=== PATIENT | female | born 1945 | race Caucasian/White ===

== ENCOUNTER → 2016-06-14 | Outpatient (CLI) | payer OTHER ==
[~2016-06-14] MED LIST: ASCO500T3 PO; ASPEC81 PO; ATOR-24 PO; B-COTAB18 PO; CHOLCAP5 PO; LATA0.5S OPL; LISI-461 PO; LISI-789 PO; LISI10TA PO; MELA1TAB18 PO; PLV75 PO; TIMO0.2534 OP; TIMO0.5S2 OP; TPRSR/100 PO; WHEAOIL4 PO; [UNRECOGNIZED DRUG - CODE] PO
[2016-06-14 14:41] LABS: ALT/SGPT 41 U/L (12-78); AST/SGOT 38 U/L (15-37); BLOOD UREA NITROGEN 22 mg/dl (7-18); BUN/CREATININE RATIO 28.2 (10-20); CARBON DIOXIDE 27 mmol/L (21-32); CHLORIDE 108 mmol/L (98-107); CREATININE 0.79 mg/dl (0.60-1.20); GLUCOSE 89 mg/dl (70-99); POTASSIUM 4.1 mmol/L (3.5-5.1); SODIUM 143 mmol/L (136-145)
[2016-06-14 14:43] LABS: ALB/GLOB RATIO 0.9 (0.9-2); ALKALINE PHOSPHATASE 77 U/L (45-117)
== END | disposition home or self-care (01) ==
LOC: C.LABBC 11:56
PROVIDERS: ATTEND Internal Medicine
DX: I10 Essential (primary) hypertension (principal)

== ENCOUNTER → 2016-12-05 | Outpatient (CLI) | payer OTHER ==
[2016-12-05 12:29] LABS: BASO % 0.2 %; BASO ABS # 0.01 K/uL (0-0.2); COMPLETE YES; EOS % 7.4 %; HEMATOCRIT 38.1 % (37-47); LYMPH % 37.8 %; MEAN CELL VOLUME 95.3 fL (80-100); MEAN CORPUSCULAR HEMOGLOBIN 30.5 pg (25-34); MEAN PLATELET VOLUME 11.5 fL (7.4-10.4); MONO % 11.3 %; NEUT % 43.3 %; PLATELET COUNT 209 K/uL (130-400); WHITE BLOOD COUNT 4.76 K/uL (4.8-10.8)
[2016-12-05 12:46] LABS: ALT/SGPT 34 U/L (12-78); BLOOD UREA NITROGEN 30 mg/dl (7-18); BUN/CREATININE RATIO 32.6 (10-20); CALCIUM 9.2 mg/dl (8.5-10.1); CARBON DIOXIDE 28 mmol/L (21-32); CHLORIDE 108 mmol/L (98-107); CHOLESTEROL 209 mg/dl (0-200); CREATININE 0.93 mg/dl (0.60-1.20); GLUCOSE 86 mg/dl (70-99); POTASSIUM 4.2 mmol/L (3.5-5.1); SODIUM 141 mmol/L (136-145); TRIGLYCERIDES 60 mg/dl (0-150); VERY LOW DENSITY LIPOPROT CALC 12 mg/dl
[2016-12-05 12:56] LABS: ALB/GLOB RATIO 0.9 (0.9-2); ALKALINE PHOSPHATASE 63 U/L (45-117); AST/SGOT 32 U/L (15-37); CHOLESTEROL/HDL RATIO 2.1; HDL CHOLESTEROL 98 mg/dl; LDL CHOLESTEROL CALCULATED 99 mg/dl
--- NOTE | 2016-12-09 13:43 | CODING QUERY MEDICAL NECESSITY ---
SUPPORTING DIAGNOSIS NEEDED A supporting diagnosis is required for the test/procedure performed on this patient in order for us to be reimbursed by the patient's insurance. Please provide a supporting diagnosis for the following test/procedure listed below next to the test name along with your signature. *If there is no additional diagnosis for this patient that would support the following test/procedure please document that below next to the test/procedure. Test(s)/Procedure(s) that require a supporting diagnosis: * VITAMIN D, 25-HYDROXY DIAGNOSIS: Provider Signature: Date: Thank you Ijeoma Arita [employer] Information Management Once completed, please kindly fax back to [phone] For questions please call [phone]
== END | disposition home or self-care (01) ==
LOC: C.LABBFT 09:29
PROVIDERS: ATTEND Internal Medicine
DX: E73.9 Lactose intolerance, unspecified (principal); M19.90 Unspecified osteoarthritis, unspecified site; Z13.21 Encounter for screening for nutritional disorder

== ENCOUNTER → 2017-02-01 | Outpatient (CLI) | payer OTHER ==
[2017-02-01 18:22] LABS: ALT/SGPT 35 U/L (12-78); AST/SGOT 32 U/L (15-37); BLOOD UREA NITROGEN 26 mg/dl (7-18); BUN/CREATININE RATIO 34.6 (10-20); CALCIUM 9.1 mg/dl (8.5-10.1); CARBON DIOXIDE 28 mmol/L (21-32); CHLORIDE 107 mmol/L (98-107); CREATININE 0.74 mg/dl (0.60-1.20); GLUCOSE 89 mg/dl (70-99); POTASSIUM 3.7 mmol/L (3.5-5.1); SODIUM 142 mmol/L (136-145)
[2017-02-01 18:24] LABS: ALB/GLOB RATIO 0.9 (0.9-2); ALKALINE PHOSPHATASE 73 U/L (45-117)
[2017-02-01 18:28] LABS: URINE APPEARANCE CLEAR (CLEAR); URINE BILIRUBIN NEG (NEG); URINE COLOR YELLOW; URINE EPITHELIAL CELL AUTO 0-5 /lpf (0-5); URINE NITRITE NEG (NEG); URINE PH 6.5 (4.5-7.5); URINE SPECIFIC GRAVITY 1.019 (1.000-1.030); UROBILINOGEN NEG (NEG)
[2017-02-01 18:51] LABS: MANUAL MICROSCOPIC REQUIRED? NO; REVIEW REQ? NO
== END | disposition home or self-care (01) ==
LOC: C.LABBC 12:31
PROVIDERS: ATTEND Internal Medicine
DX: I10 Essential (primary) hypertension (principal)

== ENCOUNTER 2017-02-06 11:34 | Inpatient (IN) | payer OTHER ==
[~2017-02-06] VITALS: Ht 157.5 cm; Wt 56.2 kg
[~2017-02-06 11:34] MED LIST changes: -ASPEC81 PO; -ATOR-24 PO; -LISI-461 PO; -LISI10TA PO; -PLV75 PO; -TIMO0.5S2 OP; -WHEAOIL4 PO
[2017-02-06] MEDS ORDERED: SODIUM CHLORIDE 0.9% 1000ML 1,000 ML IV STA ×2 (12:18→14:46)
[2017-02-06] MEDS ORDERED: ONDANSETRON INJ 2 MG/ML 2 ML VIAL IV STA (12:18)
[2017-02-06 12:36] LABS: BASO % 0.2 %; BASO ABS # 0.01 K/uL (0-0.2); COMPLETE YES; EOS % 3.6 %; HEMATOCRIT 36.9 % (37-47); LYMPH % 35.4 %; LYMPH ABS # 1.57 K/uL (1.2-3.4); MEAN CELL VOLUME 92.7 fL (80-100); MEAN CORPUSCULAR HEMOGLOBIN 31.4 pg (25-34); MEAN CORPUSCULAR HGB CONC 33.9 g/dl (32-36); MEAN PLATELET VOLUME 10.7 fL (7.4-10.4); MONO % 8.6 %; NEUT % 52.2 %; PLATELET COUNT 192 K/uL (130-400); RED BLOOD COUNT 3.98 M/uL (4.2-5.4); WHITE BLOOD COUNT 4.44 K/uL (4.8-10.8)
[2017-02-06] MEDS ORDERED: WHEAOIL4 PO (12:41)
[2017-02-06] MEDS ORDERED: TIMO0.5S2 OP (12:41)
[2017-02-06] MEDS ORDERED: LISI10TA PO (12:41)
[2017-02-06] MEDS ORDERED: LISI-461 PO (12:41)
[2017-02-06] MEDS ORDERED: OPTIRAY 320 IV PRN (12:45)
--- NOTE | 2017-02-06 12:49 | DIAGNOSTIC IMAGING REPORT ---
CHEST ONE VIEW PORTABLE CLINICAL HISTORY: CHEST PAIN dyspnea COMPARISON STUDY: 04/29/2013 FINDINGS: The bones soft tissues and hemidiaphragms are normal. The cardiomediastinal silhouette is normal. The lungs are clear. The pulmonary vasculature is normal. IMPRESSION: Negative chest. The above report was generated using voice recognition software. It may contain grammatical, syntax or spelling errors. Electronically signed by: Abilio Valladares M.D. 02/06/2017 12:48 PM Dictated Date/Time: 02/06/2017 12:48 PM
[2017-02-06 12:56] LABS: ALT/SGPT 30 U/L (12-78); AST/SGOT 29 U/L (15-37); BLOOD UREA NITROGEN 17 mg/dl (7-18); BUN/CREATININE RATIO 24.8 (10-20); CALCIUM 9.1 mg/dl (8.5-10.1); CARBON DIOXIDE 27 mmol/L (21-32); CHLORIDE 108 mmol/L (98-107); CREATININE 0.67 mg/dl (0.60-1.20); GLUCOSE 91 mg/dl (70-99); POTASSIUM 3.7 mmol/L (3.5-5.1); SODIUM 141 mmol/L (136-145)
[2017-02-06 13:02] LABS: ALKALINE PHOSPHATASE 58 U/L (45-117)
[2017-02-06 13:21] LABS: URINE APPEARANCE CLEAR (CLEAR); URINE BILIRUBIN NEG (NEG); URINE COLOR YELLOW; URINE EPITHELIAL CELL AUTO 0-5 /lpf (0-5); URINE NITRITE NEG (NEG); URINE SPECIFIC GRAVITY 1.014 (1.000-1.030); UROBILINOGEN NEG (NEG)
[2017-02-06 13:22] LABS: MANUAL MICROSCOPIC REQUIRED? NO; REVIEW REQ? NO
[2017-02-06] MEDS ORDERED: METOCLOPRAMIDE HCL INJ 5 MG/ML 2 ML VIAL IV STA (13:33)
[2017-02-06] MEDS ORDERED: HydrALAZINE HCL 20 MG/ML VIAL IV. STA (13:33)
[2017-02-06] MEDS ORDERED: DiphenhydrAMINE HCL 50 MG/ML VIAL IV STA (13:33)
--- NOTE | 2017-02-06 14:35 | DIAGNOSTIC IMAGING REPORT ---
ANGIOGRAPHY HEAD COMBO CLINICAL HISTORY: 71 years-old Female presenting with nausea, headache, dizziness, blood pressure elevated per patient, instructed to come in to the ER, history of subarachnoid hemorrhage. TECHNIQUE: Multidetector CT angiography of the head was performed after the administration of intravenous contrast. 3-D volumetric and/or maximum intensity projection (MIP) images were subsequently reconstructed for review. IV contrast: 119 mL of Optiray 320. A dose lowering technique was used consistent with the principles of ALARA (as low as reasonably achievable). COMPARISON: Noncontrast CT head from 07/03/2013. CT DOSE (mGy.cm): The estimated cumulative dose is 1079.48 mGy.cm. FINDINGS: Chief Hospital Administrator topogram: An aneurysm clip is noted. Noncontrast CT head demonstrates right frontal anatomy with postsurgical changes of an aneurysm clip in the region of the left internal carotid artery terminus. This is unchanged from prior exam. Where before a large acute hematoma was evident in the left frontal region in 2013, cystic encephalomalacia and gliosis are evident in the left frontotemporal region. Resulting ex vacuo dilatation of the frontal horn of the left lateral ventricle. No hydrocephalus. Old lacunar infarcts also noted in the left basal ganglia. No major vascular territory infarct or hemorrhage. No extra-axial collection. Paranasal sinuses and mastoid air cells clear. Postcontrast angiographic images demonstrate aneurysm clip in the region of the left carotid terminus. Anterior circulation including the intracranial portions of the bilateral internal carotid arteries, middle and anterior cerebral arteries and anterior to indicating artery patent. Posterior circulation demonstrates codominant vertebral arteries. Basilar artery and bilateral superior cerebellar and posterior cerebral arteries patent. Right posterior communicating artery hypoplastic or aplastic. Left posterior communicating artery widely patent. No evidence of an aneurysm, focal vessel occlusion, or stenosis. Dural venous sinuses and cortical veins patent. IMPRESSION: 1. No acute intracranial pathology. No hemorrhage. 2. Expected interval evolution of left frontotemporal parenchymal hematoma with cystic encephalomalacia and gliosis now evident. 3. Lacunar infarcts in the left basal ganglia. 4. No evidence of an aneurysm, focal vessel occlusion, or stenosis in the intracranial vasculature. 5. Postsurgical changes of aneurysm clip in the region of the left internal carotid artery terminus. Electronically signed by: Karsten Tabor M.D. 02/06/2017 2:34 PM Dictated Date/Time: 02/06/2017 2:22 PM
--- NOTE | 2017-02-06 14:37 | DIAGNOSTIC IMAGING REPORT ---
CT NECK ANGIO WITH CONTRAST CLINICAL HISTORY: Nausea, headache, dizziness, hypertension. COMPARISON STUDY: No previous studies for comparison. TECHNIQUE: CT angiography was performed from the aortic arch to the skull base. MIP imaging was performed. The patient was scanned in a dynamic helical fashion during intravenous administration of 119 cc of Optiray 320. A dose lowering technique was utilized adhering to the principles of ALARA. CT DOSE: Technique: CT angiogram of the carotid and vertebral arteries was obtained using intravenous contrast and 3-D reconstruction. NASCET criteria was utilized. Findings: The right internal carotid revealed no evidence of aneurysm and no evidence of dissection. There is no evidence of hemodynamic significant stenosis. The left internal carotid revealed no evidence of hemodynamic significant stenosis. There is no evidence of aneurysm. There is no evidence of dissection. There is linear eccentric plaque within the anteromedial aspect of the left common carotid artery. No dissection flap is visualized. Given the linear configuration of plaque, one cannot with certainty exclude an old thrombosed segmental dissection. There is a moderate stenosis involving the left external carotid margin. There is significant stenosis involving the right vertebral artery, just distal to its origin. This estimated to measure approximately 80%. 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 This results in a 40% diameter narrowing. IMPRESSION: 1. No evidence of hemodynamically significant internal carotid artery stenosis 2. Somewhat unusual eccentric linear plaque within the left common carotid. An old thrombosed dissection cannot be excluded 3. Stenosis involving the right vertebral artery just distal to its margin. This is estimated to measure 80% 4. 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 This results in a 40% diameter narrowing. Electronically signed by: Justin Pastor M.D. 02/06/2017 2:36 PM Dictated Date/Time: 02/06/2017 2:21 PM
--- NOTE | 2017-02-06 15:52 | EMERGENCY ROOM VISIT NOTE ---
History Report prepared by Navya: Mary Carr Under the Supervision of: Dr. Roman Griffiths M.D. First contact with patient: 12:06 Chief Complaint: REFERRED BY DOCTOR Stated Complaint: HBP, DIZZINESS, NASUEA,HEADACHE History of Present Illness The patient is a 71 year old female who presents to the Emergency Room with complaints of persistent weakness starting 2 weeks ago. She called her doctor and was told to come to the ED. She has been feeling dizzy, weak, and nauseous for the past 2 weeks. Last week, she went to have foot surgery and found that her blood pressure was in the 220s. She followed up with her doctor and her blood pressure medications were increased, but she has not had any improvement. Last week, she had some left leg pain which kept her up at night. She was laying in bed yesterday and felt like she was falling. She has not experienced this dizziness before. She also had a headache yesterday which she usually does not get. She has had cough and congestion for the past 2 weeks also. She denies any leg swelling, abdominal pain, fever, chills, chest pain, SOB, or vomiting. She currently does not feel dizzy, but does feel weak and nauseous. She has been able to eat. She denies any recent falls. She denies any previous abdominal surgeries. 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 Source of History: patient Onset: 2 weeks ago Position: other (global) Quality: other (weakness) Timing: other (persistent) Associated Symptoms: + headache, + cough, + nausea, No fevers, No chills, No chest pain, No SOB, No vomiting, No abdominal pain Note: Pt reports dizziness, congestion, leg pain, high blood pressure. Pt denies leg swelling. Review of Systems See HPI for pertinent positives and negatives. A total of ten systems were reviewed and were otherwise negative. Past Medical & Surgical Medical Problems: (1) Aneurysm (2) Hypertension (3) Infected cat bite of forearm (4) Weakness Family History No pertinent family history stated. Social History Smoking Status: Never Smoker Alcohol Use: none Housing Status: lives with family Current/Historical Medications Scheduled Ascorbic Acid (Vitamin C), 1,000 MG PO DAILY B-Complex Vitamins (Vitamin B Complex), 1 TABLET PO DAILY Cholecalciferol (Vitamin D3), 5,000 INTER.UNIT PO DAILY Lisinopril (Lisinopril), 20 MG PO QAM Lisinopril (Prinivil), 10 MG PO QPM Metoprolol Succinate (Metoprolol Succinate ER), 50 MG PO BID Timolol Maleate (Ophth) (Timoptic-Xe 0.5% Oph), 1 DROPS OP QAM Wheat Germ Oil (Wheat Germ), 1 CAP PO DAILY Scheduled PRN Melatonin (Melatonin Cr), 10 MG PO HS PRN for Sleep Allergies Coded Allergies: Vancomycin (Verified Allergy, Mild, HIVES, 02/06/17) pruritis Physical Exam Vital Signs Date Time Temp Pulse Resp B/P (MAP) Pulse Ox O2 Delivery O2 Flow Rate FiO2 02/06/17 14:48 54 16 162/85 96 Room Air NIBP 02/06/17 14:06 59 16 222/149 96 Room Air 02/06/17 13:04 51 16 214/106 99 Room Air 02/06/17 12:34 98 Room Air 02/06/17 12:04 50 02/06/17 11:57 49 16 202/82 96 Room Air 02/06/17 11:44 36.6 57 18 180/99 96 Room Air Physical Exam GENERAL: Awake, alert, fatigued-appearing, in no distress HENT: Normocephalic, atraumatic. Oropharynx unremarkable. Dry mucous membranes. EYES: Normal conjunctiva. Sclera non-icteric. NECK: Supple. No nuchal rigidity. FROM. No JVD. RESPIRATORY: Clear to auscultation. CARDIAC: Regular rate, normal rhythm. Extremities warm and well perfused. Pulses equal. ABDOMEN: Soft, non-distended. No tenderness to palpation. No rebound or guarding. No masses. RECTAL: Deferred. MUSCULOSKELETAL: Chest examination reveals no tenderness. The back is symmetrical on inspection without obvious abnormality. There is no CVA tenderness to palpation. No joint edema. LOWER EXTREMITIES: Calves are equal size bilaterally and non-tender. No edema. No discoloration. NEURO: Normal sensorium. No sensory or motor deficits noted. SKIN: No rash or jaundice noted. Medical Decision & Procedures ER Provider Diagnostic Interpretation: Radiology results as stated below per my review and radiologist interpretation: CHEST ONE VIEW PORTABLE CLINICAL HISTORY: CHEST PAIN dyspnea COMPARISON STUDY: 04/29/2013 FINDINGS: The bones soft tissues and hemidiaphragms are normal. The cardiomediastinal silhouette is normal. The lungs are clear. The pulmonary vasculature is normal. IMPRESSION: Negative chest. The above report was generated using voice recognition software. It may contain grammatical, syntax or spelling errors. Electronically signed by: Abilio Valladares M.D. 02/06/2017 12:48 PM Dictated Date/Time: 02/06/2017 12:48 PM ANGIOGRAPHY HEAD COMBO CLINICAL HISTORY: 71 years-old Female presenting with nausea, headache, dizziness, blood pressure elevated per patient, instructed to come in to the ER, history of subarachnoid hemorrhage. TECHNIQUE: Multidetector CT angiography of the head was performed after the administration of intravenous contrast. 3-D volumetric and/or maximum intensity projection (MIP) images were subsequently reconstructed for review. IV contrast: 119 mL of Optiray 320. A dose lowering technique was used consistent with the principles of ALARA (as low as reasonably achievable). COMPARISON: Noncontrast CT head from 07/03/2013. CT DOSE (mGy.cm): The estimated cumulative dose is 1079.48 mGy.cm. 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 Noncontrast CT head demonstrates right frontal anatomy with postsurgical changes of an aneurysm clip in the region of the left internal carotid artery terminus. This is unchanged from prior exam. Where before a large acute hematoma was evident in the left frontal region in 2013, cystic encephalomalacia and gliosis are evident in the left frontotemporal region. Resulting ex vacuo dilatation of the frontal horn of the left lateral ventricle. No hydrocephalus. Old lacunar infarcts also noted in the left basal ganglia. No major vascular territory infarct or hemorrhage. No extra-axial collection. Paranasal sinuses and mastoid air cells clear. Postcontrast angiographic images demonstrate aneurysm clip in the region of the left carotid terminus. Anterior circulation including the intracranial portions of the bilateral internal carotid arteries, middle and anterior cerebral arteries and anterior to indicating artery patent. Posterior circulation demonstrates codominant vertebral arteries. Basilar artery and bilateral superior cerebellar and posterior cerebral arteries patent. Right posterior communicating artery hypoplastic or aplastic. Left posterior communicating artery widely patent. No evidence of an aneurysm, focal vessel occlusion, or stenosis. Dural venous sinuses and cortical veins patent. IMPRESSION: 1. No acute intracranial pathology. No hemorrhage. 2. Expected interval evolution of left frontotemporal parenchymal hematoma with cystic encephalomalacia and gliosis now evident. 3. Lacunar infarcts in the left basal ganglia. 4. No evidence of an aneurysm, focal vessel occlusion, or stenosis in the intracranial vasculature. 5. Postsurgical changes of aneurysm clip in the region of the left internal carotid artery terminus. Electronically signed by: Karsten Tabor M.D. 02/06/2017 2:34 PM Dictated Date/Time: 02/06/2017 2:[address] NECK ANGIO WITH CONTRAST CLINICAL HISTORY: Nausea, headache, dizziness, hypertension. COMPARISON STUDY: No previous studies for comparison. TECHNIQUE: CT angiography was performed from the aortic arch to the skull base. MIP imaging was performed. The patient was scanned in a dynamic helical fashion during intravenous administration of 119 cc of Optiray 320. A dose lowering technique was utilized adhering to the principles of ALARA. CT DOSE: Technique: CT angiogram of the carotid and vertebral arteries was obtained using intravenous contrast and 3-D reconstruction. NASCET criteria was utilized. Findings: The right internal carotid revealed no evidence of aneurysm and no evidence of dissection. There is no evidence of hemodynamic significant stenosis. The left internal carotid revealed no evidence of hemodynamic significant stenosis. There is no evidence of aneurysm. There is no evidence of dissection. There is linear eccentric plaque within the anteromedial aspect of the left common carotid artery. No dissection flap is visualized. Given the linear configuration of plaque, one cannot with certainty exclude an old thrombosed segmental dissection. There is a moderate stenosis involving the left external carotid margin. There is significant stenosis involving the right vertebral artery, just distal to its origin. This estimated to measure approximately 80%. 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 This results in a 40% diameter narrowing. IMPRESSION: 1. No evidence of hemodynamically significant internal carotid artery stenosis 2. Somewhat unusual eccentric linear plaque within the left common carotid. An old thrombosed dissection cannot be excluded 3. Stenosis involving the right vertebral artery just distal to its margin. This is estimated to measure 80% 4. 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 This results in a 40% diameter narrowing. Electronically signed by: Justin Pastor M.D. 02/06/2017 2:36 PM Dictated Date/Time: 02/06/2017 2:21 PM Laboratory Results 02/06/17 12:20 Red Blood Count 3.98, Mean Corpuscular Volume 92.7, Mean Corpuscular Hemoglobin 31.4, Mean Corpuscular Hemoglobin Concent 33.9, Mean Platelet Volume 10.7, Neutrophils (%) (Auto) 52.2, Lymphocytes (%) (Auto) 35.4, Monocytes (%) (Auto) 8.6, Eosinophils (%) (Auto) 3.6, Basophils (%) (Auto) 0.2, Neutrophils # (Auto) 2.32, Lymphocytes # (Auto) 1.57, Monocytes # (Auto) 0.38, Eosinophils # (Auto) 0.16, Basophils # (Auto) 0.01 02/06/17 12:20 Test 02/06/17 12:20 02/06/17 13:04 White Blood Count 4.44 K/uL (4.8-10.8) Red Blood Count 3.98 M/uL (4.2-5.4) Hemoglobin 12.5 g/dL (12.0-16.0) Hematocrit 36.9 % (37-47) Mean Corpuscular Volume 92.7 fL (80-100) Mean Corpuscular Hemoglobin 31.4 pg (25-34) Mean Corpuscular Hemoglobin Concent 33.9 g/dl (32-36) Platelet Count 192 K/uL (130-400) Mean Platelet Volume 10.7 fL (7.4-10.4) Neutrophils (%) (Auto) 52.2 % Lymphocytes (%) (Auto) 35.4 % Monocytes (%) (Auto) 8.6 % Eosinophils (%) (Auto) 3.6 % Basophils (%) (Auto) 0.2 % Neutrophils # (Auto) 2.32 K/uL (1.4-6.5) Lymphocytes # (Auto) 1.57 K/uL (1.2-3.4) Monocytes # (Auto) 0.38 K/uL (0.11-0.59) Eosinophils # (Auto) 0.16 K/uL (0-0.5) Basophils # (Auto) 0.01 K/uL (0-0.2) RDW Standard Deviation 46.0 fL (36.4-46.3) RDW Coefficient of Variation 13.4 % (11.5-14.5) Immature Granulocyte % (Auto) 0.0 % Immature Granulocyte # (Auto) 0.00 K/uL (0.00-0.02) Prothrombin Time 10.7 SECONDS (9.0-12.0) Prothromb Time International Ratio 1.0 (0.9-1.1) Anion Gap 6.0 mmol/L (3-11) Est Creatinine Clear Calc Drug Dose 59.2 ml/min Estimated GFR () 101.1 Estimated GFR (Non- 87.2 BUN/Creatinine Ratio 24.8 (10-20) Calcium Level 9.1 mg/dl (8.5-10.1) Total Bilirubin 0.5 mg/dl (0.2-1) Direct Bilirubin 0.2 mg/dl (0-0.2) Aspartate Amino Transf (AST/SGOT) 29 U/L (15-37) Alanine Aminotransferase (ALT/SGPT) 30 U/L (12-78) Alkaline Phosphatase 58 U/L (45-117) Troponin I < 0.015 ng/ml (0-0.045) Total Protein 7.1 gm/dl (6.4-8.2) Albumin 3.4 gm/dl (3.4-5.0) Lipase 144 U/L (73-393) Urine Color YELLOW Urine Appearance CLEAR (CLEAR) Urine pH 5.0 (4.5-7.5) Urine Specific [place] 1.014 (1.000-1.030) Urine Protein NEG (NEG) Urine Glucose (UA) NEG (NEG) Urine Ketones NEG (NEG) Urine Occult Blood NEG (NEG) Urine Nitrite NEG (NEG) Urine Bilirubin NEG (NEG) Urine Urobilinogen NEG (NEG) Urine Leukocyte Esterase NEG (NEG) Urine WBC (Auto) 0 /hpf (0-5) Urine RBC (Auto) 0-4 /hpf (0-4) Urine Hyaline Casts (Auto) 0 /lpf (0-5) Urine Epithelial Cells (Auto) 0-5 /lpf (0-5) Urine Bacteria (Auto) NEG (NEG) Laboratory results reviewed by me Medications Administered Medications (Trade) Dose Ordered Sig/Dilcia Route Start Time Stop Time Status Last Admin Dose Admin Sodium Chloride 1,000 ml @ 999 mls/hr Q1H1M STAT IV 02/06/17 12:18 02/06/17 13:18 DC 02/06/17 12:18 999 MLS/HR Ondansetron HCl (Zofran Inj) 4 mg NOW STAT IV 02/06/17 12:18 02/06/17 12:21 DC 02/06/17 12:18 4 MG Hydralazine HCl (HydrALAZINE INJ) 10 mg NOW STAT IV. 02/06/17 13:33 02/06/17 13:34 DC 02/06/17 14:11 10 MG Metoclopramide HCl (Reglan Inj) 10 mg NOW STAT IV 02/06/17 13:33 02/06/17 13:34 DC 02/06/17 14:11 10 MG Diphenhydramine HCl (Benadryl Inj) 25 mg NOW STAT IV 02/06/17 13:33 02/06/17 13:34 DC 02/06/17 14:12 25 MG Sodium Chloride 1,000 ml @ 999 mls/hr Q1H1M STAT IV 02/06/17 14:46 02/06/17 15:46 DC 02/06/17 14:46 999 MLS/HR ECG Indication: weakness Rate (beats per minute): 52 Rhythm: sinus bradycardia (with sinus arrhythmia) Findings: no acute ischemic change, left axis deviation ED Course 1215: The patient was evaluated in room B10. A complete history and physical exam was performed. 1218: Zofran Inj 4 mg IV, NSS 1000 ml @ 999 mls/hr IV. 1333: Benadryl Inj 25 mg IV, Reglan Inj 10 mg IV, Hydralazine HCl 10 mg IV. 1446: NSS 1000 ml @ 999 mls/hr IV. 1448: Upon reexamination, the patient was resting comfortably. I discussed the test results and treatment plan with her. The patient will be evaluated for further management. 1459: I discussed the patient's case with Dr. Starr, [facility] hospitalist. The patient will be evaluated for further treatment and disposition. 1608: I discussed the patient's case with Dr. Knowles, [facility] neurology. She is aware of the patient. She recommends waiting for the MRI. If there is a stroke, treat with heparin. If there is no stroke, treat with aspirin and Plavix. Medical Decision I reviewed the patient's past medical history, medications, and the nursing notes as described above. Differential diagnosis: pneumonia, bronchitis, UTI, dehydration, electrolyte abnormality, gastritis, ACS. Patient is 71-year-old woman with a past medical history of hypertension, cerebral aneurysm status post clipping presents to emergency department with malaise fatigue and intermittent vertigo over the past couple of days history of present illness. Arrival the patient appears fatigued but in no acute distress, afebrile with stable vital signs. No nystagmus or vertigo on exam on arrival. Neurologically intact. NIHSS 0. CTA was done and showed the following findings: "Somewhat unusual eccentric linear plaque within the left common carotid. An old thrombosed dissection cannot be excluded.Stenosis involving the right vertebral artery just distal to its margin. This is estimated to measure 80%. 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 This results in a 40% diameter narrowing." Findings could explain the patients symptoms of vertigo. Moreover, associated embolic stroke also possible. Manual BP found to be more accurate with SBP 160 after hydralazine. With CVA still in DDX will allow BP <160. MRI ordered and pending. Neurology paged to advise on further management of of antiplatelet versus anticoagulation therapy. Case discussed with medicine hospitalist who admitted the patient for further management. Case d/w Dr. Knowles, [facility] neurology. She is aware of the patient. She recommends waiting for the MRI. If there is a stroke, treat with heparin. If there is no stroke, treat with aspirin and Plavix. MRI pending. Medication Reconcilliation Current Medication List: was personally reviewed by me Blood Pressure Screening Patient's blood pressure: Elevated blood pressure Referred to hospitalist. Consults Time Called: 1456 Consulting Physician: Dr. Starr [facility] hospitalist Returned Call: [phone] Discussed the patient's case. The patient will be evaluated for further treatment and disposition. Additional Consults: Time Called: 1456 Consulted Physician: Dr. Knowles [facility] neurology Returned Call: [phone] Additional Comments: I discussed the patient's case with her. She is aware of the patient. She recommends waiting for the MRI. If there is a stroke, treat with heparin. If there is no stroke, treat with aspirin and Plavix. Impression Primary Impression: Vertigo Additional Impression: Vertebral artery dissection Scribe Attestation The scribe's documentation has been prepared under my direction and personally reviewed by me in its entirety. I confirm that the note above accurately reflects all work, treatment, procedures, and medical decision making performed by me. Departure Information Dispostion Being Evaluated By Hospitalist Referrals Karsten Fung M.D. (PCP) Patient Instructions [facility] Problem Qualifiers
[2017-02-06] MEDS ORDERED: ALUMINUM/MAGNESIUM/SIMETH (MAALOX MAX) 30 ML UDC PO PRN (16:00)
[2017-02-06] MEDS ORDERED: POLYETHYLENE (MIRALAX) 17 GM PACK PO PRN (16:00)
[2017-02-06] MEDS ORDERED: PHARMACIST DISCHARGE MED REC CONSULT PRN (16:00)
[2017-02-06] MEDS ORDERED: ACETAMINOPHEN 325 MG TAB PO PRN (16:00)
[2017-02-06] MEDS ORDERED: ONDANSETRON INJ 2 MG/ML 2 ML VIAL IV PRN (16:00)
[2017-02-06] MEDS ORDERED: MAGNESIUM HYDROXIDE SUSP 30 ML UDC PO PRN (16:00)
[2017-02-06 16:18] VITALS: BP 162/85; PULSE 54; TEMP 36.6; O2SAT 96; Ht 157.5 cm; Wt 56.2 kg
--- NOTE | 2017-02-06 16:47 | History and Physical ---
History & Physical Date & Time of Service: Feb 06, 2017 at 16:19 Chief Complaint: Hbp, Dizziness, Nasuea,Headache Primary Care Physician: Karsten Fung M.D. History of Present Illness Source: patient, spouse, clinic records, hospital records This is a 71 y/o female with a history of ruptured brain aneurysm x 2 (1974, 2012), HTN, glaucoma, depression and insomnia who presented to the ED on 02/06 with dizziness, weakness and nausea x 2 weeks. The patient was supposed to have foot surgery in [place] last week to correct her hammertoes, but the surgery was canceled due to her SBP being in the 220s. She followed up with her PCP who increased her lisinopril. The patient states that she has had intermittent dizziness for the last few weeks. This often occurs even when laying down and is not associated with head movement or standing up. She has been having intermittent palpitations. She has also been feeling generally weak all over. She complains of intermittent nausea that is not associated with her meals or the dizziness, but she denies vomiting. She denies any vertigo, changes in vision, neck pain, one sided weakness, slurred speech and facial droop. She does admit to times of dysphasia, with the most recent episode being within the last month. The patient does state that she briefly developed some tingling in her left hand while in the ED, but this quickly resolved. The patient complains of a 5/10 headache located at the top of her head, which she states is unusual. She had a more severe headache yesterday as well, which is the first headache she had since her last aneurysm in 2012. The patient denies fevers, chills, sweats, chest pain, claudication, cough, wheezing , shortness of breath, vomiting, abdominal pain, dysuria, hematuria, urinary retention, and paralysis. Past Medical/Surgical History Medical Problems: (1) Brain aneurysm rupture in 1974, surgically clipped at [facility] [place]. Ruptured again 2012, fixed at [facility] Status: Chronic (2) Hypertension Status: Chronic (3) Infected cat bite of forearm Status: Resolved Glaucoma Depression Insomnia Social History Smoking Status: Former Smoker (quit about 40 years ago) Smokeless Tobacco Use: No Alcohol Use: none Drug Use: none Marital Status: Housing status: lives with significant other Occupational Status: retired Immunizations History of Influenza Vaccine: No History of Tetanus Vaccine?: Yes Tetanus Immunization Date: Mar 28, 2013 History of Pneumococcal: No History of Hepatitis B Vaccine: No Allergies Coded Allergies: Vancomycin (Verified Allergy, Mild, HIVES, 02/06/17) pruritis Home Medications Scheduled Ascorbic Acid (Vitamin C), 1,000 MG PO DAILY B-Complex Vitamins (Vitamin B Complex), 1 TABLET PO DAILY Cholecalciferol (Vitamin D3), 5,000 INTER.UNIT PO DAILY Lisinopril (Lisinopril), 20 MG PO QAM Lisinopril (Prinivil), 10 MG PO QPM Metoprolol Succinate (Metoprolol Succinate ER), 50 MG PO BID Timolol Maleate (Ophth) (Timoptic-Xe 0.5% Oph), 1 DROPS OP QAM Wheat Germ Oil (Wheat Germ), 1 CAP PO DAILY Scheduled PRN Melatonin (Melatonin Cr), 10 MG PO HS PRN for Sleep Review of Systems Constitutional: + weakness, No fever, No chills, No sweats Eyes: No worsening of vision, No eye pain, No diplopia ENT: No hearing loss, No sore throat, No trouble swallowing Respiratory: No cough, No wheezing, No shortness of breath Cardiovascular: + palpitations (intermittent), No chest pain, No claudication Abdomen: + nausea (intermittent), No pain, No vomiting Musculoskeletal: + muscle pain (left lower leg lateral aspect), No joint pain, No swelling Genitourinary - Female: No dysuria, No urinary retention, No hematuria Neurologic: + numbness/tingling (tingling left hand, resolved), No paralysis, No weakness Integumentary: No rash, No itch, No color change Physical Exam Vital Signs Date Time Temp Pulse Resp B/P (MAP) Pulse Ox O2 Delivery O2 Flow Rate FiO2 02/06/17 14:48 54 16 162/85 96 Room Air NIBP 02/06/17 14:06 59 16 222/149 96 Room Air 02/06/17 13:04 51 16 214/106 99 Room Air 02/06/17 12:34 98 Room Air 02/06/17 12:04 50 02/06/17 11:57 49 16 202/82 96 Room Air 02/06/17 11:44 36.6 57 18 180/99 96 Room Air General appearance: Well-developed, well-nourished, no apparent distress Head: Normocephalic, atraumatic Eyes: Normal inspection, PERRL, EOMI ENT: Normal ENT inspection, hearing grossly normal, pharynx normal Neck: Supple, no JVD, trachea midline Respiratory/Chest: Lungs clear to auscultation, normal breath sounds, no respiratory distress Cardiovascular: +Systolic murmur. Regular rate & rhythm, no gallop Abdomen/GI: Normal bowel sounds, non-tender, soft Extremities/Musculoskeletal: Normal inspection, no calf tenderness, no pedal edema Neurological/Psych: +No motor/sensory deficits. No facial droop or slurred speech. No pronator drift. Extremity strength 5/5 upper and lower bilaterally. Alert, normal mood/affect, oriented x 3 Skin: Normal color, warm/dry, no rash Diagnostics Laboratory Results Results Past 24 Hours Test 02/06/17 12:20 02/06/17 13:04 02/06/17 16:00 Range/Units White Blood Count 4.44 4.8-10.8 K/uL Red Blood Count 3.98 4.2-5.4 M/uL Hemoglobin 12.5 12.0-16.0 g/dL Hematocrit 36.9 37-47 % Mean Corpuscular Volume 92.7 80-100 fL Mean Corpuscular Hemoglobin 31.4 25-34 pg Mean Corpuscular Hemoglobin Concent 33.9 32-36 g/dl Platelet Count 192 130-400 K/uL Mean Platelet Volume 10.7 7.4-10.4 fL Neutrophils (%) (Auto) 52.2 % Lymphocytes (%) (Auto) 35.4 % Monocytes (%) (Auto) 8.6 % Eosinophils (%) (Auto) 3.6 % Basophils (%) (Auto) 0.2 % Neutrophils # (Auto) 2.32 1.4-6.5 K/uL Lymphocytes # (Auto) 1.57 1.2-3.4 K/uL Monocytes # (Auto) 0.38 0.11-0.59 K/uL Eosinophils # (Auto) 0.16 0-0.5 K/uL Basophils # (Auto) 0.01 0-0.2 K/uL RDW Standard Deviation 46.0 36.4-46.3 fL RDW Coefficient of Variation 13.4 11.5-14.5 % Immature Granulocyte % (Auto) 0.0 % Immature Granulocyte # (Auto) 0.00 0.00-0.02 K/uL Sodium Level 141 136-145 mmol/L Potassium Level 3.7 3.5-5.1 mmol/L Chloride Level 108 98-107 mmol/L Carbon Dioxide Level 27 21-32 mmol/L Anion Gap 6.0 3-11 mmol/L Blood Urea Nitrogen 17 7-18 mg/dl Creatinine 0.67 0.60-1.20 mg/dl Est Creatinine Clear Calc Drug Dose 59.2 ml/min Estimated GFR () 101.1 Estimated GFR (Non- 87.2 BUN/Creatinine Ratio 24.8 10-20 Random Glucose 91 70-99 mg/dl Calcium Level 9.1 8.5-10.1 mg/dl Total Bilirubin 0.5 0.2-1 mg/dl Direct Bilirubin 0.2 0-0.2 mg/dl Aspartate Amino Transf (AST/SGOT) 29 15-37 U/L Alanine Aminotransferase (ALT/SGPT) 30 12-78 U/L Alkaline Phosphatase 58 45-117 U/L Troponin I < 0.015 0-0.045 ng/ml Total Protein 7.1 6.4-8.2 gm/dl Albumin 3.4 3.4-5.0 gm/dl Lipase 144 73-393 U/L Urine Color YELLOW Urine Appearance CLEAR CLEAR Urine pH 5.0 4.5-7.5 Urine Specific [place] 1.014 1.000-1.030 Urine Protein NEG NEG Urine Glucose (UA) NEG NEG Urine Ketones NEG NEG Urine Occult Blood NEG NEG Urine Nitrite NEG NEG Urine Bilirubin NEG NEG Urine Urobilinogen NEG NEG Urine Leukocyte Esterase NEG NEG Urine WBC (Auto) 0 0-5 /hpf Urine RBC (Auto) 0-4 0-4 /hpf Urine Hyaline Casts (Auto) 0 0-5 /lpf Urine Epithelial Cells (Auto) 0-5 0-5 /lpf Urine Bacteria (Auto) NEG NEG Diagnostic Radiology Reviewed the following studies and agree with interpretation as follows: Patient Name: NATHALIA PHILLIPS Unit Number: [id number] Dictated: 02/06/178 Transcribed: 02/06/17 124 MS Printed Date/Time: [~ rep prt dt]/[~ rep prt tm] [~ rep ct labl] - [~ rep ct ivnm] [facility] [place] [address] Dictated: 02/06/17 1248 Transcribed: 02/06/17 1248 MS Printed Date/Time: [~ rep prt dt]/[~ rep prt tm] [~ rep ct labl] - [~ rep ct ivnm] Patient: NATHALIA PHILLIPS Address1: [address] [facility] Rec: [id number] Address2: Acct ID: [id number] [facility] Zip: [place] [address] Date: 1945 Sex: F Room/Bed: Ref Phy: Karsten Fung M.D. SC: REBECCA Att Phy: Report #: [id number] [place] Phy: Karsten Fung M.D. Test: CXR1P Admit Phy: A&P Technician: OTONIEL Interpreting Phy: Abilio Valladares M.D. Diagnosis: HBP, DIZZINESS, NASUEA, HEADACHE Ordering Phy: Roman Griffiths M.D. Service Date: 02/06/17 Admit Date: 02/06/17 MNE: PWRSCRIBE CONF: DICTATED BY: Abilio Valladares M.D.]] CC: Roman Griffiths M.D. Guillard, Paul, M.D. Endcc: [~ rep ct add3]] CHEST ONE VIEW PORTABLE CLINICAL HISTORY: CHEST PAIN dyspnea COMPARISON STUDY: 04/29/2013 FINDINGS: The bones soft tissues and hemidiaphragms are normal. The cardiomediastinal silhouette is normal. The lungs are clear. The pulmonary vasculature is normal. IMPRESSION: Negative chest. The above report was generated using voice recognition software. It may contain grammatical, syntax or spelling errors. Electronically signed by: Abilio Valladares M.D. 02/06/2017 12:48 PM Dictated Date/Time: 02/06/2017 12:48 PM The status of this report is Signed. Draft = Not yet reviewed or approved by Radiologist. Signed = Reviewed and approved by Radiologist. <AttendingPhy></AttendingPhy> <FamilyPhy>Karsten Fung M.D.</FamilyPhy> < PrimaryPhy>Karsten Fung M.D.</PrimaryPhy> <UnitNumber>[id number]</UnitNumber> <VisitNumber>[id number]</VisitNumber> <PatientName>NATHALIA PHILLIPS</PatientName> < DateOfBirth>1945</DateOfBirth> <Location>C.EDB</Location> <ServiceDate></ServiceDate> <MNE>ESINDI</MNE> <OrderingPhy>Roman Griffiths M.D.</ OrderingPhy> <OrderingPhyMNE>f rep ord dr sal</OrderingPhyMNE> <DictatingPhyMNE> f rep dict dr sal</DictatingPhyMNE> <CCListMNE>f rep ct mne</CCListMNE> < AdmittingPhyMNE>f pt admit dr sal</AdmittingPhyMNE> <AttendingPhyMNE>f pt attend dr sal</AttendingPhyMNE> <ConsultingPhyMNE>f pt consult dr sal</ConsultingPhyMNE> <FamilyPhyMNE>f pt fam dr sal</FamilyPhyMNE> <OtherPhyMNE>f pt other dr sal</OtherPhyMNE> < PrimaryPhyMNE>f pt prim care dr sal</PrimaryPhyMNE> <ReferringPhyMNE>f pt referring dr sal</ReferringPhyMNE> Patient Name: NATHALIA PHILLIPS Unit Number: [id number] Dictated: 02/06/171421 Transcribed: 02/06/171421 PBS Printed Date/Time: [~ rep prt dt]/[~ rep prt tm] [~ rep ct labl] - [~ rep ct ivnm] [facility] [place] [address] Dictated: 02/06/171421 Transcribed: 02/06/171421 PBS Printed Date/Time: [~ rep prt dt]/[~ rep prt tm] [~ rep ct labl] - [~ rep ct ivnm] Patient: NATHALIA PHILLIPS Address1: [address] [place] [address] Med Rec: [id number] Address2: Acct ID: [id number] [facility] Zip: [place] [address] Date: 1945 Sex: F Room/Bed: Ref Phy: Karsten Fung M.D. SC: REBECCA Att Phy: Report #: [id number] [place] Phy: Karsten Fung M.D. Test: HCA Admit Phy: A&P Technician: JOSE Interpreting Phy: Karsten Tabor MD Diagnosis: HBP, DIZZINESS, NASUEA, HEADACHE Ordering Phy: Roman Griffiths M.D. Service Date: 02/06/17 Admit Date: 02/06/17 MNE: PWRSCRIBE CONF: DICTATED BY: Karsten Tabor MD]] CC: Roman Griffiths M.D. Guillard, Paul, M.D. Endcc: [~ rep ct add3]] ANGIOGRAPHY HEAD COMBO CLINICAL HISTORY: 71 years-old Female presenting with nausea, headache, dizziness, blood pressure elevated per patient, instructed to come in to the ER, history of subarachnoid hemorrhage. TECHNIQUE: Multidetector CT angiography of the head was performed after the administration of intravenous contrast. 3-D volumetric and/or maximum intensity projection (MIP) images were subsequently reconstructed for review. IV contrast: 119 mL of Optiray 320. A dose lowering technique was used consistent with the principles of ALARA (as low as reasonably achievable). COMPARISON: Noncontrast CT head from 07/03/2013. CT DOSE (mGy.cm): The estimated cumulative dose is 1079.48 mGy.cm. FINDINGS: Drosophere Operator topogram: An aneurysm clip is noted. Noncontrast CT head demonstrates right frontal anatomy with postsurgical changes of an aneurysm clip in the region of the left internal carotid artery terminus. This is unchanged from prior exam. Where before a large acute hematoma was evident in the left frontal region in 2013, cystic encephalomalacia and gliosis are evident in the left frontotemporal region. Resulting ex vacuo dilatation of the frontal horn of the left lateral ventricle. No hydrocephalus. Old lacunar infarcts also noted in the left basal ganglia. No major vascular territory infarct or hemorrhage. No extra-axial collection. Paranasal sinuses and mastoid air cells clear. Postcontrast angiographic images demonstrate aneurysm clip in the region of the left carotid terminus. Anterior circulation including the intracranial portions of the bilateral internal carotid arteries, middle and anterior cerebral arteries and anterior to indicating artery patent. Posterior circulation demonstrates codominant vertebral arteries. Basilar artery and bilateral superior cerebellar and posterior cerebral arteries patent. Right posterior communicating artery hypoplastic or aplastic. Left posterior communicating artery widely patent. No evidence of an aneurysm, focal vessel occlusion, or stenosis. Dural venous sinuses and cortical veins patent. IMPRESSION: 1. No acute intracranial pathology. No hemorrhage. 2. Expected interval evolution of left frontotemporal parenchymal hematoma with cystic encephalomalacia and gliosis now evident. 3. Lacunar infarcts in the left basal ganglia. 4. No evidence of an aneurysm, focal vessel occlusion, or stenosis in the intracranial vasculature. 5. Postsurgical changes of aneurysm clip in the region of the left internal carotid artery terminus. Electronically signed by: Karsten Tabor M.D. 02/06/2017 2:34 PM Dictated Date/Time: 02/06/2017 2:22 PM The status of this report is Signed. Draft = Not yet reviewed or approved by Radiologist. Signed = Reviewed and approved by Radiologist. <AttendingPhy></AttendingPhy> <FamilyPhy>Karsten Fung M.D.</FamilyPhy> < PrimaryPhy>Karsten Fung M.D.</PrimaryPhy> <UnitNumber>[id number]</UnitNumber> <VisitNumber>[id number]</VisitNumber> <PatientName>NATHALIA PHILLIPS</PatientName> < DateOfBirth>1945</DateOfBirth> <Location>C.EDB</Location> <ServiceDate></ServiceDate> <MNE>ESINDI</MNE> <OrderingPhy>Roman Griffiths M.D.</ OrderingPhy> <OrderingPhyMNE>f rep ord dr sal</OrderingPhyMNE> <DictatingPhyMNE> f rep dict dr sal</DictatingPhyMNE> <CCListMNE>f rep ct juanitae</CCListMNE> < AdmittingPhyMNE>f pt admit dr sal</AdmittingPhyMNE> <AttendingPhyMNE>f pt attend dr sal</AttendingPhyMNE> <ConsultingPhyMNE>f pt consult dr sal</ConsultingPhyMNE> <FamilyPhyMNE>f pt fam dr sal</FamilyPhyMNE> <OtherPhyMNE>f pt other dr sal</OtherPhyMNE> < PrimaryPhyMNE>f pt prim care dr sal</PrimaryPhyMNE> <ReferringPhyMNE>f pt referring dr sal</ReferringPhyMNE> Patient Name: NATHALIA PHILLIPS Unit Number: [id number] Dictated: 02/06/171420 Transcribed: 02/06/171420 ARG Printed Date/Time: [~ rep prt dt]/[~ rep prt tm] [~ rep ct labl] - [~ rep ct ivnm] [facility] [place] [address] Dictated: 02/06/171420 Transcribed: 02/06/171420 ARG Printed Date/Time: [~ rep prt dt]/[~ rep prt tm] [~ rep ct labl] - [~ rep ct ivnm] Patient: NATHALIA PHILLIPS Address1: [address] [place] [address] Rec: [id number] Address2: Acct ID: [id number] [facility] Zip: [place] [address] Date: 1945 Sex: F Room/Bed: Ref Phy: Karsten Fung M.D. SC: REBECCA Att Phy: Report #: [id number] [facility] Phy: Karsten Fung M.D. Test: NCKAW Admit Phy: A&P Technician: [facility] Interpreting Phy: Justin Pastor M.D. Diagnosis: HBP, DIZZINESS, NASUEA, HEADACHE Ordering Phy: Roman Griffiths M.D. Service Date: 02/06/17 Admit Date: 02/06/17 MNE: PWRSCRIBE CONF: DICTATED BY: Justin Pastor M.D.]] CC: Roman Griffiths M.D. Guillard, Paul, M.D. Endcc: [~ rep ct add3]] CT NECK ANGIO WITH CONTRAST CLINICAL HISTORY: Nausea, headache, dizziness, hypertension. COMPARISON STUDY: No previous studies for comparison. TECHNIQUE: CT angiography was performed from the aortic arch to the skull base. MIP imaging was performed. The patient was scanned in a dynamic helical fashion during intravenous administration of 119 cc of Optiray 320. A dose lowering technique was utilized adhering to the principles of ALARA. CT DOSE: Technique: CT angiogram of the carotid and vertebral arteries was obtained using intravenous contrast and 3-D reconstruction. NASCET criteria was utilized. Findings: The right internal carotid revealed no evidence of aneurysm and no evidence of dissection. There is no evidence of hemodynamic significant stenosis. The left internal carotid revealed no evidence of hemodynamic significant stenosis. There is no evidence of aneurysm. There is no evidence of dissection. There is linear eccentric plaque within the anteromedial aspect of the left common carotid artery. No dissection flap is visualized. Given the linear configuration of plaque, one cannot with certainty exclude an old thrombosed segmental dissection. There is a moderate stenosis involving the left external carotid margin. There is significant stenosis involving the right vertebral artery, just distal to its origin. This estimated to measure approximately 80%. 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 This results in a 40% diameter narrowing. IMPRESSION: 1. No evidence of hemodynamically significant internal carotid artery stenosis 2. Somewhat unusual eccentric linear plaque within the left common carotid. An old thrombosed dissection cannot be excluded 3. Stenosis involving the right vertebral artery just distal to its margin. This is estimated to measure 80% 4. 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 This results in a 40% diameter narrowing. Electronically signed by: Justin Pastor M.D. 02/06/2017 2:36 PM Dictated Date/Time: 02/06/2017 2:21 PM The status of this report is Signed. Draft = Not yet reviewed or approved by Radiologist. Signed = Reviewed and approved by Radiologist. <AttendingPhy></AttendingPhy> <FamilyPhy>Karsten Fung M.D.</FamilyPhy> < PrimaryPhy>Karsten Fung M.D.</PrimaryPhy> <UnitNumber>[id number]</UnitNumber> <VisitNumber>[id number]</VisitNumber> <PatientName>ALAN,NATHALIA</PatientName> < DateOfBirth>1945</DateOfBirth> <Location>C.EDB</Location> <ServiceDate></ServiceDate> <MNE>ESINDI</MNE> <OrderingPhy>Roman Griffiths M.D.</ OrderingPhy> <OrderingPhyMNE>f rep ord dr sal</OrderingPhyMNE> <DictatingPhyMNE> f rep dict dr sal</DictatingPhyMNE> <CCListMNE>f rep ct mne</CCListMNE> < AdmittingPhyMNE>f pt admit dr sal</AdmittingPhyMNE> <AttendingPhyMNE>f pt attend dr sal</AttendingPhyMNE> <ConsultingPhyMNE>f pt consult dr sal</ConsultingPhyMNE> <FamilyPhyMNE>f pt fam dr sal</FamilyPhyMNE> <OtherPhyMNE>f pt other dr sal</OtherPhyMNE> < PrimaryPhyMNE>f pt prim care dr sal</PrimaryPhyMNE> <ReferringPhyMNE>f pt referring dr sal</ReferringPhyMNE> EKG Reviewed EKG and agree with interpretation as follows: 52 bpm, sinus bradycardia with sinus arrhythmia Impression Assessment and Plan 71 y/o female with a history of ruptured brain aneurysm x 2 (1974, 2012), HTN, glaucoma, depression and insomnia who presented to the ED on 02/06 with dizziness , weakness and nausea x 2 weeks. BP elevated in ED up to 222/149. Pt received hydralazine 10 mg IV x 1 and repeat BP improved to 162/85. CXR no acute disease. Head CTA no acute disease. Neck CTA shows 80% stenosis of right vertebral artery and focal dissection of left vertebral artery with 40% narrowing. Labs grossly unremarkable. Pt given 2L NSS boluses in ED in addition to the hydralazine and antiemetics. Vertebral artery stenosis and dissection -Admit to telemetry -Stroke protocol. Pt w/possible TIAs secondary to dissection and stenosis -Consult neurology, appreciate recs -Hold off on brain MRI for now. Pt had ruptured brain aneurysm in 1974 which was clipped. Unclear if clip is MRI compatible. Called MRI, and they are not certain unless specific documentation is provided -Start ASA 81 mg PO qd -Start atorvastatin 40 mg PO qd -Fasting lipid panel in am -HgbA1c -PT/OT evaluate and treat HTN emergency--BP improving with hydralazine -Cover with hydralazine 10 mg IV q6h prn SBP >180 -Continue lisinopril 20 mg PO qam and 10 mg PO qpm, metoprolol succinate 50 mg PO BID Left leg pain -Venous doppler LLE to r/o DVT Glaucoma -Continue timolol drops DVT prophylaxis -Enoxaparin 40 mg SC q24h -YANNI smith and JO ANNs Code Status -Level I, FULL RESUSCITATION STATUS I agree with PA assessment and plan and have seen and examined pt myself Resting comfortably in bed Noted accelerated HTN CTA - vertebral artery dissection Start on ASA at this time in addition to statin No neuro deficits on exam Consult neurology VTE Prophylaxis VTE Risk Assessment Done? Y/N: Yes Risk Level: Moderate
[2017-02-06 16:58] LABS: PROTHROMBIN TIME (PATIENT) 10.7 SECONDS (9.0-12.0)
[2017-02-06] MEDS ORDERED: HydrALAZINE HCL 20 MG/ML VIAL IV. PRN (17:00)
--- NOTE | 2017-02-06 17:12 | DIAGNOSTIC IMAGING REPORT ---
LEFT VENOUS DOPP LOWER EXT UNILAT CLINICAL HISTORY: 71 years-old Female presenting with leg pain, r/o DVT. TECHNIQUE: Real-time grayscale and color and spectral Doppler ultrasound imaging of the veins of the left lower extremity was performed. Compression and augmentation were also utilized. COMPARISON: None. FINDINGS: Left: Common femoral vein: Patent. Femoral vein: Patent. Greater saphenous vein: Patent. Popliteal vein: Patent. Calf veins: Patent. Other: None. IMPRESSION: No evidence of deep venous thrombosis. Electronically signed by: Karsten Tabor M.D. 02/06/2017 5:11 PM Dictated Date/Time: 02/06/2017 5:11 PM
[2017-02-06 18:50] VITALS: BP 190/104; PULSE 51; TEMP 36.6; O2SAT 96
[2017-02-06 19:45] VITALS: BP 202/82; PULSE 62; TEMP 36.8; O2SAT 97
[2017-02-06] MEDS: METOPROLOL SUCC 50MG EXT REL TAB PO SCH (19:59)
[2017-02-06 20:00] VITALS: PULSE 52
[2017-02-06 20:10] VITALS: O2SAT 96
[2017-02-06] MEDS: ENOXAPARIN 40 MG/0.4 ML SYR SC SCH (20:18)
[2017-02-06] MEDS ORDERED: LISINOPRIL 10 MG TAB PO SCH (21:00)
[2017-02-06 22:10] VITALS: BP 180/72; PULSE 60
[2017-02-07] VITALS (12 sets, daily range): BP systolic 136–184; BP diastolic 55–94; PULSE 51–57; TEMP 36.3–36.9; O2SAT 92–97
[2017-02-07 05:53] LABS: ESTIMATED AVERAGE GLUCOSE 103 mg/dl; HA1C FLAG Normal (Normal)
[2017-02-07 07:02] LABS: HEMATOCRIT 37.3 % (37-47); MEAN CELL VOLUME 93.7 fL (80-100); MEAN CORPUSCULAR HEMOGLOBIN 31.2 pg (25-34); MEAN CORPUSCULAR HGB CONC 33.2 g/dl (32-36); MEAN PLATELET VOLUME 10.9 fL (7.4-10.4); PLATELET COUNT 197 K/uL (130-400); RED BLOOD COUNT 3.98 M/uL (4.2-5.4); WHITE BLOOD COUNT 4.56 K/uL (4.8-10.8)
[2017-02-07 07:36] LABS: BUN/CREATININE RATIO 19.6 (10-20); CALCIUM 9.3 mg/dl (8.5-10.1); CREATININE 0.68 mg/dl (0.60-1.20); POTASSIUM 3.6 mmol/L (3.5-5.1)
[2017-02-07 07:39] LABS: CHOLESTEROL/HDL RATIO 2.7
[2017-02-07] MEDS: LISINOPRIL 20 MG TAB PO SCH (08:11)
[2017-02-07] MEDS: METOPROLOL SUCC 50MG EXT REL TAB PO SCH ×2 (08:12→20:29)
[2017-02-07] MEDS: ASCORBIC ACID 500 MG TAB PO SCH (08:12)
[2017-02-07] MEDS: TIMOLOL GFS 0.5% OPH SOLN 74 DROPS/5 ML BTL OP SCH (08:13)
[2017-02-07] MEDS: ASPIRIN 81 MG ECTAB PO SCH (08:15)
[2017-02-07] MEDS ORDERED: ATORVASTATIN 40 MG TAB PO SCH (09:00)
--- NOTE | 2017-02-07 09:15 | Neurology Consultation ---
Neurology Consultation Date of Consultation: Feb 07, 2017. Attending Physician: Heriberto Lay D.O. Primary Care Physician: Karsten Fung M.D. Reason for Consultation: Vertebral dissection and concern for possible TIA History of Present Illness Source: patient, clinic records, hospital records This is a 71-year-old female who presents with accelerated hypertension. Patient reports that earlier in the month she was supposed to get surgery for her hammer toes but was noted to have systolic blood pressure in the 200s. She followed up with her primary care and continue to have systolic blood pressure in 200s. Due to ongoing uncontrolled hypertension she was recommended to go to the emergency room. Patient does note for the Past couple weeks feeling generally weak, dizzy, nauseous. She denies any focal weakness. Denies any changes with her vision. Denies any trouble with her speech or swallowing. Denies any gait dysfunction. She had a brief episode of numbness distal to the elbow on the left for a few seconds when she was in the emergency room but otherwise no focal numbness or tingling. Patient does have a little bit of an eyelid droop on the left but she reports that this is old and has been there for years. She denies any neck pain. She does report occasional heart palpitations when she is lying down. She has had a headache for the last few days which is unusual. No chest pain or shortness of breath. No other new neurological symptoms. No history of strokes or TIA Patient does have some history for brain aneurysm clipping in 1974 and re- clipping in 2012. As such not able to get an MRI of the brain secondary to not knowing material can go through MRI CTA of the head and neck was reviewed. CT of the head was unremarkable. 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 No tobacco. No alcohol. No illegal drug use. (Of note her , Blaine, is also a patient of mine) Smoking Status: Former smoker Smokeless Tobacco Use: No Alcohol Use: none Drug Use: none Marital Status: Housing Status: lives with family Occupation Status: retired Allergies Coded Allergies: Vancomycin (Verified Allergy, Mild, HIVES, 02/06/17) pruritis Current Inpatient Medications Current Inpatient Medications Medications (Trade) Dose Ordered Sig/Dilcia Route Start Time Stop Time Status Last Admin Dose Admin Ioversol (Optiray 320) 125 ml UD PRN IV 02/06/17 12:45 02/10/17 12:44 Enoxaparin Sodium (Lovenox Inj) 40 mg HS SC 02/06/17 21:00 03/08/17 20:59 02/06/17 20:18 40 MG Acetaminophen (Tylenol Tab) 650 mg Q4H PRN PO 02/06/17 16:00 03/08/17 15:59 Al Hydrox/Mg Hydrox/Simethicone (Maalox Max Susp) 15 ml Q4H PRN PO 02/06/17 16:00 03/08/17 15:59 Magnesium Hydroxide (Milk Of Magnesia Susp) 30 ml Q12H PRN PO 02/06/17 16:00 03/08/17 15:59 Ondansetron HCl (Zofran Inj) 4 mg Q6H PRN IV 02/06/17 16:00 03/08/17 15:59 Polyethylene (Miralax Powder Packet) 17 gm DAILY PRN PO 02/06/17 16:00 03/08/17 15:59 Aspirin (Ecotrin Tab) 81 mg QAM PO 02/07/17 09:00 03/09/17 08:59 02/07/17 08:15 81 MG Miscellaneous Information (Pharmacist Discharge Med Rec Consult) 1 ea UD PRN N/A 02/06/17 16:00 03/08/17 15:59 Ascorbic Acid (Vitamin C Tab) 1,000 mg DAILY PO 02/07/17 09:00 03/09/17 08:59 02/07/17 08:12 1,000 MG Lisinopril (Zestril Tab) 20 mg QAM PO 02/07/17 09:00 03/09/17 08:59 02/07/17 08:11 20 MG Lisinopril (Zestril Tab) 10 mg QPM PO 02/06/17 21:00 03/08/17 20:59 02/06/17 19:45 10 MG Timolol Maleate (Timoptic-Xe 0.5% Oph Soln) 1 drops QAM OP 02/07/17 09:00 03/09/17 08:59 02/07/17 08:13 1 DROPS Metoprolol Succinate (Toprol Xl Tab) 50 mg BID PO 02/06/17 21:00 03/08/17 20:59 02/07/17 08:12 50 MG Hydralazine HCl (HydrALAZINE INJ) 10 mg Q6H PRN IV. 02/06/17 17:00 03/08/17 16:59 Atorvastatin Calcium (Lipitor Tab) 80 mg QAM PO 02/08/17 09:00 03/10/17 08:59 Review of Systems Complete review of systems otherwise negative except for the above noted in history of present illness Physical Exam Vital Signs (Past 24 Hrs): Date Time Temp Pulse Resp B/P (MAP) Pulse Ox O2 Delivery O2 Flow Rate FiO2 02/07/17 07:50 36.6 57 16 184/91 (122) 94 Room Air 168/84 (112) 02/07/17 04:00 36.7 54 16 164/68 (100) 95 Room Air 02/07/17 04:00 Room Air 02/07/17 00:00 Room Air 02/07/17 00:00 36.3 51 16 177/94 (121) 96 Room Air 02/06/17 22:10 60 18 180/72 (108) 02/06/17 20:10 96 Room Air 02/06/17 20:00 52 02/06/17 19:45 36.8 62 20 202/82 (122) 97 Room Air 02/06/17 18:50 36.6 51 20 190/104 (132) 96 Room Air 02/06/17 16:56 88 16 180/72 98 Room Air 02/06/17 16:22 51 02/06/17 16:18 36.6 54 16 162/85 96 Room Air 02/06/17 14:48 54 16 162/85 96 Room Air NIBP 02/06/17 14:06 59 16 222/149 96 Room Air 02/06/17 13:04 51 16 214/106 99 Room Air 02/06/17 12:34 98 Room Air 02/06/17 12:04 50 02/06/17 11:57 49 16 202/82 96 Room Air 02/06/17 11:44 36.6 57 18 180/99 96 Room Air Gen.: Patient is alert and sitting in bed, in no acute distress. HEENT: Normocephalic /atraumatic, no scleral icterus Heart: Regular rate and rhythm Extremities: No gross deformities or rashes noted Neurological examination: Mental status: Patient is alert and oriented x3. Attention and concentration normal for the situation. Good fund of knowledge. Able to give her own history. Speech is fluent without any dysarthria or aphasia noted Cranial nerve: Funduscopic examination was not well visualized. No papilledema. Pupils equally round and reactive to light. Extraocular muscles intact without nystagmus. No facial asymmetry noted with the exception of a mild left eyelid droop which the patient reports is old. Facial sensation intact. Tongue is midline. Good palatal elevation. Good shoulder shrug bilaterally. Hearing grossly intact to voice. Strength: 5/5 both proximal and distally in all extremities. There is no arm drift. Tone is normal. Sensation: Grossly intact to light touch in all extremities. Deep tendon reflexes: +1 in bilateral biceps, brachioradialis and patellar. Toes were downgoing to plantar stimulation Coordination: Patient had good finger to nose without dysmetria Station within the bed was normal Laboratory Results Past 24 Hours: 02/07/17 06:43 02/07/17 06:43 Test 02/06/17 12:20 02/06/17 13:04 02/07/17 06:43 Immature Granulocyte % (Auto) 0.0 % White Blood Count 4.44 K/uL (4.8-10.8) Red Blood Count 3.98 M/uL (4.2-5.4) 3.98 M/uL (4.2-5.4) Hemoglobin 12.5 g/dL (12.0-16.0) Hematocrit 36.9 % (37-47) Mean Corpuscular Volume 92.7 fL (80-100) 93.7 fL (80-100) Mean Corpuscular Hemoglobin 31.4 pg (25-34) 31.2 pg (25-34) Mean Corpuscular Hemoglobin Concent 33.9 g/dl (32-36) 33.2 g/dl (32-36) Platelet Count 192 K/uL (130-400) Mean Platelet Volume 10.7 fL (7.4-10.4) 10.9 fL (7.4-10.4) Neutrophils (%) (Auto) 52.2 % Lymphocytes (%) (Auto) 35.4 % Monocytes (%) (Auto) 8.6 % Eosinophils (%) (Auto) 3.6 % Basophils (%) (Auto) 0.2 % Neutrophils # (Auto) 2.32 K/uL (1.4-6.5) Lymphocytes # (Auto) 1.57 K/uL (1.2-3.4) Monocytes # (Auto) 0.38 K/uL (0.11-0.59) Eosinophils # (Auto) 0.16 K/uL (0-0.5) Basophils # (Auto) 0.01 K/uL (0-0.2) Immature Granulocyte # (Auto) 0.00 K/uL (0.00-0.02) Prothrombin Time 10.7 SECONDS (9.0-12.0) Prothromb Time International Ratio 1.0 (0.9-1.1) Estimated Average Glucose 103 mg/dl Hemoglobin A1c 5.2 % (4.5-5.6) Total Bilirubin 0.5 mg/dl (0.2-1) Direct Bilirubin 0.2 mg/dl (0-0.2) Aspartate Amino Transf (AST/SGOT) 29 U/L (15-37) Alanine Aminotransferase (ALT/SGPT) 30 U/L (12-78) Alkaline Phosphatase 58 U/L (45-117) Troponin I < 0.015 ng/ml (0-0.045) Total Protein 7.1 gm/dl (6.4-8.2) Albumin 3.4 gm/dl (3.4-5.0) Lipase 144 U/L (73-393) Urine Color YELLOW Urine Appearance CLEAR (CLEAR) Urine pH 5.0 (4.5-7.5) Urine Specific [place] 1.014 (1.000-1.030) Urine Protein NEG (NEG) Urine Glucose (UA) NEG (NEG) Urine Ketones NEG (NEG) Urine Occult Blood NEG (NEG) Urine Nitrite NEG (NEG) Urine Bilirubin NEG (NEG) Urine Urobilinogen NEG (NEG) Urine Leukocyte Esterase NEG (NEG) Urine WBC (Auto) 0 /hpf (0-5) Urine RBC (Auto) 0-4 /hpf (0-4) Urine Hyaline Casts (Auto) 0 /lpf (0-5) Urine Epithelial Cells (Auto) 0-5 /lpf (0-5) Urine Bacteria (Auto) NEG (NEG) RDW Standard Deviation 45.7 fL (36.4-46.3) RDW Coefficient of Variation 13.3 % (11.5-14.5) Anion Gap 5.0 mmol/L (3-11) Est Creatinine Clear Calc Drug Dose 58.3 ml/min Estimated GFR () 100.6 Estimated GFR (Non- 86.8 BUN/Creatinine Ratio 19.6 (10-20) Calcium Level 9.3 mg/dl (8.5-10.1) Triglycerides Level 107 mg/dl (0-150) Cholesterol Level 221 mg/dl (0-200) HDL Cholesterol 82 mg/dl LDL Cholesterol, Calculated 118 mg/dl VLDL Cholesterol, Calculated 21 mg/dl Cholesterol/HDL Ratio 2.7 Imaging CTA of the head and neck report and images were reviewed by myself as noted above in history of present illness Impression This is a 71-year-old female who presented with nonspecific symptoms of generalized weakness, dizziness, nausea for the last several weeks likely secondary to accelerated hypertension. Uncertain of significant of a few seconds of left arm numbness reported in the ER. Otherwise no focal findings highly concerning for stroke or TIA at this time. Patient does have acute focal dissection of the left vertebral at C4/C5 with associated 40% stenosis which does put her at high risk for large vessel embolic stroke. In addition also has 80% stenosis of the right vertebral. Considering that her dizziness seemed to get worse when she was laying down, I think this is more associated with accelerated hypertension rather than vascular causes, as one would expect if dizziness was secondary to vertebral insufficiency, dizziness would be worse when standing. Plan Agree with initiation of aspirin 81 mg daily. Recommend Plavix 75 mg daily with aspirin for treatment of vertebral dissection of the left vertebral and critical stenosis of the right vertebral. Discussed with the patient that I would recommend dual antiplatelet treatment for the next 6 months or until the vertebral artery dissection has healed. At that time we could consider discontinuation of aspirin and continue Plavix ( since patient still has evidence of atherosclerotic vertebral stenosis). I agree with initiation of statin medication based off of cholesterol numbers and signs of atherosclerotic disease on CTA. Treatment of accelerated hypertension per hospitalist team. Maintaining a normotensive blood pressure will be important for allowing her arterial dissection to heal. As an outpatient, vascular risk factor modification recommendations: Blood pressure recommendations 130/80-110/70 Total cholesterol goal 100- 200 and LDL goal less than 100 Hemoglobin A1c goal less than 7 Encourage cardiovascular exercise at least 3 times a week for 30 minutes. Follow-up in neurology clinic in 1-2 month for hospital follow-up. If the patient continues to experience heart palpitations, would consider Holter monitor as an outpatient for further evaluation to rule out arrhythmias. If dissection does not heal in 6 months, may need a vascular surgery evaluation. Could consider vascular surgery evaluation for critical stenosis of 80% of the right vertebral, but at this time I do not think that they would perform any procedure, so would only recommend a vascular surgery evaluation if she seems to be symptomatic due to vertebral stenosis. Thank you for allowing me to participate in this patient's care. If there is any questions or concerns, feel free to call/page me.
--- NOTE | 2017-02-07 11:54 | Surgery Consultation ---
Consultation Date of Service Feb 07, 2017. (Zenaida Suero, ALONZO) Chief Complaint vertebral art dissection (Zenaida Suero PA-C) History of Present Illness The patient is a 71 year old female with hx of poorly controlled HTN, brain aneurysms x2 s/p clipping, admitted with accelerated HTN and dizziness, seen in consultation today for vertebral art dissection noted on CTA. Pt notes that for past few weeks she has been feeling generally tired and slightly weaker than usual. Also having mild dizziness and BOND. Was concerned d/t previous hx of brain aneurysms. States feeling much improved today. Denies BOND, fever, chills, recent illness, abd pain, N/V, chest pain, SOB, palpitations, claudication, rest pain, other complaints. CTA demonstrates small focal dissection of vertebral art and 80% stenosis of other vertebral. (Zenaida Suero, ALONZO) Vitals Vital Signs Past 12 Hours Date Time Temp Pulse Resp B/P (MAP) Pulse Ox O2 Delivery O2 Flow Rate FiO2 02/07/17 11:28 36.7 53 18 182/72 (108) 92 Room Air 02/07/17 08:00 94 Room Air 02/07/17 07:50 36.6 57 16 184/91 (122) 94 Room Air 168/84 (112) 02/07/17 04:00 36.7 54 16 164/68 (100) 95 Room Air 02/07/17 04:00 Room Air 02/07/17 00:00 Room Air 02/07/17 00:00 36.3 51 16 177/94 (121) 96 Room Air (Zenaida Suero, ALONZO) Allergies Coded Allergies: Vancomycin (Verified Allergy, Mild, HIVES, 02/06/17) pruritis Home Medications Scheduled Ascorbic Acid (Vitamin C), 1,000 MG PO DAILY Aspirin (Aspirin EC Low Dose), 81 MG PO QAM B-Complex Vitamins (Vitamin B Complex), 1 TABLET PO DAILY Cholecalciferol (Vitamin D3), 5,000 INTER.UNIT PO DAILY Clopidogrel Bisulfate (Clopidogrel), 75 MG PO QAM Lisinopril (Prinivil), 10 MG PO QPM Lisinopril (Lisinopril), 20 MG PO BID Metoprolol Succinate (Metoprolol Succinate ER), 50 MG PO BID Timolol Maleate (Ophth) (Timoptic-Xe 0.5% Oph), 1 DROPS OP QAM Wheat Germ Oil (Wheat Germ), 1 CAP PO DAILY Scheduled PRN Melatonin (Melatonin Cr), 10 MG PO HS PRN for Sleep Problem List Medical Problems: (1) Aneurysm (2) Hypertension (3) Infected cat bite of forearm (4) Weakness (Zenaida Suero, DARCIEC) Surgical / Medical History Hx Cardiac Surgery: No Hx Abdominal Surgery: Yes (1984 abdominal tumor, 1972-tumor rt breast) Hx Cancer Surgery: No Hx Thoracic Surgery: No Hx Orthopedic: Yes (2010 left 2nd toe removal) Hx Urinary Tract Surgery: No HX Other Surgery: Yes (carpel tunnel, aneurysm repair with clips) Past Medical/Surgical History: Hypertension (Zenaida Suero, DARCIEC) Family History + HTN, CAD (Zenaida Suero, DARCIEC) Social History Smoking Status: Former Smoker (quit about 40 years ago) Hx Tobacco Use In Past Year?: No Hx Alcohol Use - Type & Amnt: No Hx Substance Use -Type & Amnt: No (Zenaida Suero, DARCIEC) Review of Systems Constitutional: No chills, No fever, No malaise Skin: No change in color Eyes: No visual changes ENMT: No sore throat Respiratory: No cough, No PEREIRA, No orthopnea, No short of breath Cardiovascular: No chest pain, No palpitations, No edema, No intermittent claudication Gastrointestinal: No abdominal pain, No nausea, No vomiting Genitourinary - Female: No dysuria, No hematuria Neurologic: + dizziness (resolved), + weakness (resolved), + headache (resolved ), No numbness, No tingling (Zenaida Suero, PA-C) Physical Exam Constitutional: General Apperance: heathly-appearing, well-nourished, well-developed Level of Distress: NAD Ambulation: ambulating normally Psychiatric: Mental Status: active & alert, normal mood, normal affect Orientation: oriented except where noted, to time, to place, to person Memory: recent memory normal, remote memory normal Head: normocephalic, atraumatic Eyes: EOM: EOMI ENMT: normal ENT inspection, hearing grossly normal Neck: supple, trachea midline Lungs: Respiratory effort: no dyspnea Auscultation: no rales/crackles, no rhonchi Cardiovascular: Apical Impulse: not displaced Heart Auscultation: RRR, no rubs, no gallops Peripheral Pulses: Pulses: full and equal, in all extremities except if noted Bruits: none appreciated Carotid Pulse: normal on the left, normal on the right Brachial Pulses: normal on the left, normal on the right Radial Pulse: normal on the left, normal on the right Femoral Pulse: normal on the left, normal on the right Posterior Tibialis Pulse: decreased on the left, decreased on the right Dorsalis Pedis Pulse: decreased on the left, decreased on the right Abdomen: Bowel Sounds: normal Inspection & Palpation: soft, non-distended, no tenderness, guarding & rebound Musculoskeletal: normal strength (5/5 throughout), normal tone Extremities: Upper Right: no cyanosis, no edema, no varicosities Upper Left: no cyanosis, no edema, no varicosities Lower Right: no cyanosis, no edema, no varicosities Lower Left: no cyanosis, no edema, no varicosities Neurologic: Cranial Nerves: grossly intact Sensation: grossly intact Additional Comments: no focal deficits (Zenaida Suero, KIM-C) Assessment and Plan ASSESSMENT and PLAN: vertebral art dissection/stenosis Accelerated HTN CTA reviewed by Dr Thomas. Pt sx appear improved with better HTN control. No indications for vascular surgical intervention at this time. Agree with neurology recommendations. Please call if needed. Pt and aware. (Zenaida Suero, PA-C) Patient was seen, examined, and chart reviewed. Agree with exam and treatment plan of the Vascular PA. (Didier Thomas M.D.)
[2017-02-07] MEDS ORDERED: CLOPIDOGREL BISULFATE 75 MG TAB PO ONE (15:00)
--- NOTE | 2017-02-07 15:09 | Progress Note ---
Subjective Date of Service: Feb 07, 2017. Problem List Medical Problems: (1) Vertebral artery dissection Status: Acute (2) Vertigo Status: Acute Objective Vital Signs Date Time Temp Pulse Resp B/P (MAP) Pulse Ox O2 Delivery O2 Flow Rate FiO2 02/07/17 12:00 92 Room Air 02/07/17 11:28 36.7 53 18 182/72 (108) 92 Room Air 02/07/17 08:00 94 Room Air 02/07/17 07:50 36.6 57 16 184/91 (122) 94 Room Air 168/84 (112) 02/07/17 04:00 36.7 54 16 164/68 (100) 95 Room Air 02/07/17 04:00 Room Air 02/07/17 00:00 Room Air 02/07/17 00:00 36.3 51 16 177/94 (121) 96 Room Air 02/06/17 22:10 60 18 180/72 (108) 02/06/17 20:10 96 Room Air 02/06/17 20:00 52 02/06/17 19:45 36.8 62 20 202/82 (122) 97 Room Air 02/06/17 18:50 36.6 51 20 190/104 (132) 96 Room Air 02/06/17 16:56 88 16 180/72 98 Room Air 02/06/17 16:22 51 02/06/17 16:18 36.6 54 16 162/85 96 Room Air Laboratory Results Last 24 Hours Test 02/07/17 06:43 White Blood Count 4.56 K/uL Red Blood Count 3.98 M/uL Hemoglobin 12.4 g/dL Hematocrit 37.3 % Mean Corpuscular Volume 93.7 fL Mean Corpuscular Hemoglobin 31.2 pg Mean Corpuscular Hemoglobin Concent 33.2 g/dl RDW Standard Deviation 45.7 fL RDW Coefficient of Variation 13.3 % Platelet Count 197 K/uL Mean Platelet Volume 10.9 fL Sodium Level 141 mmol/L Potassium Level 3.6 mmol/L Chloride Level 107 mmol/L Carbon Dioxide Level 29 mmol/L Anion Gap 5.0 mmol/L Blood Urea Nitrogen 13 mg/dl Creatinine 0.68 mg/dl Est Creatinine Clear Calc Drug Dose 58.3 ml/min Estimated GFR () 100.6 Estimated GFR (Non- 86.8 BUN/Creatinine Ratio 19.6 Random Glucose 86 mg/dl Calcium Level 9.3 mg/dl Triglycerides Level 107 mg/dl Cholesterol Level 221 mg/dl HDL Cholesterol 82 mg/dl LDL Cholesterol, Calculated 118 mg/dl VLDL Cholesterol, Calculated 21 mg/dl Cholesterol/HDL Ratio 2.7 Assessment and Plan 71 y/o female with a history of ruptured brain aneurysm x 2 (1974, 2012), presents with hypertensive emergency and on CTA found to have left vertebral dissection, BP elevated in ED up to 222/149. Vertebral artery stenosis and dissection, pt seen by both neurology and vascular surgery, no intervention planned dual antiplatelet therapy will be for 6 months and if dissection not healed will re refer to vascular surgery -Start ASA 81 mg PO qd in addition to plavix -Start atorvastatin 40 mg PO qd HTN emergency--BP improving with hydralazine -Cover with hydralazine 10 mg IV q6h prn SBP >180 increase lisinopril 20 mg bid, continue metoprolol succinate 50 mg PO BID consider adding HCTZ Left leg pain -Venous doppler LLE negative for DVT Glaucoma timolol drops DVT prophylaxis-Enoxaparin 40 mg SC q24h -Level I, FULL RESUSCITATION STATUS
[2017-02-07] MEDS: ENOXAPARIN 40 MG/0.4 ML SYR SC SCH (20:30)
[2017-02-07] MEDS ORDERED: LISINOPRIL 20 MG TAB PO SCH (21:00)
[2017-02-08] VITALS (7 sets, daily range): BP systolic 114–149; BP diastolic 64–79; PULSE 52–57; TEMP 36.5–36.7; O2SAT 92–97
[2017-02-08 05:47] LABS: HEMATOCRIT 37.2 % (37-47); MEAN CELL VOLUME 92.1 fL (80-100); MEAN CORPUSCULAR HEMOGLOBIN 31.2 pg (25-34); MEAN CORPUSCULAR HGB CONC 33.9 g/dl (32-36); MEAN PLATELET VOLUME 11.2 fL (7.4-10.4); PLATELET COUNT 185 K/uL (130-400); RED BLOOD COUNT 4.04 M/uL (4.2-5.4)
[2017-02-08 06:18] LABS: BUN/CREATININE RATIO 31.2 (10-20); CREATININE 0.78 mg/dl (0.60-1.20)
[2017-02-08 06:19] LABS: CALCIUM 9.2 mg/dl (8.5-10.1); POTASSIUM 3.8 mmol/L (3.5-5.1)
[2017-02-08] MEDS ORDERED: PLV75 PO (08:05)
[2017-02-08] MEDS ORDERED: ASPEC81 PO (08:05)
[2017-02-08] MEDS ORDERED: LISI-461 PO (08:05)
--- NOTE | 2017-02-08 08:06 | Discharge Instructions ---
Discharge Instructions Date of Service Feb 08, 2017. Admission Reason for Admission: Weakness Discharge Discharge Diagnosis / Problem: vertebral artery dissection Discharge Goals Goal(s): Diagnostic testing, Therapeutic intervention Activity Recommendations Activity Limitations: resume your previous activity . Instructions / Follow-Up Instructions / Follow-Up Risk Factors for Stroke: You can reduce your chances of stroke by working with your medical provider to adopt a healthy lifestyle. Some specific ways to lower your chance of stroke are: * If you are a smoker, now is the time to stop smoking cigarettes * If you are diabetic, improve the control of your blood sugars * Avoid excessive amounts of alcohol * Control high blood pressure * Lose weight if you are overweight * Be sure to lead an active lifestyle * Eat a healthy diet low in salt, cholesterol and fat You should know about other risk factors for stroke that you are unable to control. These include: * Age 55 years or older * Male gender * Certain racial groups: , or / * Family History of Stroke, Mini stroke or Heart Attack * Sickle Cell Disease Follow Up: It is important for you to keep your follow up appointments with your medical provider. Current Hospital Diet Patient's current hospital diet: AHA Diet (Heart Healthy) Discharge Diet Recommended Diet: Regular Diet Pending Studies Studies pending at discharge: no Laboratory Results Hemoglobin A1c Test 02/06/17 12:20 Range/Units Estimated Average Glucose 103 mg/dl Hemoglobin A1c 5.2 4.5-5.6 % Lipid Panel Test 02/07/17 06:43 Range/Units Triglycerides Level 107 0-150 mg/dl Cholesterol Level 221 H 0-200 mg/dl HDL Cholesterol 82 mg/dl Cholesterol/HDL Ratio 2.7 LDL Cholesterol, Calculated 118 mg/dl Medical Emergencies . Who to Call and When: Medical Emergencies: Call 911 immediately if you experience any of the following warning signs and symptoms of Stroke: * Sudden numbness or weakness of the face, arm or leg, especially on one side of the body * Sudden confusion, trouble speaking or understanding * Sudden trouble seeing in one or both eyes * Sudden trouble walking, dizziness, loss of balance or coordination * Sudden severe headache with no cause Do not delay calling 911 if you experience any warning signs or symptoms of a stroke. Delay in seeking medical attention may affect what treatments can be given to you. . Non-Emergent Contact Non-Emergency issues call your: Primary Care Provider Call Non-Emergent contact if: temperature is above 101, your pain is unusual for you . . "Provider Documentation" section prepared by Desean Souza. . Stroke Core Measures Reason no t-PA for Stroke: Treatment not indicated Reason no antithrom by day 2: Treatment provided - N/A Reason no antithrom at D/C: Treatment provided - N/A Reason no statin at D/C: Treatment provided - N/A Reason no anticoag w/a fib: Treatment not indicated VTE Core Measure Inpt VTE Proph given/why not?: Enoxaparin (Lovenox)SQ
[2017-02-08] MEDS: METOPROLOL SUCC 50MG EXT REL TAB PO SCH ×2 (08:29→08:41)
[2017-02-08] MEDS: TIMOLOL GFS 0.5% OPH SOLN 74 DROPS/5 ML BTL OP SCH (08:30)
[2017-02-08] MEDS: ASPIRIN 81 MG ECTAB PO SCH (08:34)
[2017-02-08] MEDS: ASCORBIC ACID 500 MG TAB PO SCH (08:36)
[2017-02-08] MEDS: LISINOPRIL 20 MG TAB PO SCH (08:41)
[2017-02-08] MEDS ORDERED: CLOPIDOGREL BISULFATE 75 MG TAB PO SCH (09:00)
[2017-02-08] MEDS ORDERED: ATORVASTATIN 40 MG TAB PO SCH (09:00)
[2017-02-08] MEDS ORDERED: ATOR-24 PO (14:31)
--- NOTE | 2017-02-08 15:35 | Pharmacy Progress Note ---
Pharmacist Stroke Counseling Date of Service Feb 08, 2017. Scope Pharmacy has been consulted to provide medication discharge counseling for this patient admitted with ischemic stroke/hemorrhagic stroke/ transient ischemic attack as per the Pharmacist Discharge Counseling for Stroke Patients Protocol. Medications on Discharge New Medications: Atorvastatin (Lipitor) 40 Mg Tab 40 MG PO DAILY, #30 TAB Aspirin (Aspirin EC Low Dose) 81 Mg Ectab 81 MG PO QAM, #120 DOSE Clopidogrel Bisulfate (Clopidogrel) 75 Mg Tab 75 MG PO QAM, #30 TAB 6 Refills Changed Medications: Lisinopril (Lisinopril) 10 Mg Tab 20 MG PO BID, #60 DOSE (Changed from: QAM) Continued Medications: Ascorbic Acid (Vitamin C) 500 Mg Tab 1000 MG PO DAILY B-Complex Vitamins (Vitamin B Complex) 1 Tab Tab 1 TABLET PO DAILY Cholecalciferol (Vitamin D3) 5,000 Unit Cap 5000 INTER.UNIT PO DAILY Melatonin (Melatonin Cr) 10 Mg Tab 10 MG PO HS PRN for Sleep Metoprolol Succinate (Metoprolol Succinate ER) 100 Mg Tabcr 50 MG PO BID Timolol Maleate (Ophth) (Timoptic-Xe 0.5% Oph) 0.5 % Maegan 1 DROPS OP QAM Wheat Germ Oil (Wheat Germ) 1 Oil Oil 1 CAP PO DAILY Discontinued Medications: Lisinopril (Prinivil) 10 Mg Tab 10 MG PO QPM, TAB Action The above medications, specifically ones for stroke treatment/prophylaxis, have been reviewed in detail with the patient and/or patient hr representative(s) prior to discharge. This includes indication, common adverse reactions, drug interactions, and medication administration. Medication counseling has been employed using the teach-back method to ensure understanding. Outcome The patient and spouse have demonstrated understanding of the medications. Please note, they are aware that the pharmacist will call them within 72 hours post-discharge to confirm that the appropriate medications are being taken and answer any further medication related questions the patient might have at that time. Contact information Individual to be contacted: Ashely (patient), NOTE: her has some dementia Phone number: [phone] Best time to call: late morning/afternoon. OK to leave a message with a call back number. Additional comments: n/a Thank you for allowing pharmacy to be involved in the care of this patient. Please call [phone] or [phone] with any additional questions
--- NOTE | 2017-02-08 16:58 | Discharge Summary ---
Discharge Summary Date of Service Feb 08, 2017. Discharge Summary Admission Date: Feb 06, 2017 at 16:16 Discharge Date: Feb 08, 2017 Discharge Disposition: Home Principal Diagnosis: hypertensive emergency, vertebral artery dissection Immunizations: Have You Had Influenza Vaccine: No History of Tetanus Vaccine?: Yes Tetanus Immunization Date: Mar 28, 2013 History of Pneumococcal: No History of Hepatitis B Vaccine: No Consultations: Dr Gordillo, Dr Thomas Medication Reconciliation New Medications: Atorvastatin (Lipitor) 40 Mg Tab 40 MG PO DAILY, #30 TAB Aspirin (Aspirin EC Low Dose) 81 Mg Ectab 81 MG PO QAM, #120 DOSE Clopidogrel Bisulfate (Clopidogrel) 75 Mg Tab 75 MG PO QAM, #30 TAB 6 Refills Changed Medications: Lisinopril (Lisinopril) 10 Mg Tab 20 MG PO BID, #60 DOSE (Changed from: QAM) Continued Medications: Ascorbic Acid (Vitamin C) 500 Mg Tab 1000 MG PO DAILY B-Complex Vitamins (Vitamin B Complex) 1 Tab Tab 1 TABLET PO DAILY Cholecalciferol (Vitamin D3) 5,000 Unit Cap 5000 INTER.UNIT PO DAILY Melatonin (Melatonin Cr) 10 Mg Tab 10 MG PO HS PRN for Sleep Metoprolol Succinate (Metoprolol Succinate ER) 100 Mg Tabcr 50 MG PO BID Timolol Maleate (Ophth) (Timoptic-Xe 0.5% Oph) 0.5 % Maegan 1 DROPS OP QAM Wheat Germ Oil (Wheat Germ) 1 Oil Oil 1 CAP PO DAILY Discontinued Medications: Lisinopril (Prinivil) 10 Mg Tab 10 MG PO QPM, TAB Discharge Exam Review of Systems: Constitutional: No fever, No chills Respiratory: No cough, No sputum, No shortness of breath, No dyspnea on exertion Cardiovascular: No chest pain, No orthopnea Abdomen: No pain, No nausea Musculoskeletal: No joint pain, No muscle pain Physical Exam: General Appearance: WD/WN, no apparent distress Neck: supple, no JVD Respiratory/Chest: chest non-tender, lungs clear, normal breath sounds Cardiovascular: regular rate, rhythm, no murmur Neurologic/Psychiatric: alert, oriented x 3 Hospital Course 71 y/o female with a history of ruptured brain aneurysm x 2 (1974, 2012), presents with hypertensive emergency and on CTA found to have left vertebral dissection, BP elevated in ED up to 222/149. Vertebral artery stenosis and dissection, pt seen by both neurology and vascular surgery, no intervention planned dual antiplatelet therapy will be for 6 months and if dissection not healed will re refer to vascular surgery -Start ASA 81 mg PO qd in addition to plavix atorvastatin 40 mg PO qd HTN emergency--BP improving with hydralazine increase lisinopril 20 mg bid, continue metoprolol succinate 50 mg PO BID if further control is needed consider adding HCTZ Left leg pain -Venous doppler LLE negative for DVT Glaucoma timolol drops -Level I, FULL RESUSCITATION STATUS Total Time Spent: Greater than 30 minutes This includes examination of the patient, discharge planning, medication reconciliation, and communication with other providers. Discharge Instructions Please refer to the electronic Patient Visit Report (Discharge Instructions) for additional information.
--- NOTE | 2017-02-10 13:19 | Pharmacy Progress Note ---
Pharmacist Post D/C Phone Note Date of phone call: Feb 10, 2017. Individual with whom pharmacist spoke to: Patient The following questions were reviewed during the phone call with responses listed below each: Can you tell me the medications that you are currently taking as well as when and how you take each medication? Medications Dose Route/Sig Max Daily Dose Days Date Category Lipitor (Atorvastatin Calcium) 40 Mg Tab 40 Mg PO DAILY 02/08/17 Rx Aspirin EC Low Dose (Aspirin) 81 Mg Ectab 81 Mg PO QAM 02/08/17 Rx Clopidogrel (Clopidogrel Bisulfate) 75 Mg Tab 75 Mg PO QAM 02/08/17 Rx Lisinopril 10 Mg Tab 20 Mg PO BID 02/08/17 Rx Timoptic-Xe 0.5% Oph (Timolol Maleate (Ophth)) 0.5 % Maegan 1 Drops OP QAM 02/06/17 Reported Wheat Germ (Wheat Germ Oil) 1 Oil 1 Cap PO DAILY 02/06/17 Reported Vitamin D3 (Cholecalciferol) 5,000 Unit Cap 5,000 Inter.unit PO DAILY 08/01/15 Reported Vitamin C (Ascorbic Acid) 500 Mg Tab 1,000 Mg PO DAILY 08/01/15 Reported Metoprolol Succinate ER (Metoprolol Succinate) 100 Mg Tabcr 50 Mg PO BID 08/01/15 Reported Vitamin B Complex (B-Complex Vitamins) 1 Tab 1 Tablet PO DAILY 03/28/13 Reported Melatonin Cr (Melatonin) 10 Mg Tab 10 Mg PO HS PRN 03/28/13 Reported When have you missed any doses of your medications? - None What side effects are you having from your medications? - Slight leg pain ---> possibly from statin? Will monitor and ask Dr about it at follow up appt What questions do you have about your medications? - None What problems are you having obtaining your medications? - None When is your next appointment with your primary care doctor? - 02/14/17 @ 4pm with Dr Hernan Tyson F/U with Neuro on 02/22/17 Additional comments: - Pt had some questions regarding a low cholesterol diet. Reviewed healthy eating and avoiding high saturated fat, processed foods. As per the Pharmacist Discharge Counseling for Stroke Patients Protocol, this phone call has been completed within 72 hours of discharge. Thank you for allowing us to be involved in the care of this patient.
== END 2017-02-08 15:20 | disposition home or self-care (01) | DRG 300 ==
LOC: C.EDB 11:35 → C.MED 16:16 → ENRESERV 17:30
PROVIDERS: ADMIT Hospitalist; ATTEND Internal Medicine
DX: I77.74 Dissection of vertebral artery (principal); I16.1 Hypertensive emergency; H40.9 Unspecified glaucoma; F32.9 Major depressive disorder, single episode, unspecified; G47.00 Insomnia, unspecified; Z79.899 Other long term (current) drug therapy

== ENCOUNTER → 2017-02-21 | Outpatient (CLI) | payer OTHER ==
[~2017-02-21] MED LIST changes: +ASPEC81 PO; +ATOR-24 PO; -LATA0.5S OPL; +LISI-461 PO; -LISI-789 PO; +PLV75 PO; -TIMO0.2534 OP; +TIMO0.5S2 OP; +WHEAOIL4 PO; -[UNRECOGNIZED DRUG - CODE] PO
--- NOTE | 2017-02-21 09:23 | DIAGNOSTIC IMAGING REPORT ---
DUPLEX RENAL ARTERY CLINICAL HISTORY: 71 years-old Female presenting with HYPERTENSION. TECHNIQUE: Real-time grayscale and color and spectral Doppler ultrasound imaging of the kidneys was performed. COMPARISON: None. FINDINGS: Right kidney: Intrarenal resistive indices range from 0.66 to 0.70. Suggestion of tardus et parvus intrarenal arterial waveforms. Renal artery patent with peak systolic velocity 122-244 cm/s. Renal vein patent. Normal echogenicity. Right kidney measures 9.2 cm. No hydronephrosis. No convincing evidence of calculus or mass. Left kidney: Intrarenal resistive indices range from 0.6 to 0.66. Similar tardus et parvus intrarenal arterial waveforms. Renal artery patent with peak systolic velocity 122-171 cm/s. Renal vein patent. Normal echogenicity. Left kidney measures 9.6 cm. No hydronephrosis. No convincing evidence of calculus or mass. Abdominal aorta: Patent. Peak systolic velocity 59 cm/s. Other: None. Reference ranges: Main renal artery peak systolic velocity less than 180 cm/s and ratio of renal artery PSV to aortic PSV less than 2.5 equates to less than 60% stenosis. IMPRESSION: Concern for bilateral renal artery stenosis, worse on the right. Electronically signed by: Karsten Tabor M.D. 02/21/2017 9:21 AM Dictated Date/Time: 02/21/2017 9:12 AM
== END | disposition home or self-care (01) ==
LOC: C.ULTR 08:14
PROVIDERS: ATTEND Internal Medicine
DX: I10 Essential (primary) hypertension (principal)

== ENCOUNTER → 2017-02-27 | Outpatient (CLI) | payer OTHER ==
[2017-02-27 17:59] LABS: BLOOD UREA NITROGEN 22 mg/dl (7-18); CALCIUM 9.3 mg/dl (8.5-10.1); CARBON DIOXIDE 22 mmol/L (21-32); CHLORIDE 110 mmol/L (98-107); GLUCOSE 90 mg/dl (70-99); POTASSIUM 4.1 mmol/L (3.5-5.1); SODIUM 141 mmol/L (136-145)
== END | disposition home or self-care (01) ==
LOC: C.LABBFT 12:02
PROVIDERS: ATTEND Internal Medicine
DX: I10 Essential (primary) hypertension (principal)

== ENCOUNTER → 2017-03-09 | Outpatient (CLI) | payer OTHER ==
--- NOTE | 2017-03-10 13:43 | MAMMOGRAPHY REPORT ---
BILATERAL DIGITAL SCREENING MAMMOGRAM WITH CAD: 03/09/2017 CLINICAL HISTORY: Routine screening. Patient has no complaints. TECHNIQUE: Current study was also evaluated with a Computer Aided Detection (CAD) system. Bilateral CC and MLO views were obtained. COMPARISON: Comparison is made to exams dated: 12/01/2014 mammogram, 11/29/2013 mammogram, and 08/01/19 13 mammogram - [facility]. BREAST COMPOSITION: There are scattered areas of fibroglandular density in both breasts. FINDINGS: No suspicious masses, calcifications, or areas of architectural distortion are noted in ei ther breast. There has been no significant interval change compared to prior exams. There is a subtl e ill-defined asymmetry in the left far superior breast at approximately 1:00; this correlates with a n area of visible bruising on the skin and is therefore benign and felt to be posttraumatic (the song ent reported a fall yesterday). IMPRESSION: ACR BI-RADS CATEGORY 2: BENIGN There is no mammographic evidence of malignancy. A 1 year screening mammogram is recommended. The pa tient will receive written notification of the results. Approximately 10% of breast cancers are not detected with mammography. A negative mammographic report should not delay biopsy if a clinically suggestive mass is present. Deirdre Lozoya M.D. ah/:03/09/2017 15:06:08 Belling Machine Operator: Lindsay LAINEZ(Luh)(M), [facility] letter sent: Normal 1/2 BI-RADS Code: ACR BI-RADS Category 2: Benign
== END | disposition home or self-care (01) ==
LOC: C.MAMM 13:50
PROVIDERS: ATTEND Internal Medicine
DX: Z12.31 Encounter for screening mammogram for malignant neoplasm of breast (principal)

== ENCOUNTER → 2017-06-13 | Outpatient (CLI) | payer OTHER ==
[2017-06-13 18:33] LABS: ALBUMIN 3.6 gm/dl (3.4-5.0); BLOOD UREA NITROGEN 26 mg/dl (7-18); CALCIUM 9.1 mg/dl (8.5-10.1); CARBON DIOXIDE 26 mmol/L (21-32); CREATININE 0.81 mg/dl (0.60-1.20); GLUCOSE 83 mg/dl (70-99); PHOSPHORUS 2.7 mg/dl (2.5-4.9); SODIUM 140 mmol/L (136-145)
== END | disposition home or self-care (01) ==
LOC: C.LABBFT 13:44
PROVIDERS: ATTEND Internal Medicine Nephrology
DX: I70.1 Atherosclerosis of renal artery (principal); I10 Essential (primary) hypertension

== ENCOUNTER → 2017-07-19 | Outpatient (CLI) | payer OTHER ==
[~2017-07-19] MED LIST changes: +OPTIRAY 320 IV PRN
--- NOTE | 2017-07-19 10:22 | DIAGNOSTIC IMAGING REPORT ---
NECK ANGIO WITH CONTRAST CLINICAL HISTORY: 72 years-old Female with WITH ONLY PER [facility](KF) WITH NO HISTORY OF REPAIR. History of vertebral artery dissection. Follow-up exam. COMPARISON STUDY: CTA of the neck 02/06/2017 TECHNIQUE: Following the IV administration of 93 mL of Optiray 320, CT angiogram of the neck was performed from the aortic arch to the skull base. Images are reviewed in the axial, sagittal, and coronal planes. 3-D MIPS images are created and assessed. IV contrast was administered without complication. Additional 3-D rendering images were generated from a separate workstation. All measurements were calculated based on NASCET criteria. A dose lowering technique was utilized adhering to the principles of ALARA. CT DOSE: 420.68 mGy.cm FINDINGS: Three-vessel aortic arch is noted. Mild to moderate mixed plaquing of the aortic arch is noted. Image subclavian arteries appear patent bilaterally. Elongated linear atheromatous plaquing of the anteromedial lumen of the left common carotid artery redemonstrated which appears unchanged without high-grade narrowing. The bilateral carotid bulbs, common and internal carotid arteries are widely patent. Interlobular clipping is noted near the left carotid terminus. Imaged bilateral middle and anterior cerebral arteries appear to be widely patent. origin of the left posterior cerebral artery. Bilateral posterior cerebral arteries appear patent. Focal dissection of the V2 segment left vertebral artery is again seen at the level of C3-C4 which results in 60% luminal narrowing at the level of C4, nicely seen on image 268 series 3. No significant change from comparison. The remainder of the left vertebral artery is widely patent and within normal limits. Luminal narrowing at the origin of the right vertebral artery is again seen causing approximately 80 % luminal narrowing nicely seen on image 151 series 3. The remainder of the right vertebral artery is patent. The basilar artery is patent. Lung apices are generally clear. Soft tissues are unremarkable. Image intracranial structures demonstrate no acute abnormality. Encephalomalacia of the left cerebral hemisphere suggests remote insult. Prior left calvarial craniotomy. Calcification of the left thyroid lobe. Mastoid air cells and paranasal sinuses are clear. Multilevel degenerative changes of the lower brule spine. IMPRESSION: 1. Focal dissection of the V2 segment left vertebral artery at the level of C3-C4 is again seen resulting in 60% luminal narrowing. No significant change from comparison study. 2. Luminal narrowing at the origin of the right vertebral artery is unchanged resulting in 80% stenosis. 3. The bilateral common and internal carotid arteries are patent without high-grade stenosis. 4. Aneurysm clips are noted within the region of the left carotid terminus. Encephalomalacia of the left cerebral hemisphere suggests remote insult. The above report was generated using voice recognition software. It may contain grammatical, syntax or spelling errors. Electronically signed by: Azam Zimmerman M.D. 07/19/2017 10:20 AM Dictated Date/Time: 07/19/2017 10:02 AM
== END | disposition home or self-care (01) ==
LOC: C.CTS 09:17
PROVIDERS: ATTEND Psychiatry & Neurology Neurology
DX: I77.74 Dissection of vertebral artery (principal); G93.89 Other specified disorders of brain

== ENCOUNTER → 2017-12-20 | Outpatient (CLI) | payer OTHER ==
[~2017-12-20] MED LIST changes: -ASPEC81 PO; +ASPI-320 PO; -ATOR-24 PO; -OPTIRAY 320 IV PRN
[2017-12-20 12:34] LABS: BASO % 0.2 %; BASO ABS # 0.01 K/uL (0-0.2); EOS % 2.6 %; EOS ABS # 0.12 K/uL (0-0.5); HEMATOCRIT 31.7 % (37-47); HEMOGLOBIN 10.4 g/dL (12.0-16.0); LYMPH % 34.6 %; LYMPH ABS # 1.61 K/uL (1.2-3.4); MEAN CELL VOLUME 96.6 fL (80-100); MEAN CORPUSCULAR HEMOGLOBIN 31.7 pg (25-34); MEAN CORPUSCULAR HGB CONC 32.8 g/dl (32-36); MEAN PLATELET VOLUME 11.1 fL (7.4-10.4); MONO % 11.2 %; MONO ABS # 0.52 K/uL (0.11-0.59); NEUT % 51.4 %; NEUT ABS # 2.39 K/uL (1.4-6.5); PLATELET COUNT 187 K/uL (130-400); RED CELL DISTRIBUTION WIDTH CV 14.3 % (11.5-14.5); RED CELL DISTRIBUTION WIDTH SD 50.8 fL (36.4-46.3); WHITE BLOOD COUNT 4.65 K/uL (4.8-10.8)
[2017-12-20 13:01] LABS: ALBUMIN 3.3 gm/dl (3.4-5.0); ALKALINE PHOSPHATASE 62 U/L (45-117); ALT/SGPT 33 U/L (12-78); AST/SGOT 34 U/L (15-37); BLOOD UREA NITROGEN 33 mg/dl (7-18); CALCIUM 8.4 mg/dl (8.5-10.1); CARBON DIOXIDE 25 mmol/L (21-32); CHOLESTEROL 127 mg/dl (0-200); CREATININE 0.87 mg/dl (0.60-1.20); GLUCOSE 92 mg/dl (70-99); LDL CHOLESTEROL CALCULATED 40 mg/dl; PHOSPHORUS 3.2 mg/dl (2.5-4.9); POTASSIUM 3.6 mmol/L (3.5-5.1); SODIUM 141 mmol/L (136-145)
== END | disposition home or self-care (01) ==
LOC: C.LABBFT 07:47
PROVIDERS: ATTEND Internal Medicine Nephrology
DX: G81.00 Flaccid hemiplegia affecting unspecified side (principal); H91.90 Unspecified hearing loss, unspecified ear; M79.671 Pain in right foot; M79.672 Pain in left foot; I69.90 Unspecified sequelae of unspecified cerebrovascular disease; I77.74 Dissection of vertebral artery; I70.1 Atherosclerosis of renal artery; I10 Essential (primary) hypertension

== ENCOUNTER → 2017-12-22 | Outpatient (CLI) | payer OTHER | END | disposition home or self-care (01) | LOC: C.LABBC 10:16 | PROVIDERS: ATTEND Internal Medicine | DX: D64.9 Anemia, unspecified (principal) ==

== ENCOUNTER → 2018-01-15 | Outpatient (CLI) | payer OTHER ==
[2018-01-16 13:28] LABS: FECAL OCCULT BLOOD #1 NEGATIVE (NEGATIVE); FECAL OCCULT BLOOD #2 NEGATIVE (NEGATIVE); FECAL OCCULT BLOOD #3 NEGATIVE (NEGATIVE)
== END | disposition home or self-care (01) ==
LOC: C.LABSPEC 11:18
PROVIDERS: ATTEND Internal Medicine
DX: D64.9 Anemia, unspecified (principal)

== ENCOUNTER 2019-03-03 01:43 | Inpatient (IN) ==
[2019-03-03] MEDS ORDERED: ONDANSETRON INJ 2 MG/ML 2 ML VIAL IV STA (02:03)
[2019-03-03] MEDS ORDERED: SODIUM CHLORIDE 0.9% 1000ML 500 ML IV ONE ×2 (02:03→03:37)
[2019-03-03] MEDS ORDERED: fentaNYL citrate 100 MCG/2 ML VIAL IV STA ×2 (02:03→03:37)
[2019-03-03 02:24] LABS: Basophils # (auto) 0.02 K/uL (0-0.2); Basophils % (auto) 0.2 %; Eosinophils # (auto) 0.11 K/uL (0-0.5); Eosinophils % (auto) 1.3 %; Hematocrit (blood only) 28.8 % (37-47); Hemoglobin 9.7 g/dL (12.0-16.0); Immature Granulocytes # (auto) 0.02 K/uL (0.00-0.02); Immature Granulocytes % (auto) 0.2 %; Lymphocytes # (auto) 1.31 K/uL (1.2-3.4); Lymphocytes % (auto) 15.2 %; Mean Corpuscular Hgb Conc 33.7 g/dL (32-36); Mean Platelet Volume 9.7 fL (7.4-10.4); Monocytes # (auto) 0.87 K/uL (0.11-0.59); Monocytes % (auto) 10.1 %; Platelet Count 320 K/uL (130-400); RDW Coefficient of Variation 13.5 % (11.5-14.5); RDW Standard Deviation 45.5 fL (36.4-46.3); Red Blood Count 3.13 M/uL (4.2-5.4); White Blood Count 8.63 K/uL (4.8-10.8)
[2019-03-03 02:42] LABS: Alanine Aminotransferase 39 U/L (12-78); Albumin Level 2.9 gm/dl (3.4-5.0); Aspartate Aminotransferase 33 U/L (15-37); BUN Creatinine Ratio 20.6 (10-20); Bilirubin Direct 0.2 mg/dl (0-0.2); Blood Urea Nitrogen 21 mg/dl (7-18); Calcium 8.5 mg/dl (8.5-10.1); Carbon Dioxide 26 mmol/L (21-32); Chloride 105 mmol/L (98-107); Creatinine Clr Calc Pharmacy 40.6 ml/min; Est GFR (African American) 61.6; Est GFR (Non-African American) 53.1; Glucose 97 mg/dl (70-99); Lipase 148 U/L (73-393); Potassium 3.9 mmol/L (3.5-5.1); Sodium 139 mmol/L (136-145)
[2019-03-03 02:47] LABS: Alkaline Phosphatase 133 U/L (45-117); Bilirubin,Total 0.3 mg/dl (0.2-1); Total Protein 7.5 gm/dl (6.4-8.2); Troponin I < 0.015 ng/ml (0-0.045)
[2019-03-03] MEDS ORDERED: cefOXitin 2,000 MG/60 ML BAG IV STA (04:43)
--- NOTE | 2019-03-03 04:55 | Emergency Department Note ---
Entered by Luis Rodney acting as a scribe for Denny Riddle MD ED Provider Note Name: Ashely Antony Age: 73 Arrives Via: Private Vehicle Informant: Patient CC: Right upper quadrant pain HPI: A female arrives for evaluation of constant and severe right upper quadrant pain starting 2 nights ago. The patient states she had pain under her right ear 2 nights ago but states she does not have that pain tonight. She states she had a fever last night. She states her rib pain has kept her from sleeping. She notes she took Tylenol and states it did not help. She states the pain is worse with movement. She notes the pain is better if she is laying down. The patient denies nausea, rashes, back pain, falls, injuries, and weakness. She states she had an earache last week. ROS: See above HPI for pertinent positives & negatives. A total of 10 systems reviewed and were otherwise negative. Past Medical History: Artery dissection, intracranial aneurysm, renal artery stenosis, hemiplegia affecting dominant side, insomnia, HTN. Past Surgical History: Hysterectomy Family History: Non-Contributory family history Social History: Speaks Sammarinese Home Medications: Amlodipine, ascorbate calcium-bioflavonoid, ascorbic acid, atorvastatin, cholecalciferol, clopidogrel, cod liver oil capsule, coenzyme Q10, Lactobacillus, Latanoprost, Lisinopril, metoprolol succinate, nortriptyline, pantoprazole, vitamin E succinate Allergies Methocarbamol and vancomycin Physical: Vitals: BP 123/80, P 77, R 20, O2 97%, Temp 98.1 Exam: GENERAL: Patient is uncomfortable appearing and in moderate distress. EYES: No scleral icterus, unremarkable pupils. ENT: Mucous membranes moist, no nasal congestion. Bilateral TMs unremarkable. NECK: No masses appreciated, no meningismus, trachea is midline. RESPIRATORY: No dyspnea. Clear to auscultation and equal bilaterally. No wheeze, no rhonchi. CARDIOVASCULAR: Regular rate and rhythm. No murmurs, rubs, gallops appreciated. GASTROINTESTINAL: Abdomen soft, no peritonitis. Bowel sounds positive. No masses appreciated. Tender to palpation over right upper quadrant. BACK: No midline tenderness, no CVA tenderness EXTREMITIES: Normal motion all extremities, no cyanosis, no edema. NEUROLOGIC: Alert and oriented, no acute motor or sensory deficits, no focal weakness, cranial nerves grossly intact. SKIN: No rash, no jaundice, no diaphoresis. ED Course: Prior Medical Record, Triage/Nursing Notes, Medications, Allergies reviewed by Me Vital Signs: reviewed and remarkable for mild hypotension Labs: Reviewed and remarkable for mild alk phos elevation Interventions: saline lock, fentanyl 50mcg IV x 2, nSS bolus, zofran 4mg IV Imaging: [facility] Radiologist interpretation reviewed by me: US RUQ: "US ABDOMEN LIMITED: Contracted gallbladder, limiting evaluation. Pt reports being NPO x 5 hours. No evidence of gallstones. Evaluation of sonographic Lee's sign is limited by pain medication. Common bile duct is dilated up to 1.1 cm and there is echogenic material in the distal common bile duct which may represent sludge or small stones. Consider correlation with MRCP. Multiple liver cysts. The largest measures 2.3 x 2.0 x 1.7 cm and is mildly complex. Right kidney is unremarkable. Radiologist: Denny Perdomo MD" EKG: Per My Interpretation: Indication Pre Op:Sinus 65 bpm with 1st av block no ectopy no ischemia. QTC 426. No Stemi noted. Blood pressure: Normal. No Referral necessary Course: 0157: The patient was evaluated in room A10, and a complete history and physical examination were performed. 0339: I reevaluated the patient. Her pain is starting to return after the US. I ordered pain medication and fluids. 0401: I discussed the patient's case with Dr. Cruz Harris General Surgery. He agrees with medicine evaluation and likely MRCP later today. 0440: I discussed the patient's case with Dr. Ekaterina Harris Hospitalist. He will evaluate the patient for further management Disposition: Hospitalization Differentials: Appendicitis, Diverticulitis, PUD/Gastritis, Biliary Pathology, UTI, Pyelonephritis, Renal Colic, Bowel Obstruction, Aortic Pathology, Acute Coronary Syndrome, amongst other pathologies entertained. Medical Decision Making: Pleasant 73 yr old female with RUQ abdominal pain without radiation. Quite uncomfortable on arrival with RUQ TTP. Rest of abdomen soft, non-tender and no radiation of pain. No chest pain nor sob nor syncope. She has history of dissection vertebral as well as SAH and HTN. Without further findings on exam I do not feel this represents abdominal aortic dissection nor rupture. She has been having fevers, has US suggestive of GB disease, as well as mild alk phos elevation I think most likely this is acute cholecystitis. Reviewed with gen surg who agree with plan to bring in to get MRCP and I discussed with hospitalists who will evaluate her further. EKG OK and trop negative thus with 2 days of pain suspect this is not ACS. Impression: Abdominal Pain Acute Right Upper Quadrant Thickening of wall of gallbladder The scribe's documentation has been prepared under my direction and personally reviewed by me in its entirety. I confirm that the note above accurately reflects all work, treatment, procedures, and medical decision making performed by me. Denny Riddle MD Impression & Plan Abdominal pain, acute, right upper quadrant, Thickening of wall of gallbladder Past Med/Surg History Medical History Artery dissection (Resolved) Intracranial aneurysm (Chronic) Renal artery stenosis (Chronic) Hemiplegia affecting dominant side (Chronic) Insomnia (Chronic) Aneurysm (Chronic) Hypertension (Chronic) Bronchitis (Resolved) Hypertension (Chronic) Subarachnoid hemorrhage (Resolved) Surgical History H/O vaginal hysterectomy (Chronic) Family History Mother Breast cancer Diabetes Father Myocardial infarction Other Cerebral aneurysm Social History Preferred Language: Sammarinese Communication Ability: Effective Visual Impairment: Limited Hearing Ability: Normal Intervention Teacher Required: No Beliefs That Will Affect Care: None marital status: Current Living Situation: Spouse current occupational status: retired Feels Safe at Home: Yes Smoking Status: Never smoker Hx Alcohol Use: No Hx Substance Use: No Dental Care, Regularly: Yes Seatbelt Use: always Sunscreen Use: Yes Results & Data Vital Signs Vital Signs - 24 hr 03/03/19 01:48 03/03/19 02:20 03/03/19 02:52 Temperature 36.7 C Temperature Source Oral Sepsis Recent Fever Within 48 Hours No Sepsis Action Taken by Nursing No Action Required Pulse Rate 77 Pulse Rate [Finger] 65 60 Pulse Rhythm Regular Pulse Rhythm [Finger] Pulse Strength Normal Pulse Strength [Finger] Respiratory Rate 20 18 18 Respiratory Effort / Characteristics Non-Labored Spontaneous Respiratory Depth Normal Normal Respiratory Pattern Regular Blood Pressure 123/80 Blood Pressure [Left Arm] 115/72 99/57 L Blood Pressure Mean 94 Blood Pressure Mean [Left Arm] 86 71 Blood Pressure Position Sitting Blood Pressure Position [Left Arm] Pulse Oximetry 97 95 93 Oxygen Delivery Method Room Air Room Air Room Air 03/03/19 03:36 Temperature Temperature Source Sepsis Recent Fever Within 48 Hours Sepsis Action Taken by Nursing Pulse Rate Pulse Rate [Finger] 63 Pulse Rhythm Pulse Rhythm [Finger] Regular Pulse Strength Pulse Strength [Finger] Normal Respiratory Rate 20 Respiratory Effort / Characteristics Non-Labored Spontaneous Respiratory Depth Normal Respiratory Pattern Regular Blood Pressure Blood Pressure [Left Arm] 97/52 L Blood Pressure Mean Blood Pressure Mean [Left Arm] 67 Blood Pressure Position Blood Pressure Position [Left Arm] Lying Pulse Oximetry 95 Oxygen Delivery Method Room Air Laboratory Data Result diagrams: 03/03/19 02:13 03/03/19 02:13 Lab Results 03/03/19 03/03/19 Range/Units 02:13 02:13 WBC 8.63 (4.8-10.8) K/uL RBC 3.13 L (4.2-5.4) M/uL Hgb 9.7 L (12.0-16.0) g/dL Hct 28.8 L (37-47) % MCV 92.0 (80-100) fL MCH 31.0 (25-34) pg MCHC 33.7 (32-36) g/dL RDW Std Deviation 45.5 (36.4-46.3) fL RDW Coeff of Hannah 13.5 (11.5-14.5) % Plt Count 320 (130-400) K/uL MPV 9.7 (7.4-10.4) fL Immature Gran % (Auto) 0.2 % Neut % (Auto) 73.0 % Lymph % (Auto) 15.2 % [place] % (Auto) 10.1 % Eos % (Auto) 1.3 % Baso % (Auto) 0.2 % Immature Gran # (Auto) 0.02 (0.00-0.02) K/uL Neut # (Auto) 6.30 (1.4-6.5) K/uL Lymph # (Auto) 1.31 (1.2-3.4) K/uL [place] # (Auto) 0.87 H (0.11-0.59) K/uL Eos # (Auto) 0.11 (0-0.5) K/uL Baso # (Auto) 0.02 (0-0.2) K/uL Sodium 139 (136-145) mmol/L Potassium 3.9 (3.5-5.1) mmol/L Chloride 105 (98-107) mmol/L Carbon Dioxide 26 (21-32) mmol/L Anion Gap 8.0 (3-11) BUN 21 H (7-18) mg/dl Creatinine 1.03 (0.6-1.2) mg/dl Est Cr Clr Drug Dosing 40.6 ml/min Est GFR ( Amer) 61.6 Est GFR (Non-Af Amer) 53.1 BUN/Creatinine Ratio 20.6 H (10-20) Glucose 97 (70-99) mg/dl Calcium 8.5 (8.5-10.1) mg/dl Total Bilirubin 0.3 (0.2-1) mg/dl Direct Bilirubin 0.2 (0-0.2) mg/dl AST 33 (15-37) U/L ALT 39 (12-78) U/L Alkaline Phosphatase 133 H (45-117) U/L Troponin I < 0.015 (0-0.045) ng/ml Total Protein 7.5 (6.4-8.2) gm/dl Albumin 2.9 L (3.4-5.0) gm/dl Lipase 148 (73-393) U/L Administered Medications Lactated Ringer's (Lr) 1,000 mls @ 150 mls/hr IV .Q6H40M [facility] Stop: 04/02/19 05:31 Last Admin: 03/03/19 05:57 Dose: 150 mls/hr Documented by: [id number] Discontinued Medications Fentanyl Citrate (Fentanyl Citrate) 50 mcg IV NOW STA Stop: 03/03/19 02:04 Last Admin: 03/03/19 02:20 Dose: 50 mcg Documented by: [id number] Fentanyl Citrate (Fentanyl Citrate) 50 mcg IV NOW STA Stop: 03/03/19 03:38 Last Admin: 03/03/19 03:43 Dose: 50 mcg Documented by: [id number] Sodium Chloride (Nss 1000ml) 500 mls @ 999 mls/hr IV .Q31M ONE Stop: 03/03/19 02:33 Last Infusion: 03/03/19 02:52 Dose: 0 mls/hr Documented by: [id number] Admin: 03/03/19 02:20 Dose: 999 mls/hr Documented by: [id number] Sodium Chloride (Nss 1000ml) 500 mls @ 999 mls/hr IV .Q31M ONE Stop: 03/03/19 04:07 Last Infusion: 03/03/19 04:49 Dose: 0 mls/hr Documented by: [id number] Admin: 03/03/19 03:44 Dose: 999 mls/hr Documented by: [id number] Cefoxitin Sodium (Mefoxin) 2,000 mg in 60 mls @ 100 mls/hr IV NOW STA Stop: 03/03/19 05:18 Last Infusion: 03/03/19 05:43 Dose: 0 mls/hr Documented by: [id number] Admin: 03/03/19 04:59 Dose: 100 mls/hr Documented by: [id number] Ondansetron HCl (Zofran) 4 mg IV NOW STA Stop: 03/03/19 02:04 Last Admin: 03/03/19 02:20 Dose: 4 mg Documented by: [id number] Discharge Plan Visit Data *Final* Discharge Date/Time: 03/03/19 05:12 Chief Complaint: Rib Injury/Pain Stated Complaint: RT UPPER CHEST PAIN, BP FLUX - HAD TICK BITE ED Provider: Denny Riddle Discharge Problem: Abdominal pain, acute, right upper quadrant, Thickening of wall of gallbladder Patient Disposition: Admitted As Inpatient Discharge Instructions Interventions: ED Discharge Assessment Last Done: 03/03/19 05:12 The scribe's documentation has been prepared under my direction and personally reviewed by me in its entirety. I confirm that the note above accurately reflects all work, treatment, procedures, and medical decision making performed by me.
--- NOTE | 2019-03-03 05:17 | History & Physical Report ---
Date of Service March 03, 2019 Assessment & Plan (1) Cholecystitis, acute: Admit GMF IV Mefoxin LR @ 150ml/hr MRCP in am Surgery consulted. DVT prophylaxis = SCDs, holding pharmacologic due to possible surgery. (2) Abdominal pain, acute, right upper quadrant: Pain and nausea control (3) Hypertension: Continue appropriate home medications. History of Present Illness 73 y/o female presents to the ED with a 48hr history of severe right upper quadrant pain. She developed a fever then overnight. She states that the pain under her right rib cage is intense that she can not sleep. Pain was not changed by Tylenol dose. She feels a bit better with laying down. She reports No N/V/D, back pain, chest pain, SOB, cough, dysuria or rash. No trauma. Primary Care Provider: Meño Flores MD Allergies Allergy/AdvReac Type Severity Reaction Status Date / Time methocarbamol Allergy Severe felt like Verified 02/28/19 13:06 her throat was closing vancomycin Allergy Mild HIVES Verified 02/28/19 13:06 wheat AdvReac Unknown Uncoded 02/28/19 13:06 Home Medications Home Medications Medication Instructions Recorded Confirmed Type amlodipine 5 mg PO DAILY 05/25/18 03/03/19 History atorvastatin 40 mg PO QPM 05/25/18 03/03/19 History cholecalciferol (vitamin D3) 5,000 unit PO DAILY 05/25/18 03/03/19 History [Vitamin D3] clopidogrel 75 mg PO QPM 05/25/18 03/03/19 History lisinopril 20 mg PO BID 05/25/18 03/03/19 History metoprolol succinate 50 mg PO BID 05/25/18 03/03/19 History cod liver oil capsule 1 cap PO DAILY 06/22/18 03/03/19 History coenzyme Q10 100 mg capsule 100 mg PO DAILY 06/22/18 03/03/19 History ascorbic acid (vitamin C) [Vitamin 500 mg PO DAILY 12/09/18 03/03/19 History C] latanoprost 1 drp OPL PM 12/09/18 03/03/19 History vpsywaeq-kah-QK-lycopen-lutein 1 tab PO DAILY 12/09/18 03/03/19 History [Centrum Silver] vitamin E succinate 400 unit tablet 400 units PO DAILY tab 12/11/18 03/03/19 History Lactobacillus rhamnosus GG 10 1 cap PO DAILY cap 12/17/18 03/03/19 History billion cell-inulin 200 mg capsule nortriptyline 25 mg capsule 25 mg PO HS #30 cap 12/17/18 03/03/19 Rx acetaminophen 300 mg-codeine 30 mg 1 - 2 tab PO Q4H PRN tab 12/24/18 03/03/19 History tablet pantoprazole 40 mg tablet,delayed 40 mg PO DAILY #30 tab 02/18/19 03/03/19 Rx release ascorbate calcium-bioflavonoid See Rx Instructions PO DAILY 02/27/19 03/03/19 History multivitamin with minerals tablet See Rx Instructions PO TID 02/27/19 03/03/19 History wheat germ oil See Rx Instructions PO BID 02/27/19 03/03/19 History Past Med/Surg History Medical History Artery dissection (Resolved) Intracranial aneurysm (Chronic) Renal artery stenosis (Chronic) Hemiplegia affecting dominant side (Chronic) Insomnia (Chronic) Aneurysm (Chronic) Hypertension (Chronic) Bronchitis (Resolved) Hypertension (Chronic) Subarachnoid hemorrhage (Resolved) Surgical History H/O vaginal hysterectomy (Chronic) Family History Mother Breast cancer Diabetes Father Myocardial infarction Other Cerebral aneurysm Social History Preferred Language: Occitan Communication Ability: Effective Visual Impairment: Limited Hearing Ability: Normal Beliefs That Will Affect Care: None marital status: Current Living Situation: Spouse current occupational status: retired Feels Safe at Home: Yes Smoking Status: Never smoker Hx Alcohol Use: No Hx Substance Use: No Dental Care, Regularly: Yes Seatbelt Use: always Sunscreen Use: Yes Review of Systems Review of Systems: All systems reviewed & are unremarkable except as noted in HPI & below Physical Exam Physical Exam: NEEDS EDITING General- adult female, mild distress from pain. Head- atraumatic Eyes- PERRL, EOMI, anicteric ENT- oropharynx clear Neck- supple, no JVD, no adenopathy, no thyromegaly. Lungs- clear to auscultation b/l no R/R/W. Heart- regular rhythm; no murmur, no gallop, no rub appreciated Abdomen- normal bowel sounds, soft, + tenderness over RUQ Extremities- no pretibial edema, no calf tenderness; peripheral pulses intact Neuro- alert, oriented x 3; PERRL, EOMI; plexiglas former II-XII grossly intact, Non-focal. Skin- warm & dry Results & Data Vital Signs (Past 12 Hours) Vital Signs Temp Pulse Pulse Resp BP BP Pulse Ox 03/03/19 05:06 65 20 104/61 96 03/03/19 03:36 63 20 97/52 L 95 03/03/19 02:52 60 18 99/57 L 93 03/03/19 02:20 65 18 115/72 95 03/03/19 01:48 36.7 C 77 20 123/80 97 Laboratory Results Laboratory Results WBC 8.63 K/uL (4.8-10.8) 03/03/19 02:13 RBC 3.13 M/uL (4.2-5.4) L 03/03/19 02:13 Hgb 9.7 g/dL (12.0-16.0) L 03/03/19 02:13 Hct 28.8 % (37-47) L 03/03/19 02:13 MCV 92.0 fL (80-100) 03/03/19 02:13 MCH 31.0 pg (25-34) 03/03/19 02:13 MCHC 33.7 g/dL (32-36) 03/03/19 02:13 RDW Std Deviation 45.5 fL (36.4-46.3) 03/03/19 02:13 RDW Coeff of Hannah 13.5 % (11.5-14.5) 03/03/19 02:13 Plt Count 320 K/uL (130-400) 03/03/19 02:13 MPV 9.7 fL (7.4-10.4) 03/03/19 02:13 Immature Gran % (Auto) 0.2 % 03/03/19 02:13 Neut % (Auto) 73.0 % 03/03/19 02:13 Lymph % (Auto) 15.2 % 03/03/19 02:13 [place] % (Auto) 10.1 % 03/03/19 02:13 Eos % (Auto) 1.3 % 03/03/19 02:13 Baso % (Auto) 0.2 % 03/03/19 02:13 Immature Gran # (Auto) 0.02 K/uL (0.00-0.02) 03/03/19 02:13 Neut # (Auto) 6.30 K/uL (1.4-6.5) 03/03/19 02:13 Lymph # (Auto) 1.31 K/uL (1.2-3.4) 03/03/19 02:13 [place] # (Auto) 0.87 K/uL (0.11-0.59) H 03/03/19 02:13 Eos # (Auto) 0.11 K/uL (0-0.5) 03/03/19 02:13 Baso # (Auto) 0.02 K/uL (0-0.2) 03/03/19 02:13 Sodium 139 mmol/L (136-145) 03/03/19 02:13 Potassium 3.9 mmol/L (3.5-5.1) 03/03/19 02:13 Chloride 105 mmol/L (98-107) 03/03/19 02:13 Carbon Dioxide 26 mmol/L (21-32) 03/03/19 02:13 Anion Gap 8.0 (3-11) 03/03/19 02:13 BUN 21 mg/dl (7-18) H 03/03/19 02:13 Creatinine 1.03 mg/dl (0.6-1.2) 03/03/19 02:13 Est Cr Clr Drug Dosing 40.6 ml/min 03/03/19 02:13 Est GFR ( Amer) 61.6 03/03/19 02:13 Est GFR (Non-Af Amer) 53.1 03/03/19 02:13 BUN/Creatinine Ratio 20.6 (10-20) H 03/03/19 02:13 Glucose 97 mg/dl (70-99) 03/03/19 02:13 Calcium 8.5 mg/dl (8.5-10.1) 03/03/19 02:13 Total Bilirubin 0.3 mg/dl (0.2-1) 03/03/19 02:13 Direct Bilirubin 0.2 mg/dl (0-0.2) 03/03/19 02:13 AST 33 U/L (15-37) 03/03/19 02:13 ALT 39 U/L (12-78) 03/03/19 02:13 Alkaline Phosphatase 133 U/L (45-117) H 03/03/19 02:13 Troponin I < 0.015 ng/ml (0-0.045) 03/03/19 02:13 Total Protein 7.5 gm/dl (6.4-8.2) 03/03/19 02:13 Albumin 2.9 gm/dl (3.4-5.0) L 03/03/19 02:13 Lipase 148 U/L (73-393) 03/03/19 02:13 Code Status & VTE Plan VTE Prophylaxis Plan VTE Prophylaxis will be ordered: Yes PG Care Time/CCT Total # of Minutes Spent Total Time Spent: 55 Total Time Spent with Patient: Total time spent is greater than 50% in coordination of care (as documented) at patient's floor/unit and/or counseling patient: (1) Hypertension Hypertension type: unspecified Qualified Code(s): I10 - Essential (primary) hypertension
[2019-03-03] MEDS ORDERED: MoRPHine SULFATE 4 MG/ML 1 ML CARP\\VIAL IV PRN (05:32)
[2019-03-03] MEDS ORDERED: ONDANSETRON INJ 2 MG/ML 2 ML VIAL IV PRN (05:32)
[2019-03-03] MEDS ORDERED: MoRPHine SULFATE 2 MG/ML CARP IV PRN (05:32)
[2019-03-03] MEDS: LACTATED RINGER'S 1,000 ML IV SCH ×3 (05:57→22:21)
[2019-03-03] MEDS ORDERED: INFLUENZA ADMINISTRATION CHARGE ONE (06:00)
[2019-03-03] MEDS ORDERED: INFLUENZA VACCINE HIGH DOSE 65+ 0.5 ML SYR IM ONE (06:00)
[2019-03-03 06:23] LABS: Appearance Urine Clear (Clear); Bilirubin Urine Negative (Negative); Blood Urine Negative (Negative); Color Urine Yellow; Glucose Urine UA Negative (Negative); Ketones Urine Negative (Negative); Leukocyte Esterase Urine Negative (Negative); Nitrite Urine Negative (Negative); Protein Urine Negative (Negative); Specific Gravity Urine 1.021 (1.000-1.030); Urobilinogen Urine Negative (Negative)
--- NOTE | 2019-03-03 06:34 | Ultrasound Report ---
Biliary ultrasound CLINICAL HISTORY: RUQ pain fevers COMPARISON STUDY: 12/18/2018 FINDINGS: The pancreas appears sonographically normal. Multiple hepatic cysts are visualized includin g a complex 23 mm cyst within the right lobe. The gallbladder is contracted which may explain the carroll arent wall thickening. The common bile duct is dilated measuring up to 11 mm. There is echogenic mate rial within the common bile duct which could represent sludge or nonshadowing calculi. There is no ri ght-sided hydronephrosis. IMPRESSION: 1. Contracted gallbladder 2. Dilated common bile duct measuring 11 mm. There is echogenic material within distal common bile du ct consistent with sludge or nonshadowing calculi 3. Hepatic cysts Electronically signed by: Justin Pastor M.D. 03/03/2019 6:33 AM
--- NOTE | 2019-03-03 06:35 | XRay Report ---
XR chest 1V portable CLINICAL HISTORY: pre-op COMPARISON STUDY: 12/09/2018 FINDINGS: The cardiac and mediastinal contours are normal. There is no evidence of focal pulmonary co nsolidation. There is no evidence of failure. No pleural effusions are visualized.[Arthritic changes are present within the left shoulder. IMPRESSION: No active disease in the chest. Electronically signed by: Justin Pastor M.D. 03/03/2019 6:33 AM
[2019-03-03] MEDS: KETOROLAC TROMETHAMINE 15 MG/ML VIAL IV PRN ×2 (08:04→19:33)
--- NOTE | 2019-03-03 08:18 | Surgery Consultation ---
Date of Consultation March 03, 2019 Assessment & Plan (1) Abdominal pain, acute, right upper quadrant: Likely chronic cholecystitis, debris in CBD by U/S. Will hold Plavix, trend LFT's. Discuss with GI for possible ERCP and lap mariana vs cholangiogram in a few days. as above. debris in CBD on US coupled with pain/elevated alk phos...? ERCP. cannot have MRCP b/c of aneurysm clips stop plavix plan lap mariana +/- ERCP/cholangiogram in a couple days. likely mon or . History of Present Illness Attending Physician: Iva Bautista MD History of Present Illness 73 y/o female with RUQ abdominal pain begab Monday after eating hamburger and tater tots. No N,V, no history of RUQ pain or food intolerance. Pain continued on Monday, admitted overnight by hospitalist. No previous abdominal surgery. Remote history of brain aneursym clipping and also on Plavix. Allergies Allergy/AdvReac Type Severity Reaction Status Date / Time methocarbamol Allergy Severe felt like Verified 02/28/19 13:06 her throat was closing vancomycin Allergy Mild HIVES Verified 02/28/19 13:06 wheat AdvReac Unknown Uncoded 02/28/19 13:06 Home Medications Home Medications Medication Instructions Recorded Confirmed Type amlodipine 5 mg PO DAILY 05/25/18 03/03/19 History atorvastatin 40 mg PO QPM 05/25/18 03/03/19 History cholecalciferol (vitamin D3) 5,000 unit PO DAILY 05/25/18 03/03/19 History [Vitamin D3] clopidogrel 75 mg PO QPM 05/25/18 03/03/19 History lisinopril 20 mg PO BID 05/25/18 03/03/19 History metoprolol succinate 50 mg PO BID 05/25/18 03/03/19 History cod liver oil capsule 1 cap PO DAILY 06/22/18 03/03/19 History coenzyme Q10 100 mg capsule 100 mg PO DAILY 06/22/18 03/03/19 History ascorbic acid (vitamin C) [Vitamin 500 mg PO DAILY 12/09/18 03/03/19 History C] latanoprost 1 drp OPL PM 12/09/18 03/03/19 History dtfhtwlm-xcw-DS-lycopen-lutein 1 tab PO DAILY 12/09/18 03/03/19 History [Centrum Silver] vitamin E succinate 400 unit tablet 400 units PO DAILY tab 12/11/18 03/03/19 History Lactobacillus rhamnosus GG 10 1 cap PO DAILY cap 12/17/18 03/03/19 History billion cell-inulin 200 mg capsule nortriptyline 25 mg capsule 25 mg PO HS #30 cap 12/17/18 03/03/19 Rx acetaminophen 300 mg-codeine 30 mg 1 - 2 tab PO Q4H PRN tab 12/24/18 03/03/19 History tablet pantoprazole 40 mg tablet,delayed 40 mg PO DAILY #30 tab 02/18/19 03/03/19 Rx release ascorbate calcium-bioflavonoid See Rx Instructions PO DAILY 02/27/19 03/03/19 History multivitamin with minerals tablet See Rx Instructions PO TID 02/27/19 03/03/19 History wheat germ oil See Rx Instructions PO BID 02/27/19 03/03/19 History Patient History Medical History Artery dissection (Resolved) Intracranial aneurysm (Chronic) Renal artery stenosis (Chronic) Hemiplegia affecting dominant side (Chronic) Insomnia (Chronic) Aneurysm (Chronic) Hypertension (Chronic) Bronchitis (Resolved) Hypertension (Chronic) Subarachnoid hemorrhage (Resolved) Surgical History H/O vaginal hysterectomy (Chronic) Family History Mother Breast cancer Diabetes Father Myocardial infarction Other Cerebral aneurysm Social History Preferred Language: Bolivian Communication Ability: Effective Visual Impairment: Limited Hearing Ability: Normal Support Associate Required: No Beliefs That Will Affect Care: None marital status: Current Living Situation: Spouse current occupational status: retired Feels Safe at Home: Yes Smoking Status: Never smoker Hx Alcohol Use: No Hx Substance Use: No Dental Care, Regularly: Yes Seatbelt Use: always Sunscreen Use: Yes Review of Systems Constitutional: no fever and no chills Respiratory: no cough and no dyspnea Cardiovascular: no chest pain and no chest pain with activity Gastrointestinal: + abdominal pain; no bloating, no nausea and no vomiting Physical Exam Constitutional: WD/WN, vitals as above Respiratory: normal respiratory effort, lungs clear to auscultation Cardiovascular: RRR, no murmur, no edema Gastrointestinal (Abdomen): Percussion/Palpation: + abdomen tender (mild RUQ more to midline than the side) and abdomen soft Skin: no rashes, warm and dry Results & Data Vital Signs (Past 12 Hours) Vital Signs Temp Pulse Pulse Resp BP BP Pulse Ox 03/03/19 05:30 36.6 C 71 16 130/78 95 03/03/19 05:06 65 20 104/61 96 03/03/19 03:36 63 20 97/52 L 95 03/03/19 02:52 60 18 99/57 L 93 03/03/19 02:20 65 18 115/72 95 03/03/19 01:48 36.7 C 77 20 123/80 97 PG Care Time/CCT Total # of Minutes Spent Total Time Spent with Patient: Total time spent is greater than 50% in coordination of care (as documented) at patient's floor/unit and/or counseling patient:
[2019-03-03] MEDS: PANTOprazole 40 MG TAB PO SCH (09:40)
[2019-03-03] MEDS: LISINOPRIL 20 MG TAB PO SCH ×2 (09:40→21:10)
[2019-03-03] MEDS: METOPROLOL SUCC 50MG EXT REL TAB PO SCH ×2 (09:40→21:13)
[2019-03-03] MEDS: AMLODIPINE BESYLATE 5 MG TAB PO SCH (09:40)
--- NOTE | 2019-03-03 11:04 | Gastrointestinal Consultation ---
Date of Consultation March 03, 2019 Assessment & Plan (1) Cholecystitis, acute: (2) Abdominal pain, acute, right upper quadrant: (3) Thickening of wall of gallbladder: (4) Common bile duct dilation: No Liver panel elevations at present Will discuss with [facility] team in the AM, as they perform EUS/ERCP Most likely patient will be able to undergo Lap Christine with IOC and EUS can be deferred, but will need in the future secondary to peripancreatic JOSSELYN/Biliary ductal dilation Recommend Liver panel in the AM Cannot have MRCP Further recommendations to follow. History of Present Illness Reason for Consultation: Common Bile Duct dilation Attending Physician: Iva Bautista MD History of Present Illness 73 yo CF who presented to the ER on 03/01 with complaints of RUQ abdominal pain following a meal. She had normal liver panel in the ER, and underwent a RUQ US, which showed a contracted GB and biliary ductal dilation. Of note, she did have a prior abdominal US in November secondary to epigastric pain, and was noted to have a peripancreatic lymph node that was enlarged, as well as intra and extrahepatic ductal dilation and did have slightly elevated transaminases at that time, though she did not have any followup. She was seen by surgery this AM, and will likely need a cholecystectomy as per their evaluation. At the time I saw the patient this AM, she did have some RUQ tenderness, rated 5/10 in intensity, non- radiating without alleviating or exacerbating factors. She denies any nausea, vomiting, jaundice, acholic stools, hematemesis, melena or hematochezia. She has no further complaints. 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 Allergies Allergy/AdvReac Type Severity Reaction Status Date / Time methocarbamol Allergy Severe felt like Verified 02/28/19 13:06 her throat was closing vancomycin Allergy Mild HIVES Verified 02/28/19 13:06 wheat AdvReac Unknown Uncoded 02/28/19 13:06 Home Medications Home Medications Medication Instructions Recorded Confirmed Type amlodipine 5 mg PO DAILY 05/25/18 03/03/19 History atorvastatin 40 mg PO QPM 05/25/18 03/03/19 History cholecalciferol (vitamin D3) 5,000 unit PO DAILY 05/25/18 03/03/19 History [Vitamin D3] clopidogrel 75 mg PO QPM 05/25/18 03/03/19 History lisinopril 20 mg PO BID 05/25/18 03/03/19 History metoprolol succinate 50 mg PO BID 05/25/18 03/03/19 History cod liver oil capsule 1 cap PO DAILY 06/22/18 03/03/19 History coenzyme Q10 100 mg capsule 100 mg PO DAILY 06/22/18 03/03/19 History ascorbic acid (vitamin C) [Vitamin 500 mg PO DAILY 12/09/18 03/03/19 History C] latanoprost 1 drp OPL PM 12/09/18 03/03/19 History jxtvzmch-uud-US-lycopen-lutein 1 tab PO DAILY 12/09/18 03/03/19 History [Centrum Silver] vitamin E succinate 400 unit tablet 400 units PO DAILY tab 12/11/18 03/03/19 History Lactobacillus rhamnosus GG 10 1 cap PO DAILY cap 12/17/18 03/03/19 History billion cell-inulin 200 mg capsule nortriptyline 25 mg capsule 25 mg PO HS #30 cap 12/17/18 03/03/19 Rx acetaminophen 300 mg-codeine 30 mg 1 - 2 tab PO Q4H PRN tab 12/24/18 03/03/19 History tablet pantoprazole 40 mg tablet,delayed 40 mg PO DAILY #30 tab 02/18/19 03/03/19 Rx release ascorbate calcium-bioflavonoid See Rx Instructions PO DAILY 02/27/19 03/03/19 History multivitamin with minerals tablet See Rx Instructions PO TID 02/27/19 03/03/19 History wheat germ oil See Rx Instructions PO BID 02/27/19 03/03/19 History Patient History Medical History Artery dissection (Resolved) Intracranial aneurysm (Chronic) Renal artery stenosis (Chronic) Hemiplegia affecting dominant side (Chronic) Insomnia (Chronic) Aneurysm (Chronic) Hypertension (Chronic) Bronchitis (Resolved) Hypertension (Chronic) Subarachnoid hemorrhage (Resolved) Surgical History H/O vaginal hysterectomy (Chronic) Family History Mother Breast cancer Diabetes Father Myocardial infarction Other Cerebral aneurysm Social History Preferred Language: Croatian Communication Ability: Effective Visual Impairment: Limited Hearing Ability: Normal Certified Hyperbaric Technologist Required: No Beliefs That Will Affect Care: None marital status: Current Living Situation: Spouse current occupational status: retired Feels Safe at Home: Yes Smoking Status: Never smoker Hx Alcohol Use: No Hx Substance Use: No Dental Care, Regularly: Yes Seatbelt Use: always Sunscreen Use: Yes Review of Systems Review of Systems: All systems reviewed & are unremarkable except as noted in HPI & below Physical Exam Constitutional: WD/WN, vitals as above Respiratory: normal respiratory effort, lungs clear to auscultation Cardiovascular: RRR, no murmur, no edema Gastrointestinal (Abdomen): Inspection/Auscultation: abdomen normal to inspection; abdomen not distended Percussion/Palpation: + abdomen tender (RU Q) and abdomen soft; no guarding, abdomen not rigid and no hepatosplenomegaly Skin: no rashes, warm and dry Psychiatric: A+Ox3, euthymic affect Results & Data Vital Signs (Past 12 Hours) Vital Signs Temp Pulse Pulse Resp BP BP Pulse Ox 03/03/19 09:39 64 150/82 H 03/03/19 05:30 36.6 C 71 16 130/78 95 03/03/19 05:06 65 20 104/61 96 03/03/19 03:36 63 20 97/52 L 95 03/03/19 02:52 60 18 99/57 L 93 03/03/19 02:20 65 18 115/72 95 03/03/19 01:48 36.7 C 77 20 123/80 97 PG Care Time/CCT Total # of Minutes Spent Total Time Spent with Patient: Total time spent is greater than 50% in coordination of care (as documented) at patient's floor/unit and/or counseling patient:
[2019-03-03] MEDS: cefOXitin 2,000 MG in DEXTROSE 5% 50 ML IV SCH ×2 (13:55→21:17)
--- NOTE | 2019-03-03 17:01 | Hospitalist Progress Note ---
Date of Service March 03, 2019 Assessment & Plan (1) Cholecystitis, acute: Possibly acute on chronic cholecystitis RUQ pain intermittently for several months, only minimally elevated Alk phos on labs US with possible sludge in CBD and chronically dilated CBD 11mm -continue IV Mefoxin -continue IVFs -cannot have MRCP due to aneurysm clips in brain Surgery consulted-planning for lap mariana Mon or after Plavix washes out GI to possibly perform ERCP and EUS but awaiting for Dr. Medina to discuss with [facility] -keep NPO after midnight in case of ERCP/EUS on Monday -otherwise can have clears diet -follow LFTs (2) Abdominal pain, acute, right upper quadrant: as above (3) Common bile duct dilation: as above (4) Hypertension: Continue home meds (5) Murmur, cardiac: ordered ECHO for preop purposes (6) Pancreatic mass: 2.4 cm, peripancreatic possibly -needs EUS either here or as outpt (7) Intracranial aneurysm: history of such with clips placed, had SAH many years ago with resultant right hemiplegia (8) Artery dissection: has a recent history of vertebral artery dissection which is now resolved -is on Plavix and controlling BP but holding Plavix for Surgery upcoming -continue statin (9) DVT prophylaxis: SCDs Dispo-remain in hospital Subjective Currently has no abd pain, is feeling well. Denies nausea or vomiting. No chest pain now or with any exertion, no SOB. She has a heart murmur but cannot recall having an ECHO, no h/o heart issues otherwise Discussed her case with GI and Surgery Review of Systems Review of Systems: All systems reviewed & are unremarkable except as noted in HPI & below Physical Exam Constitutional: WD/WN, vitals as above Eyes: PERRL, conjunctivae normal, anicteric sclerae ENMT: external ear and nose normal, oropharynx normal Neck: trachea midline, no thyromegaly Respiratory: normal respiratory effort, lungs clear to auscultation Cardiovascular: Rate/Rhythm: regular rate and regular rhythm Heart Sounds: + murmur (2/6 systolic murmur at LLSB) Extremities: no edema Gastrointestinal (Abdomen): normal bowel sounds, soft, nontender, no hepatosplenomegaly Musculoskeletal: Extremities: extremities normal to inspection; no cyanosis and no clubbing Skin: no rashes, warm and dry Neurologic: moves all extremities and awake; no focal motor deficits Psychiatric: A+Ox3, euthymic affect Results & Data Vital Signs (Past 12 Hours) Vital Signs Temp Pulse Resp BP Pulse Ox 03/03/19 14:54 36.6 C 66 16 155/85 H 97 03/03/19 09:39 64 150/82 H 03/03/19 05:30 36.6 C 71 16 130/78 95 03/03/19 05:06 65 20 104/61 96 Laboratory Results labs reviewed PG Care Time/CCT Total # of Minutes Spent Total Time Spent with Patient: Total time spent is greater than 50% in coordination of care (as documented) at patient's floor/unit and/or counseling patient: (1) Hypertension Hypertension type: unspecified Qualified Code(s): I10 - Essential (primary) hypertension
[2019-03-03] MEDS ORDERED: CLOPIDOGREL BISULFATE 75 MG TAB PO SCH (21:00)
[2019-03-03] MEDS ORDERED: LATANOPROST 0.005% OP SOLN 2.5 ML BTL OPL SCH (21:00)
[2019-03-03] MEDS: NORTRIPTYLINE HCL 25 MG CAP PO SCH (21:09)
[2019-03-03] MEDS: ATORVASTATIN 40 MG TAB PO SCH (21:14)
[2019-03-03] MEDS ORDERED: Nursing to Pharmacy Communication ONE (22:22)
[2019-03-04 05:29] LABS: Hematocrit (blood only) 26.6 % (37-47); Mean Corpuscular Hemoglobin 31.1 pg (25-34); Mean Corpuscular Hgb Conc 33.8 g/dL (32-36); Mean Platelet Volume 8.8 fL (7.4-10.4); Platelet Count 311 K/uL (130-400); RDW Coefficient of Variation 13.4 % (11.5-14.5); RDW Standard Deviation 45.1 fL (36.4-46.3); Red Blood Count 2.89 M/uL (4.2-5.4); White Blood Count 5.78 K/uL (4.8-10.8)
[2019-03-04] MEDS: cefOXitin 2,000 MG in DEXTROSE 5% 50 ML IV SCH ×3 (05:33→20:58)
[2019-03-04 06:20] LABS: Albumin Globulin Ratio 0.7 (0.9-2); Albumin Level 2.5 gm/dl (3.4-5.0); BUN Creatinine Ratio 14.2 (10-20); Bilirubin Direct 0.2 mg/dl (0-0.2); Bilirubin,Total 0.4 mg/dl (0.2-1); Calcium 8.7 mg/dl (8.5-10.1); Creatinine Clr Calc Pharmacy 53.7 ml/min; Est GFR (African American) 86.2; Est GFR (Non-African American) 74.4; Globulin 3.7 gm/dl (2.5-4.0); Total Protein 6.2 gm/dl (6.4-8.2)
--- NOTE | 2019-03-04 08:21 | Surgery Progress Note ---
Date of Service March 04, 2019 Assessment & Plan (1) Common bile duct dilation: await GI input re: EUS/ERCP eventual lap mariana Subjective pain 9/10 last night, no nausea Physical Exam Gastrointestinal (Abdomen): Percussion/Palpation: + abdomen tender (minimal) and abdomen soft Results & Data Vital Signs (Past 12 Hours) Vital Signs Temp Pulse Resp BP Pulse Ox 03/04/19 07:05 36.7 C 64 18 139/75 93 03/03/19 22:57 36.7 C 61 16 137/69 95 PG Care Time/CCT Total # of Minutes Spent Total Time Spent with Patient: Total time spent is greater than 50% in coordination of care (as documented) at patient's floor/unit and/or counseling patient:
[2019-03-04] MEDS: LACTATED RINGER'S 1,000 ML IV SCH ×2 (09:09→20:57)
[2019-03-04] MEDS: AMLODIPINE BESYLATE 5 MG TAB PO SCH (09:14)
[2019-03-04] MEDS: PANTOprazole 40 MG TAB PO SCH (09:14)
[2019-03-04] MEDS: LATANOPROST 0.005% OP SOLN 2.5 ML BTL OPL SCH (09:14)
[2019-03-04] MEDS: METOPROLOL SUCC 50MG EXT REL TAB PO SCH ×2 (09:14→20:48)
[2019-03-04] MEDS: LISINOPRIL 20 MG TAB PO SCH ×2 (09:15→20:48)
--- NOTE | 2019-03-04 12:29 | Gastroenterology Progress Note ---
Date of Service March 04, 2019 Assessment & Plan (1) Common bile duct dilation: 73 year old female admitted w/ upper abdominal pain, ABD US w/ Contracted gallbladder, Dilated common bile duct measuring 11 mm w/sludge/stone in distal CBD. Her lipase/lfts are non-elevated and she is clinically feeling well. She did have an ABD US from summer for similar symptoms w/ 2.4 cm hypoechoic nodule either within or adjacent to the pancreas. Not MR candidate w/ aneurysm clip CT panc ordered Can keep NPO Will discuss w/ attending EUS/ERCP Hold plavix Will coordinate with general surgery Thank you for allowing us to participate in the care of this patient. Please call with any acute changes, questions or concerns. Please see addendum below with additional recommendation from my supervising physician. (2) Cholecystitis, acute: Supervising Physician Co-Signing Physician Notes I have performed a history and physical examination of this patient and reviewed the electronic medical record. Specifically, on physical examination there is no RUQ tenderness. I have discussed the case with JAMAR Anthony. The above note reflects my findings, conclusions, and recommendations. We will check CT in view of prior US abnormalities in the pancreas. ERCP deferred in view of recent Plavix use. Yoel Swartz MD Subjective Pt was seen and evaluated Chart reviewed No acute events noted NPO Plavix on hold, last dose 03/03/ Notes intermittent abd pain x 1 month This acutely worsened about 72 hours ago after dinner RUQ w/ radiation up her sternum No nausea, vomiting No dark urine, acholic stools, jaundice No change in appetite No weight loss ABD US: Contracted gallbladderDilated common bile duct measuring 11 mm. There is echogenic material within distal common bile duct consistent with sludge or nonshadowing calculiHepatic cysts ABD US: Mild intra and extra hepatic bile duct dilatation. The common bile duct measures 1.1 cm diameter. A 2.4 cm hypoechoic nodule either within or adjacent to the pancreas. This may represent a peripancreatic lymph node. However, dedicated pancreatic CT Contracted gallbladder. No gallstones. Review of Systems Constitutional: no fever and no chills Respiratory: no cough Cardiovascular: no chest pain and no dyspnea on exertion Gastrointestinal: + abdominal pain; no heartburn, no nausea, no vomiting, no coffee ground emesis, no change in stools, no diarrhea/loose stools, no blood in stools and no melena Physical Exam Constitutional: well developed and well nourished; no acute distress and not ill appearing Respiratory: + abnormal respiratory effort Cardiovascular: Rate/Rhythm: regular rate Gastrointestinal (Abdomen): Inspection/Auscultation: normal bowel sounds Percussion/Palpation: abdomen soft; abdomen nontender, no guarding, abdomen not rigid and no abdominal mass Skin: no rashes, warm and dry Results & Data Vital Signs (Past 12 Hours) Vital Signs Temp Pulse Pulse Resp BP Pulse Ox 03/04/19 09:12 63 140/66 03/04/19 07:05 36.7 C 64 18 139/75 93
[2019-03-04] MEDS ORDERED: IOVERSOL 100ml IV PRN (14:57)
--- NOTE | 2019-03-04 15:25 | CT Scan Report ---
CT pancreas 3-phase wo/w con CT DOSE: 623.52 mGycm CLINICAL HISTORY: Upper abdominal pain. Common bile duct stone. Peripancreatic lymph node. TECHNIQUE: The patient was scanned following administration of oral contrast. Unenhanced images were obtained through the upper abdomen. The patient was imaged in a dynamic helical fashion during intrav enous administration of 92 cc of Optiray 320. 32nd and a second images were acquired. A dose lowerin g technique was utilized adhering to the principles of ALARA. COMPARISON STUDY: CT angiogram dated 03/24/2017, gallbladder ultrasound dated 03/03/2019 FINDINGS: The lung bases are unremarkable in appearance. Several hepatic cysts are visualized, the largest of which measures 25 mm. The hepatic and portal vei ns appear patent. There is intrahepatic biliary ductal dilatation. The common bile duct measures 1 cm . No gallbladder lesions are visualized. No splenic lesions are visualized. No pancreatic lesions are visualized. There is no evidence of pancreatic ductal dilatation. No adrenal masses are visualized. There is a 15 mm left renal cyst. There is no pathologic upper abdominal lymphadenopathy IMPRESSION: 1. Intra and extrahepatic biliary ductal dilatation. A dilated common bile duct is visualized down to the level of the ampulla. No focal masses visualized on CT scanning. There is no pancreatic ductal d ilatation. No pancreatic masses are visualized. 2. Hepatic cysts 3. Left renal cyst Electronically signed by: Justin Pastor M.D. 03/04/2019 3:24 PM
[2019-03-04] MEDS: ATORVASTATIN 40 MG TAB PO SCH (20:48)
[2019-03-04] MEDS: NORTRIPTYLINE HCL 25 MG CAP PO SCH (20:49)
--- NOTE | 2019-03-04 21:33 | Hospitalist Progress Note ---
Date of Service March 04, 2019 Assessment & Plan (1) Cholecystitis, acute: Possibly acute on chronic cholecystitis. RUQ pain intermittently for several months, only minimally elevated Alk phos on labs. US with possible sludge in CBD and chronically dilated CBD 11mm. - Cannot have MRCP due to aneurysm clips in brain - Surgery consulted - planning for lap mariana Mon or after Plavix washes out - GI consulted for possible ERCP and EUS, but want to also wait until Plavix is at least 5-7 days off. (2) Hypertension: BP 130/80. At target. - Continue home meds (3) Murmur, cardiac: [place] by the prior provider. Only mild tricuspid regurg noted on echo. - No needs (4) Pancreatic mass: A 2.4 cm nodule which was possibly peripancreatic was seen on ultrasound. No seen on CT pancreas on 03/04. MRI not possible due to brain aneurysm clips. - Defer to GI, but appears to need no further follow up. 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 - No inpatient needs (6) Artery dissection: Has a recent history of vertebral artery dissection which is now resolved. - Is on Plavix and controlling BP but holding Plavix for surgery. - Continue statin - Restart Plavix as soon as able (7) DVT prophylaxis: SCDs Subjective No pain since yesterday evening. No nausea or vomiting. Review of Systems Review of Systems: All systems reviewed & are unremarkable except as noted in HPI & below Physical Exam Constitutional: WD/WN, vitals as above Eyes: EOM intact bilaterally; no conjunctival abnormality ENMT: external ear and nose normal, oropharynx normal Neck: trachea midline, no thyromegaly normal visual inspection Respiratory: normal respiratory effort, lungs clear to auscultation no respiratory distress Cardiovascular: RRR, no murmur, no edema Gastrointestinal (Abdomen): Inspection/Auscultation: abdomen normal to inspection; abdomen not distended Musculoskeletal: no cyanosis or clubbing, extremities motor strength 5/5 Skin: no rashes, warm and dry Neurologic: moves all extremities and awake Psychiatric: Orientation: alert, oriented to person and cooperative Results & Data Vital Signs (Past 12 Hours) Vital Signs Temp Pulse Resp BP Pulse Ox 03/04/19 16:18 132/84 03/04/19 15:38 36.6 C 62 17 161/82 H 96 PG Care Time/CCT Total # of Minutes Spent Total Time Spent with Patient: Total time spent is greater than 50% in coordination of care (as documented) at patient's floor/unit and/or counseling patient: (1) Hypertension Hypertension type: unspecified Qualified Code(s): I10 - Essential (primary) hypertension
[2019-03-05] MEDS: cefOXitin 2,000 MG in DEXTROSE 5% 50 ML IV SCH ×2 (05:10→13:31)
[2019-03-05 05:45] LABS: Hemoglobin 9.4 g/dL (12.0-16.0); Mean Corpuscular Hemoglobin 30.7 pg (25-34); Mean Corpuscular Hgb Conc 33.6 g/dL (32-36); Mean Corpuscular Volume 91.5 fL (80-100); Mean Platelet Volume 8.9 fL (7.4-10.4); Platelet Count 344 K/uL (130-400); RDW Coefficient of Variation 13.4 % (11.5-14.5); RDW Standard Deviation 45.1 fL (36.4-46.3); Red Blood Count 3.06 M/uL (4.2-5.4); White Blood Count 5.79 K/uL (4.8-10.8)
[2019-03-05 06:25] LABS: Albumin Globulin Ratio 0.7 (0.9-2); Albumin Level 2.7 gm/dl (3.4-5.0); BUN Creatinine Ratio 11.8 (10-20); Bilirubin Direct 0.2 mg/dl (0-0.2); Bilirubin,Total 0.4 mg/dl (0.2-1); Calcium 8.8 mg/dl (8.5-10.1); Creatinine Clr Calc Pharmacy 52.4 ml/min; Est GFR (African American) 83.6; Est GFR (Non-African American) 72.1; Potassium 3.4 mmol/L (3.5-5.1); Total Protein 6.7 gm/dl (6.4-8.2)
--- NOTE | 2019-03-05 07:55 | Surgery Progress Note ---
Date of Service March 05, 2019 Assessment & Plan (1) Common bile duct dilation: CT scan results yesterday as below Currently tolerating clear liquids without issue Will await GI input for possible ERCP prior to performing lap mariana. Right now we tentatively booked patient for lap mariana on 03/07 which would be 5 days off plavix Can consider melatonin or other sleep aid to help at bedtime as above. feeling better appreciate GI input. no plans at this time for ERCP plan lap mariana thurs. will perform IOC discussed options/risks with pt/family at bedside today. discussed bleeding/infection/dvt/pe/mi/cva/bile leaks or injury etc... questions answered. agreeable with plan. Subjective Patient tolerated clears yesterday without n/v. Denies any abdominal pain. Passing flatus but no BM since admission. Her only complaint is that she did not sleep at all last night, but says this is common for her. Physical Exam Physical Exam: awake/alert Constitutional: well developed and well nourished; no acute distress Respiratory: normal respiratory effort Gastrointestinal (Abdomen): Percussion/Palpation: abdomen soft; abdomen nontender Results & Data Vital Signs (Past 12 Hours) Vital Signs Temp Pulse Resp BP BP Pulse Ox 03/05/19 07:16 36.6 C 64 18 151/86 H 97 03/05/19 06:48 37.4 C 91 H 18 138/82 92 03/04/19 22:59 36.9 C 63 16 149/[address] pancreas 3-phase wo/w con CT DOSE: 623.52 mGycm CLINICAL HISTORY: Upper abdominal pain. Common bile duct stone. Peripancreatic lymph node. TECHNIQUE: The patient was scanned following administration of oral contrast. Unenhanced images were obtained through the upper abdomen. The patient was imaged in a dynamic helical fashion during intravenous administration of 92 cc of Optiray 320. 32nd and a second images were acquired. A dose lowering technique was utilized adhering to the principles of ALARA. COMPARISON STUDY: CT angiogram dated 03/24/2017, gallbladder ultrasound dated 03/03/2019 FINDINGS: The lung bases are unremarkable in appearance. Several hepatic cysts are visualized, the largest of which measures 25 mm. The hepatic and portal veins appear patent. There is intrahepatic biliary ductal dilatation. The common bile duct measures 1 cm. No gallbladder lesions are visualized. No splenic lesions are visualized. No pancreatic lesions are visualized. There is no evidence of pancreatic ductal dilatation. No adrenal masses are visualized. There is a 15 mm left renal cyst. There is no pathologic upper abdominal lymphadenopathy IMPRESSION: 1. Intra and extrahepatic biliary ductal dilatation. A dilated common bile duct is visualized down to the level of the ampulla. No focal masses visualized on CT scanning. There is no pancreatic ductal dilatation. No pancreatic masses are visualized. 2. Hepatic cysts 3. Left renal cyst Electronically signed by: Justin Pastor M.D. 03/04/2019 3:24 PM PG Care Time/CCT Total # of Minutes Spent Total Time Spent with Patient: Total time spent is greater than 50% in coordination of care (as documented) at patient's floor/unit and/or counseling patient:
[2019-03-05] MEDS: AMLODIPINE BESYLATE 5 MG TAB PO SCH (09:03)
[2019-03-05] MEDS: PANTOprazole 40 MG TAB PO SCH (09:03)
[2019-03-05] MEDS: LATANOPROST 0.005% OP SOLN 2.5 ML BTL OPL SCH (09:04)
[2019-03-05] MEDS: LISINOPRIL 20 MG TAB PO SCH ×2 (09:04→20:40)
--- NOTE | 2019-03-05 09:21 | Gastroenterology Progress Note ---
Date of Service March 05, 2019 Assessment & Plan (1) Common bile duct dilation: 73 year old female admitted w/ upper abdominal pain, ABD US w/ Contracted gallbladder, Dilated common bile duct measuring 11 mm w/sludge/stone in distal CBD. Her lipase/lfts are non-elevated and she is clinically feeling well. She did have an ABD US from summer for similar symptoms w/ 2.4 cm hypoechoic nodule either within or adjacent to the pancreas. CT without any evidence of choledocholithiasis, pancreatic mass and lymph node enlargement. Her symptoms have resolved, her LFTs and lipase have remained normal and she has been afebrile Not MR candidate w/ aneurysm clip No clear indication for ERCP given CT findings but will discuss w/ attending, surgical team. ?IO Would continue to hold plavix given tentative surgical plan Thank you for allowing us to participate in the care of this patient. Please call with any acute changes, questions or concerns. Please see addendum below with additional recommendation from my supervising physician. (2) Cholecystitis, acute: Supervising Physician Co-Signing Physician Notes I have performed a history and physical examination of this patient and reviewed the electronic medical record. Specifically, on physical examination there is no abdominal tenderness. I have discussed the case with JAMAR Anthony. The above note reflects my findings, conclusions, and recommendations. Yoel Swartz MD Subjective Pt was seen and evaluated, chart reviewed No acute events noted overnight CT negative No abd pain No nausea, vomiting Did trial diet last evening, tolerated Passing gas but no BM Not sleeping well - uses melatonin at home but unsure if this works No fever, chills, CP, SOB since admission CT: hepatic cysts are visualized, the largest of which measures 25 mm. The hepatic and portal veins appear patent. There is intrahepatic biliary ductal dilatation. The common bile duct measures 1 cm.No gallbladder lesions are visualized. no splenic lesions are visualized. No pancreatic lesions are visualized. There is no evidence of pancreatic ductal dilatation. No adrenal masses are visualized. There is a 15 mm left renal cyst. There is no pathologic upper abdominal lymphadenopathy Review of Systems Constitutional: no fever, no chills and no fatigue Respiratory: no cough and no dyspnea Cardiovascular: no chest pain and no radiating jaw, neck or arm pain Gastrointestinal: no abdominal pain, no nausea and no vomiting Physical Exam Constitutional: WD/WN, vitals as above Respiratory: normal respiratory effort Cardiovascular: Rate/Rhythm: regular rate Gastrointestinal (Abdomen): normal bowel sounds, soft, nontender, no hepatosplenomegaly Results & Data Vital Signs (Past 12 Hours) Vital Signs Temp Pulse Pulse Resp BP BP Pulse Ox 03/05/19 09:01 71 177/98 H 03/05/19 07:16 36.6 C 64 18 151/86 H 97 03/05/19 06:48 37.4 C 91 H 18 138/82 92 03/04/19 22:59 36.9 C 63 16 149/83 H 99
[2019-03-05] MEDS: METOPROLOL SUCC 50MG EXT REL TAB PO SCH ×2 (09:35→20:41)
[2019-03-05] MEDS: TIMOLOL MALEATE 0.5% OP SOLN 5 ML BTL OP SCH (11:04)
--- NOTE | 2019-03-05 14:36 | Hospitalist Progress Note ---
Date of Service March 05, 2019 Assessment & Plan (1) Cholecystitis, acute: Possibly acute on chronic cholecystitis. RUQ pain intermittently for several months, only minimally elevated Alk phos on labs. US with possible sludge in CBD and chronically dilated CBD 11mm. - Cannot have MRCP due to aneurysm clips in brain - Surgery consulted - planning for lap mariana on after Plavix washes out - GI consulted for possible ERCP and EUS, but want to also wait until Plavix is at least 5-[address] off[address] Given normal CT pancreas, likely no need for ERCP; will do intra-operative cholangiogram. (2) Hypertension: BP 1550/80. At target. - Continue home meds (3) Murmur, cardiac: [place] by the prior provider. Only mild tricuspid regurg noted on echo. - No needs (4) Pancreatic mass: A 2.4 cm nodule which was possibly peripancreatic was seen on ultrasound. No seen on CT pancreas on 03/04. MRI not possible due to brain aneurysm clips. - Appears to need no further follow up. 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 - No inpatient needs (6) Artery dissection: Has a recent history of vertebral artery dissection which is now resolved. - Is on Plavix and controlling BP but holding Plavix for surgery. - Continue statin - Restart Plavix as soon as able (7) DVT prophylaxis: SCDs Subjective Feels well today. No recurrence of pain. Physical Exam Constitutional: WD/WN, vitals as above Eyes: EOM intact bilaterally; no conjunctival abnormality ENMT: external ear and nose normal, oropharynx normal Neck: trachea midline, no thyromegaly normal visual inspection Respiratory: normal respiratory effort, lungs clear to auscultation no respiratory distress Cardiovascular: RRR, no murmur, no edema Gastrointestinal (Abdomen): Inspection/Auscultation: abdomen normal to inspection; abdomen not distended Musculoskeletal: no cyanosis or clubbing, extremities motor strength 5/5 Skin: no rashes, warm and dry Neurologic: moves all extremities and awake Psychiatric: Orientation: alert, oriented to person and cooperative Results & Data Vital Signs (Past 12 Hours) Vital Signs Temp Pulse Pulse Resp BP BP Pulse Ox 03/05/19 11:05 154/83 H 03/05/19 10:34 176/92 H 03/05/19 09:01 71 177/98 H 03/05/19 07:16 36.6 C 64 18 151/86 H 97 03/05/19 06:48 37.4 C 91 H 18 138/82 92 PG Care Time/CCT Total # of Minutes Spent Total Time Spent with Patient: Total time spent is greater than 50% in coordination of care (as documented) at patient's floor/unit and/or counseling patient: (1) Hypertension Hypertension type: unspecified Qualified Code(s): I10 - Essential (primary) hypertension
[2019-03-05] MEDS: ATORVASTATIN 40 MG TAB PO SCH (20:40)
[2019-03-05] MEDS: NORTRIPTYLINE HCL 25 MG CAP PO SCH (20:41)
--- NOTE | 2019-03-06 07:54 | Surgery Progress Note ---
Date of Service March 06, 2019 Assessment & Plan (1) Thickening of wall of gallbladder: plan for ERCP & lap mariana tomorrow Subjective tolerating diet Physical Exam Gastrointestinal (Abdomen): Percussion/Palpation: abdomen soft Results & Data Vital Signs (Past 12 Hours) Vital Signs Temp Pulse Pulse Resp BP BP Pulse Ox 03/06/19 07:16 36.8 C 60 18 109/68 97 03/05/19 23:45 36.7 C 56 L 16 122/78 96 03/05/19 20:36 71 149/86 H PG Care Time/CCT Total # of Minutes Spent Total Time Spent with Patient: Total time spent is greater than 50% in coordination of care (as documented) at patient's floor/unit and/or counseling patient:
--- NOTE | 2019-03-06 08:11 | Gastroenterology Progress Note ---
Date of Service March 06, 2019 Assessment & Plan (1) Common bile duct dilation: 73 year old female admitted w/ upper abdominal pain, ABD US w/ Contracted gallbladder, Dilated common bile duct measuring 11 mm w/sludge/stone in distal CBD. Her lipase/lfts are non-elevated and she is clinically feeling well. She did have an ABD US from summer for similar symptoms w/ 2.4 cm hypoechoic nodule either within or adjacent to the pancreas. CT without any evidence of choledocholithiasis, pancreatic mass and lymph node enlargement. Her symptoms have resolved, her LFTs and lipase have remained normal and she has been afebrile. Plan for ERCP pre-operative for evaluation of biliary dilation 03/07/19 - Hold plavix - NPO after midnight - ERCP 03/07/19 Thank you for allowing us to participate in the care of this patient. Please call with any acute changes, questions or concerns. Please see addendum below with additional recommendation from my supervising physician. (2) Cholecystitis, acute: Supervising Physician Co-Signing Physician Notes I have performed a history and physical examination of this patient and reviewed the electronic medical record. Specifically, on history there is no pain and on physical examination there is no abdominal tenderness. I have discussed the case with JAMAR Anthony. The above note reflects my findings, conclusions, and recommendations. oYel Swartz MD Subjective Pt was seen and evaluated, chart reviewed No acute events noted overnight Clinically feeling well No abd pain No nausea, vomiting Plan for ERCP tomorrow before cholecystectomy for eval of biliary dilation Review of Systems Constitutional: no fever, no chills and no fatigue Respiratory: no cough and no dyspnea Cardiovascular: no chest pain, no radiating jaw, neck or arm pain and no dyspnea on exertion Gastrointestinal: no abdominal pain, no early satiety, no heartburn, no coffee ground emesis, no hematemesis, no blood in stools and no melena Physical Exam Constitutional: well developed and well nourished Respiratory: normal respiratory effort, lungs clear to auscultation Cardiovascular: Rate/Rhythm: regular rate and regular rhythm Gastrointestinal (Abdomen): normal bowel sounds, soft, nontender, no hepatosplenomegaly Results & Data Vital Signs (Past 12 Hours) Vital Signs Temp Pulse Pulse Resp BP BP Pulse Ox 03/06/19 07:16 36.8 C 60 18 109/68 97 03/05/19 23:45 36.7 C 56 L 16 122/78 96 03/05/19 20:36 71 149/86 H
[2019-03-06] MEDS: AMLODIPINE BESYLATE 5 MG TAB PO SCH (08:42)
[2019-03-06] MEDS: METOPROLOL SUCC 50MG EXT REL TAB PO SCH ×2 (08:42→20:19)
[2019-03-06] MEDS: LISINOPRIL 20 MG TAB PO SCH ×2 (08:42→20:20)
[2019-03-06] MEDS: PANTOprazole 40 MG TAB PO SCH (08:42)
[2019-03-06] MEDS: TIMOLOL MALEATE 0.5% OP SOLN 5 ML BTL OP SCH (08:43)
--- NOTE | 2019-03-06 16:12 | Hospitalist Progress Note ---
Date of Service March 06, 2019 Assessment & Plan (1) Cholecystitis, acute: Possibly acute on chronic cholecystitis. RUQ pain intermittently for several months, only minimally elevated Alk phos on labs. US with possible sludge in CBD and chronically dilated CBD 11mm. - Cannot have MRCP due to aneurysm clips in brain - Surgery consulted - planning for lap mariana on after Plavix washes out - GI consulted for possible ERCP and EUS, but want to also wait until Plavix is at least 5-7 days off. - Plan for ERCP then lap mariana tomorrow. (2) Hypertension: BP was 135/80. At target today. - Continue home meds (3) Murmur, cardiac: [place] by the prior provider. Only mild tricuspid regurg noted on echo. - No needs (4) Pancreatic mass: A 2.4 cm nodule which was possibly peripancreatic was seen on ultrasound. No seen on CT pancreas on 03/04. MRI not possible due to brain aneurysm clips. - Appears to need no further follow up. 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 - No inpatient needs (6) Artery dissection: Has a recent history of vertebral artery dissection which is now resolved. - Is on Plavix and controlling BP but holding Plavix for surgery. - Continue statin - Restart Plavix as soon as able - Will discuss with surgery re: restarting it. (7) DVT prophylaxis: SCDs Subjective Feels well today. No major concerns. No return of pain. Reports no fevers/chills, chest pain, shortness of breath, abdominal pain, nausea, or vomiting. Physical Exam Constitutional: WD/WN, vitals as above Eyes: EOM intact bilaterally; no conjunctival abnormality ENMT: external ear and nose normal, oropharynx normal Neck: trachea midline, no thyromegaly normal visual inspection Respiratory: normal respiratory effort, lungs clear to auscultation no respiratory distress Cardiovascular: RRR, no murmur, no edema Gastrointestinal (Abdomen): Inspection/Auscultation: abdomen normal to inspection; abdomen not distended Musculoskeletal: no cyanosis or clubbing, extremities motor strength 5/5 Skin: no rashes, warm and dry Neurologic: moves all extremities and awake Psychiatric: Orientation: alert, oriented to person and cooperative Results & Data Vital Signs (Past 12 Hours) Vital Signs Temp Pulse Pulse Pulse Resp BP BP 03/06/19 14:57 36.5 C 63 16 135/82 03/06/19 08:41 69 137/85 03/06/19 07:16 36.8 C 60 18 109/68 Pulse Ox 03/06/19 14:57 96 03/06/19 08:41 03/06/19 07:16 97 PG Care Time/CCT Total # of Minutes Spent Total Time Spent with Patient: Total time spent is greater than 50% in coordination of care (as documented) at patient's floor/unit and/or counseling patient: (1) Hypertension Hypertension type: unspecified Qualified Code(s): I10 - Essential (primary) hypertension
[2019-03-06] MEDS: ATORVASTATIN 40 MG TAB PO SCH (20:19)
[2019-03-06] MEDS: NORTRIPTYLINE HCL 25 MG CAP PO SCH (20:19)
[2019-03-07 06:02] LABS: Hematocrit (blood only) 30.2 % (37-47); Hemoglobin 10.1 g/dL (12.0-16.0); Mean Corpuscular Hemoglobin 30.7 pg (25-34); Mean Corpuscular Hgb Conc 33.4 g/dL (32-36); Mean Corpuscular Volume 91.8 fL (80-100); Platelet Count 375 K/uL (130-400); RDW Coefficient of Variation 13.4 % (11.5-14.5); RDW Standard Deviation 44.8 fL (36.4-46.3); Red Blood Count 3.29 M/uL (4.2-5.4); White Blood Count 7.05 K/uL (4.8-10.8)
[2019-03-07 06:46] LABS: BUN Creatinine Ratio 30.6 (10-20); Calcium 8.9 mg/dl (8.5-10.1); Creatinine Clr Calc Pharmacy 47.1 ml/min; Est GFR (African American) 73.5; Est GFR (Non-African American) 63.4; Potassium 3.7 mmol/L (3.5-5.1)
[2019-03-07] MEDS: LISINOPRIL 20 MG TAB PO SCH ×2 (07:46→20:01)
[2019-03-07] MEDS: METOPROLOL SUCC 50MG EXT REL TAB PO SCH ×2 (07:46→20:01)
[2019-03-07] MEDS: PANTOprazole 40 MG TAB PO SCH (07:47)
[2019-03-07] MEDS: AMLODIPINE BESYLATE 5 MG TAB PO SCH (07:47)
[2019-03-07] MEDS: TIMOLOL MALEATE 0.5% OP SOLN 5 ML BTL OP SCH (07:48)
--- NOTE | 2019-03-07 08:15 | Gastroenterology Progress Note ---
Date of Service March 07, 2019 Assessment & Plan (1) Common bile duct dilation: 73 year old female admitted w/ upper abdominal pain, ABD US w/ Contracted gallbladder, Dilated common bile duct measuring 11 mm w/sludge/stone in distal CBD. Her lipase/lfts are non-elevated and she is clinically feeling well. She did have an ABD US from summer for similar symptoms w/ 2.4 cm hypoechoic nodule either within or adjacent to the pancreas. CT without any evidence of choledocholithiasis, pancreatic mass and lymph node enlargement. Her symptoms have resolved, her LFTs and lipase have remained normal and she has been afebrile. Plan for ERCP pre-operative for evaluation of biliary dilation 03/07/19 - Hold plavix - NPO for ERCP and lap cholecystectomy - Please see prior notes for additional recommendations Thank you for allowing us to participate in the care of this patient. Please call with any acute changes, questions or concerns. Please see addendum below with additional recommendation from my supervising physician. (2) Cholecystitis, acute: Supervising Physician Co-Signing Physician Notes I have performed a history and physical examination of this patient and reviewed the electronic medical record. Specifically, on physical examination there is no abdominal tenderness. I have discussed the case with JAMAR Anthony. The above note reflects my findings, conclusions, and recommendations. Yoel Swartz MD Subjective Pt was seen and evaluated, chart reviewed No acute events overnight No abd pain No nausea, vomiting No fever, chills, CP, SOB NPO for ERCP, lap cholecystectomy Blood thinner has been held Review of Systems Constitutional: no fever and no chills Respiratory: no cough and no dyspnea Cardiovascular: no chest pain and no radiating jaw, neck or arm pain Gastrointestinal: no abdominal pain, no coffee ground emesis, no hematemesis, no blood in stools and no melena Physical Exam Constitutional: WD/WN, vitals as above well developed Neck: trachea midline Respiratory: normal respiratory effort Cardiovascular: Rate/Rhythm: regular rate and regular rhythm Gastrointestinal (Abdomen): normal bowel sounds, soft, nontender, no hepatosplenomegaly Results & Data Vital Signs (Past 12 Hours) Vital Signs Temp Pulse Pulse Resp BP Pulse Ox 03/07/19 07:24 36.5 C 56 L 16 113/76 96 03/06/19 23:11 36.6 C 59 L 16 114/70 97 03/06/19 20:17 61 149/82 H
[2019-03-07] MEDS ORDERED: BUPIVACAINE/EPINEPHRINE 0.5% MPF 1:200,000 30 ML VIAL ONE (11:27)
[2019-03-07] MEDS ORDERED: CONRAY 60% 50 ML VIAL ONE (11:27)
--- NOTE | 2019-03-07 11:48 | History & Physical Bridge Note ---
Date of Service March 07, 2019 History & Physical Bridge Note I have examined the patient, reviewed the History & Physical and in the interval since the performance of the History & Physical I have noted the following changes of clinical significance: no changes noted re-discussed risks/options. questions answered. will proceed with lap mariana after ERCP.
[2019-03-07] MEDS ORDERED: INDOMETHACIN 50 MG SUPP PR ONE (12:00)
[2019-03-07] MEDS ORDERED: fentaNYL citrate 100 MCG/2 ML VIAL ONE (12:08)
[2019-03-07] MEDS ORDERED: GLYCOPYRROLATE 0.2 MG/ML VIAL ONE (12:38)
[2019-03-07] MEDS ORDERED: PROPOFOL IV EMULSION 10 MG/ML 20 ML VIAL IV ONE (12:38)
[2019-03-07] MEDS ORDERED: DEXAMETHASONE SOD INJ 4 MG/ML VIAL ONE (12:38)
[2019-03-07] MEDS ORDERED: NEOSTIGMINE METHYLSULFATE 5 MG/5 ML SYR ONE (12:38)
[2019-03-07] MEDS ORDERED: ROCURONIUM BROMIDE 10 MG/ML 5 ML VIAL ONE (12:38)
[2019-03-07] MEDS ORDERED: ePHEDrine sulfate 50 MG/ML SYR ONE (12:38)
[2019-03-07] MEDS ORDERED: LARYING-O-JET KIT (LTA) ONE (12:38)
[2019-03-07] MEDS ORDERED: ONDANSETRON INJ 2 MG/ML 2 ML VIAL ONE (12:38)
[2019-03-07] MEDS ORDERED: LIDOCAINE HCL 2% 2 ML VIAL/AMP(20MG/ML) INFIL ONE (12:38)
[2019-03-07] MEDS ORDERED: ONDANSETRON INJ 2 MG/ML 2 ML VIAL IV PRN (12:39)
[2019-03-07] MEDS ORDERED: HYDROmorphone INJ 1 MG/ML SYRINGE IV PRN (12:39)
[2019-03-07] MEDS ORDERED: ePHEDrine sulfate 50 MG/ML AMP IV PRN (12:39)
[2019-03-07] MEDS ORDERED: ATROPINE SULFATE 0.1 MG/ML 10ML SYR IV PRN (12:39)
--- NOTE | 2019-03-07 12:39 | Anesthesiology Consultation ---
Date of Service March 07, 2019 Assessment & Plan ASA ASA3 Proposed Anesthesia Anesthesia Type: General Risk / Benefits Reviewed With: PT / POA / Parent / Guardian, Accepts Plan and Informed Consent Obtained Additional Comments: reviwed echo History Surgery Operation Date: 03/07/19 12:30 Proposed Procedures p Laparoscopic Cholecystectomy; - Flavio Arroyo DO s Endoscopic Retrograde Cholangiopancreatogram - Yoel Swartz MD Height/Weight Height: 5 ft 2 in Weight: 61.3 kg Allergies Allergy/AdvReac Type Severity Reaction Status Date / Time methocarbamol Allergy Severe felt like Verified 02/28/19 13:06 her throat was closing vancomycin Allergy Mild HIVES Verified 02/28/19 13:06 wheat AdvReac Unknown Uncoded 02/28/19 13:06 Medications Home Medications Medication Instructions Recorded Confirmed Last Taken amlodipine 5 mg PO DAILY 05/25/18 03/03/19 12/09/18 08:00 atorvastatin 40 mg PO QPM 05/25/18 03/03/19 Unknown cholecalciferol (vitamin D3) 5,000 unit PO DAILY 05/25/18 03/03/19 Unknown [Vitamin D3] clopidogrel 75 mg PO QPM 05/25/18 03/03/19 Unknown lisinopril 20 mg PO BID 05/25/18 03/03/19 12/09/18 08:00 metoprolol succinate 50 mg PO BID 05/25/18 03/03/19 12/09/18 08:00 cod liver oil capsule 1 cap PO DAILY 06/22/18 03/03/19 Unknown coenzyme Q10 100 mg capsule 100 mg PO DAILY 06/22/18 03/03/19 Unknown ascorbic acid (vitamin C) [Vitamin 500 mg PO DAILY 12/09/18 03/03/19 Unknown C] latanoprost 1 drp OPL PM 12/09/18 03/03/19 Unknown fnoiumbf-ntj-DC-lycopen-lutein 1 tab PO DAILY 12/09/18 03/03/19 Unknown [Centrum Silver] vitamin E succinate 400 unit tablet 400 units PO DAILY tab 12/11/18 03/03/19 Unknown Lactobacillus rhamnosus GG 10 1 cap PO DAILY cap 12/17/18 03/03/19 Unknown billion cell-inulin 200 mg capsule nortriptyline 25 mg capsule 25 mg PO HS #30 cap 12/17/18 03/03/19 Unknown acetaminophen 300 mg-codeine 30 mg 1 - 2 tab PO Q4H PRN tab 12/24/18 03/03/19 Unknown tablet pantoprazole 40 mg tablet,delayed 40 mg PO DAILY #30 tab 02/18/19 03/03/19 Unknown release ascorbate calcium-bioflavonoid See Rx Instructions PO DAILY 02/27/19 03/03/19 Unknown multivitamin with minerals tablet See Rx Instructions PO TID 02/27/19 03/03/19 Unknown wheat germ oil See Rx Instructions PO BID 02/27/19 03/03/19 Unknown Active Medications Generic Name Dose Route Start Last Admin Trade Name Freq PRN Reason Stop Dose Admin Amlodipine Besylate 5 mg 03/03/19 09:00 03/07/19 07:47 Norvasc PO 04/02/19 08:59 5 mg DAILY DAVID Administration Atorvastatin Calcium 40 mg 03/03/19 21:00 03/06/19 20:19 Lipitor PO 04/02/19 20:59 40 mg QPM DAVID Administration Ketorolac Tromethamine 15 mg 03/03/19 05:32 03/03/19 19:33 Toradol IV 03/08/19 05:31 15 mg Q6H PRN Administration Mild pain/fever Lisinopril 20 mg 03/03/19 09:00 03/07/19 07:46 Zestril PO 04/02/19 08:59 20 mg BID DAVID Administration Metoprolol Succinate 50 mg 03/03/19 09:00 03/07/19 07:46 Toprol Xl PO 04/02/19 08:59 Not Given BID DAVID Nortriptyline HCl 25 mg 03/03/19 21:00 03/06/19 20:19 Pamelor PO 04/02/19 20:59 25 mg HS DAVID Administration Pantoprazole Sodium 40 mg 03/03/19 09:00 03/07/19 07:47 Protonix PO 04/02/19 08:59 40 mg DAILY DAVID Administration Timolol Maleate 1 drops 03/05/19 10:15 03/07/19 07:48 Timoptic 0.5% Oph OP 04/04/19 10:14 1 drops QAM DAVID Administration NPO Date Last Intake of Fluids: 03/06/19 Time Last Intake of Fluids: 18:30 Date Last Intake of Solids: 03/06/19 Time Last Intake of Solids: 18:00 Last Intake of Solids Comment: prior to shift. Past Medical History Medical History Artery dissection (Resolved) Intracranial aneurysm (Chronic) Renal artery stenosis (Chronic) Hemiplegia affecting dominant side (Chronic) Insomnia (Chronic) Aneurysm (Chronic) Hypertension (Chronic) Bronchitis (Resolved) Hypertension (Chronic) Subarachnoid hemorrhage (Resolved) Exercise / Class Metabolic Activity III < 4 Walking/Shop/Light housework Past Family History Family History Mother Breast cancer Diabetes Father Myocardial infarction Other Cerebral aneurysm Past Surgical History Surgical History H/O vaginal hysterectomy (Chronic) Past Anesthesia History No Hx of Anesthesia Complications and No Family Hx of Anesthesia Complications History of PONV No Hx of PONV and No Hx of Motion Sickness Social History Smoking Status: Never smoker Hx Alcohol Use: No Hx Substance Use: No Review of Systems denies fever, ,cough, colds, cp, sob Physical Exam Vital Signs Last Vital Signs Temp 36.6 C 03/07/19 12:12 Pulse 58 L 03/07/19 12:12 Resp 20 03/07/19 12:12 BP 150/84 H 03/07/19 12:12 Pulse Ox 96 03/07/19 12:12 Respiratory normal respiratory effort Auscultation: lungs clear to auscultation bilaterally Cardiovascular Rate/Rhythm: regular rate and regular rhythm Testing Laboratory Results 03/07/19 05:26 03/07/19 05:26 Urine Color Yellow 03/03/19 Unknown Urine Appearance Clear (Clear) 03/03/19 Unknown Urine pH 6.0 (4.5-7.5) 03/03/19 Unknown Ur Specific [place] 1.021 (1.000-1.030) 03/03/19 Unknown Urine Protein Negative (Negative) 03/03/19 Unknown Urine Glucose (UA) Negative (Negative) 03/03/19 Unknown Urine Ketones Negative (Negative) 03/03/19 Unknown Urine Nitrite Negative (Negative) 03/03/19 Unknown Ur Leukocyte Esterase Negative (Negative) 03/03/19 Unknown
[2019-03-07] MEDS: CIPROFLOXACIN 400 MG/200 ML BAG IV SCH ×2 (13:08→17:33)
[2019-03-07] MEDS ORDERED: ePHEDrine sulfate 50 MG/ML AMP ONE (13:18)
--- NOTE | 2019-03-07 13:45 | Fluoroscopy Report ---
[place] ERCP biliary ductal CLINICAL HISTORY: ERCP COMPARISON STUDY: CT of the abdomen and pelvis March 04, 2019. FLUOROSCOPY TIME: 111 seconds. FLUOROSCOPIC IMAGES: 3. FINDINGS: These images demonstrate cannulation of the common bile duct. Apparent filling defect on th e initial image may reflect a common bile duct calculus, A balloon sweep through the common bile duct is noted. IMPRESSION: Fluoroscopy provided for ERCP. Electronically signed by: Mohan Calvo M.D. 03/07/2019 1:44 PM
--- NOTE | 2019-03-07 13:45 | GI REPORT ---
Patient Name: Ashely Antony Procedure Date: 03/07/2019 12:31 PM Date of : 1945 Admit Type: Inpatient Age: 73 Gender: Female Attending MD: Yoel Swartz MD Procedure: ERCP Providers: Yoel Swartz MD Referring MD: Adrian Salmon Md Indications: Biliary dilation on Ultrasound, Bile duct stone on Ultrasound, Evaluation and possible treatment of bile duct stone(s) Medicines: General Anesthesia, Indomethacin 100 mg [place] Complications: No immediate complications. Estimated blood loss: None Estimated Blood Loss: Estimated blood loss: none. Procedure: Pre-Anesthesia Assessment: - Prior to the procedure, a History and Physical was performed, and patient medications, allergies and sensitivities were reviewed. The patient's tolerance of previous anesthesia was reviewed. - ASA Grade Assessment: III - A patient with severe systemic disease. After obtaining informed consent, the scope was passed under direct vision. Throughout the procedure, the patient's blood pressure, pulse, and oxygen saturations were monitored continuously. The SCOPE was introduced through the mouth, and advanced to the duodenum and used to inject contrast into the bile duct. The ERCP was accomplished with ease. The patient tolerated the procedure well. Findings: The ice guard skating rink film was normal. The esophagus was successfully intubated under direct vision without detailed examination of the pharynx, larynx, and associated structures, and upper GI tract. The upper GI tract was grossly normal. The major papilla was on the rim of a diverticulum. A Lua Acrobat 0.035 inch guidewire was passed into the biliary tree through a Lua Omni FS 35 sphincterotome. The sphincterotome was passed over the guidewire and the bile duct was then deeply cannulated. Contrast was injected. A filling defect was noted in the common bile duct. The entire opacified area was diffusely dilated. The largest diameter was 10 mm. A 6 mm biliary sphincterotomy was made with a monofilament traction (standard) sphincterotome using ERBE electrocautery. There was no post-sphincterotomy bleeding. Dilation of the papillotomy and the distal common bile duct with a 6 mm balloon dilator was performed. To discover objects, the biliary tree was swept with a 12 mm balloon starting at the bifurcation. Sludge was swept from the duct. A few small stones were removed. No stones remained. The total fluoroscopy exposure time was 1 minute and 51 seconds. Impression: - The major papilla was on the rim of a diverticulum. - The biliary system was dilated. - Choledocholithiasis was found. - Complete removal was accomplished by biliary sphincterotomy followed by balloon dilitation and balloon extraction. - The cystic duct did not fill. Recommendation: - Laparoscopic cholecystectomy to immediately follow this procedure. Yoel Swartz M.D. Yoel Swartz MD 03/07/2019 1:45:04 PM This report has been signed electronically. Note Initiated On: 03/07/2019 12:31 PM Number of Addenda: 0 I attest to the content of the Intraoperative Record and orders documented therein, exceptions below {[id number]}
--- NOTE | 2019-03-07 13:47 | Post Operative Brief Note ---
Immediate Post Op Note v1 Date of Surgery March 07, 2019 Pre & Post Diagnosis Operation Date: 03/07/19 12:30 Pre-Op Diagnosis: Cholecystitis, choledocholithiasis Post-Op Diagnosis: Choledocholithiasis I identified the patient and participated in the time-out.: Yes Procedure Operation Date: 03/07/19 12:30 Actual Procedures Endoscopic Retrograde Cholangiopancreatogram with sphincterotomy and stone extraction - Yoel Swartz MD Surgeon Yoel Swartz MD Order Processing Clerk none Estimated Blood Loss 0 Findings Consistent with Post-Op Diagnosis
[2019-03-07] MEDS ORDERED: PHENYLEPHRINE HCL 10 MG/ML VIAL ONE (14:14)
--- NOTE | 2019-03-07 14:34 | Operative Report ---
PG Post Operative Report Pre & Post Diagnosis Operation Date: 03/07/19 12:30 Pre-Op Diagnosis: CHOLECYSTITIS;gallstones Post-Op Diagnosis: CHOLECYSTITIS;gallstones I identified the patient and participated in the time-out.: Yes Procedure Operation Date: 03/07/19 12:30 Actual Procedures p Laparoscopic Cholecystectomy;(Not Applicable) - Flavio Arroyo DO s Endoscopic Retrograde Cholangiopancreatogram(Not Applicable) - Yoel Swartz MD Surgeon Flavio Arroyo, Social Services Designee none Estimated Blood Loss 5 Findings Consistent with Post-Op Diagnosis Specimens gallbladder Description of Procedure Prior to my portion of the procedure the patient had been in the operating room undergoing an ERCP by Dr. Swartz. Please see his report. The patient was then placed into a supine position. She was already intubated. The abdomen was sterilely prepped and draped in usual fashion. A periumbilical incision was made with an 11 blade scalpel and carried down through the soft tissue using electrocautery. The anterior rectus fascia was opened using electrocautery and 2 #0 Vicryl stay sutures were placed. The peritoneum was elevated with hemostats and incised under direct vision using Metzenbaum scissors. A finger sweep was performed and a 12 mm Stuart trocar was placed. The abdomen was insufflated to 18 mmHg. The laparoscope was inserted and the abdomen was examined in 360. No gross abnormalities were identified. A subxiphoid 5 mm port and 2 right upper quadrant 5 mm ports were placed under direct vision. The patient was placed in a reverse Trendelenburg position and slightly airplaned to the left. The gallbladder was grasped and elevated superiorly and laterally. A [place] dissector was used to take down adhesions around the neck of the gallbladder. The cystic duct was identified and skeletonized. It was clipped twice proximally and once distally and transected using a laparoscopic scissor. In similar fashion the cystic artery was identified and skeletonized clipped and divided. The gallbladder was removed from the gallbladder fossa with electrocautery. A very small hole was made in the gallbladder releasing a small amount of bile in the right upper quadrant. This was immediately suctioned out and the area irrigated until all the irrigant was clear. It was placed into an Endo Catch bag. Additional thorough irrigation was performed. At the end of the procedure there was adequate hemostasis and no evidence of any bile leaks. A final look around the abdomen showed no other abnormalities. The gallbladder and trochars were all removed and the abdomen was desufflated. The fascia of the camera port was closed using 0 Vicryl in a [id number] fashion. All the wounds were irrigated and closed using 4-0 Monocryl. Marcaine was injected around them for postoperative analgesia and skin glue used as a dressing. The patient was awaken extubated and transferred to recovery in stable condition. My physician's assistant basketball coach was present throughout the entire case... helped with prepping the patient. With exposure for trocar placement, as well as retracted the gallbladder throughout the case and also assisted with wound closure and dressing placement. I attest to the content of the Intraoperative Record and any orders documented t herein. Any exceptions are noted below.
[2019-03-07] MEDS: fentaNYL citrate 100 MCG/2 ML VIAL IV PRN ×2 (15:07→15:14)
--- NOTE | 2019-03-07 15:33 | Hospitalist Progress Note ---
Date of Service March 07, 2019 Assessment & Plan (1) Cholecystitis, acute: Possibly acute on chronic cholecystitis. RUQ pain intermittently for several months, only minimally elevated Alk phos on labs. US with possible sludge in CBD and chronically dilated CBD 11mm. - Cannot have MRCP due to aneurysm clips in brain - Had to wait 5 days until Plavix had washed out of system. - ERCP then lap mariana sequentially done on 03/07; only mild complication was that the gallbladder had mild leak prior to removal. However, no blood loss or notable complications. (2) Hypertension: BP was 155/80. Mildly high, but in the operative setting. - Continue home meds (3) Murmur, cardiac: [place] by the prior provider. Only mild tricuspid regurg noted on echo. - No needs (4) Pancreatic mass: A 2.4 cm nodule which was possibly peripancreatic was seen on ultrasound. No seen on CT pancreas on 03/04. MRI not possible due to brain aneurysm clips. - Appears to need no further follow up. 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 - No inpatient needs (6) Artery dissection: Has a recent history of vertebral artery dissection which is now resolved. - Is on Plavix and controlling BP but holding Plavix for surgery. - Continue statin - Restart Plavix as soon as able - Will discuss with surgery re: restarting it. (7) DVT prophylaxis: SCDs Subjective Doing well this morning. Some restless sleep from nerves, but otherwise fine. Reports no fevers/chills, chest pain, shortness of breath, abdominal pain, nausea, or vomiting. Physical Exam Constitutional: WD/WN, vitals as above Eyes: EOM intact bilaterally; no conjunctival abnormality ENMT: external ear and nose normal, oropharynx normal Neck: trachea midline, no thyromegaly normal visual inspection Respiratory: normal respiratory effort, lungs clear to auscultation no respiratory distress Cardiovascular: RRR, no murmur, no edema Gastrointestinal (Abdomen): Inspection/Auscultation: abdomen normal to inspection; abdomen not distended Musculoskeletal: no cyanosis or clubbing, extremities motor strength 5/5 Skin: no rashes, warm and dry Neurologic: moves all extremities and awake Psychiatric: Orientation: alert, oriented to person and cooperative Results & Data Vital Signs (Past 12 Hours) Vital Signs Temp Pulse Pulse Resp BP BP Pulse Ox 03/07/19 15:20 48 L 12 154/74 H 94 03/07/19 15:10 48 L 13 169/79 H 99 03/07/19 15:00 48 L 12 159/74 H 100 03/07/19 14:50 48 L 13 172/81 H 100 03/07/19 14:40 36.2 C L 52 L 23 159/86 H 100 03/07/19 12:12 36.6 C 58 L 20 150/84 H 96 03/07/19 07:24 36.5 C 56 L 16 113/76 96 PG Care Time/CCT Total # of Minutes Spent Total Time Spent with Patient: Total time spent is greater than 50% in coordination of care (as documented) at patient's floor/unit and/or counseling patient: (1) Hypertension Hypertension type: unspecified Qualified Code(s): I10 - Essential (primary) hypertension
--- NOTE | 2019-03-07 15:37 | Anesthesiology Progress Note ---
Date of Service March 07, 2019 Anesthesia Post Procedure Vital Signs Vital Signs: Temp Pulse Pulse Pulse Resp BP BP 03/07/19 15:30 36.2 C L 49 L 19 153/73 H 03/07/19 15:20 48 L 12 154/74 H 03/07/19 15:10 48 L 13 169/79 H 03/07/19 15:00 48 L 12 159/74 H 03/07/19 14:50 48 L 13 172/81 H 03/07/19 14:40 36.2 C L 52 L 23 159/86 H 03/07/19 12:12 36.6 C 58 L 20 150/84 H 03/07/19 07:24 36.5 C 56 L 16 113/76 03/06/19 23:11 36.6 C 59 L 16 114/70 03/06/19 20:17 61 149/82 H Pulse Ox 03/07/19 15:30 100 03/07/19 15:20 94 03/07/19 15:10 99 03/07/19 15:00 100 03/07/19 14:50 100 03/07/19 14:40 100 03/07/19 12:12 96 03/07/19 07:24 96 03/06/19 23:11 97 03/06/19 20:17 Pain Intensity Abdomen: Pain Intensity: 8 Right Abdomen: Pain Intensity: 8 Transfer of Care Handoff Completed per policy Notes Mental Status: alert / awake / arousable Patient Amnestic to Procedure: Yes Nausea / Vomiting: adequately controlled Pain: adequately controlled Airway Patency, RR, SpO2: stable & adequate BP & HR: stable & adequate Hydration State: stable & adequate Anesthetic Complications: no major complications apparent Notes: at baseline neuro status in pacu
[2019-03-07] MEDS ORDERED: HYDROCODONE/ACETAMOPHEN 5/325MG TAB PO PRN (16:12)
[2019-03-07] MEDS: HYDROmorphone INJ 0.5 MG/0.5 ML SYR IV PRN (19:44)
[2019-03-07] MEDS: NORTRIPTYLINE HCL 25 MG CAP PO SCH (20:01)
[2019-03-07] MEDS: ATORVASTATIN 40 MG TAB PO SCH (20:01)
[2019-03-07] MEDS ORDERED: COUGH DROP (SUGAR FREE) LOZ 24 LOZ/1 BOX BUCCAL ONE (21:02)
[2019-03-07] MEDS: LACTATED RINGER'S 1,000 ML IV SCH (21:56)
[2019-03-07] MEDS: KETOROLAC TROMETHAMINE 15 MG/ML VIAL IV PRN (21:56)
[2019-03-08] MEDS: HYDROmorphone INJ 0.5 MG/0.5 ML SYR IV PRN ×2 (02:42→18:53)
[2019-03-08 06:33] LABS: Hematocrit (blood only) 32.3 % (37-47); Hemoglobin 10.8 g/dL (12.0-16.0); Mean Corpuscular Hemoglobin 30.8 pg (25-34); Mean Corpuscular Hgb Conc 33.4 g/dL (32-36); Mean Platelet Volume 9.4 fL (7.4-10.4); Platelet Count 427 K/uL (130-400); RDW Coefficient of Variation 13.4 % (11.5-14.5); RDW Standard Deviation 44.6 fL (36.4-46.3); Red Blood Count 3.51 M/uL (4.2-5.4); White Blood Count 16.37 K/uL (4.8-10.8)
[2019-03-08 07:06] LABS: BUN Creatinine Ratio 25.2 (10-20); Calcium 9.1 mg/dl (8.5-10.1); Creatinine Clr Calc Pharmacy 33.8 ml/min; Est GFR (African American) 49.2; Est GFR (Non-African American) 42.5; Phosphorus 4.4 mg/dl (2.5-4.9); Potassium 4.1 mmol/L (3.5-5.1)
--- NOTE | 2019-03-08 07:54 | Anesthesiology Progress Note ---
Date of Service March 08, 2019 Anesthesia Post Procedure Vital Signs Vital Signs: Temp Pulse Pulse Pulse Resp BP BP 03/08/19 07:34 36.4 C L 68 18 118/59 L 03/08/19 03:24 36.6 C 76 16 105/68 03/07/19 22:49 36.5 C 80 16 135/67 03/07/19 19:59 72 119/67 03/07/19 19:21 36.4 C L 62 16 135/82 03/07/19 18:00 36.2 C L 53 L 16 131/81 03/07/19 17:32 36.2 C L 03/07/19 16:42 34.4 C L 52 L 137/84 03/07/19 16:30 51 L 16 149/68 H 03/07/19 16:00 36.2 C L 49 L 16 150/83 H 03/07/19 15:30 36.2 C L 49 L 19 153/73 H 03/07/19 15:20 48 L 12 154/74 H 03/07/19 15:10 48 L 13 169/79 H 03/07/19 15:00 48 L 12 159/74 H 03/07/19 14:50 48 L 13 172/81 H 03/07/19 14:40 36.2 C L 52 L 23 159/86 H 03/07/19 12:12 36.6 C 58 L 20 150/84 H Pulse Ox 03/08/19 07:34 91 03/08/19 03:24 91 03/07/19 22:49 95 03/07/19 19:59 03/07/19 19:21 94 03/07/19 18:00 99 03/07/19 17:32 03/07/19 16:42 98 03/07/19 16:30 97 03/07/19 16:00 97 03/07/19 15:30 100 03/07/19 15:20 94 03/07/19 15:10 99 03/07/19 15:00 100 03/07/19 14:50 100 03/07/19 14:40 100 03/07/19 12:12 96 Pain Intensity Abdomen: Pain Intensity: 0 Right Abdomen: Pain Intensity: 8 Notes Mental Status: alert / awake / arousable and participated in evaluation Nausea / Vomiting: adequately controlled Pain: adequately controlled Airway Patency, RR, SpO2: stable & adequate BP & HR: stable & adequate Hydration State: stable & adequate
--- NOTE | 2019-03-08 08:45 | Surgery Progress Note ---
Date of Service March 08, 2019 Assessment & Plan (1) S/P laparoscopic cholecystectomy: POD#1 ERCP with GI and Laparoscopic cholecystectomy WBC 16.3. Patient has been afebrile, likely related to post operative status Plan to advance diet as tolerates today to regular Encouraged patient try PO pain once she eats regular food Will discuss when safe to resume plavix and discharge plans with Dr. Arroyo as above. doing well from my standpoint ok for d/c. instructions given. f/u in 1-2 weeks. Subjective Patient states she had some abdominal pain overnight that kept her up. She received a dose of Dilaudid which helped her both with the pain and sleep. She still has some expected abdominal soreness this AM. She has been tolerating a clear liquid diet so far without nausea/vomiting. She has been up ambulating without issues. Physical Exam Physical Exam: awake/alert, up ambulating in her room making the bed Respiratory: normal respiratory effort Gastrointestinal (Abdomen): Inspection/Auscultation: + abdomen distended (minimally) and + abdominal surgical incision (c/d/i with dermabond overtop, some froylan-incisional ecchymosis) Percussion/Palpation: + abdomen tender (some tenderness froylan-incisionally) and abdomen soft Results & Data Vital Signs (Past 12 Hours) Vital Signs Temp Pulse Resp BP BP Pulse Ox 03/08/19 07:34 36.4 C L 68 18 118/59 L 91 03/08/19 03:24 36.6 C 76 16 105/68 91 03/07/19 22:49 36.5 C 80 16 135/67 95 PG Care Time/CCT Total # of Minutes Spent Total Time Spent with Patient: Total time spent is greater than 50% in coordination of care (as documented) at patient's floor/unit and/or counseling patient:
[2019-03-08] MEDS: HYDROCODONE/ACETAMOPHEN 5/325MG TAB PO PRN ×2 (08:53→17:47)
--- NOTE | 2019-03-08 09:19 | Gastroenterology Progress Note ---
Date of Service March 08, 2019 Assessment & Plan (1) Common bile duct dilation: 73 year old female admitted w/ upper abdominal pain, ABD US w/ Contracted gallbladder, Dilated common bile duct measuring 11 mm w/sludge/stone in distal CBD. Her lipase/lfts are non-elevated and she is clinically feeling well. She did have an ABD US from summer for similar symptoms w/ 2.4 cm hypoechoic nodule either within or adjacent to the pancreas. CT without any evidence of choledocholithiasis, pancreatic mass and lymph node enlargement. Her symptoms have resolved, her LFTs and lipase have remained normal and she has been afebrile. Plan for ERCP pre-operative for evaluation of biliary dilation 03/07/19 S/P ERCP for retained biliary stones and lap cholecystectomy POD1 w/ mild right sided positional pain, decreased appetite. - Will add lipase, LFTs - Antiemetics PRN - Analgesia PRN - LR maintenance fluid Thank you for allowing us to participate in the care of this patient. Please call with any acute changes, questions or concerns. Please see addendum below with additional recommendation from my supervising physician. (2) Cholecystitis, acute: Supervising Physician Co-Signing Physician Notes I have seen and examined the patient with JAMAR Anthony. s/p mariana and ercp. Mild abdominal pain. Took miralax, ate lunch. Agree with further plan of care as per above. GI will sign off. Subjective PT was seen and evaluated, chart reviewed S/P ERCP and mariana Does have some right sided abd pain this AM Worse with deep breathing, movements No appetite No nausea, vomiting No fever but elevated WBC Review of Systems Constitutional: no fever, no chills and no fatigue Respiratory: no cough and no dyspnea Cardiovascular: no chest pain and no radiating jaw, neck or arm pain Gastrointestinal: + abdominal pain; no heartburn, no nausea, no vomiting, no blood in stools and no melena Physical Exam Constitutional: well developed and well nourished; no acute distress Respiratory: normal respiratory effort, lungs clear to auscultation Cardiovascular: Rate/Rhythm: regular rate and regular rhythm Gastrointestinal (Abdomen): normal bowel sounds, soft, nontender, no hepatosplenomegaly Results & Data Vital Signs (Past 12 Hours) Vital Signs Temp Pulse Resp BP BP Pulse Ox 03/08/19 07:34 36.4 C L 68 18 118/59 L 91 03/08/19 03:24 36.6 C 76 16 105/68 91 03/07/19 22:49 36.5 C 80 16 135/67 95
[2019-03-08 09:26] LABS: Albumin Level 3.2 gm/dl (3.4-5.0); Bilirubin Direct 0.2 mg/dl (0-0.2); Bilirubin,Total 0.4 mg/dl (0.2-1); Total Protein 7.8 gm/dl (6.4-8.2)
[2019-03-08] MEDS: TIMOLOL MALEATE 0.5% OP SOLN 5 ML BTL OP SCH (09:29)
[2019-03-08] MEDS: PANTOprazole 40 MG TAB PO SCH (09:29)
[2019-03-08] MEDS: METOPROLOL SUCC 50MG EXT REL TAB PO SCH ×2 (09:29→22:11)
[2019-03-08] MEDS: LISINOPRIL 20 MG TAB PO SCH ×2 (09:29→22:11)
[2019-03-08] MEDS: AMLODIPINE BESYLATE 5 MG TAB PO SCH (09:29)
[2019-03-08] MEDS: LACTATED RINGER'S 1,000 ML IV SCH (09:37)
[2019-03-08] MEDS: POLYETHYLENE (MIRALAX) 17 GM PACK PO SCH (11:04)
--- NOTE | 2019-03-08 12:30 | Hospitalist Progress Note ---
Date of Service March 08, 2019 Assessment & Plan (1) Cholecystitis, acute: Possibly acute on chronic cholecystitis. RUQ pain intermittently for several months, only minimally elevated Alk phos on labs. US with possible sludge in CBD and chronically dilated CBD 11mm. - Cannot have MRCP due to aneurysm clips in brain - Had to wait 5 days until Plavix had washed out of system. - ERCP then lap mariana sequentially done on 03/07; only mild complication was that the gallbladder had mild leak prior to removal. However, no blood loss or notable complications. - On 03/08, having some abdominal pain. Will add pain pain meds and Miralax. (2) WILIAN (acute kidney injury): Mild WILIAN after surgery with Cr from 0.9 to 1.2. Likely mild fluid shifts during surgery. - Monitor (3) Hypertension: BP was 135/80. Better a day out from surgery. - Continue home meds (4) Murmur, cardiac: [place] by the prior provider. Only mild tricuspid regurg noted on echo. - No needs (5) Pancreatic mass: A 2.4 cm nodule which was possibly peripancreatic was seen on ultrasound. No seen on CT pancreas on 03/04. MRI not possible due to brain aneurysm clips. - Appears to need no further follow up. (6) Intracranial aneurysm: History of such with clips placed, had SAH many years ago with resultant right hemiplegia. - No inpatient needs (7) Artery dissection: Has a recent history of vertebral artery dissection which is now resolved. - Is on Plavix and controlling BP but holding Plavix for surgery. - Continue statin - Restart Plavix tomorrow. (8) DVT prophylaxis: SCDs Subjective Some abdominal pain today along the upper area. She reports some constipation and bloating as well. Reports no fevers/chills, chest pain, shortness of breath, nausea, or vomiting. Physical Exam Constitutional: WD/WN, vitals as above Eyes: EOM intact bilaterally; no conjunctival abnormality ENMT: external ear and nose normal, oropharynx normal Neck: trachea midline, no thyromegaly normal visual inspection Respiratory: normal respiratory effort, lungs clear to auscultation no respiratory distress Cardiovascular: RRR, no murmur, no edema Gastrointestinal (Abdomen): Inspection/Auscultation: abdomen normal to inspection, normal bowel sounds and + abdominal surgical incision (Clean, intact); abdomen not distended and no abdominal edema Musculoskeletal: no cyanosis or clubbing, extremities motor strength 5/5 Skin: no rashes, warm and dry Neurologic: moves all extremities and awake Psychiatric: Orientation: alert, oriented to person and cooperative Results & Data Vital Signs (Past 12 Hours) Vital Signs Temp Pulse Resp BP BP Pulse Ox 03/08/19 10:50 36.4 C L 64 18 134/76 95 03/08/19 07:34 36.4 C L 68 18 118/59 L 91 03/08/19 03:24 36.6 C 76 16 105/68 91 PG Care Time/CCT Total # of Minutes Spent Total Time Spent with Patient: Total time spent is greater than 50% in coordination of care (as documented) at patient's floor/unit and/or counseling patient: (1) Hypertension Hypertension type: unspecified Qualified Code(s): I10 - Essential (primary) hypertension
[2019-03-08] MEDS ORDERED: SENNA 8.6 MG TAB PO STA (17:19)
--- NOTE | 2019-03-08 21:56 | XRay Report ---
KUB CLINICAL HISTORY: Generalized abdominal pain. FINDINGS: 2 AP, portable, supine abdominal radiographs are correlated with abdominal CT dated 019. There is a nonobstructed abdominal bowel gas pattern. Residual enteric contrast is noted in the colon. There is moderate constipation. No evidence of intra-axial free air is seen on these supine im ages. Cholecystectomy clips are noted in the right upper quadrant. Phleboliths are seen in the pelvis . The skeletal structures are osteopenic. Mild lumbosacral spondylosis is observed. IMPRESSION: Nonobstructed abdominal bowel gas pattern noting moderate constipation. Electronically signed by: Norm Tse M.D. 03/08/2019 9:55 PM
[2019-03-08] MEDS: NORTRIPTYLINE HCL 25 MG CAP PO SCH (22:11)
[2019-03-08] MEDS: ATORVASTATIN 40 MG TAB PO SCH (22:11)
--- NOTE | 2019-03-08 22:50 | Progress Note ---
Date of Service March 08, 2019 Received a phone call from the duty radiologist that her CT scan of her abdomen from 4 days ago was over read as a possible hepatic abscess. Please see the addendum on that scan report. Spoke with patient's nurse. Patient is not presently complaining of any abdominal pain per their account. After brief chart review, patient underwent ERCP and lap mariana yesterday. Vital suppressants are unremarkable. She is not on any antibiotics. Plan: - As a precaution, will re-CT scan her abdomen this evening. - Depending on results, may start antibiotics. - Discussed plan with Dr. Mancilla in real time. Daisha Alex, PGY3 Overnight call Results & Data Vital Signs (Past 12 Hours) Vital Signs Temp Pulse Resp BP BP Pulse Ox 03/08/19 22:10 64 150/75 H 03/08/19 15:51 36.6 C 64 16 149/85 H 95 03/08/19 10:50 36.4 C L 64 18 134/76 95
[2019-03-09] MEDS ORDERED: IOVERSOL 100ml IV PRN (00:01)
[2019-03-09] MEDS: HYDROmorphone INJ 0.5 MG/0.5 ML SYR IV PRN ×2 (00:33→10:01)
--- NOTE | 2019-03-09 01:48 | CT Scan Report ---
CT SCAN OF THE ABDOMEN WITH IV CONTRAST CLINICAL HISTORY: Abnormal CT scan. Question hepatic abscess. COMPARISON STUDY: Abdominal CT scans dated 03/04/2019 and 03/24/2017. Abdominal ultrasound dated 02/19. TECHNIQUE: Following the IV administration of 94 cc of Optiray 320, CT scan of the abdomen is perfor med from the lung bases to the pelvic inlet. Images are reviewed in the axial, sagittal, and coronal planes. IV contrast was administered without complication. A dose lowering technique was utilized adh ering to the principles of ALARA. CT DOSE: 188.29 mGy.cm FINDINGS: Lung bases: The heart is enlarged and without pericardial effusion. The lung bases are clear noting s ignificant dependent atelectasis. There is a tiny hiatal hernia. Liver: The contrast-enhanced liver is normal in size, contour, and attenuation. There is mild intrahe patic biliary ductal dilatation, unchanged to slightly improved from previous. Pneumobilia is new fro m previous end suggests sphincterotomy. The hepatic veins and portal veins are patent. There is a 2.6 cm complex lesion in hepatic segment Mary seen on image #67. This demonstrates peripheral enhancement , and is similar in appearance to the 03/04/2019 examination. This has increased in size from 03/24/20 17. Additional hepatic cysts measure up to 1.1 cm. Gallbladder: Surgically absent noting clips in the gallbladder fossa. There is trace stranding and fl uid in the gallbladder fossa. No organized fluid collection is seen. Spleen: Normal in size and attenuation. A subcentimeter splenic hypodensity seen on image #98 is of d oubtful significance. Pancreas: Unremarkable. Adrenal glands: Unremarkable. Kidneys: The contrast enhanced kidneys demonstrate mild cortical atrophy and are without hydronephros is. The kidneys enhance symmetrically. A 1.5 cm cyst is noted in the left kidney. Abdominal vasculature: The abdominal aorta is normal in course and caliber noting moderate to advance d atherosclerotic calcification. Bowel: Visualized loops of small bowel and colon are normal in caliber, with no evidence of obstructi on. There is residual enteric contrast in the colon. A large duodenal diverticulum is noted. Peritoneum: There is no intraperitoneal free air or abdominal ascites. Lymphadenopathy: None. Skeletal structures: The skeletal structures are osteopenic. Mild lumbosacral spondylosis is observed . No lytic or blastic lesions are seen. IMPRESSION: 1. There is unchanged appearance of a 2.6 cm complex low-attenuation lesion in the left lobe of the l iver as compared to 03/04/2019. This demonstrates mild wall thickening and enhancement, and this lesi on has increased in both size and complexity from the 03/24/2017 examination. The appearance remains c oncerning for superinfection/abscess. Clinical correlation will be essential. 2. There are postoperative changes from interval cholecystectomy. Stranding and trace fluid in the ga llbladder fossa likely represents expected postoperative change. No organized fluid collection is see n. 3. Pneumobilia is noted and is likely related to sphincterotomy. 4. Mild intrahepatic biliary ductal dilatation is unchanged to slightly improved from the 03/04/2019. 5. Cardiomegaly. 6. Additional findings as above. Electronically signed by: Norm Tse M.D. 03/09/2019 1:46 AM
[2019-03-09] MEDS ORDERED: PIPERACILL/TAZOBAC CONSULT ACTIVE PRN (02:26)
[2019-03-09] MEDS ORDERED: PIPERACILLIN/TAZOBACTAM 3.375 GM in DEXTROSE 5% 100 ML IV ONE (03:30)
[2019-03-09] MEDS: HYDROCODONE/ACETAMOPHEN 5/325MG TAB PO PRN ×2 (04:03→23:41)
[2019-03-09 06:35] LABS: Hematocrit (blood only) 26.5 % (37-47); Hemoglobin 8.8 g/dL (12.0-16.0); Mean Corpuscular Hemoglobin 31.1 pg (25-34); Mean Corpuscular Hgb Conc 33.2 g/dL (32-36); Mean Corpuscular Volume 93.6 fL (80-100); Mean Platelet Volume 9.3 fL (7.4-10.4); Platelet Count 338 K/uL (130-400); RDW Standard Deviation 47.3 fL (36.4-46.3); Red Blood Count 2.83 M/uL (4.2-5.4); White Blood Count 9.47 K/uL (4.8-10.8)
[2019-03-09 07:24] LABS: Albumin Level 2.7 gm/dl (3.4-5.0); BUN Creatinine Ratio 24.6 (10-20); Calcium 8.4 mg/dl (8.5-10.1); Creatinine Clr Calc Pharmacy 31.3 ml/min; Est GFR (African American) 44.8; Est GFR (Non-African American) 38.7; Potassium 3.9 mmol/L (3.5-5.1)
[2019-03-09 07:40] LABS: Albumin Globulin Ratio 0.8 (0.9-2); Bilirubin,Total 0.3 mg/dl (0.2-1); Globulin 3.5 gm/dl (2.5-4.0); Total Protein 6.2 gm/dl (6.4-8.2)
[2019-03-09] MEDS ORDERED: PIPERACILLIN/TAZOBACTAM 3.375 GM in DEXTROSE 5% 100 ML IV SCH ×2 (08:30→10:00)
[2019-03-09] MEDS: AMLODIPINE BESYLATE 5 MG TAB PO SCH (09:43)
[2019-03-09] MEDS: METOPROLOL SUCC 50MG EXT REL TAB PO SCH (09:43)
[2019-03-09] MEDS: LISINOPRIL 20 MG TAB PO SCH (09:44)
[2019-03-09] MEDS: TIMOLOL MALEATE 0.5% OP SOLN 5 ML BTL OP SCH (09:44)
[2019-03-09] MEDS: POLYETHYLENE (MIRALAX) 17 GM PACK PO SCH (09:45)
[2019-03-09] MEDS ORDERED: MAGNESIUM CITRATE 296 ML/BTL PO STA (11:42)
[2019-03-09] MEDS ORDERED: BISACODYL 10 MG SUPP PR STA ×2 (11:42→14:02)
--- NOTE | 2019-03-09 11:43 | Surgery Progress Note ---
Date of Service I got a call for liver lesion, pt is S/P ERCP + lap mariana, POD2, pt is doing fine, no significant abdominal pain, no nausea, no vomiting, no fever, normal WBC, pt had CT scan on 03/08/2019, -CT SCAN OF THE ABDOMEN WITH IV CONTRAST CLINICAL HISTORY: Abnormal CT scan. Question hepatic abscess. COMPARISON STUDY: Abdominal CT scans dated 03/04/2019 and 03/24/2017. Abdominal ultrasound dated 03/03/2019. TECHNIQUE: Following the IV administration of 94 cc of Optiray 320, CT scan of the abdomen is performed from the lung bases to the pelvic inlet. Images are reviewed in the axial, sagittal, and coronal planes. IV contrast was administered without complication. A dose lowering technique was utilized adhering to the principles of ALARA. CT DOSE: 188.29 mGy.cm FINDINGS: Lung bases: The heart is enlarged and without pericardial effusion. The lung bases are clear noting significant dependent atelectasis. There is a tiny hiatal hernia. Liver: The contrast-enhanced liver is normal in size, contour, and attenuation. There is mild intrahepatic biliary ductal dilatation, unchanged to slightly improved from previous. Pneumobilia is new from previous end suggests sphincterotomy. The hepatic veins and portal veins are patent. There is a 2.6 cm complex lesion in hepatic segment Mary seen on image #67. This demonstrates peripheral enhancement, and is similar in appearance to the 03/04/2019 examination. This has increased in size from 03/24/2017. Additional hepatic cysts measure up to 1.1 cm. Gallbladder: Surgically absent noting clips in the gallbladder fossa. There is trace stranding and fluid in the gallbladder fossa. No organized fluid collection is seen. Spleen: Normal in size and attenuation. A subcentimeter splenic hypodensity seen on image #98 is of doubtful significance. Pancreas: Unremarkable. Adrenal glands: Unremarkable. Kidneys: The contrast enhanced kidneys demonstrate mild cortical atrophy and are without hydronephrosis. The kidneys enhance symmetrically. A 1.5 cm cyst is noted in the left kidney. Abdominal vasculature: The abdominal aorta is normal in course and caliber noting moderate to advanced atherosclerotic calcification. Bowel: Visualized loops of small bowel and colon are normal in caliber, with no evidence of obstruction. There is residual enteric contrast in the colon. A large duodenal diverticulum is noted. Peritoneum: There is no intraperitoneal free air or abdominal ascites. Lymphadenopathy: None. Skeletal structures: The skeletal structures are osteopenic. Mild lumbosacral spondylosis is observed. No lytic or blastic lesions are seen. IMPRESSION: 1. There is unchanged appearance of a 2.6 cm complex low-attenuation lesion in the left lobe of the liver as compared to 03/04/2019. This demonstrates mild wall thickening and enhancement, and this lesion has increased in both size and complexity from the 03/24/2017 examination. The appearance remains concerning for superinfection/abscess. Clinical correlation will be essential. 2. There are postoperative changes from interval cholecystectomy. Stranding and trace fluid in the gallbladder fossa likely represents expected postoperative change. No organized fluid collection is seen. 3. Pneumobilia is noted and is likely related to sphincterotomy. 4. Mild intrahepatic biliary ductal dilatation is unchanged to slightly improved from the 03/04/2019. 5. Cardiomegaly. 6. Additional findings as above. March 09, 2019 Assessment & Plan (1) Liver lesion, left lobe: pt is 73 year-old female who is S/P ERCP + lap mariana, POD 2, doing fine, CT scan finding liver lesion, size 2.6cm, IMP: liver lesion, Plan, pt can be discharged home , follow up Dr. Arroyo next week, to D/W her liver lesion, Supervising Physician Co-Signing Physician Notes I have seen and examined the patient with JAMAR Anthony. s/p mariana and ercp. Mild abdominal pain. Took miralax, ate lunch. Agree with further plan of care as per above. GI will sign off. Subjective PT was seen and evaluated, chart reviewed S/P ERCP and mariana Does have some right sided abd pain this AM Worse with deep breathing, movements No appetite No nausea, vomiting No fever but elevated WBC Physical Exam Constitutional: WD/WN, vitals as above well developed and well nourished Neck: trachea midline, no thyromegaly Respiratory: normal respiratory effort, lungs clear to auscultation normal respiratory effort Cardiovascular: RRR, no murmur, no edema Gastrointestinal (Abdomen): normal bowel sounds, soft, nontender, no hepatosplenomegaly all incisions intact, no redness, Neurologic: awake Psychiatric: Orientation: alert and oriented x 3 Results & Data Vital Signs (Past 12 Hours) Vital Signs Temp Pulse Resp BP Pulse Ox 03/09/19 07:52 36.5 C 58 L 16 101/67 91 03/08/19 23:45 36.6 C 57 L 16 121/72 93 Laboratory Results Abnormal lab results 03/09/19 03/09/19 Range/Units 05:59 05:59 RBC 2.83 L (4.2-5.4) M/uL Hgb 8.8 L (12.0-16.0) g/dL Hct 26.5 L (37-47) % RDW Std Deviation 47.3 H (36.4-46.3) fL BUN 33 H (7-18) mg/dl Creatinine 1.34 H (0.6-1.2) mg/dl BUN/Creatinine Ratio 24.6 H (10-20) Glucose 104 H (70-99) mg/dl Calcium 8.4 L (8.5-10.1) mg/dl AST 59 H (15-37) U/L Total Protein 6.2 L D (6.4-8.2) gm/dl Albumin 2.7 L (3.4-5.0) gm/dl Albumin/Globulin Ratio 0.8 L (0.9-2) Diagnostic Findings CT SCAN OF THE ABDOMEN WITH IV CONTRAST CLINICAL HISTORY: Abnormal CT scan. Question hepatic abscess. COMPARISON STUDY: Abdominal CT scans dated 03/04/2019 and 03/24/2017. Abdominal ultrasound dated 03/03/2019. TECHNIQUE: Following the IV administration of 94 cc of Optiray 320, CT scan of the abdomen is performed from the lung bases to the pelvic inlet. Images are reviewed in the axial, sagittal, and coronal planes. IV contrast was administered without complication. A dose lowering technique was utilized adhering to the principles of ALARA. CT DOSE: 188.29 mGy.cm FINDINGS: Lung bases: The heart is enlarged and without pericardial effusion. The lung bases are clear noting significant dependent atelectasis. There is a tiny hiatal hernia. Liver: The contrast-enhanced liver is normal in size, contour, and attenuation. There is mild intrahepatic biliary ductal dilatation, unchanged to slightly improved from previous. Pneumobilia is new from previous end suggests sphincterotomy. The hepatic veins and portal veins are patent. There is a 2.6 cm complex lesion in hepatic segment Mary seen on image #67. This demonstrates peripheral enhancement, and is similar in appearance to the 03/04/2019 examination. This has increased in size from 03/24/2017. Additional hepatic cysts measure up to 1.1 cm. Gallbladder: Surgically absent noting clips in the gallbladder fossa. There is trace stranding and fluid in the gallbladder fossa. No organized fluid collection is seen. Spleen: Normal in size and attenuation. A subcentimeter splenic hypodensity seen on image #98 is of doubtful significance. Pancreas: Unremarkable. Adrenal glands: Unremarkable. Kidneys: The contrast enhanced kidneys demonstrate mild cortical atrophy and are without hydronephrosis. The kidneys enhance symmetrically. A 1.5 cm cyst is noted in the left kidney. Abdominal vasculature: The abdominal aorta is normal in course and caliber noting moderate to advanced atherosclerotic calcification. Bowel: Visualized loops of small bowel and colon are normal in caliber, with no evidence of obstruction. There is residual enteric contrast in the colon. A large duodenal diverticulum is noted. Peritoneum: There is no intraperitoneal free air or abdominal ascites. Lymphadenopathy: None. Skeletal structures: The skeletal structures are osteopenic. Mild lumbosacral spondylosis is observed. No lytic or blastic lesions are seen.
[2019-03-09] MEDS: PANTOprazole 40 MG TAB PO SCH (11:54)
[2019-03-09] MEDS ORDERED: NORMOSOL-R 500 ML IV ONE (12:25)
--- NOTE | 2019-03-09 12:36 | Hospitalist Progress Note ---
Date of Service March 09, 2019 Assessment & Plan (1) Liver lesion, left lobe: The evening of 03/08, radiology re-read her pancreatic CT from 03/04 (not sure why) and felt that a superimposed infection or liver abscess might be possible. A repeat abdomen CT on 03/08 showed that this area was steady from the prior CT. The cyst had been present since at least 03/2017, but it was slightly bigger and more complex. I reached out to general surgery who saw her and felt that this was a liver lesion, but not an abscess. Reviewing UpToDate, a liver abscess has a fever 90% of the time and elevated alk phos ~70% of the time. Given she has neither of these, it is only a 3% chance of being a liver abscess. I attempted to reach out to [employer]; however, I could not reach the physician via everyArt or the provided phone number (leads to an office VM box). - Gen surg recommended follow up with Dr. Arroyo in 1-2 weeks and no abx. (2) Cholecystitis, acute: Possibly acute on chronic cholecystitis. RUQ pain intermittently for several months, only minimally elevated Alk phos on labs. US with possible sludge in CBD and chronically dilated CBD 11mm. - Cannot have MRCP due to aneurysm clips in brain - Had to wait 5 days until Plavix had washed out of system. - ERCP then lap mariana sequentially done on 03/07; only mild complication was that the gallbladder had mild leak prior to removal. However, no blood loss or notable complications. - On 03/09, she is doing better. Still no BM. Added Mg citrate. (3) WILIAN (acute kidney injury): Mild WILIAN after surgery with Cr from 0.9 to 1.2. Likely mild fluid shifts during surgery. - Held Lasix and metoprolol on 03/09. 500cc bolus. - Monitor (4) Hypertension: BP was 100/70. - Holding home meds for WILIAN (5) Murmur, cardiac: [place] by the prior provider. Only mild tricuspid regurg noted on echo. - No needs (6) Pancreatic mass: A 2.4 cm nodule which was possibly peripancreatic was seen on ultrasound. No seen on CT pancreas on 03/04. MRI not possible due to brain aneurysm clips. - Appears to need no further follow up. 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 - No inpatient needs (8) Artery dissection: Has a recent history of vertebral artery dissection which is now resolved. - Is on Plavix and controlling BP but held Plavix for surgery. - Continued statin - Restarted Plavix on 03/09. (9) DVT prophylaxis: SCDs Subjective Feeling better today. Less abdominal pain. No nausea or vomiting. Still not passing BMs or flatus yet. Reports no fevers/chills, chest pain, shortness of breath. Physical Exam Constitutional: WD/WN, vitals as above Eyes: EOM intact bilaterally; no conjunctival abnormality ENMT: external ear and nose normal, oropharynx normal Neck: trachea midline, no thyromegaly normal visual inspection Respiratory: normal respiratory effort, lungs clear to auscultation no respiratory distress Cardiovascular: RRR, no murmur, no edema Gastrointestinal (Abdomen): Inspection/Auscultation: + abdomen distended, normal bowel sounds and + abdominal surgical incision (Clean, intact); + abdomen abnormal to inspection and no abdominal edema Musculoskeletal: no cyanosis or clubbing, extremities motor strength 5/5 Skin: no rashes, warm and dry Neurologic: moves all extremities and awake Psychiatric: Orientation: alert, oriented to person and cooperative Results & Data Vital Signs (Past 12 Hours) Vital Signs Temp Pulse Resp BP Pulse Ox 03/09/19 07:52 36.5 C 58 L 16 101/67 91 PG Care Time/CCT Total # of Minutes Spent Total Time Spent with Patient: Total time spent is greater than 50% in coordination of care (as documented) at patient's floor/unit and/or counseling patient: (1) Hypertension Hypertension type: unspecified Qualified Code(s): I10 - Essential (primary) hypertension
[2019-03-09] MEDS: CLOPIDOGREL BISULFATE 75 MG TAB PO SCH (13:37)
[2019-03-09] MEDS: ATORVASTATIN 40 MG TAB PO SCH (20:34)
[2019-03-09] MEDS: NORTRIPTYLINE HCL 25 MG CAP PO SCH (20:34)
[2019-03-10 05:57] LABS: Hematocrit (blood only) 25.5 % (37-47); Hemoglobin 8.7 g/dL (12.0-16.0); Mean Corpuscular Hemoglobin 32.1 pg (25-34); Mean Corpuscular Hgb Conc 34.1 g/dL (32-36); Mean Corpuscular Volume 94.1 fL (80-100); Mean Platelet Volume 9.3 fL (7.4-10.4); Platelet Count 330 K/uL (130-400); RDW Coefficient of Variation 14.2 % (11.5-14.5); Red Blood Count 2.71 M/uL (4.2-5.4); White Blood Count 8.04 K/uL (4.8-10.8)
[2019-03-10 06:45] LABS: Albumin Level 2.4 gm/dl (3.4-5.0); BUN Creatinine Ratio 28.2 (10-20); Calcium 8.1 mg/dl (8.5-10.1); Creatinine Clr Calc Pharmacy 39.9 ml/min; Est GFR (African American) 60.2; Est GFR (Non-African American) 51.9
[2019-03-10 06:47] LABS: Albumin Globulin Ratio 0.7 (0.9-2); Bilirubin,Total 0.2 mg/dl (0.2-1); Globulin 3.5 gm/dl (2.5-4.0); Total Protein 5.9 gm/dl (6.4-8.2)
[2019-03-10] MEDS: HYDROCODONE/ACETAMOPHEN 5/325MG TAB PO PRN (09:37)
[2019-03-10] MEDS: CLOPIDOGREL BISULFATE 75 MG TAB PO SCH (09:38)
[2019-03-10] MEDS: AMLODIPINE BESYLATE 5 MG TAB PO SCH (09:38)
[2019-03-10] MEDS: TIMOLOL MALEATE 0.5% OP SOLN 5 ML BTL OP SCH (09:39)
[2019-03-10] MEDS: POLYETHYLENE (MIRALAX) 17 GM PACK PO SCH (09:40)
[2019-03-10] MEDS ORDERED: NORCO 5/325MG HOMEPACK PO ONE (12:20)
--- NOTE | 2019-03-10 17:41 | Discharge Summary ---
Date of Service March 10, 2019 Principal Diagnosis Cholecystitis Discharge Exam Constitutional WD/WN, vitals as above Eyes EOM intact bilaterally; no conjunctival abnormality ENMT external ear and nose normal, oropharynx normal Neck trachea midline, no thyromegaly normal visual inspection Respiratory normal respiratory effort, lungs clear to auscultation no respiratory distress Cardiovascular RRR, no murmur, no edema Gastrointestinal (Abdomen) Inspection/Auscultation: + abdomen distended, normal bowel sounds and + abdominal surgical incision (Clean, intact); + abdomen abnormal to inspection and no abdominal edema Musculoskeletal no cyanosis or clubbing, extremities motor strength 5/5 Skin no rashes, warm and dry Neurologic moves all extremities and awake Psychiatric Orientation: alert, oriented to person and cooperative Discharge Data Allergies Allergy/AdvReac Type Severity Reaction Status Date / Time methocarbamol Allergy Severe felt like Verified 02/28/19 13:06 her throat was closing vancomycin Allergy Mild HIVES Verified 02/28/19 13:06 wheat AdvReac Unknown Uncoded 02/28/19 13:06 Consultations 03/03/19 04:25 Consult General Surgery Routine 03/03/19 04:43 ED Decision to Admit Stat 03/03/19 08:39 Consult Gastroenterology Routine Procedures Performed Operation Date: 03/07/19 12:30 Actual Procedures p Laparoscopic Cholecystectomy;(Not Applicable) - Flavio Arroyo DO s Endoscopic Retrograde Cholangiopancreatogram(Not Applicable) - Yoel Swartz MD Ordered Studies 03/03/19 02:03 US gallbladder Stat 03/04/19 12:27 CT pancreas 3-phase wo/w con Urgent 03/07/19 11:55 FL ERCP biliary ductal Routine 03/08/19 22:44 CT abdomen w IV con Urgent Hospital Course (1) Liver lesion, left lobe: The evening of 03/08, radiology re-read her pancreatic CT from 03/04 (not sure why) and felt that a superimposed infection or liver abscess might be possible. A repeat abdomen CT on 03/08 showed that this area was steady from the prior CT. The cyst had been present since at least 03/2017, but it was slightly bigger and more complex. I reached out to general surgery who saw her and felt that this was a liver lesion, but not an abscess. Reviewing UpToDate, a liver abscess has a fever 90% of the time and elevated alk phos ~70% of the time. Given she has neither of these, it is only a 3% chance of being a liver abscess. - Gen surg recommended follow up with Dr. Arroyo in 1 week and no abx. - No fever, normal liver enyzmes, normal WBC - Unlikely to be infected. Can follow up outpatient, though I did mention warning signs that she should return to the hospital for such as fever, worsening abdominal pain. (2) Cholecystitis, acute: RUQ pain intermittently for several months, only minimally elevated Alk phos on labs. US with possible sludge in CBD and chronically dilated CBD 11mm. - ERCP then lap mariana sequentially done on 03/07; only mild complication was that the gallbladder had mild leak prior to removal. However, no blood loss or notable complications. - On 03/10, doing well. Having BMs. Discussed MiraLax. Follow up outpatient. (3) WILIAN (acute kidney injury): Mild WILIAN after surgery with Cr from 0.9 to 1.2. Likely mild fluid shifts during surgery. - Held Lasix and metoprolol on 03/09. 500cc bolus. - Normal on 03/10. Follow up with PCP. (4) Hypertension: BP was 100/70. - Continue home meds. (5) Murmur, cardiac: [place]t by the prior provider. Only mild tricuspid regurg noted on echo. - No needs (6) Pancreatic mass: A 2.4 cm nodule which was possibly peripancreatic was seen on ultrasound. No seen on CT pancreas on 03/04. MRI not possible due to brain aneurysm clips. - Appears to need no further follow up. 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 - No inpatient needs (8) Artery dissection: Has a recent history of vertebral artery dissection which is now resolved. - Is on Plavix and controlling BP but held Plavix for surgery. - Continued statin - Restarted Plavix on 03/09. (9) DVT prophylaxis: SCDs Total Time Total Time Spent Total Time Spent (In Minutes): 35 Discharge Plan Discharge Items Patient Disposition: Home - Home Health Services Reason For Visit: CHOLECYSTITIS Discharge Diagnosis: Gallstones with gallbladder removal Activity: As commented below Lifting: No more than 10 pounds Bathing: No limitations Bathing Comment: No soaking incisions Driving/Machine Use: 1 week Non-emergency contact: Surgeon Call non-emergency contact if: you have any medication questions, you have a fever, your temperature is above 101.5 and your wound has increased redness Follow-up/Referrals: Meño Flores III, MD [Primary Care Provider] - 03/15/19 11:00 am (Please, follow up at Dr. Flores's office with his associate, Christi Weir, on MondayMarch 15 at 11:00 am. *If you need to change / cancel this appointment, call their office at [phone].) lFavio Arroyo, DO [Surgeon] - 03/18/19 10:40 am (Please, follow up at [facility] General Surgery Office with Dr. Arroyo on MondayMarch 18 at 10:40 am. *The office is located at [address] [facility] in [place]. *If you need to change this appointment, call the office at [phone].) Diet: Regular Addtl Attending Provider Instructions: You were admitted to the hospital for gallstones and ended up needing your gallbladder removed. You had some constipation, and we gave you MiraLax and magnesium citrate to help you go. This helped you move your bowels, and you were feeling better by the time you discharged. Please follow up with Dr. Arroyo and your PCP. There was some concern about a liver abscess; however, you did not have any fever, chills, had a normal WBC count, and normal liver enzymes. You can discuss this with Dr. Arroyo and your PCP if they have any concern or want you to follow up. Pending Studies at Discharge: No Stand-Alone Forms: My [facility] [employer], Opioid Pain Management Medications and DC Order Prescriptions: New hydrocodone-acetaminophen [Wyatt] 5-325 mg tablet 1 - 2 tab PO Q4H PRN (Reason: pain, initial therapy, max 8 tabs daily) Qty: 15 RF: 0 Continued coenzyme Q10 [Co Q-10] 100 mg capsule 100 mg PO DAILY RF: 0 cod liver oil capsule 1 cap PO DAILY RF: 0 [employer] 10 billion cell -200 mg capsule 1 cap PO DAILY RF: 0 nortriptyline 25 mg capsule 25 mg PO HS Qty: 30 RF: 2 pantoprazole 40 mg tablet,delayed release (DR/EC) 40 mg PO DAILY Qty: 30 RF: 1 wheat germ oil See Patient Comments PO BID RF: 0 ascorbate calcium-bioflavonoid See Patient Comments PO DAILY RF: 0 multivitamin with minerals [Hair,Skin and Nails] tablet See Patient Comments PO TID RF: 0 vitamin E succinate 400 unit tablet 400 units PO DAILY RF: 0 atorvastatin 40 mg tablet 40 mg PO QPM RF: 0 metoprolol succinate 50 mg tablet extended release 24 hr 50 mg PO BID RF: 0 lisinopril 20 mg tablet 20 mg PO BID RF: 0 clopidogrel 75 mg tablet 75 mg PO QPM RF: 0 amlodipine 5 mg tablet 5 mg PO DAILY RF: 0 cholecalciferol (vitamin D3) [Vitamin D3] 5,000 unit Tablet 5,000 unit PO DAILY RF: 0 ascorbic acid (vitamin C) [Vitamin C] 500 mg Tablet 500 mg PO DAILY RF: 0 Centrum Silver 0.4-300-250 mg-mcg-mcg Tablet 1 tab PO DAILY RF: 0 latanoprost 0.005 % Drops 1 drp OPL PM RF: 0 Discontinued acetaminophen-codeine 300-30 mg tablet 1 - 2 tab PO Q4H PRN (Reason: Pain) RF: 0 Discharge Orders: Discharge Order (Routine); Ordered 03/10/19 Ordered By: Adrian Chaney/Other Patient Handouts: Cholecystectomy Laparoscopic, ERCP Admission Data Admit Date/Time: 03/03/19 04:58 Attending Provider: Adrian Salmon Admit Provider: Dhruv Tobar Primary Care Provider: Meño Flores III Other Providers: Flavio Arroyo ; Dhruv Tobar ; Drake Medina Other Interventions: Discharge Summary Assessment (RN) Last Done: 03/10/19 12:35 DC Date/Time DO NOT enter until pt leaves facility: 03/10/19 13:18
== END 2019-03-10 13:18 | disposition home health service (06) | DRG 418 ==
LOC: ED 01:43 → SUATTDRO 04:58 → 3N 04:58

== ENCOUNTER 2022-07-10 17:51 | Inpatient (IN) ==
[2022-07-10] MEDS ORDERED: fentaNYL citrate 100 MCG/2 ML VIAL IV STA (18:09)
--- NOTE | 2022-07-10 18:27 | Emergency Department Note ---
Impression & Plan Fall, Right fibular fracture, Hypertensive urgency ED Provider Note Provider: Zoltan Allen MD DATE OF SERVICE: 07/10/2022 CHIEF COMPLAINT: Fall HISTORY OF PRESENT ILLNESS: Patient is a 77-year-old female history of subarachnoid hemorrhage, intracranial aneurysm, arthritis, hypertension pre senting here today via ambulance after the fall. States that the cord on the floor and she tripped and fell onto her right side. Denies striking her head. Denies head or neck or back pain. Complaining of some pain in the right lateral hip to the thigh region as well as significant pain of the right ankle. Was not able to get up and called a friend and was unable to put any weight or bear in t he right leg and ambulance was called. Brought here for further evaluation. States she is Plavix. Denies acute vision change or chest pain or shortness of breath. Denies abdominal pain or nausea or vomiting. PAST MEDICAL HISTORY: As noted above MEDICATIONS: Reviewed home medication list SOCIAL HISTORY: , lives at home PHYSICAL EXAM: GENERAL: alert and oriented in no acute distress on stretcher Head: normocephalic and atraumatic EYES: No injection, discharge or icterus. PERRL, EOMI. NECK: Trachea midline. Supple without significant midline cervical tenderness ENT: Mucous membranes pink and moist. LUNGS: Airway patent. No retractions. Breath sounds clear with good air entry bilaterally. HEART: Regular rate and rhythm. No chest wall tenderness ABDOMEN: Soft and non-tender, without guarding or rebound. No significant flank tenderness. Stable pelvis. SKIN: Acyanotic, warm, dry, without rashes EXTREMITIES: Without swelling, tenderness or deformity except: There is swelling and bilateral malleoli or tenderness of the right ankle. 1+ DP pulse of the right foot with out significant arch tenderness and intact sensation of the right foot. Patient without significant tenderness of the right fibular head or knee joint lines. Patient with some pain with ROM of the right lateral hip. NEUROLOGICAL: No focal deficits. No aphasia. No facial droop or slurred speech. Normal strength and tone in the extremities. Sensation to gross touch normal. EK bpm normal sinus rhythm. No PVC or PAC. No acute ST segment elevation or depression with a QTc of 413. GCS 15. PROCEDURE: splint placement Indications for procedure: Distal right fibular fracture closed Description of the procedure: Posterior and stirrup short fiberglass splint was placed on the patient's right lower leg. Neurovascular status was intact after placement of the splint. PATIENT CONDITION AFTER PROCEDURE: good Patient's laboratory studies and imaging reviewed. Differential includes Fracture, dislocation, contusion, intra-abdominal, pneumothorax, intrathoracic, intracranial, neurologic, compartment syndrome, rhabdomyolysis, as well as other pathologies. IMPRESSION/MEDICAL DECISION MAKING: Patient suffered what sounds are mechanical fall with evidence of swelling and significant tenderness of the right ankle as well as some degree to the right hip. X-rays obtained of these areas. Question possible hip versus ankle fracture. No significant tenderness of the right knee appreciated. Denies striking her head but is on Plavix and with her history of intracranial bleed a CT of the head will be completed. Nexus negative and doubt acute cervical spine injury. Basic labs obtained as well as EKG although it sounds mostly like a mechanical type fall. Blood pressure significantly upon arrival but initially believe this is related to pain and given some fentanyl. X-rays per my review and radiology report show evidence of a distal fibular fracture. No evidence of acute hip or foot fracture although chronic Lisfranc fractures appreciated on foot films by radiology. Basic blood work here without leukocytosis and minimal anemia. No severe electrolyte abnormalities with some mild hyperkalemia. Stable renal function. No evidence of rhabdomyolysis based on labs. Discussed with hospitalist as well as orthopedic team. Splint to the right lower leg applied. CT scan per orthopedics was ordered for possible surgical planning. Blood pressure significantly elevated and given some IV hydralazine here for better control in addition to morphine for pain. DIAGNOSIS: Right distal fibular fracture, fall, hypertensive urgency DISPOSITION: Hospitalist will evaluate Patient was agreeable with this plan. Past Med/Surg History Medical History Arthritis Cazares's cyst of knee Cholecystitis, acute Glaucoma Hemiplegia affecting dominant side High cholesterol History of blood clots Hypertension Insomnia Intracranial aneurysm Liver lesion, left lobe Lower urinary tract symptoms Osteoarthritis of knees, bilateral Renal artery stenosis Subarachnoid hemorrhage Trochanteric bursitis Ulcer Vitamin B 12 deficiency Surgical History H/O vaginal hysterectomy (01/24/12) History of colonoscopy Hx laparoscopic cholecystectomy (03/07/19) S/P brain surgery (~2012) S/P ERCP S/P foot surgery (~2017) S/P laparoscopic cholecystectomy Family History Mother Breast cancer Diabetes Aneurysm Father Myocardial infarction Hypertension Heart disease Brother Diabetes Aneurysm Sister Hypertension Aneurysm Other Cerebral aneurysm Denies family history of Colon cancer Ovarian cancer Prostate cancer Social History Smoking Status: Never smoker Tobacco Type: Cigarettes Second Hand Exposure: No; Hx Alcohol Use: No Hx Substance Use: No Preferred Language: Vietnamese Communication Ability: Effective Visual Impairment: Limited Hearing Ability: Normal Plastic Cutter Required: No Beliefs That Will Affect Care: None marital status: Current Living Situation: Spouse current occupational status: retired Feels Safe at Home: Yes caffeine: Yes (Tea) during the past year weight has: remained stable Dental Care, Regularly: Yes Physical Activity Frequency: Does not Exercise Seatbelt Use: always Sunscreen Use: Yes Assistive Devices: None, Cane, Denture - Upper, Glasses and Hearing Aid - Bilateral Allergies Allergies Allergy/AdvReac Type Severity Reaction Status Date / Time methocarbamol Allergy Severe felt like Verified 06/07/22 13:32 her throat was closing vancomycin Allergy Mild HIVES Verified 06/07/22 13:32 wheat AdvReac Gastrointestinal Verified 06/07/22 13:32 Upset Home Meds Home Medications Medication Instructions Recorded Confirmed cholecalciferol (vitamin D3) 125 125 mcg PO HS 03/10/21 07/10/22 mcg (5,000 unit) capsule timolol maleate 0.5 % eye drops 1 drp ophthalmic (eye) QAM 09/16/21 07/10/22 ascorbate calcium (vitamin C) 500 500 mg PO QPM 07/10/22 07/10/22 mg tablet [id number] D3-phosphorus 2 tbsp PO QAM 07/10/22 07/10/22 clopidogrel 75 mg tablet 75 mg PO QPM 07/10/22 07/10/22 cod liver oil 10 ml PO QAM 07/10/22 07/10/22 coenzyme Q10 400 mg capsule 400 mg PO QAM 07/10/22 07/10/22 glucosamine-chondroitin 250 mg-200 21 tab PO QAM 07/10/22 07/10/22 mg tablet (Osteo Bi-Flex) lisinopril 40 mg tablet 40 mg PO QPM 07/10/22 07/10/22 metoprolol succinate 50 mg 50 mg PO BID 07/10/22 07/10/22 tablet,extended release 24 hr mirabegron 50 mg tablet,extended 50 mg PO QAM 07/10/22 07/10/22 release 24 hr pantoprazole 40 mg tablet,delayed 40 mg PO QAM 07/10/22 07/10/22 release potassium chloride 8 mEq 8 meq PO QPM 07/10/22 07/10/22 capsule,extended release vitamin C 50 mg-biotin 1,250 mcg 2 tab PO QAM 07/10/22 07/10/22 chewable tablet (Htsf-Rmwn-Ummjg (vit C-biotin)) vitamin E 268 mg (400 unit) capsule 268 mg PO QAM 07/10/22 07/10/22 Previous Rx's Medication Instructions Recorded syringe with needle 3 mL 23 x 1" #4 ea 11/29/21 (BD Eclipse Luer-Guerita) cyanocobalamin (vitamin B-12) 1,000 mcg IM Q7D 4 weeks #4 ea 12/10/21 1,000 mcg/mL injection kit atorvastatin 40 mg tablet 40 mg PO QPM #90 tabs 02/22/22 amlodipine 5 mg tablet 5 mg PO DAILY #30 tabs 07/06/22 Results & Data (ED) Vital Signs Vital Signs - 24 hr 07/10/22 18:17 07/10/22 17:52 07/10/22 18:15 Temperature 36.7 C Temperature Source Oral Pulse Rate 64 71 72 Pulse Rate from SpO2 Sensor 74 Pulse Rhythm Regular Pulse Strength Normal Respiratory Rate 20 14 Respiratory Effort / Characteristics Non-Labored Spontaneous Respiratory Depth Normal Respiratory Pattern Regular Blood Pressure 218/161 H Blood Pressure Mean 180 Blood Pressure Position Lying Pulse Oximetry 98 100 Oxygen Delivery Method Room Air Room Air Sepsis Recent Fever Within 48 Hours No Sepsis New/Unexplained Change in Mental Status N/A Sepsis Action Taken by Nursing No Action Required 07/10/22 18:16 07/10/22 18:16 07/10/22 18:20 Temperature Temperature Source Pulse Rate 67 70 Pulse Rate from SpO2 Sensor 67 70 Pulse Rhythm Pulse Strength Respiratory Rate 20 17 Respiratory Effort / Characteristics Respiratory Depth Respiratory Pattern Blood Pressure 212/101 H Blood Pressure Mean 138 Blood Pressure Position Pulse Oximetry 100 96 Oxygen Delivery Method Room Air Room Air Sepsis Recent Fever Within 48 Hours Sepsis New/Unexplained Change in Mental Status Sepsis Action Taken by Nursing 07/10/22 18:30 07/10/22 18:31 07/10/22 18:31 Temperature Temperature Source Pulse Rate 78 82 Pulse Rate from SpO2 Sensor 77 81 Pulse Rhythm Pulse Strength Respiratory Rate 19 21 Respiratory Effort / Characteristics Respiratory Depth Respiratory Pattern Blood Pressure 247/189 H Blood Pressure Mean 208 Blood Pressure Position Pulse Oximetry 100 98 Oxygen Delivery Method Room Air Room Air Sepsis Recent Fever Within 48 Hours Sepsis New/Unexplained Change in Mental Status Sepsis Action Taken by Nursing 07/10/22 18:40 07/10/22 18:50 07/10/22 18:50 Temperature Temperature Source Pulse Rate 73 70 Pulse Rate from SpO2 Sensor 70 105 H Pulse Rhythm Pulse Strength Respiratory Rate 17 19 Respiratory Effort / Characteristics Respiratory Depth Respiratory Pattern Blood Pressure 212/106 H Blood Pressure Mean 141 Blood Pressure Position Pulse Oximetry 96 98 Oxygen Delivery Method Room Air Room Air Sepsis Recent Fever Within 48 Hours Sepsis New/Unexplained Change in Mental Status Sepsis Action Taken by Nursing 07/10/22 19:23 07/10/22 19:23 07/10/22 19:30 Temperature Temperature Source Pulse Rate 63 Pulse Rate from SpO2 Sensor Pulse Rhythm Pulse Strength Respiratory Rate 17 Respiratory Effort / Characteristics Respiratory Depth Respiratory Pattern Blood Pressure 226/109 H 213/100 H Blood Pressure Mean 148 137 Blood Pressure Position Pulse Oximetry Oxygen Delivery Method Sepsis Recent Fever Within 48 Hours Sepsis New/Unexplained Change in Mental Status Sepsis Action Taken by Nursing 07/10/22 19:30 07/10/22 19:40 07/10/22 19:50 Temperature Temperature Source Pulse Rate 59 L 70 68 Pulse Rate from SpO2 Sensor 68 67 Pulse Rhythm Pulse Strength Respiratory Rate 19 21 14 Respiratory Effort / Characteristics Respiratory Depth Respiratory Pattern Blood Pressure Blood Pressure Mean Blood Pressure Position Pulse Oximetry 97 96 Oxygen Delivery Method Sepsis Recent Fever Within 48 Hours Sepsis New/Unexplained Change in Mental Status Sepsis Action Taken by Nursing 07/10/22 19:51 07/10/22 19:51 07/10/22 19:56 Temperature Temperature Source Pulse Rate 71 Pulse Rate from SpO2 Sensor 70 Pulse Rhythm Pulse Strength Respiratory Rate 19 Respiratory Effort / Characteristics Respiratory Depth Respiratory Pattern Blood Pressure 206/126 H 245/105 H Blood Pressure Mean 152 151 Blood Pressure Position Pulse Oximetry 99 Oxygen Delivery Method Sepsis Recent Fever Within 48 Hours Sepsis New/Unexplained Change in Mental Status Sepsis Action Taken by Nursing 07/10/22 19:56 07/10/22 19:56 07/10/22 20:00 Temperature Temperature Source Pulse Rate 75 Pulse Rate from SpO2 Sensor 73 Pulse Rhythm Pulse Strength Respiratory Rate 21 Respiratory Effort / Characteristics Respiratory Depth Respiratory Pattern Blood Pressure 245/105 H 208/136 H Blood Pressure Mean 151 160 Blood Pressure Position Pulse Oximetry 100 Oxygen Delivery Method Sepsis Recent Fever Within 48 Hours Sepsis New/Unexplained Change in Mental Status Sepsis Action Taken by Nursing 07/10/22 20:00 07/10/22 20:10 07/10/22 20:20 Temperature Temperature Source Pulse Rate 63 68 70 Pulse Rate from SpO2 Sensor Pulse Rhythm Pulse Strength Respiratory Rate 19 18 14 Respiratory Effort / Characteristics Respiratory Depth Respiratory Pattern Blood Pressure Blood Pressure Mean Blood Pressure Position Pulse Oximetry Oxygen Delivery Method Sepsis Recent Fever Within 48 Hours Sepsis New/Unexplained Change in Mental Status Sepsis Action Taken by Nursing 07/10/22 20:30 07/10/22 20:30 07/10/22 20:40 Temperature Temperature Source Pulse Rate 80 72 Pulse Rate from SpO2 Sensor Pulse Rhythm Pulse Strength Respiratory Rate 15 17 Respiratory Effort / Characteristics Respiratory Depth Respiratory Pattern Blood Pressure 189/95 H Blood Pressure Mean 126 Blood Pressure Position Pulse Oximetry Oxygen Delivery Method Sepsis Recent Fever Within 48 Hours Sepsis New/Unexplained Change in Mental Status Sepsis Action Taken by Nursing 07/10/22 20:50 Temperature Temperature Source Pulse Rate 66 Pulse Rate from SpO2 Sensor Pulse Rhythm Pulse Strength Respiratory Rate 16 Respiratory Effort / Characteristics Respiratory Depth Respiratory Pattern Blood Pressure Blood Pressure Mean Blood Pressure Position Pulse Oximetry Oxygen Delivery Method Sepsis Recent Fever Within 48 Hours Sepsis New/Unexplained Change in Mental Status Sepsis Action Taken by Nursing Laboratory Data 07/10/22 18:20 07/10/22 18:20 Lab Results 07/10/22 07/10/22 07/10/22 Range/Units 18:20 18:20 18:20 WBC 5.82 (4.8-10.8) K/ul RBC 3.74 L (4.20-5.40) M/uL Hgb 11.7 L (12.0-16.0) g/dl Hct 35.3 L (37.0-47.0) % MCV 94.4 (80.0-100.0) fL MCH 31.3 (25.0-34.0) pg MCHC 33.1 (32.0-36.0) g/dL RDW Std Deviation 48.3 H (36.4-46.3) fL RDW Coeff of Hannah 13.9 (11.5-14.5) % Plt Count 250 (130-400) K/uL MPV 10.0 (9.4-12.4) fL Immature Gran % (Auto) 0.2 % Neut % (Auto) 61.9 % Lymph % (Auto) 25.9 % [place] % (Auto) 9.3 % Eos % (Auto) 2.4 % Baso % (Auto) 0.3 % Neut # (Auto) 3.60 (1.40-6.50) K/uL Lymph # (Auto) 1.51 (1.2-3.4) K/uL [place] # (Auto) 0.54 (0.11-0.59) K/uL Eos # (Auto) 0.14 (0-0.50) K/uL Baso # (Auto) 0.02 (0-0.2) K/uL Immature Gran # (Auto) 0.01 (0.01-0.20) K/uL PT 10.3 (9.0-12.0) Seconds INR 1.0 (0.9-1.1) Sodium 139 (136-145) mmol/L Potassium 3.3 L (3.5-5.1) mmol/L Chloride 106 (98-107) mmol/L Carbon Dioxide 28 (21-32) mmol/L Anion Gap 5 (3-11) BUN 22 (6-23) mg/dl Creatinine 0.73 (0.6-1.2) mg/dl Est Cr Clr Drug Dosing 49.4 ml/min Est GFR ( Amer) 90.8 ml/min Est GFR (Non-Af Amer) 78.3 ml/min BUN/Creatinine Ratio 30.1 H (10-20) Glucose 98 (70-99(Fasting)) mg/dl Calcium 9.8 (8.5-10.1) mg/dl Total Bilirubin 0.6 (0.2-1.0) mg/dl AST 33 (13-39) U/L ALT 24 (7-52) U/L Alkaline Phosphatase 86 (34-104) U/L Total Creatine Kinase 91 (26-192) U/L Total Protein 7.6 (6.0-8.3) gm/dl Albumin 4.4 (3.4-5.0) gm/dl Globulin 3.2 (2.5-4.0) gm/dl Albumin/Globulin Ratio 1.4 (0.9-2) SARS-CoV-2, RNA, NAAT (NEGATIVE) 07/10/22 Range/Units 19:47 WBC (4.8-10.8) K/ul RBC (4.20-5.40) M/uL Hgb (12.0-16.0) g/dl Hct (37.0-47.0) % MCV (80.0-100.0) fL MCH (25.0-34.0) pg MCHC (32.0-36.0) g/dL RDW Std Deviation (36.4-46.3) fL RDW Coeff of Hannah (11.5-14.5) % Plt Count (130-400) K/uL MPV (9.4-12.4) fL Immature Gran % (Auto) % Neut % (Auto) % Lymph % (Auto) % [place] % (Auto) % Eos % (Auto) % Baso % (Auto) % Neut # (Auto) (1.40-6.50) K/uL Lymph # (Auto) (1.2-3.4) K/uL [place] # (Auto) (0.11-0.59) K/uL Eos # (Auto) (0-0.50) K/uL Baso # (Auto) (0-0.2) K/uL Immature Gran # (Auto) (0.01-0.20) K/uL PT (9.0-12.0) Seconds INR (0.9-1.1) Sodium (136-145) mmol/L Potassium (3.5-5.1) mmol/L Chloride (98-107) mmol/L Carbon Dioxide (21-32) mmol/L Anion Gap (3-11) BUN (6-23) mg/dl Creatinine (0.6-1.2) mg/dl Est Cr Clr Drug Dosing ml/min Est GFR ( Amer) ml/min Est GFR (Non-Af Amer) ml/min BUN/Creatinine Ratio (10-20) Glucose (70-99(Fasting)) mg/dl Calcium (8.5-10.1) mg/dl Total Bilirubin (0.2-1.0) mg/dl AST (13-39) U/L ALT (7-52) U/L Alkaline Phosphatase (34-104) U/L Total Creatine Kinase (26-192) U/L Total Protein (6.0-8.3) gm/dl Albumin (3.4-5.0) gm/dl Globulin (2.5-4.0) gm/dl Albumin/Globulin Ratio (0.9-2) SARS-CoV-2, RNA, NAAT NEGATIVE (NEGATIVE) Administered Medications Discontinued Medications Fentanyl Citrate (Fentanyl Citrate 100 Mcg/2 Ml Vial) 50 mcg IV NOW STA Stop: 07/10/22 18:10 Last Admin: 07/10/22 18:38 Dose: 50 mcg Documented By: [id number] Hydralazine HCl (Hydralazine Hcl 20 Mg/Ml Vial) 5 mg IV NOW ONE Stop: 07/10/22 19:59 Last Admin: 07/10/22 20:10 Dose: 5 mg Documented By: [id number] Hydralazine HCl (Hydralazine Hcl 20 Mg/Ml Vial) 10 mg IV NOW STA Stop: 07/10/22 21:53 Last Admin: 07/10/22 21:59 Dose: 10 mg Documented By: [id number] Morphine Sulfate (Morphine Sulfate 4 Mg/Ml 1 Ml Carp\\Vial) 4 mg IV NOW STA Stop: 07/10/22 19:59 Last Admin: 07/10/22 20:09 Dose: 4 mg Documented By: [id number] Imaging Data Radiologist's Impression: Ankle X-Ray 07/10/22 18:09 RIGHT ANKLE 3 VIEWS CLINICAL HISTORY: Fall. Right ankle injury. FINDINGS: 3 views of the right ankle are obtained. No prior studies are available for comparison at the time of dictation. The skeletal structures are osteopenic. There is a minimally displaced fracture of the distal fibula with overlying soft tissue edema. The tibia appears intact. The ankle mortise is main tained. There is a joint effusion. A plantar heel spur is noted. IMPRESSION: Distal fibular fracture with associated soft tissue swelling and joint effusion. Electronically signed by: Norm Tse M.D. 07/10/2022 6:48 PM Foot X-Ray 07/10/22 18:09 RIGHT FOOT 3 VIEWS CLINICAL HISTORY: Fall with right foot pain. FINDINGS: 3 views of the right foot are compared to study dated 02/16/2022. The skeletal structures are osteopenic. No acute fracture is seen in the foot. There is moderate osteoarthritic change at the first metatarsophalangeal joint and at the tarsometatarsal articulations. There is mild widening between the base of the first and second metatarsal, as well as mild offset at the second tar sometatarsal articulation. This is similar to previous and suggests a chronic Lisfranc type injury. Cystic change is seen in the base of the first metatarsal. An os navicularis is incidentally noted. There is a large plantar calcaneal enthesophyte. Degenerative spurring is seen along the dorsal aspect of the tarsal bones. A distal fibular fracture is partially imaged with overlying soft tissue edema. IMPRESSION: 1. No acute fracture is identified in the right foot. 2. 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 3. A distal fibular fracture is partially imaged with overlying soft tissue edema. Electronically signed by: Norm Tse M.D. 07/10/2022 7:06 PM Hip/Pelvis X-Ray 07/10/22 18:09 SINGLE VIEW PELVIS; 2 VIEWS RIGHT HIP CLINICAL HISTORY: Fall with right hip injury. FINDINGS: An AP view of the pelvis with AP and frog leg views of the right hip are compared to study dated 05/31/2022. The skeletal structures are osteopenic. There is no radiographic evidence of acute fracture involving the hips or bony pelvis. Mild degenerative change is seen in the hips. There is mild degenerative sclerosis of the sacroiliac joints. Lumbosacral spondylosis is partially visualized. The overlying soft tissues are within normal limits. No bowel obstruction is seen. IMPRESSION: No acute bony abnormality is identified. Electronically signed by: Norm Tse M.D. 07/10/2022 7:[address] 07/10/22 18:22 CT SCAN OF THE BRAIN WITHOUT IV CONTRAST CLINICAL HISTORY: Fall. COMPARISON STUDY: CT of the brain dated 12/11/2020 TECHNIQUE: Unenhanced axial CT scan of the brain is performed from the vertex to the skull base. A dose lowering technique was utilized adhering to the principles of ALARA. CT DOSE: 461.41 mGycm FINDINGS: Brain parenchyma: Left frontotemporal encephalomalacia is consistent with a remote insult. There is associated ex vacuo dilatation of the anterior horn of the left lateral ventricle. There is age-related involutional change noting mild subcortical and periventricular microangiopathic disease. There is no hemorrhage, mass effect, or evidence of acute territorial ischemia by CT criteria. Landry-white matter differentiation is preserved. No extra-axial fluid collection is seen. Ventricles, sulci, cisterns: Prominent secondary to involutional change. Intracranial vasculature: There is atherosclerotic calcification of the cavernous carotid and vertebral artery. Surgical clips are seen in the left sup rasellar region. Calvarium: The skeletal structures are osteopenic. There is postsurgical change from left frontal craniotomy. No depressed calvarial fracture is seen. Sinuses and mastoids: The visualized paranasal sinuses are clear. The mastoid ai r cells are well pneumatized. Orbits: The bony orbits are grossly intact. There are bilateral ocular lens implants. IMPRESSION: Chronic and postoperative changes as above with no hemorrhage, mass effect, or evidence of acute territorial ischemia by CT criteria. ACT 112: Negative or not required by law. Electronically signed by: Norm Tse M.D. 07/10/2022 7:28 PM Chest X-Ray 07/10/22 18:26 SINGLE VIEW CHEST CLINICAL HISTORY: Fall FINDINGS: An AP, portable, semierect chest radiograph is compared to study dated 02/06/2022. The heart is mildly enlarged noting atherosclerotic calcification of the thoracic aorta. The pulmonary vasculature is noncongested. Chronic interstitial thickening is similar to previous. The lungs and pleural spaces are clear noting bibasilar scarring/atelectasis. No pneumothorax is seen. The skeletal structures are osteopenic. The bony thorax is grossly intact. Moderate to advanced arthritic change is noted in the left shoulder. IMPRESSION: Cardiomegaly with no acute cardiopulmonary abnormality identified. ACT 112: Negative or not required by law. Electronically signed by: Norm Tse M.D. 07/10/2022 7:08 PM Discharge Plan Visit Data Chief Complaint: Fall Stated Complaint: FALL, R ANKLE & HIP PAIN ED Provider: Zoltan Allen Discharge Problem: Fall, Right fibular fracture, Hypertensive urgency Patient Disposition: Admitted As Inpatient Discharge Instructions Interventions: ED Discharge Assessment Last Done: 07/10/22 22:52
--- NOTE | 2022-07-10 18:49 | XRay Report ---
RIGHT ANKLE 3 VIEWS CLINICAL HISTORY: Fall. Right ankle injury. FINDINGS: 3 views of the right ankle are obtained. No prior studies are available for comparison at t he time of dictation. The skeletal structures are osteopenic. There is a minimally displaced fracture of the distal fibula with overlying soft tissue edema. The tibia appears intact. The ankle mortise i s maintained. There is a joint effusion. A plantar heel spur is noted. IMPRESSION: Distal fibular fracture with associated soft tissue swelling and joint effusion. Electronically signed by: Norm Tse M.D. 07/10/2022 6:48 PM
--- NOTE | 2022-07-10 19:05 | XRay Report ---
SINGLE VIEW PELVIS; 2 VIEWS RIGHT HIP CLINICAL HISTORY: Fall with right hip injury. FINDINGS: An AP view of the pelvis with AP and frog leg views of the right hip are compared to study dated 05/31/2022. The skeletal structures are osteopenic. There is no radiographic evidence of acute f racture involving the hips or bony pelvis. Mild degenerative change is seen in the hips. There is mil d degenerative sclerosis of the sacroiliac joints. Lumbosacral spondylosis is partially visualized. T he overlying soft tissues are within normal limits. No bowel obstruction is seen. IMPRESSION: No acute bony abnormality is identified. Electronically signed by: Norm Tse M.D. 07/10/2022 7:03 PM
--- NOTE | 2022-07-10 19:08 | XRay Report ---
RIGHT FOOT 3 VIEWS CLINICAL HISTORY: Fall with right foot pain. FINDINGS: 3 views of the right foot are compared to study dated 02/16/2022. The skeletal structures ar e osteopenic. No acute fracture is seen in the foot. There is moderate osteoarthritic change at the f irst metatarsophalangeal joint and at the tarsometatarsal articulations. There is mild widening betwe en the base of the first and second metatarsal, as well as mild offset at the second tarsometatarsal articulation. This is similar to previous and suggests a chronic Lisfranc type injury. Cystic change is seen in the base of the first metatarsal. An os navicularis is incidentally noted. There is a larg e plantar calcaneal enthesophyte. Degenerative spurring is seen along the dorsal aspect of the tarsal bones. A distal fibular fracture is partially imaged with overlying soft tissue edema. IMPRESSION: 1. No acute fracture is identified in the right foot. 2. 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 3. A distal fibular fracture is partially imaged with overlying soft tissue edema. Electronically signed by: Norm Tse M.D. 07/10/2022 7:06 PM
--- NOTE | 2022-07-10 19:10 | XRay Report ---
SINGLE VIEW CHEST CLINICAL HISTORY: Fall FINDINGS: An AP, portable, semierect chest radiograph is compared to study dated 02/06/2022. The heart is mildly enlarged noting atherosclerotic calcification of the thoracic aorta. The pulmonary vascula ture is noncongested. Chronic interstitial thickening is similar to previous. The lungs and pleural s paces are clear noting bibasilar scarring/atelectasis. No pneumothorax is seen. The skeletal structur es are osteopenic. The bony thorax is grossly intact. Moderate to advanced arthritic change is noted in the left shoulder. IMPRESSION: Cardiomegaly with no acute cardiopulmonary abnormality identified. ACT 112: Negative or not required by law. Electronically signed by: Norm Tse M.D. 07/10/2022 7:08 PM
[2022-07-10 19:12] LABS: Basophils # (auto) 0.02 K/uL (0-0.2); Basophils % (auto) 0.3 %; Eosinophils # (auto) 0.14 K/uL (0-0.50); Eosinophils % (auto) 2.4 %; Hematocrit (blood only) 35.3 % (37.0-47.0); Hemoglobin 11.7 g/dl (12.0-16.0); Immature Granulocytes # (auto) 0.01 K/uL (0.01-0.20); Immature Granulocytes % (auto) 0.2 %; Lymphocytes # (auto) 1.51 K/uL (1.2-3.4); Lymphocytes % (auto) 25.9 %; Mean Corpuscular Hemoglobin 31.3 pg (25.0-34.0); Mean Corpuscular Hgb Conc 33.1 g/dL (32.0-36.0); Mean Corpuscular Volume 94.4 fL (80.0-100.0); Monocytes # (auto) 0.54 K/uL (0.11-0.59); Monocytes % (auto) 9.3 %; Neutrophils % (auto) 61.9 %; Platelet Count 250 K/uL (130-400); RDW Coefficient of Variation 13.9 % (11.5-14.5); RDW Standard Deviation 48.3 fL (36.4-46.3); Red Blood Count 3.74 M/uL (4.20-5.40); White Blood Count 5.82 K/ul (4.8-10.8)
--- NOTE | 2022-07-10 19:30 | CT Scan Report ---
CT SCAN OF THE BRAIN WITHOUT IV CONTRAST CLINICAL HISTORY: Fall. COMPARISON STUDY: CT of the brain dated 12/11/2020 TECHNIQUE: Unenhanced axial CT scan of the brain is performed from the vertex to the skull base. A do se lowering technique was utilized adhering to the principles of ALARA. CT DOSE: 461.41 mGycm FINDINGS: Brain parenchyma: Left frontotemporal encephalomalacia is consistent with a remote insult. There is a ssociated ex vacuo dilatation of the anterior horn of the left lateral ventricle. There is age-relate d involutional change noting mild subcortical and periventricular microangiopathic disease. There is no hemorrhage, mass effect, or evidence of acute territorial ischemia by CT criteria. Landry-white iveth er differentiation is preserved. No extra-axial fluid collection is seen. Ventricles, sulci, cisterns: Prominent secondary to involutional change. Intracranial vasculature: There is atherosclerotic calcification of the cavernous carotid and vertebr al artery. Surgical clips are seen in the left suprasellar region. Calvarium: The skeletal structures are osteopenic. There is postsurgical change from left frontal scrap breaker niotomy. No depressed calvarial fracture is seen. Sinuses and mastoids: The visualized paranasal sinuses are clear. The mastoid air cells are well pneu matized. Orbits: The bony orbits are grossly intact. There are bilateral ocular lens implants. IMPRESSION: Chronic and postoperative changes as above with no hemorrhage, mass effect, or evidence o f acute territorial ischemia by CT criteria. ACT 112: Negative or not required by law. Electronically signed by: Norm Tse M.D. 07/10/2022 7:28 PM
[2022-07-10 19:34] LABS: Albumin Globulin Ratio 1.4 (0.9-2); Albumin Level 4.4 gm/dl (3.4-5.0); BUN Creatinine Ratio 30.1 (10-20); Bilirubin,Total 0.6 mg/dl (0.2-1.0); Calcium 9.8 mg/dl (8.5-10.1); Creatinine Clr Calc Pharmacy 49.4 ml/min; Est GFR (African American) 90.8 ml/min; Est GFR (Non-African American) 78.3 ml/min; Globulin 3.2 gm/dl (2.5-4.0); Potassium 3.3 mmol/L (3.5-5.1); Total Protein 7.6 gm/dl (6.0-8.3)
[2022-07-10 19:37] LABS: Prothrombin Time 10.3 Seconds (9.0-12.0)
[2022-07-10] MEDS ORDERED: hydrALAZINE HCL 20 MG/ML VIAL IV ONE (19:58)
[2022-07-10] MEDS ORDERED: MoRPHine SULFATE 4 MG/ML 1 ML CARP\\VIAL IV STA (19:58)
[2022-07-10] MEDS ORDERED: NON-FORMULARY MEDICATION (Cyanocobalamin (Vitamin B-12) 1,000 mcg/mL kit) IM SCH (21:00)
--- NOTE | 2022-07-10 21:00 | History & Physical Report ---
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 Right Fibular fracture -received morphine, fentanyl in ED for pain control, leg in immobilizer -found on ankle XR -CXR, hip XR neg -CT right leg pending -ortho consulted -NPO midnight for surgery -will hold plavix -trend CBC -PT/OT ordered Fall -mechanical, likely some contribution from residual right sided weakness from prior subarachnoid hemorrhage, walks with walker at baseline -CT head neg -fall precautions ordered HTN -chronically elevated -received hydralazine 5mg in ED -continue home metoprolol, amlodipine, lisinopril HLD -continue atorvastatin Urinary Incontinence -continue mirabegron FENa: NPO midnight Code Status: Full, has a living will DVT PPX: SCDs Dispo: med/Soumay Gaffney D.O. 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 Patient states she was in her bedroom walking when her foot got caught on a cord, she tripped. Patient denies hitting her head, LOC, dizziness lightheadedness, states she fell on her right side. Patient felt warm at first, now cold in ED. She denies any nausea vomiting SOB chest pain abd pain, has baseline weakness on right upper and lower extremities and ambulates with a walker. Patient lives at home with her , whom she is primary paying teller of for dementia. She has a paying teller come in to assist, son lives close by and visits daily. Patient has someone to assist organizing her medications. She lives in [facility]. She denies smoking, alcohol. Only blood thinner is her plavix. Allergies Allergy/AdvReac Type Severity Reaction Status Date / Time methocarbamol Allergy Severe felt like Verified 06/07/22 13:32 her throat was closing vancomycin Allergy Mild HIVES Verified 06/07/22 13:32 Home Medications Medication Instructions Recorded Confirmed Type cholecalciferol (vitamin D3) 125 125 mcg PO HS 03/10/21 07/10/22 History mcg (5,000 unit) capsule timolol maleate 0.5 % eye drops 1 drp ophthalmic (eye) QA 09/16/21 07/10/22 History syringe with needle 3 mL 23 x 1" #4 ea 11/29/21 07/10/22 Rx (BD Eclipse Luer-Guerita) cyanocobalamin (vitamin B-12) 1,000 mcg IM Q7D 4 weeks #4 ea 12/10/21 07/10/22 Rx 1,000 mcg/mL injection kit atorvastatin 40 mg tablet 40 mg PO QPM #90 tabs 02/22/22 07/10/22 Rx amlodipine 5 mg tablet 5 mg PO DAILY #30 tabs 07/06/22 07/10/22 Rx ascorbate calcium (vitamin C) 500 500 mg PO QPM 07/10/22 07/10/22 History mg tablet okpnvvh-zvs-nyc D3-phosphorus 2 tbsp PO QA 07/10/22 07/10/22 History clopidogrel 75 mg tablet 75 mg PO QPM 07/10/22 07/10/22 History cod liver oil 10 ml PO QAM 07/10/22 07/10/22 History coenzyme Q10 400 mg capsule 400 mg PO QAM 07/10/22 07/10/22 History glucosamine-chondroitin 250 mg-200 21 tab PO QAM 07/10/22 07/10/22 History mg tablet (Osteo Bi-Flex) lisinopril 40 mg tablet 40 mg PO QPM 07/10/22 07/10/22 History metoprolol succinate 50 mg 50 mg PO BID 07/10/22 07/10/22 History tablet,extended release 24 hr mirabegron 50 mg tablet,extended 50 mg PO QAM 07/10/22 07/10/22 History release 24 hr pantoprazole 40 mg tablet,delayed 40 mg PO QAM 07/10/22 07/10/22 History release potassium chloride 8 mEq 8 meq PO QPM 07/10/22 07/10/22 History capsule,extended release vitamin C 50 mg-biotin 1,250 mcg 2 tab PO QAM 07/10/22 07/10/22 History chewable tablet (Tktd-Lrnm-Bbsla (vit C-biotin)) vitamin E 268 mg (400 unit) capsule 268 mg PO QAM 07/10/22 07/10/22 History acetaminophen 325 mg tablet 650 mg PO Q4H PRN #0 tabs 07/13/22 Rx polyethylene glycol 3350 17 gram 17 g PO DAILY PRN #0 ea 07/13/22 Rx oral powder packet (Miralax) Past Med/Surg History Medical History Arthritis Cazares's cyst of knee Cholecystitis, acute Glaucoma Hemiplegia affecting dominant side High cholesterol History of blood clots Hypertension Insomnia Intracranial aneurysm Liver lesion, left lobe Lower urinary tract symptoms Osteoarthritis of knees, bilateral Renal artery stenosis Subarachnoid hemorrhage Trochanteric bursitis Ulcer Vitamin B 12 deficiency Surgical History H/O vaginal hysterectomy (01/24/12) History of colonoscopy Dr. Abilio Prasad, normal, recheck 10 years Hx laparoscopic cholecystectomy (03/07/19) Laparoscopic Cholecystectomy - Flavio Arroyo, DO Endoscopic Retrograde Cholangiopancreatogram - Yoel Swartz MD S/P brain surgery (~2012) S/P ERCP S/P foot surgery (~2017) S/P laparoscopic cholecystectomy Family History Mother Breast cancer Diabetes Aneurysm Father Myocardial infarction Hypertension Heart disease Brother Diabetes Aneurysm Sister Hypertension Aneurysm Other Cerebral aneurysm Denies family history of Colon cancer Ovarian cancer Prostate cancer Social History Smoking Status: Never smoker Tobacco Type: Cigarettes Second Hand Exposure: No; Hx Alcohol Use: No Hx Substance Use: No Preferred Language: Nepali Communication Ability: Effective Visual Impairment: Limited Hearing Ability: Normal Inspector Penetrant Required: No Beliefs That Will Affect Care: None marital status: Current Living Situation: Spouse current occupational status: retired Feels Safe at Home: Yes caffeine: Yes (Tea) during the past year weight has: remained stable Dental Care, Regularly: Yes Physical Activity Frequency: Does not Exercise Seatbelt Use: always Sunscreen Use: Yes Assistive Devices: Cane and Walker Review of Systems Review of Systems: see hpi Physical Exam Constitutional: WD/WN, vitals as above cooperative and comfortable Eyes: PERRL, conjunctivae normal, anicteric sclerae ENMT: external ear and nose normal, oropharynx normal Neck: trachea midline, no thyromegaly Respiratory: normal respiratory effort, lungs clear to auscultation Cardiovascular: Rate/Rhythm: regular rate and regular rhythm Extremities: no edema Gastrointestinal (Abdomen): Inspection/Auscultation: abdomen normal to inspection; abdomen not distended Percussion/Palpation: abdomen soft; abdomen nontender Musculoskeletal: right leg in bandages Skin: no rashes, warm and dry Neurologic: normal touch/pain/proprioception, CN's II-XI intact bilaterally and moves all extremities Results & Data Results & Data ([facility]) Vital Signs (Past 12 Hours) Vital Signs Temp Pulse Resp BP Pulse Ox O2 Del Method 07/10/22 20:30 80 15 07/10/22 20:30 189/95 H 07/10/22 20:20 70 14 07/10/22 20:10 68 18 07/10/22 20:00 63 19 07/10/22 20:00 208/136 H 07/10/22 19:56 75 21 100 07/10/22 19:56 245/105 H 07/10/22 19:56 245/105 H 07/10/22 19:51 71 19 99 07/10/22 19:51 206/126 H 07/10/22 19:50 68 14 96 07/10/22 19:40 70 21 97 07/10/22 19:30 59 L 19 07/10/22 19:30 213/100 H 07/10/22 19:23 63 17 07/10/22 19:23 226/109 H 07/10/22 18:50 70 19 98 Room Air 07/10/22 18:50 212/106 H 07/10/22 18:40 73 17 96 Room Air 07/10/22 18:31 82 21 98 Room Air 07/10/22 18:31 247/189 H 07/10/22 18:30 78 19 100 Room Air 07/10/22 18:20 70 17 96 Room Air 07/10/22 18:16 212/101 H 07/10/22 18:16 67 20 100 Room Air 07/10/22 18:15 72 14 100 Room Air 07/10/22 17:52 36.7 C 71 20 218/161 H 98 Room Air 07/10/22 18:17 64 Supervising Physician Co-Signing Physician Notes Attending addendum: I have physically seen this patient, have supervised the medical residents act ivities, and agree with the H&P unless as otherwise noted. Assessment and Plan: Right fibula fracture- Status post mechanical fall Continue leg immobilizer placed in the ED Acetaminophen 650 mg p.o. as needed for mild pain or fever [place] 5/325, 1 every 6 hours as needed for moderate pain Morphine sulfate, 2 mg IV every 4 hours as needed for severe pain Hold Plavix Consult orthopedic surgery Hypertension- Continue metoprolol succinate, amlodipine and lisinopril Control pain GERD- Continue pantoprazole Bladder spasm- Continue mirabegron Hyperlipidemia- Continue atorvastatin Cerebrovascular disease/hemiplegia- Will need PT/OT B12 deficiency- Receives IM B12 in the outpatient setting Glaucoma- Continue timolol maleate Remaining orders and notations as noted Resident Activity Tracking Resident Involvement: Resident Care Provided Care Provided: Adult Hospital Medicine (2) Hypertension Hypertension type: unspecified Qualified Code(s): I10 - Essential (primary) hypertension
[2022-07-10] MEDS ORDERED: hydrALAZINE HCL 20 MG/ML VIAL IV STA (21:52)
[2022-07-10] MEDS ORDERED: POLYETHYLENE (MIRALAX) 17 GM PACK PO PRN (23:31)
[2022-07-10] MEDS ORDERED: ONDANSETRON INJ 2 MG/ML 2 ML VIAL IV PRN (23:43)
[2022-07-11] MEDS: ACETAMINOPHEN 325 MG TAB PO PRN ×4 (00:09→22:22)
[2022-07-11] MEDS: CHOLECALCIFEROL 5,000 UNITS 125 MCG TAB PO SCH ×2 (00:10→22:23)
[2022-07-11] MEDS: lisinopril 40 MG TAB PO SCH ×2 (00:11→22:23)
[2022-07-11] MEDS: ASCORBIC ACID 500 MG TAB PO SCH ×2 (00:11→22:26)
[2022-07-11] MEDS: ATORVASTATIN 40 MG TAB PO SCH ×2 (00:12→22:24)
[2022-07-11] MEDS: METOPROLOL SUCC 50MG EXT REL TAB PO SCH ×3 (00:12→22:23)
[2022-07-11] MEDS ORDERED: ROPIVACAINE 0.5% 5 MG/ML 30 ML VIAL ONE (06:39)
[2022-07-11 07:14] LABS: Basophils # (auto) 0.02 K/uL (0-0.2); Basophils % (auto) 0.3 %; Eosinophils # (auto) 0.02 K/uL (0-0.50); Eosinophils % (auto) 0.3 %; Hematocrit (blood only) 31.6 % (37.0-47.0); Hemoglobin 10.6 g/dl (12.0-16.0); Immature Granulocytes # (auto) 0.02 K/uL (0.01-0.20); Immature Granulocytes % (auto) 0.3 %; Lymphocytes # (auto) 1.52 K/uL (1.2-3.4); Lymphocytes % (auto) 19.1 %; Mean Corpuscular Hemoglobin 30.8 pg (25.0-34.0); Mean Corpuscular Hgb Conc 33.5 g/dL (32.0-36.0); Mean Corpuscular Volume 91.9 fL (80.0-100.0); Mean Platelet Volume 10.5 fL (9.4-12.4); Monocytes # (auto) 0.67 K/uL (0.11-0.59); Monocytes % (auto) 8.4 %; Neutrophils # (auto) 5.71 K/uL (1.40-6.50); Neutrophils % (auto) 71.6 %; Platelet Count 244 K/uL (130-400); RDW Coefficient of Variation 14.2 % (11.5-14.5); Red Blood Count 3.44 M/uL (4.20-5.40); White Blood Count 7.96 K/ul (4.8-10.8)
[2022-07-11 07:18] LABS: BUN Creatinine Ratio 29.9 (10-20); Calcium 9.4 mg/dl (8.5-10.1); Creatinine Clr Calc Pharmacy 46.9 ml/min; Est GFR (African American) 85.1 ml/min; Est GFR (Non-African American) 73.4 ml/min; Potassium 3.5 mmol/L (3.5-5.1)
[2022-07-11] MEDS: MoRPHine SULFATE 2 MG/ML CARP IV PRN ×2 (07:45→12:53)
[2022-07-11] MEDS ORDERED: SODIUM CHLORIDE 0.9% 1000ML 1,000 ML IV SCH (08:15)
--- NOTE | 2022-07-11 08:54 | CT Scan Report ---
CT ankle RT wo con CLINICAL HISTORY: fracture TECHNIQUE: Multidetector row helical CT of the right ankle was performed without intravenous contrast . Coronal and sagittal reformations were obtained. Automated dose lowering techniques and/or adjustme nt according to patient size were utilized for this examination. CT DOSE: 123.10 mGy.cm Comparison: Comparison is made to ankle radiograph 07/10/2022 FINDINGS: Acute nondisplaced fibular fracture is seen this is at the level of the tibiofibular syndesmosis. No widening of the ankle mortise is seen. No joint effusion is seen. Soft tissue swelling is seen. IMPRESSION: Alvarado B fracture of the fibula with associated soft tissue swelling. No widening of the tibiofibular syndesmosis.. ACT 112: Negative or not required by law. Electronically signed by: Winston Mcgee M.D. 07/11/2022 8:52 AM
[2022-07-11] MEDS ORDERED: COENZYME Q10 400 MG PO SCH (09:00)
[2022-07-11] MEDS ORDERED: COD LIVER OIL PO SCH (09:00)
[2022-07-11] MEDS ORDERED: [UNRECOGNIZED DRUG - OTHER] PO SCH (09:00)
[2022-07-11] MEDS ORDERED: [UNRECOGNIZED DRUG - OTHER] PO SCH (09:00)
[2022-07-11] MEDS ORDERED: NON-FORMULARY MEDICATION (Glucosamine-Chondroitin [Osteo Bi-Flex] 250-200 mg Tablet) PO SCH (09:00)
[2022-07-11] MEDS: amLODIPine BESYLATE 5 MG TAB PO SCH (09:08)
[2022-07-11] MEDS: PANTOprazole 40 MG TAB PO SCH (09:09)
[2022-07-11] MEDS: TOCOPHERYL, DL-ALPHA 400 UNITS 180 MG CAP PO SCH (09:09)
[2022-07-11] MEDS: TIMOLOL MALEATE 0.5% OP SOLN 5 ML BTL OP SCH (09:10)
[2022-07-11] MEDS: MIRABEGRON ER 25 MG TAB PO SCH (09:10)
--- NOTE | 2022-07-11 09:23 | Electrocardiogram Report ---
Test Reason : Blood Pressure : / mmHG Vent. Rate : 066 BPM Atrial Rate : 066 BPM P-R Int : 208 ms QRS Dur : 098 ms QT Int : 394 ms P-R-T Axes : 047 -20 071 degrees QTc Int : 413 ms Poor data quality, interpretation may be adversely affected Normal sinus rhythm with 1st degree AV block Normal ECG When compared with ECG of 06-FEB-2022 14:12, No significant change was found Confirmed by Terrance Sosa ([id number]) on 07/11/2022 9:23:01 AM Referred By: REFERRED SELF Confirmed By:Raul Sosa
--- NOTE | 2022-07-11 09:24 | Orthopedic Consultation ---
Date of Consultation July 11, 2022 Assessment & Plan (1) Fracture of distal end of right fibula: Patient was educated regarding today's findings. Nonsurgical treatment recommended given the non-displaced fracture and lower risk of non-surgical treatment. Expect she will regain good function once the fracture heals, but will need to be casted for a total of 6 weeks. Patient is in agreement with this plan. A short leg, non-weight bearing, well-molded plaster cast was applied. Patient reported that it fit her well, no pressure points. X-rays will be obtained in the cast. Needs to elevate RLE. Recommend PT/OT eval, trial knee scooter vs. walker to maintain NWB on the RLE. She will likely need custodial facility placement or rehab placement postsurgically until she can safely bear weight. Arrangements will need to be made for care of her as well. Follow-up [facility] in 2 weeks. May continue Plavix for DVT prophylaxis. Supervising Physician Co-Signing Physician Notes I saw and examined the patient, reviewed her imaging, formulated the treatment plan, applied the cast and performed the substantive portion of the visit. Agree with above note. History of Present Illness Reason for Consultation: Right ankle fracture Attending Physician: Jim Reynoso MD History of Present Illness This 77-year-old female with history of hypertension, osteoarthritis, renal artery stenosis, venous insufficiency, depression, anemia, elevated cholesterol, and distant history of subarachnoid hemorrhage causing residual right hemiplegia(1977 & 2012), seen today in her hospital room, for evaluation of her right ankle. Patient was at home yesterday and was walking in her bedroom. She tripped on a cord and fell, fracturing her right ankle. She was unable to bear weight. She was evaluated in the ED and found to have a right distal fibular fracture. Patient was splinted and orthopedics was consulted. 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 Allergies Allergy/AdvReac Type Severity Reaction Status Date / Time methocarbamol Allergy Severe felt like Verified 06/07/22 13:32 her throat was closing vancomycin Allergy Mild HIVES Verified 06/07/22 13:32 wheat AdvReac Gastrointestinal Verified 06/07/22 13:32 Upset Home Medications Medication Instructions Recorded Confirmed Type cholecalciferol (vitamin D3) 125 125 mcg PO HS 10/20/21 02/19/23 History mcg (5,000 unit) capsule timolol maleate 0.5 % eye drops 1 drp ophthalmic (eye) QA 09/16/21 07/10/22 History syringe with needle 3 mL 23 x 1" #4 ea 11/29/21 07/10/22 Rx (BD Eclipse Luer-Guerita) cyanocobalamin (vitamin B-12) 1,000 mcg IM Q7D 4 weeks #4 ea 12/10/21 07/10/22 Rx 1,000 mcg/mL injection kit atorvastatin 40 mg tablet 40 mg PO QPM #90 tabs 02/22/22 07/10/22 Rx amlodipine 5 mg tablet 5 mg PO DAILY #30 tabs 07/06/22 07/10/22 Rx ascorbate calcium (vitamin C) 500 500 mg PO QPM 07/10/22 07/10/22 History mg tablet mqlogcb-jnk-eja D3-phosphorus 2 tbsp PO QA 07/10/22 07/10/22 History clopidogrel 75 mg tablet 75 mg PO QPM 07/10/22 07/10/22 History cod liver oil 10 ml PO QAM 07/10/22 07/10/22 History coenzyme Q10 400 mg capsule 400 mg PO QAM 07/10/22 07/10/22 History glucosamine-chondroitin 250 mg-200 21 tab PO QAM 07/10/22 07/10/22 History mg tablet (Osteo Bi-Flex) lisinopril 40 mg tablet 40 mg PO QPM 07/10/22 07/10/22 History metoprolol succinate 50 mg 50 mg PO BID 07/10/22 07/10/22 History tablet,extended release 24 hr mirabegron 50 mg tablet,extended 50 mg PO QAM 07/10/22 07/10/22 History release 24 hr pantoprazole 40 mg tablet,delayed 40 mg PO QAM 07/10/22 07/10/22 History release potassium chloride 8 mEq 8 meq PO QPM 07/10/22 07/10/22 History capsule,extended release vitamin C 50 mg-biotin 1,250 mcg 2 tab PO QAM 07/10/22 07/10/22 History chewable tablet (Uxze-Cbmu-Jwcss (vit C-biotin)) vitamin E 268 mg (400 unit) capsule 268 mg PO QAM 07/10/22 07/10/22 History Patient History Medical History Arthritis Cazares's cyst of knee Cholecystitis, acute Glaucoma Hemiplegia affecting dominant side High cholesterol History of blood clots Hypertension Insomnia Intracranial aneurysm Liver lesion, left lobe Lower urinary tract symptoms Osteoarthritis of knees, bilateral Renal artery stenosis Subarachnoid hemorrhage Trochanteric bursitis Ulcer Vitamin B 12 deficiency Surgical History H/O vaginal hysterectomy (01/24/12) History of colonoscopy Dr. Abilio Prasad, normal, recheck 10 years Hx laparoscopic cholecystectomy (03/07/19) Laparoscopic Cholecystectomy - Flavio Arroyo, DO Endoscopic Retrograde Cholangiopancreatogram - Yoel Swartz MD S/P brain surgery (~2012) S/P ERCP S/P foot surgery (~2017) S/P laparoscopic cholecystectomy Family History Mother Breast cancer Diabetes Aneurysm Father Myocardial infarction Hypertension Heart disease Brother Diabetes Aneurysm Sister Hypertension Aneurysm Other Cerebral aneurysm Denies family history of Colon cancer Ovarian cancer Prostate cancer Social History Smoking Status: Never smoker Tobacco Type: Cigarettes Second Hand Exposure: No; Do You Dip or Chew Tobacco: No; Tobacco Cessation Education Requested by Patient: No Hx Alcohol Use: No Hx Substance Use: No Preferred Language: [place] Communication Ability: Effective Visual Impairment: Limited Hearing Ability: Normal Auto Mechanic Required: No Beliefs That Will Affect Care: None marital status: Current Living Situation: Spouse current occupational status: retired Other Information That Helps Us Care for You: No Feels Safe at Home: Yes Safety Concerns: Feels Safe At This Time caffeine: Yes (Tea) during the past year weight has: remained stable Dental Care, Regularly: Yes Physical Activity Frequency: Does not Exercise Seatbelt Use: always Sunscreen Use: Yes Assistive Devices: Cane and Walker Review of Systems Review of Systems: All systems reviewed & are unremarkable except as noted in HPI & below Physical Exam Physical Exam: General: Thin elderly female, in no acute distress. Laying in bed. Alert and oriented. Conversive. Currently rates her pain as 8/10. She just received morphine a little while ago. Skin: Warm and dry with good turgor. No rashes. She has an Ortho-Glass splint in place on the right lower leg. Heart: Heart RRR. No MGR. Peripheral pulses are 2+. Lungs: Lungs are clear to auscultation. No crackles rhonchi or wheezing. Good air movement. The patient is able to take a deep breath. Abdomen: Abdomen was inspected, auscultated, and palpated. Bowel sounds present x 4. Soft, nontender to palpation. No hepato-splenomegaly. No masses noted. No rebound. Musculoskeletal: Patient has intact motor function of the left hip, knee, and ankle, without discomfort. She has intact function of the right hip and knee, t avn motion of these does cause pain at her ankle. She has intact motor function of her right toes. Splint was removed, and her skin is intact. Mild lateral ankle swelling, minimal medial ankle swelling. No gross deformity. Tender over lateral malleolus. Minimal deltoid tenderness, no medial malleolus tenderness. Neurologic: Gross sensation is intact across the upper and lower extremities by soft touch. Results & Data ([facility]) Vital Signs (Past 12 Hours) Vital Signs Temp Pulse Pulse Resp BP BP Pulse Ox 07/11/22 07:39 36.9 C 62 14 110/67 94 07/11/22 02:25 36.6 C 75 18 130/68 94 07/10/22 23:53 75 07/11/22 00:48 36.6 C 80 16 155/69 H 96 07/10/22 23:50 07/10/22 22:20 86 29 H 07/10/22 22:20 169/81 H 07/10/22 22:10 76 13 96 07/10/22 22:00 71 18 99 07/10/22 22:00 209/112 H 07/10/22 21:50 72 15 99 07/10/22 21:42 63 21 98 07/10/22 21:42 215/112 H 07/10/22 21:41 89 23 93 07/10/22 21:20 88 30 H 07/10/22 22:10 69 O2 Del Method 07/11/22 07:39 Room Air 07/11/22 02:25 Room Air 07/10/22 23:53 07/11/22 00:48 Room Air 07/10/22 23:50 Room Air 07/10/22 22:20 07/10/22 22:20 07/10/22 22:10 Room Air 07/10/22 22:00 Room Air 07/10/22 22:00 07/10/22 21:50 07/10/22 21:42 07/10/22 21:42 07/10/22 21:41 07/10/22 21:20 07/10/22 22:10 Laboratory Results CBC obtained this morning shows a white count of 7.96. H&H of 10.6 and 31.6. Platelets are 244,000. INR yesterday was 1.1. PRP obtained this morning is unremarkable. Normal sodium, potassium, chloride, and CO2. Normal BUN and creatinine. Glucose is 106. COVID test obtained yesterday was negative Diagnostic Findings Radiographic imaging obtained yesterday of the right ankle was reviewed. She has intact distal fibular fracture that is non-displaced with overlying soft tissue edema. Foot radiographs show no evidence of fracture however she does have a chronic Lisfranc injury with degenerative changes of the midfoot. Hip radiographs obtained yesterday showed no acute bony abnormality. Head CT obtained yesterday shows chronic and postoperative changes with no acute hemorrhage, mass effect, or acute territorial ischemia. Chest x-ray obtained yesterday shows cardiomegaly with no acute cardiopulmonary abnormalities. No pneumothorax. CT scan imaging of the ankle obtained yesterday shows the Alvarado B fibular fracture without widening of the ankle mortise. No joint effusion is seen.
--- NOTE | 2022-07-11 11:28 | Hospitalist Progress Note ---
Date of Service July 11, 2022 Assessment & Plan (1) Fracture of distal end of right fibula: Plan: Suffered due to a mechanical fall. Appreciate orthopedic consultation and recommendations. 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 Now stable. Supportive care (4) Renal artery stenosis: Plan: Continue current medical management. No intervention needed at this time Plan Anticipate eventual discharge to SNF facility for continued OT and PT during the healing process. The POA [id number] does not want her to go to [facility] [place] Admission and Anticipated Discharge Date Admission Date: July 10, 2022 Subjective Alert and oriented. Pleasant. Awaiting orthopedic surgery for right fibula fractured suffered in a mechanical fall. She will need SNF placement postoperatively. Her [id number] Debby, who has POA, does not want her to go to [facility]. Case management notified Review of Systems Review of Systems: Constitutional-no fever or chills ENT-no blurred vision, no double vision, no epistaxis, no sore throat Respiratory-no cough, no wheezing, no shortness of breath Cardiac-no palpitations, no chest pain, no syncope GI-no nausea, vomiting, diarrhea, melena, hematochezia -no urinary retention, no urinary incontinence, no dysuria, no hematuria Musculoskeletal-no joint pain, no muscle tenderness Skin-no bruising, no rashes, no pruritus Neuro-chronic right hemiparesis from remote subarachnoid hemorrhage Psych-no depression, no anxiety Physical Exam Physical Exam: General-alert and oriented x3, no fevers, no chills HEENT-head atraumatic and normocephalic, pupils equal and reactive to light, extraocular muscles intact Neck-no lymphadenopathy or thyromegaly, trachea midline Chest-clear to auscultation percussion. No rales wheezing or rhonchi Cardiac-regular rate and rhythm, normal S1 and S2, no murmurs Abdomen-normal bowel sounds, nontender, no hepatosplenomegaly Extremities-right lower extremity immobilized due to underlying right fibula fracture Neuro-chronic right hemiparesis from remote left subarachnoid hemorrhage Psych-normal affect, normal mood Results & Data Results & Data ([facility]) Vital Signs (Past 12 Hours) Vital Signs Temp Pulse Pulse Resp BP Pulse Ox O2 Del Method 07/11/22 11:10 36.6 C 60 14 106/59 L 94 Room Air 07/11/22 07:39 36.9 C 62 14 110/67 94 Room Air 07/11/22 02:25 36.6 C 75 18 130/68 94 Room Air 07/10/22 23:53 75 07/11/22 00:48 36.6 C 80 16 155/69 H 96 Room Air 07/10/22 23:50 Room Air Laboratory Results 07/11/22 06:29 07/11/22 06:29 PG Care Time/CCT Total # of Minutes Spent Total Time Spent with Patient: Total time spent is greater than 50% in coordination of care (as documented) at patient's floor/unit and/or counseling patient: Coding Level of Care Code 33391 SUB INP/OBS CARE 3/50MIN Diagnoses Fracture of distal end of right fibula S82.831A Hypertension I10 Hypertension type: unspecified Subarachnoid hemorrhage I60.9 Renal artery stenosis I70.1 (2) Hypertension Hypertension type: unspecified Qualified Code(s): I10 - Essential (primary) hypertension
[2022-07-11] MEDS ORDERED: CLOPIDOGREL BISULFATE 75 MG TAB PO ONE (14:15)
--- NOTE | 2022-07-11 15:35 | XRay Report ---
XR tibia fibula RT 2V, XR ankle RT 2V CLINICAL HISTORY: lower leg pain. Right ankle fracture. COMPARISON STUDY: Right ankle 07/10/2022. FINDINGS: Overlying cast material results in difficult evaluation of the right lower leg/ankle. There is again suggestion of a slightly displaced distal right fibular fracture. Alignment appears similar to the prior study. No dislocation. The ankle mortise appears intact. The proximal tibia and proxima l fibula are maintained. IMPRESSION: Difficult evaluation of right lower leg/ankle due to the overlying cast material. Frank fernández, no significant change in the mildly displaced distal right fibular fracture. ACT 112: Negative or not required by law. Electronically signed by: Mohsen Rankin M.D. 07/11/2022 3:33 PM
[2022-07-12] MEDS: MoRPHine SULFATE 2 MG/ML CARP IV PRN (09:30)
[2022-07-12] MEDS: CLOPIDOGREL BISULFATE 75 MG TAB PO SCH (09:31)
[2022-07-12] MEDS: TOCOPHERYL, DL-ALPHA 400 UNITS 180 MG CAP PO SCH (09:31)
[2022-07-12] MEDS: PANTOprazole 40 MG TAB PO SCH (09:32)
[2022-07-12] MEDS: METOPROLOL SUCC 50MG EXT REL TAB PO SCH ×2 (09:32→20:40)
[2022-07-12] MEDS: amLODIPine BESYLATE 5 MG TAB PO SCH (09:32)
[2022-07-12] MEDS: TIMOLOL MALEATE 0.5% OP SOLN 5 ML BTL OP SCH (09:33)
[2022-07-12] MEDS: MIRABEGRON ER 25 MG TAB PO SCH (09:33)
--- NOTE | 2022-07-12 09:34 | Orthopedic Progress Note ---
Date of Service July 12, 2022 Assessment & Plan (1) Fracture of distal end of right fibula: Plan: Patient will remain in cast as per recommendation of Dr. Green for total of 6 weeks She will be nonweightbearing right lower extremity utilizing walker/knee walker per patient's comfort and safety Continue with elevation of right lower extremity and monitoring skin for any irritation Continue with physical and occupational therapies We will continue Plavix for DVT prophylaxis Recommend case management assistance with obtaining care for her spouse at home as well as possible placement for short period of time if needed dependent on her response to therapy and safety She will need to follow-up in outpatient clinic 2 weeks Present on Admission?: Yes Admission and Anticipated Discharge Date Admission Date: July 10, 2022 Subjective Patient is a 77 y.o female who is s/p a closed reduction in a short leg cast for a right distal fibula fracture. She was seen bedside this am. She is alert and oriented x3 and in no acute distress. She reports since having the cast applied her pain is improved. She reports the pain as 5/10. She denies any irritation from the cast or paresthesia in the foot. She reports she is caring for her spouse at home and does not feel she will be able to do this anytime soon. She states she would like to go to rehab for a short time to be more mobile. She states she has one step into her home and has everything on one floor. She offers no concerns. She denies any calf pain, SOB or CP. Review of Systems Review of Systems: Please refer to HPI Physical Exam Physical Exam: General: Alert and oriented x3 pleasant in good spirits Musculoskeletal/integumentary: Plaster cast is in place over right lower extremity. There is no skin irritation distally or proximal to the cast. Toes are visible nonedematous normal in color and temperature. Sensation is intact to light touch. Patient is able to wiggle toes. She is able to flex and extend the knee without increased pain. Cap refills less than 2 seconds. Right lower extremity is neurovascular intact. Results & Data ([facility]) Vital Signs (Past 12 Hours) Vital Signs Temp Pulse Pulse Resp BP Pulse Ox O2 Del Method 07/12/22 07:16 36.6 C 61 18 106/70 94 Room Air 07/12/22 02:54 36.6 C 95 H 16 112/66 95 Room Air 07/12/22 01:21 65 07/11/22 22:20 36.8 C 61 18 102/62 92 Room Air Diagnostic Findings Ankle X-Ray 07/11/22 14:58 XR tibia fibula RT 2V, XR ankle RT 2V CLINICAL HISTORY: lower leg pain. Right ankle fracture. COMPARISON STUDY: Right ankle 07/10/2022. FINDINGS: Overlying cast material results in difficult evaluation of the right lower leg/ankle. There is again suggestion of a slightly displaced distal right fibular fracture. Alignment appears similar to the prior study. No dislocation. The ankle mortise appears intact. The proximal tibia and proximal fibula are maintained. IMPRESSION: Difficult evaluation of right lower leg/ankle due to the overlying cast material. However, no significant change in the mildly displaced distal right fibular fracture. ACT 112: Negative or not required by law. Electronically signed by: Mohsen Rankin M.D. 07/11/2022 3:33 PM Tibia/Fibula X-Ray 07/11/22 14:58 XR tibia fibula RT 2V, XR ankle RT 2V CLINICAL HISTORY: lower leg pain. Right ankle fracture. COMPARISON STUDY: Right ankle 07/10/2022. FINDINGS: Overlying cast material results in difficult evaluation of the right lower leg/ankle. There is again suggestion of a slightly displaced distal right fibular fracture. Alignment appears similar to the prior study. No dislocation. The ankle mortise appears intact. The proximal tibia and proximal fibula are maintained.
[2022-07-12] MEDS: ACETAMINOPHEN 325 MG TAB PO PRN ×2 (11:59→20:40)
--- NOTE | 2022-07-12 14:14 | Hospitalist Progress Note ---
Date of Service July 12, 2022 Assessment & Plan (1) Fracture of distal end of right fibula: Plan: Suffered due to a mechanical fall. Appreciate orthopedic consultation and recommendations. Right lower extremity is now in a hard cast. Orthopedics stated she did not need any surgical intervention. 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 Now stable. Supportive care (4) Renal artery stenosis: Plan: Continue current medical management. No intervention needed at this time Plan Anticipate eventual discharge to SNF facility for continued OT and PT during the healing process. The POA [id number] does not want her to go to [facility] in [facility] . Case management notified Admission and Anticipated Discharge Date Admission Date: July 10, 2022 Subjective Proximal right leg pain is the main complaint. She understands she will not be able to go straight home from the hospital. Case management notified that she needs SNF placement. I spoke to her bodczcwf-ax-xuy, Debby, by phone and gave her an update Review of Systems Review of Systems: Constitutional-no fever or chills ENT-no blurred vision, no double vision, no epistaxis, no sore throat Respiratory-no cough, no wheezing, no shortness of breath Cardiac-no palpitations, no chest pain, no syncope GI-no nausea, vomiting, diarrhea, melena, hematochezia -no urinary retention, no urinary incontinence, no dysuria, no hematuria Musculoskeletal-hard cast in place right lower extremity. Skin-no bruising, no rashes, no pruritus Neuro-chronic right hemiparesis from remote subarachnoid hemorrhage Psych-no depression, no anxiety Physical Exam Physical Exam: General-alert and oriented x3, no fevers, no chills HEENT-head atraumatic and normocephalic, pupils equal and reactive to light, extraocular muscles intact Neck-no lymphadenopathy or thyromegaly, trachea midline Chest-clear to auscultation percussion. No rales wheezing or rhonchi Cardiac-regular rate and rhythm, normal S1 and S2, no murmurs Abdomen-normal bowel sounds, nontender, no hepatosplenomegaly Extremities-right lower extremity hard cast in place Neuro-chronic right hemiparesis from remote left subarachnoid hemorrhage Psych-normal affect, normal mood Results & Data Results & Data ([facility]) Vital Signs (Past 12 Hours) Vital Signs Temp Pulse Resp BP Pulse Ox O2 Del Method 07/12/22 11:10 36.7 C 90 18 130/72 96 Room Air 07/12/22 07:16 36.6 C 61 18 106/70 94 Room Air 07/12/22 02:54 36.6 C 95 H 16 112/66 95 Room Air Laboratory Results 07/11/22 06:29 07/11/22 06:29 PG Care Time/CCT Total # of Minutes Spent Total Time Spent with Patient: Total time spent is greater than 50% in coordination of care (as documented) at patient's floor/unit and/or counseling patient: Coding Level of Care Code 76751 SUB INP/OBS CARE 3/50MIN Diagnoses Fracture of distal end of right fibula S82.831A Hypertension I10 Hypertension type: unspecified Subarachnoid hemorrhage I60.9 Renal artery stenosis I70.1 (2) Hypertension Hypertension type: unspecified Qualified Code(s): I10 - Essential (primary) hypertension
[2022-07-12] MEDS: lisinopril 40 MG TAB PO SCH (20:40)
[2022-07-12] MEDS: CHOLECALCIFEROL 5,000 UNITS 125 MCG TAB PO SCH (20:41)
[2022-07-12] MEDS: ASCORBIC ACID 500 MG TAB PO SCH (20:41)
[2022-07-12] MEDS: ATORVASTATIN 40 MG TAB PO SCH (20:41)
[2022-07-13] MEDS: MoRPHine SULFATE 2 MG/ML CARP IV PRN (00:46)
[2022-07-13] MEDS: METOPROLOL SUCC 50MG EXT REL TAB PO SCH (08:12)
[2022-07-13] MEDS: ACETAMINOPHEN 325 MG TAB PO PRN (09:10)
[2022-07-13] MEDS: PANTOprazole 40 MG TAB PO SCH (09:11)
[2022-07-13] MEDS: CLOPIDOGREL BISULFATE 75 MG TAB PO SCH (09:11)
[2022-07-13] MEDS: TIMOLOL MALEATE 0.5% OP SOLN 5 ML BTL OP SCH (09:11)
[2022-07-13] MEDS: TOCOPHERYL, DL-ALPHA 400 UNITS 180 MG CAP PO SCH (09:12)
[2022-07-13] MEDS: MIRABEGRON ER 25 MG TAB PO SCH (09:12)
[2022-07-13] MEDS: amLODIPine BESYLATE 5 MG TAB PO SCH (09:12)
--- NOTE | 2022-07-13 09:18 | Discharge Summary ---
Date of Service July 13, 2022 Admission HPI Per Admitting Provider 77yo Female with PMH subarachnoid hemorrage on left with residual right sided weakness, renal artery stenosis, vertebral and subclavian artery stenosis, HTN, HLD, chronic pain, depression, impaired gait here for fall with right fibular fracture. Patient states she was in her bedroom walking when her foot got caught on a cord, she tripped. Patient denies hitting her head, LOC, dizziness lightheadedness, states she fell on her right side. Patient felt warm at first, now cold in ED. She denies any nausea vomiting SOB chest pain abd pain, has baseline weakness on right upper and lower extremities and ambulates with a walker. Patient lives at home with her , whom she is primary medicaid business analyst of for dementia. She has a medicaid business analyst come in to assist, son lives close by and visits daily. Patient has someone to assist organizing her medications. She lives in [facility]. She denies smoking, alcohol. Only blood thinner is her plavix. Principal Diagnosis Mechanical fall, fracture of right fibula Discharge Exam General-alert and oriented x3, no fevers, no chills HEENT-head atraumatic and normocephalic, pupils equal and reactive to light, extraocular muscles intact Neck-no lymphadenopathy or thyromegaly, trachea midline Chest-clear to auscultation percussion. No rales wheezing or rhonchi Cardiac-regular rate and rhythm, normal S1 and S2, no murmurs Abdomen-normal bowel sounds, nontender, no hepatosplenomegaly Extremities-right lower extremity hard cast in place Neuro-chronic right hemiparesis from remote left subarachnoid hemorrhage Psych-normal affect, normal mood Discharge Data Allergies Allergy/AdvReac Type Severity Reaction Status Date / Time methocarbamol Allergy Severe felt like Verified 06/07/22 13:32 her throat was closing vancomycin Allergy Mild HIVES Verified 06/07/22 13:32 Consultations 07/10/22 20:12 ED Decision to Admit Stat 07/10/22 20:56 Consult Orthopedic Surgery Routine Procedures Performed Operation Date: 07/11/22 10:30 <No data on this case meets the specified criteria> Ordered Studies 07/10/22 18:22 CT head/brain wo con Stat 07/10/22 20:53 CT ankle RT wo con Stat Hospital Course (1) Fracture of distal end of right fibula: Suffered due to a mechanical fall. Appreciate orthopedic consultation and recommendations. Right lower extremity is now in a hard cast. Orthopedics stated she did not need any surgical intervention. 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 Now stable. Supportive care (4) Renal artery stenosis: Continue current medical management. No intervention needed at this time Plan Discharge to [facility] today, July 13 . The patient and family are now agreeable to go to [facility]. Total Time Total Time Spent Total Time Spent (In Minutes): 35 minutes Discharge Plan Discharge Items Patient Disposition: Transfer Inpatient Rehab Fac Reason For Visit: FALL, RIGHT LEG FRACTURE Discharge Diagnosis: Mechanical fall, right fibula fracture Activity: Resume your previous activity Non-emergency contact: Primary Care Provider Call non-emergency contact if: you have any medication questions Follow-up/Referrals: Christi Laguna PA-C [Primary Care Provider] - Meño Quiros PA-C [Physician Paper Plate Machine Tender] - 07/26/22 4:15 am Diet: Heart Healthy Jerry Attending Provider Instructions: Follow-up with orthopedic surgery, Dr. 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 Do not put anything down the cast to scratch skin Elevate the leg as needed to prevent swelling, any discoloration of toes (besides bruising) that does not resolve with elevation and movement of the toes contact the office, , or go to the ER immediately NO weight on the right leg. Use the walker Cast will be in place x6 weeks from 07/11/22 Follow up in our office as scheduled on 07/26/22, call if this needs changed, Use OTC analgesics as directed if needed for pain Pending Studies at Discharge: No Stand-Alone Forms: My [facility] Skilled Items Patient informed of condition?: Yes DNR: No Discharge Level of Care: Acute rehab Communicable Disease: No Discharge Prognosis: Stable Lines: None Urinary Catheter: No Medications and DC Order Prescriptions: New acetaminophen 325 mg Tablet 650 mg PO Q4H PRNQty: 0 0RF polyethylene glycol 3350 [Miralax] 17 gram Powder In Packet 17 g PO DAILY PRNQty: 0 0RF Continued (DME) BD Eclipse Luer-Guerita 3 mL 23 x 1" syringe See Rx Instructions .Route Qty: 4 0RF Rx Instructions: As directed cyanocobalamin (vitamin B-12) 1,000 mcg/mL kit 1,000 mcg IM Q7D 28 Days Qty: 4 0RF Rx Instructions: Inject 1,000 mcg (1 mL) once a week for 4 weeks atorvastatin 40 mg tablet 40 mg PO QPM Qty: 90 3RF amlodipine 5 mg tablet 5 mg PO DAILY Qty: 30 3RF cholecalciferol (vitamin D3) 125 mcg (5,000 unit) capsule 125 mcg PO HS timolol maleate 0.5 % drops 1 drp ophthalmic (eye) QAM clopidogrel 75 mg tablet 75 mg PO QPM mirabegron 50 mg tablet extended release 24 hr 50 mg PO QAM metoprolol succinate 50 mg tablet extended release 24 hr 50 mg PO BID lisinopril 40 mg tablet 40 mg PO QPM potassium chloride 8 mEq capsule, extended release 8 meq PO QPM vitamin E [Vitamin E-400] 268 mg (400 unit) Capsule 268 mg PO QAM glucosamine-chondroitin [Osteo Bi-Flex] 250-200 mg Tablet 21 tab PO QAM Rx Instructions: give after food/meal pantoprazole 40 mg Tablet,Delayed Release (Dr/Ec) 40 mg PO QAM ascorbate calcium (vitamin C) [Jayshree-C] 500 mg Tablet 500 mg PO QPM coenzyme Q10 400 mg Capsule 400 mg PO QAM cod liver oil Oil 10 ml PO QAM Hutc-Nbsz-Ntruj (vit C-biotin) 50 mg -1,250 mcg Tablet,Chewable 2 tab PO QAM quqryka-ejs-bzk D3-phosphorus liquid 2 tbsp PO QAM Discharge Orders: Discharge Order (Routine); Ordered 07/13/22 Ordered By: Jim Reynoso Admission Data Admit Date/Time: 07/10/22 20:56 Attending Provider: Jim Reynoso Admit Provider: Soumya Chauhan Primary Care Provider: Christi Laguna Other Providers: Karsten Green ; Josh Mancilla ; [facility] ; [place],[facility] Coding Level of Care Code HOSP INP/OBS DISCH >30 MIN Diagnoses Fracture of distal end of right fibula S82.831A Hypertension I10 Hypertension type: unspecified Subarachnoid hemorrhage I60.9 Renal artery stenosis I70.1
--- NOTE | 2022-07-13 09:58 | Orthopedic Progress Note ---
Date of Service July 13, 2022 Assessment & Plan (1) Fracture of distal end of right fibula: Plan: Was placed in short leg plaster cast yesterday. States that the cast is not bothering her anywhere except on the back of the leg slightly. Some 4x4 padding applied to help with pressure. Encouraged elevation NWB Right leg. Ice PRn Use walker to assist with ambulation. Follow up [facility] Dr. Green as scheduled. Call [phone] with any questions or concerns. Admission and Anticipated Discharge Date Admission Date: July 10, 2022 Subjective Resting in bed. States that she does have pain in her right leg. Cast is relatively comfortable. She has been up to stand, states that she is able to maintain no weight on her right leg for short times. Physical Exam Musculoskeletal: Cast right lower extremity clean, dry and intact. Skin intact around cast edges. no erythema or skin breakdown. Mild tenderness of skin around back of cast. Padded with 4x4. Elevated on 2 pillows. Results & Data ([facility]) Vital Signs (Past 12 Hours) Vital Signs Temp Pulse Pulse Resp BP BP Pulse Ox 07/13/22 09:34 36.5 C 54 L 18 152/77 H 117/80 98 07/13/22 07:55 36.5 C 54 L 18 152/77 H 98 07/13/22 07:04 60 07/13/22 04:08 36.6 C 54 L 18 126/70 97 07/12/22 23:03 69 07/12/22 22:57 37 C 68 18 117/80 94 O2 Del Method 07/13/22 09:34 07/13/22 07:55 Room Air 07/13/22 07:04 07/13/22 04:08 Room Air 07/12/22 23:03 07/12/22 22:57 Room Air
--- NOTE | 2022-07-19 02:00 | Billing Data ---
Date of Service July 19, 2022 Coding Level of Care Code 82729 INT INP/OBS CARE
== END 2022-07-13 11:45 | DRG 563 ==
LOC: ED 17:51 → 2S 20:56 → SUATTDRO 20:56 → 2S 22:52 → 2N 07-11 15:02
DX: E78.00 Pure hypercholesterolemia, unspecified; I16.0 Hypertensive urgency; Z79.02 Long term (current) use of antithrombotics/antiplatelets; E87.5 Hyperkalemia; I10 Essential (primary) hypertension; Z88.1 Allergy status to other antibiotic agents; Z83.3 Family history of diabetes mellitus; I70.1 Atherosclerosis of renal artery; Y92.019 Unspecified place in single-family (private) house as the place of occurrence of the external cause; R32 Unspecified urinary incontinence; S82.831A Other fracture of upper and lower end of right fibula, initial encounter for closed fracture; I69.054 Hemiplegia and hemiparesis following nontraumatic subarachnoid hemorrhage affecting left non-dominant side; W18.09XA Striking against other object with subsequent fall, initial encounter

== ENCOUNTER 2023-05-09 19:59 | Inpatient (IN) ==
[2023-05-09] MEDS ORDERED: ACETAMINOPHEN 1,000 MG/100 ML VIAL IV STA (22:09)
--- NOTE | 2023-05-09 22:17 | Emergency Department Note ---
History of Present Illness General Chief complaint: Leg Injury/Pain Stated complaint: LEG PAIN, N/V Time Seen by Provider: 05/09/23 22:01 History of Present Illness Maximum Pain Intensity: 10 This is a 77-year-old female presenting to the emergency department complaining of generalized bilateral leg pain. Patient's symptoms began around 5:30 PM. She had pain with standing and this persisted for about 90 minutes. The patient does not have any distinct injuries or falls. She evidently had Botox injection in her bladder at 11 AM today, which she has had in the past and done well with. Patient is on Cipro currently. Urinalysis performed at urology this morning did not show evidence of infection. The patient rates her discomfort a 10/10 and has not taken anything [id number] for symptoms. Home Medications Medication Instructions Recorded Confirmed Type cholecalciferol (vitamin D3) 125 125 mcg PO HS 03/10/21 05/09/23 History mcg (5,000 unit) capsule timolol maleate 0.5 % eye drops 1 drp ophthalmic (eye) QA 09/16/21 05/09/23 History syringe with needle 3 mL 23 x 1" #4 ea 11/29/21 05/09/23 Rx (BD Eclipse Luer-Guerita) cyanocobalamin (vitamin B-12) 1,000 mcg IM Q7D 4 weeks #4 ea 12/10/21 05/09/23 Rx 1,000 mcg/mL injection kit ascorbate calcium (vitamin C) 500 500 mg PO QPM 07/10/22 05/09/23 History mg tablet [id number] D3-phosphorus 2 tbsp PO QAM 07/10/22 05/09/23 History cod liver oil 10 ml PO QAM 07/10/22 05/09/23 History coenzyme Q10 400 mg capsule 400 mg PO QAM 07/10/22 05/09/23 History glucosamine-chondroitin 250 mg-200 21 tab PO QAM 07/10/22 05/09/23 History mg tablet (Osteo Bi-Flex) lisinopril 40 mg tablet 40 mg PO QPM 07/10/22 05/09/23 History metoprolol succinate 50 mg 50 mg PO BID 07/10/22 05/09/23 History tablet,extended release 24 hr potassium chloride 8 mEq 8 meq PO QPM 07/10/22 05/09/23 History capsule,extended release vitamin C 50 mg-biotin 1,250 mcg 2 tab PO QAM 07/10/22 05/09/23 History chewable tablet (Evgg-Rbrq-Dexat (vit C-biotin)) vitamin E 268 mg (400 unit) capsule 268 mg PO QAM 07/10/22 05/09/23 History polyethylene glycol 3350 17 gram 17 g PO DAILY PRN #0 ea 07/13/22 05/09/23 Rx oral powder packet (Miralax) clopidogrel 75 mg tablet 75 mg PO QPM #90 tabs 08/26/22 05/09/23 Rx pantoprazole 40 mg tablet,delayed 40 mg PO QAM #90 tabs 09/05/22 05/09/23 Rx release acetaminophen 325 mg tablet 650 mg PO Q4H PRN Pain 11/14/22 05/09/23 History ciprofloxacin HCl 500 mg tablet 500 mg PO BID 6 days #12 tabs 12/01/22 05/09/23 Rx amlodipine 5 mg tablet 5 mg PO DAILY #30 tabs 01/30/23 05/09/23 Rx foot brace #1 ea 02/08/23 05/09/23 Rx meclizine 12.5 mg tablet 12.5 mg PO TID PRN vertigo 04/10/23 05/09/23 Rx symptoms #30 tabs atorvastatin 40 mg tablet 40 mg PO QPM #90 tabs 04/21/23 05/09/23 Rx mirabegron 50 mg tablet,extended 50 mg PO DAILY #90 tabs 05/09/23 05/09/23 Rx release 24 hr Allergies Allergy/AdvReac Type Severity Reaction Status Date / Time methocarbamol Allergy Severe felt like Verified 05/09/23 10:21 her throat was closing vancomycin Allergy Mild HIVES Verified 05/09/23 10:21 Past Med/Surg History Medical History Foot drop, right Right fibular fracture Vitamin B 12 deficiency Lower urinary tract symptoms Osteoarthritis of knees, bilateral Ulcer High cholesterol Cazares's cyst of knee Trochanteric bursitis Chronic osteoarthritis Depression History of blood clots Glaucoma Arthritis Liver lesion, left lobe Cholecystitis, acute Intracranial aneurysm Renal artery stenosis Hemiplegia affecting dominant side Insomnia Subarachnoid hemorrhage Hypertension Surgical History History of colonoscopy Dr. Abilio Prasad, normal, recheck 10 years S/P foot surgery (~2017) S/P brain surgery (~2012) Hx laparoscopic cholecystectomy (03/07/19) Laparoscopic Cholecystectomy - Flavio Arroyo, DO Endoscopic Retrograde Cholangiopancreatogram - Yoel Swartz MD S/P ERCP S/P laparoscopic cholecystectomy H/O vaginal hysterectomy (01/24/12) Family History Mother Breast cancer Diabetes Aneurysm Father Myocardial infarction Hypertension Heart disease Brother Diabetes Aneurysm Sister Hypertension Aneurysm Other Cerebral aneurysm Denies family history of Colon cancer Ovarian cancer Prostate cancer Social History Smoking Status: Never smoker Tobacco Type: Cigarettes Second Hand Exposure: No; Do You Dip or Chew Tobacco: No; Hx Alcohol Use: No Hx Substance Use: No Preferred Language: Bhutanese Communication Ability: Effective Communication Ability Comment: forgetful at times Visual Impairment: Limited Hearing Ability: Normal [employer] Marker Required: No Beliefs That Will Affect Care: None marital status: Current Living Situation: Family Current Living Situation Comment: Lives at home with who has dementia. current occupational status: retired Feels Safe at Home: Yes Safety Concerns: Feels Safe At This Time Diet: regular caffeine: Yes (Tea) during the past year weight has: remained stable Dental Care, Regularly: Yes Physical Activity Frequency: Does not Exercise Seatbelt Use: always Sunscreen Use: Yes Assistive Devices: Cane and Wheelchair Review of Systems A total of 10 systems reviewed and were otherwise negative Physical Exam Vital Signs Vital Signs - 24 hr 05/09/23 20:19 05/09/23 21:00 05/09/23 22:12 Temperature 36.6 C Temperature Source Temporal Artery Scan Pulse Rate 102 H Pulse Rate [Apical] 88 Pulse Rate from SpO2 Sensor Respiratory Rate 18 18 Blood Pressure 102/62 Blood Pressure [Right Arm] Blood Pressure Mean 75 Blood Pressure Mean [Right Arm] Blood Pressure Position Sitting Pulse Oximetry 96 96 93 Oxygen Delivery Method Room Air Room Air Room Air Sepsis Recent Fever Within 48 Hours No Sepsis New/Unexplained Change in Mental Status N/A Sepsis Action Taken by Nursing No Action Required 05/09/23 22:44 05/09/23 23:20 05/09/23 23:30 Temperature Temperature Source Pulse Rate 93 H 93 H Pulse Rate [Apical] 99 H Pulse Rate from SpO2 Sensor 93 H Respiratory Rate 18 18 Blood Pressure 122/66 Blood Pressure [Right Arm] 101/69 Blood Pressure Mean 84 Blood Pressure Mean [Right Arm] 79 Blood Pressure Position Pulse Oximetry 93 93 Oxygen Delivery Method Room Air Sepsis Recent Fever Within 48 Hours Sepsis New/Unexplained Change in Mental Status Sepsis Action Taken by Nursing 05/10/23 00:00 05/10/23 00:30 05/10/23 01:00 Temperature Temperature Source Pulse Rate 86 82 85 Pulse Rate [Apical] Pulse Rate from SpO2 Sensor 84 81 85 Respiratory Rate 20 20 22 Blood Pressure 109/64 111/66 114/67 Blood Pressure [Right Arm] Blood Pressure Mean 79 81 82 Blood Pressure Mean [Right Arm] Blood Pressure Position Pulse Oximetry 91 91 91 Oxygen Delivery Method Room Air Room Air Room Air Sepsis Recent Fever Within 48 Hours Sepsis New/Unexplained Change in Mental Status Sepsis Action Taken by Nursing 05/10/23 01:30 Temperature Temperature Source Pulse Rate 81 Pulse Rate [Apical] Pulse Rate from SpO2 Sensor 79 Respiratory Rate 19 Blood Pressure 111/63 Blood Pressure [Right Arm] Blood Pressure Mean 79 Blood Pressure Mean [Right Arm] Blood Pressure Position Pulse Oximetry 92 Oxygen Delivery Method Room Air Sepsis Recent Fever Within 48 Hours Sepsis New/Unexplained Change in Mental Status Sepsis Action Taken by Nursing VITALS: Vitals are noted on the nurse's note and reviewed by myself. Vital signs stable. GENERAL: Elderly white female who appears comfortable in the bed. She answers questions appropriately. HEAD: Normocephalic atraumatic. HEART: Regular rate and rhythm without murmurs gallops or rubs. LUNGS: Clear to auscultation bilaterally without wheezes, rales or rhonchi. No retractions or accessory muscle use. ABDOMEN: Positive normal bowel sounds x 4. Soft, nontender, without masses or organomegaly. No guarding or rebound tenderness. MUSCULOSKELETAL: No muscle atrophy, erythema, or edema noted. Full range of motion in all extremities. Distal pulses intact bilaterally to the lower extremities. Tenderness is reported essentially throughout the entirety of the bilateral lower legs on palpation. NEURO: Patient was alert and oriented to person place and time. CN II through XII grossly intact. Course Administered Medications Magnesium Sulfate/Dextrose (Magnesium Sulfate / D5w) 1 gm in 100 mls @ 50 mls/hr IV Q2H DAVID Stop: 05/10/23 05:29 Last Admin: 05/10/23 02:08 Dose: 50 mls/hr Documented By: LAILA Discontinued Medications Acetaminophen (Ofirmev) 1,000 mg in 100 mls @ 400 mls/hr IV NOW STA Stop: 05/09/23 22:23 Last Infusion: 05/09/23 22:41 Dose: Infused Documented By: NRChente Admin: 05/09/23 22:16 Dose: 400 mls/hr Documented By: MARLON Magnesium Sulfate/Dextrose (Magnesium Sulfate / D5w) 1 gm in 100 mls @ 100 mls/hr IV NOW STA Stop: 05/09/23 23:58 Last Infusion: 05/10/23 00:21 Dose: Infused Documented By: Admin: 05/09/23 23:19 Dose: 100 mls/hr Documented By: LAILA Potassium Chloride (K Primo / Wtr) 10 meq in 100 mls @ 100 mls/hr IV ONE ONE Stop: 05/09/23 23:58 Last Infusion: 05/10/23 00:19 Dose: Infused Documented By: Admin: 05/09/23 23:19 Dose: 100 mls/hr Documented By: LAILA Potassium Chloride (K Primo / Wtr) 10 meq in 100 mls @ 100 mls/hr IV Q1H DAVID Stop: 05/10/23 03:29 Last Admin: 05/10/23 03:41 Dose: 100 mls/hr Documented By: Infusion: 05/10/23 03:08 Dose: Infused Documented By: Admin: 05/10/23 02:08 Dose: 100 mls/hr Documented By: LAILA Medical Decision Making Differential Diagnosis Differential diagnosis includes, but is not limited to: Electrolyte or metabolic abnormality, infection, rhabdomyolysis, medication reaction, procedural reaction, sprain, strain, fracture, dislocation, subluxation, contusion, and others Laboratory Data 05/09/23 20:44 05/09/23 20:44 Lab Results 05/09/23 05/09/23 Range/Units 20:44 Unknown WBC 6.36 (4.8-10.8) K/ul RBC 3.84 L (4.20-5.40) M/uL Hgb 11.7 L (12.0-16.0) g/dl Hct 35.8 L (37.0-47.0) % MCV 93.2 (80.0-100.0) fL MCH 30.5 (25.0-34.0) pg MCHC 32.7 (32.0-36.0) g/dL RDW Std Deviation 44.8 (36.4-46.3) fL RDW Coeff of Hannah 13.2 (11.5-14.5) % Plt Count 217 (130-400) K/uL MPV 10.5 (9.4-12.4) fL Immature Gran % (Auto) 0.3 % Neut % (Auto) 95.9 % Lymph % (Auto) 2.4 % Hardy % (Auto) 0.9 % Eos % (Auto) 0.5 % Baso % (Auto) 0.0 % Neut # (Auto) 6.10 (1.40-6.50) K/uL Lymph # (Auto) 0.15 L (1.20-3.40) K/uL Hardy # (Auto) 0.06 L (0.11-0.59) K/uL Eos # (Auto) 0.03 (0.00-0.50) K/uL Baso # (Auto) 0.00 (0.00-0.20) K/uL Immature Gran # (Auto) 0.02 (0.01-0.20) K/uL Sodium 142 (136-145) mmol/L Potassium 2.8 L (3.5-5.1) mmol/L Chloride 105 (98-107) mmol/L Carbon Dioxide 25 (21-32) mmol/L Anion Gap 12 H (3-11) BUN 26 H (6-23) mg/dl Creatinine 0.74 (0.6-1.2) mg/dl Est Cr Clr Drug Dosing Not Reportable Est GFR ( Amer) 89.3 ml/min Est GFR (Non-Af Amer) 77.1 ml/min BUN/Creatinine Ratio 35.1 H (10-20) Glucose 78 (70-99(Fasting)) mg/dl Calcium 9.5 (8.6-10.3) mg/dl Magnesium 1.3 L (1.7-2.4) mg/dl Total Bilirubin 1.0 (0.2-1.0) mg/dl AST 28 (13-39) U/L ALT 17 (7-52) U/L Alkaline Phosphatase 71 (34-104) U/L Total Creatine Kinase 70 (26-192) U/L Troponin I High Sens 7.3 (0-14) pg/ml Total Protein 7.2 (6.0-8.3) gm/dl Albumin 4.3 (3.4-5.0) gm/dl Globulin 2.9 (2.5-4.0) gm/dl Albumin/Globulin Ratio 1.5 (0.9-2) Adenovirus (PCR) Not Detected (NotDetected) B. pertussis DNA (PCR) Not Detected (NotDetected) B.parapertussis DNA PCR Not Detected (NotDetected) C. pneumoniae DNA (PCR) Not Detected (NotDetected) Coronavirus OC43 (PCR) Not Detected (NotDetected) Coronavirus HKU1 (PCR) Not Detected (NotDetected) Coronavirus 229E (PCR) Not Detected (NotDetected) SARS-CoV-2 (PCR) Not Detected (NotDetected) Coronavirus NL63 (PCR) Not Detected (NotDetected) Human Metapneumovir PCR Not Detected (NotDetected) Influenza Type A (PCR) Not Detected (NotDetected) Influenza Type B (PCR) Not Detected (NotDetected) M. pneumoniae (PCR) Not Detected (NotDetected) Parainfluenza 1 (PCR) Not Detected (NotDetected) Parainfluenza 2 (PCR) Not Detected (NotDetected) Parainfluenza 3 (PCR) Not Detected (NotDetected) Parainfluenza 4 (PCR) Not Detected (NotDetected) RSV (PCR) Not Detected (NotDetected) Entero/Rhino (PCR) Not Detected (NotDetected) MDM Narrative Physical exam and history were performed. Nursing notes, EMR, and Medication List were personally reviewed. No social concerns were identified as barriers to patients care. Patient appears to have bilateral leg weakness for the past few hours. Patient does complain of reproducible tenderness on palpation. Pulses are intact distally. No palpable cords or clinical history concerning for clots. IV access was established and labs were obtained. The patient was given IV Tylenol for comfort. Patient's blood work is as above and was reviewed.She does not have a significant elevated white blood cell count or gross anemia. BUN is 26 and creatinine is 0.74. Glucose 78. Transaminases are not diagnostic. Troponin x 1 is negative. Urine without obvious infection, however she did just have urologic Botox injection performed few hours ago. Bio fire is negative. Patient's potassium is low at 128. Additionally her magnesium is low at 1.3. Overall the patient does not appear well for discharge. She is experiencing leg weakness with some electrolyte disturbance. She also recently started Cipro and had urologic procedure. I am unsure how this distinctly relates to her current symptoms. The case was discussed with the on-call hospitalist team who agreed to evaluate the patient here in the ER. Please see their dictation for further patient course, plan, disposition. The chart was completed utilizing [employer] Speech Voice Recognition Software. Grammatical errors, random word insertions, pronoun errors, and incomplete sentences are an occasional consequence of this system due to software limitations, ambient noise, and hardware issues. Any formal questions or concerns about the content, text, or information contained within the body of this dictation should be directly addressed to the provider for clarification. . Impression & Plan Bilateral leg weakness, Hypokalemia, Hypomagnesemia Discharge Plan Visit Data Chief Complaint: Leg Injury/Pain Stated Complaint: LEG PAIN, N/V ED Provider: Vikram Rodney ED Midlevel Provider: Ted Mitchell Discharge Problem: Bilateral leg weakness, Hypokalemia, Hypomagnesemia Patient Disposition: Admitted As Inpatient Discharge Instructions Interventions: ED Discharge Assessment Last Done: 05/10/23 02:48
[2023-05-09 22:30] LABS: Hematocrit (blood only) 35.8 % (37.0-47.0); Hemoglobin 11.7 g/dl (12.0-16.0); Mean Corpuscular Hemoglobin 30.5 pg (25.0-34.0); Mean Corpuscular Hgb Conc 32.7 g/dL (32.0-36.0); Mean Corpuscular Volume 93.2 fL (80.0-100.0); Mean Platelet Volume 10.5 fL (9.4-12.4); Platelet Count 217 K/uL (130-400); RDW Coefficient of Variation 13.2 % (11.5-14.5); RDW Standard Deviation 44.8 fL (36.4-46.3); Red Blood Count 3.84 M/uL (4.20-5.40); White Blood Count 6.36 K/ul (4.8-10.8)
[2023-05-09 22:35] LABS: Alanine Aminotransferase 17 U/L (7-52); Albumin Globulin Ratio 1.5 (0.9-2); Albumin Level 4.3 gm/dl (3.4-5.0); Alkaline Phosphatase 71 U/L (34-104); Anion Gap 12 (3-11); Aspartate Aminotransferase 28 U/L (13-39); BUN Creatinine Ratio 35.1 (10-20); Blood Urea Nitrogen 26 mg/dl (6-23); Calcium 9.5 mg/dl (8.6-10.3); Carbon Dioxide 25 mmol/L (21-32); Chloride 105 mmol/L (98-107); Creatine Kinase 70 U/L (26-192); Est GFR (African American) 89.3 ml/min; Est GFR (Non-African American) 77.1 ml/min; Globulin 2.9 gm/dl (2.5-4.0); Glucose 78 mg/dl (70-99(Fasting)); Magnesium 1.3 mg/dl (1.7-2.4); Potassium 2.8 mmol/L (3.5-5.1); Sodium 142 mmol/L (136-145); Total Protein 7.2 gm/dl (6.0-8.3)
[2023-05-09 22:41] LABS: Troponin I High Sensitivity 7.3 pg/ml (0-14)
[2023-05-09 22:46] LABS: Eosinophils # (auto) 0.03 K/uL (0.00-0.50); Eosinophils % (auto) 0.5 %; Immature Granulocytes # (auto) 0.02 K/uL (0.01-0.20); Immature Granulocytes % (auto) 0.3 %; Lymphocytes # (auto) 0.15 K/uL (1.20-3.40); Lymphocytes % (auto) 2.4 %; Monocytes # (auto) 0.06 K/uL (0.11-0.59); Monocytes % (auto) 0.9 %; Neutrophils % (auto) 95.9 %
[2023-05-09] MEDS ORDERED: MAGNESIUM SULFATE / D5W 1 GM/100 ML BAG IV STA (22:59)
[2023-05-09] MEDS ORDERED: POTASSIUM CHLORIDE / WTR 10 MEQ/100 ML PLCT IV ONE (22:59)
[2023-05-09 23:17] LABS: Adenovirus PCR Not Detected (NotDetected); Bordetella parapertussis PCR Not Detected (NotDetected); Bordetella pertussis PCR Not Detected (NotDetected); Chlamydia pneumoniae PCR Not Detected (NotDetected); Coronavirus 229E PCR Not Detected (NotDetected); Coronavirus CoV-2 (COVID19)PCR Not Detected (NotDetected); Coronavirus HKU1 PCR Not Detected (NotDetected); Coronavirus NL63 PCR Not Detected (NotDetected); Coronavirus OC43PCR Not Detected (NotDetected); Human Metapneumovirus PCR Not Detected (NotDetected); Influenza A PCR Not Detected (NotDetected); Influenza B PCR Not Detected (NotDetected); Mycoplasma pneumoniae PCR Not Detected (NotDetected); Parainfluenza Virus 1 PCR Not Detected (NotDetected); Parainfluenza Virus 2 PCR Not Detected (NotDetected); Parainfluenza Virus 3 PCR Not Detected (NotDetected); Parainfluenza Virus 4 PCR Not Detected (NotDetected); Respiratory Syncytial VirusPCR Not Detected (NotDetected); Rhinovirus/Enterovirus PCR Not Detected (NotDetected)
--- NOTE | 2023-05-10 01:40 | History & Physical Report ---
Date of Service May 10, 2023 Assessment & Plan (1) Hypomagnesemia: (2) Hypokalemia: (3) Generalized joint pain: (4) Polyarthralgia: (5) Hypertension: (6) Urinary incontinence: (7) S/P Botox injection: (8) Late effects of cerebrovascular disease: (9) Adverse effect of drug that primarily affects musculoskeletal system: Plan Polyarthralgias/generalized joint pains/adverse drug effect from use of ciprofloxacin- The patient will be admitted to telemetry for serial cardiac enzymes, serial EKG's, cardiac rhythm monitoring Patient received a single dose of ciprofloxacin following a therapeutic Botox bladder injection for urinary incontinence yesterday morning. Her symptoms developed shortly after taking the ciprofloxacin. Her CK is well within normal range as is creatinine BioFire test is negative Potassium 2.8 Magnesium 1.3 The low potassium and magnesium are likely contributing to her symptoms Adverse reaction from ciprofloxacin may be contributory as well Cipro will be held Will replace potassium both IV and orally, and magnesium IV and orally Recheck laboratories in the a.m. Avoid any steroids or other direct treatment for joint pains with persistent after repleting magnesium and potassium Symptoms are not suggestive of a Botox reaction Once symptoms improved, patient will likely need a PT/OT assessment Urinary incontinence/overactive bladder- Continue vibegron 75 mg daily Status post Botox injection yesterday Hold Cipro prophylaxis as noted Placed on ceftriaxone 2 g IV daily Follow urine culture and sensitivity Cerebrovascular disease/vertebral artery stenosis/hypertension- Continue amlodipine, clopidogrel, lisinopril and metoprolol succinate History of Present Illness Chief Complaint: The patient presented to the emergency department with complaint of severe bila teral lower extremity pain, and generalized joint pains, that began shortly after taking ciprofloxacin for prophylaxis following a Botox injection for bladder dysfunction by urology yesterday Primary Care Provider: Christi Laguna PA-C The patient is a 77-year-old female with a past medical history including right foot drop, first MTP arthritis, hypertension, dyslipidemia, intracranial aneurysm, pancreatic mass, late effects of cerebrovascular disease, flaccid hemiplegia of dominant side, anemia and vitamin B12 deficiency. Patient had undergone and tolerated well a Botox injection by urology, however, she reports that shortly after taking ciprofloxacin, which she was given for prophylaxis, she developed severe symptoms as noted above. She has not been on ciprofloxacin for. This is her second Botox injection, having tolerated the first injection with no issues. She denies any issues with swallowing or speech. In the emergency department laboratories showed a negative BioFire test, potassium was 2.8, and magnesium was 1.3. CK was normal at 70 and creatinine normal at 0.74 Allergies Allergy/AdvReac Type Severity Reaction Status Date / Time methocarbamol Allergy Severe felt like Verified 05/09/23 10:21 her throat was closing vancomycin Allergy Mild HIVES Verified 05/09/23 10:21 Home Medications Medication Instructions Recorded Confirmed Type cholecalciferol (vitamin D3) 125 125 mcg PO HS 03/10/21 05/09/23 History mcg (5,000 unit) capsule timolol maleate 0.5 % eye drops 1 drp ophthalmic (eye) QA 09/16/21 05/09/23 History syringe with needle 3 mL 23 x 1" #4 ea 11/29/21 05/09/23 Rx (BD Eclipse Luer-Guerita) cyanocobalamin (vitamin B-12) 1,000 mcg IM Q7D 4 weeks #4 ea 12/10/21 05/09/23 Rx 1,000 mcg/mL injection kit ascorbate calcium (vitamin C) 500 500 mg PO QPM 07/10/22 05/09/23 History mg tablet viyxysg-khv-nua D3-phosphorus 2 tbsp PO QAM 07/10/22 05/09/23 History cod liver oil 10 ml PO QAM 07/10/22 05/09/23 History coenzyme Q10 400 mg capsule 400 mg PO QAM 07/10/22 05/09/23 History glucosamine-chondroitin 250 mg-200 21 tab PO QAM 07/10/22 05/09/23 History mg tablet (Osteo Bi-Flex) lisinopril 40 mg tablet 40 mg PO QPM 07/10/22 05/09/23 History metoprolol succinate 50 mg 50 mg PO BID 07/10/22 05/09/23 History tablet,extended release 24 hr potassium chloride 8 mEq 8 meq PO QPM 07/10/22 05/09/23 History capsule,extended release vitamin C 50 mg-biotin 1,250 mcg 2 tab PO QAM 07/10/22 05/09/23 History chewable tablet (Qlso-Icdi-Hlhvh (vit C-biotin)) vitamin E 268 mg (400 unit) capsule 268 mg PO QAM 07/10/22 05/09/23 History polyethylene glycol 3350 17 gram 17 g PO DAILY PRN #0 ea 07/13/22 05/09/23 Rx oral powder packet (Miralax) clopidogrel 75 mg tablet 75 mg PO QPM #90 tabs 08/26/22 05/09/23 Rx pantoprazole 40 mg tablet,delayed 40 mg PO QAM #90 tabs 09/05/22 05/09/23 Rx release acetaminophen 325 mg tablet 650 mg PO Q4H PRN Pain 11/14/22 05/09/23 History ciprofloxacin HCl 500 mg tablet 500 mg PO BID 6 days #12 tabs 12/01/22 05/09/23 Rx amlodipine 5 mg tablet 5 mg PO DAILY #30 tabs 01/30/23 05/09/23 Rx foot brace #1 ea 02/08/23 05/09/23 Rx meclizine 12.5 mg tablet 12.5 mg PO TID PRN vertigo 04/10/23 05/09/23 Rx symptoms #30 tabs atorvastatin 40 mg tablet 40 mg PO QPM #90 tabs 04/21/23 05/09/23 Rx mirabegron 50 mg tablet,extended 50 mg PO DAILY #90 tabs 05/09/23 05/09/23 Rx release 24 hr Past Med/Surg History Medical History (Updated 05/10/23 @ 05:38 by Josh Mancilla MD) Urinary incontinence Foot drop, right Right fibular fracture Vitamin B 12 deficiency Lower urinary tract symptoms Osteoarthritis of knees, bilateral Ulcer High cholesterol Cazares's cyst of knee Trochanteric bursitis Chronic osteoarthritis Depression History of blood clots Glaucoma Arthritis Liver lesion, left lobe Cholecystitis, acute Intracranial aneurysm Renal artery stenosis Hemiplegia affecting dominant side Insomnia Subarachnoid hemorrhage Hypertension Surgical History (Updated 05/10/23 @ 05:37 by Josh Mancilla MD) History of colonoscopy Dr. Abilio Prasad, normal, recheck 10 years S/P foot surgery (~2017) S/P brain surgery (~2012) Hx laparoscopic cholecystectomy (03/07/19) Laparoscopic Cholecystectomy - Flavio Arroyo, DO Endoscopic Retrograde Cholangiopancreatogram - Yoel Swartz MD S/P ERCP S/P laparoscopic cholecystectomy H/O vaginal hysterectomy (01/24/12) Family History Mother Breast cancer Diabetes Aneurysm Father Myocardial infarction Hypertension Heart disease Brother Diabetes Aneurysm Sister Hypertension Aneurysm Other Cerebral aneurysm Denies family history of Colon cancer Ovarian cancer Prostate cancer Social History Smoking Status: Never smoker Tobacco Type: Cigarettes Second Hand Exposure: No; Do You Dip or Chew Tobacco: No; Hx Alcohol Use: No Hx Substance Use: No Preferred Language: Chinese Communication Ability: Effective Communication Ability Comment: forgetful at times Visual Impairment: Limited Hearing Ability: Normal Editor House Organ Required: No Beliefs That Will Affect Care: None marital status: Current Living Situation: Family Current Living Situation Comment: Lives at home with who has dementia. current occupational status: retired Feels Safe at Home: Yes Diet: regular caffeine: Yes (Tea) during the past year weight has: remained stable Dental Care, Regularly: Yes Physical Activity Frequency: Does not Exercise Seatbelt Use: always Sunscreen Use: Yes Assistive Devices: Cane and Wheelchair Review of Systems Review of Systems: The patient denies chest pain, palpitations, shortness of breath, dyspnea on exertion, cough, lower extremity swelling, sore throat, fevers, chills, sweats, nausea, vomiting, diarrhea , constipation, abdominal pain, pelvic pain, blood in urine or stool, dysuria, urinary frequency or urgency, lightheadedness, dizziness, headache, memory loss, loss of consciousness, rash, abnormal bruising or bleeding, The review of systems is otherwise negative other than for that already noted above, and at least 10 systems have been reviewed. Physical Exam Physical Exam: The patient is awake, alert and oriented 3, well developed and well nourished, normocephalic and atraumatic, lying in bed and in no acute distress. HEENT--PERRL, EOMI, mucous membranes and oropharynx dry. Neck--supple. No JVD. No bruits. Thyroid normal, trachea midline, no adenopathy. Heart--normal S1 and S2. No murmurs, rubs or gallops. Lungs--clear bilaterally, no respiratory distress, no accessory muscle use. Abdomen--normal bowel sounds and soft. Nontender. Nondistended, no hernias or m asses, no organomegaly. Extremities--no cyanosis or clubbing. No edema. Dermatologic--normal skin turgor, normal color, no abnormal lymph nodes, no rash. Neurologic--cranial nerves II through XII grossly intact. Rheumatologic--generalized discomfort, with reproducible pain with palpation of most joints, leading to decreased range of motion of lower extremities in particular Psychiatric--normal affect. Results & Data Results & Data Vital Signs (Past 12 Hours) Vital Signs Temp Pulse Pulse Resp BP BP Pulse Ox 05/10/23 00:30 82 20 111/66 91 05/10/23 00:00 86 20 109/64 91 05/09/23 23:30 93 H 18 122/66 93 05/09/23 23:20 93 H 05/09/23 22:44 99 H 18 101/69 93 05/09/23 22:12 93 05/09/23 21:00 88 18 96 05/09/23 20:19 36.6 C 102 H 18 102/62 96 O2 Del Method 05/10/23 00:30 Room Air 05/10/23 00:00 Room Air 05/09/23 23:30 Room Air 05/09/23 23:20 05/09/23 22:44 05/09/23 22:12 Room Air 05/09/23 21:00 Room Air 05/09/23 20:19 Room Air Laboratory Results Laboratory Results WBC 6.36 K/ul (4.8-10.8) 05/09/23 20:44 RBC 3.84 M/uL (4.20-5.40) L 05/09/23 20:44 Hgb 11.7 g/dl (12.0-16.0) L 05/09/23 20:44 Hct 35.8 % (37.0-47.0) L 05/09/23 20:44 MCV 93.2 fL (80.0-100.0) 05/09/23 20:44 MCH 30.5 pg (25.0-34.0) 05/09/23 20:44 MCHC 32.7 g/dL (32.0-36.0) 05/09/23 20:44 RDW Std Deviation 44.8 fL (36.4-46.3) 05/09/23 20:44 RDW Coeff of Hannah 13.2 % (11.5-14.5) 05/09/23 20:44 Plt Count 217 K/uL (130-400) 05/09/23 20:44 MPV 10.5 fL (9.4-12.4) 05/09/23 20:44 Immature Gran % (Auto) 0.3 % 05/09/23 20:44 Neut % (Auto) 95.9 % 05/09/23 20:44 Lymph % (Auto) 2.4 % 05/09/23 20:44 [place] % (Auto) 0.9 % 05/09/23 20:44 Eos % (Auto) 0.5 % 05/09/23 20:44 Baso % (Auto) 0.0 % 05/09/23 20:44 Neut # (Auto) 6.10 K/uL (1.40-6.50) 05/09/23 20:44 Lymph # (Auto) 0.15 K/uL (1.20-3.40) L 05/09/23 20:44 [place] # (Auto) 0.06 K/uL (0.11-0.59) L 05/09/23 20:44 Eos # (Auto) 0.03 K/uL (0.00-0.50) 05/09/23 20:44 Baso # (Auto) 0.00 K/uL (0.00-0.20) 05/09/23 20:44 Immature Gran # (Auto) 0.02 K/uL (0.01-0.20) 05/09/23 20:44 Sodium 142 mmol/L (136-145) 05/09/23 20:44 Potassium 2.8 mmol/L (3.5-5.1) L 05/09/23 20:44 Chloride 105 mmol/L (98-107) 05/09/23 20:44 Carbon Dioxide 25 mmol/L (21-32) 05/09/23 20:44 Anion Gap 12 (3-11) H 05/09/23 20:44 BUN 26 mg/dl (6-23) H 05/09/23 20:44 Creatinine 0.74 mg/dl (0.6-1.2) 05/09/23 20:44 Est Cr Clr Drug Dosing Not Reportable 05/09/23 20:44 Est GFR ( Amer) 89.3 ml/min 05/09/23 20:44 Est GFR (Non-Af Amer) 77.1 ml/min 05/09/23 20:44 BUN/Creatinine Ratio 35.1 (10-20) H 05/09/23 20:44 Glucose 78 mg/dl (70-99(Fasting)) 05/09/23 20:44 Calcium 9.5 mg/dl (8.6-10.3) 05/09/23 20:44 Magnesium 1.3 mg/dl (1.7-2.4) L 05/09/23 20:44 Total Bilirubin 1.0 mg/dl (0.2-1.0) 05/09/23 20:44 AST 28 U/L (13-39) 05/09/23 20:44 ALT 17 U/L (7-52) 05/09/23 20:44 Alkaline Phosphatase 71 U/L (34-104) 05/09/23 20:44 Total Creatine Kinase 70 U/L (26-192) 05/09/23 20:44 Troponin I High Sens 7.3 pg/ml (0-14) 05/09/23 20:44 Total Protein 7.2 gm/dl (6.0-8.3) 05/09/23 20:44 Albumin 4.3 gm/dl (3.4-5.0) 05/09/23 20:44 Globulin 2.9 gm/dl (2.5-4.0) 05/09/23 20:44 Albumin/Globulin Ratio 1.5 (0.9-2) 05/09/23 20:44 Urine Color Dark Yellow 05/10/23 Unknown Urine Appearance Clear (Clear) 05/10/23 Unknown Urine pH 6.0 (4.5-7.5) 05/10/23 Unknown Ur Specific [employer] 1.017 (1.000-1.030) 05/10/23 Unknown Urine Protein 1+ (Negative) H 05/10/23 Unknown Urine Glucose (UA) Negative (Negative) 05/10/23 Unknown Urine Ketones Trace (Negative) H 05/10/23 Unknown Urine Blood Negative (Negative) 05/10/23 Unknown Urine Nitrite Negative (Negative) 05/10/23 Unknown Urine Bilirubin Negative (Negative) 05/10/23 Unknown Urine Urobilinogen Negative (Negative) 05/10/23 Unknown Ur Leukocyte Esterase Trace (Negative) H 05/10/23 Unknown Urine WBC (Auto) 5-10 /hpf (0-5) H 05/10/23 Unknown Urine RBC (Auto) 10-30 /hpf (0-4) H 05/10/23 Unknown U Hyaline Cast (Auto) 10-30 /lpf (0-5) H 05/10/23 Unknown U Epithel Cells (Auto) >30 /lpf (0-5) H 05/10/23 Unknown Urine Bacteria (Auto) 1+ (Negative) H 05/10/23 Unknown Ur Renal Epithelial Cell Not Reportable 05/10/23 Unknown Urine Mucus Present (None Prsent) A 05/10/23 Unknown Adenovirus (PCR) Not Detected (NotDetected) 05/09/23 Unknown B. pertussis DNA (PCR) Not Detected (NotDetected) 05/09/23 Unknown B.parapertussis DNA PCR Not Detected (NotDetected) 05/09/23 Unknown C. pneumoniae DNA (PCR) Not Detected (NotDetected) 05/09/23 Unknown Coronavirus OC43 (PCR) Not Detected (NotDetected) 05/09/23 Unknown Coronavirus HKU1 (PCR) Not Detected (NotDetected) 05/09/23 Unknown Coronavirus 229E (PCR) Not Detected (NotDetected) 05/09/23 Unknown SARS-CoV-2 (PCR) Not Detected (NotDetected) 05/09/23 Unknown Coronavirus NL63 (PCR) Not Detected (NotDetected) 05/09/23 Unknown Human Metapneumovir PCR Not Detected (NotDetected) 05/09/23 Unknown Influenza Type A (PCR) Not Detected (NotDetected) 05/09/23 Unknown Influenza Type B (PCR) Not Detected (NotDetected) 05/09/23 Unknown M. pneumoniae (PCR) Not Detected (NotDetected) 05/09/23 Unknown Parainfluenza 1 (PCR) Not Detected (NotDetected) 05/09/23 Unknown Parainfluenza 2 (PCR) Not Detected (NotDetected) 05/09/23 Unknown Parainfluenza 3 (PCR) Not Detected (NotDetected) 05/09/23 Unknown Parainfluenza 4 (PCR) Not Detected (NotDetected) 05/09/23 Unknown RSV (PCR) Not Detected (NotDetected) 05/09/23 Unknown Entero/Rhino (PCR) Not Detected (NotDetected) 05/09/23 Unknown Code Status & VTE Plan Code Status Full code VTE Prophylaxis Plan VTE Prophylaxis will be ordered: Yes PG Care Time/CCT Total # of Minutes Spent Total Time Spent with Patient: Total time spent is greater than 50% in coordination of care (as documented) at patient's floor/unit and/or counseling patient: Coding Level of Care Code 60498 INT INP/OBS CARE 3/75MIN Diagnoses Hypomagnesemia E83.42 Hypokalemia E87.6 Generalized joint pain M25.50 Polyarthralgia M25.50 Hypertension I10 Hypertension type: unspecified Urinary incontinence R32 S/P Botox injection Z92.29 Late effects of cerebrovascular disease I69.90 Adverse effect of drug that primarily affects musculoskeletal system T48.205A (5) Hypertension Hypertension type: unspecified Qualified Code(s): I10 - Essential (primary) hypertension
[2023-05-10] MEDS: POTASSIUM CHLORIDE / WTR 10 MEQ/100 ML PLCT IV SCH ×2 (02:08→03:41)
[2023-05-10] MEDS: MAGNESIUM SULFATE / D5W 1 GM/100 ML BAG IV SCH ×2 (02:08→04:36)
[2023-05-10] MEDS ORDERED: ONDANSETRON INJ 2 MG/ML 2 ML VIAL IV PRN (03:18)
[2023-05-10] MEDS ORDERED: NSS + 20MEQ KCL 20 MEQ/1,000 ML BAG IV SCH (03:18)
[2023-05-10 03:46] LABS: Appearance Urine Clear (Clear); Bilirubin Urine Negative (Negative); Blood Urine Negative (Negative); Color Urine Dark Yellow; Epithelial Cell Urine Auto >30 /lpf (0-5); Glucose Urine UA Negative (Negative); Ketones Urine Trace (Negative); Leukocyte Esterase Urine Trace (Negative); Nitrite Urine Negative (Negative); Protein Urine 1+ (Negative); Specific Gravity Urine 1.017 (1.000-1.030); Urobilinogen Urine Negative (Negative)
[2023-05-10 04:11] LABS: Bacteria Urine Automated 1+ (Negative); Mucus Urine Present (None Prsent)
[2023-05-10] MEDS: ACETAMINOPHEN 325 MG TAB PO PRN ×2 (04:34→13:07)
[2023-05-10] MEDS: cefTRIAXone SODIUM 2,000 MG in DEXTROSE 5 % MINI-B 50 ML IV SCH (05:20)
[2023-05-10 06:46] LABS: Hematocrit (blood only) 28.8 % (37.0-47.0); Hemoglobin 9.8 g/dl (12.0-16.0); Mean Corpuscular Hemoglobin 30.6 pg (25.0-34.0); Mean Platelet Volume 10.4 fL (9.4-12.4); Platelet Count 179 K/uL (130-400); RDW Coefficient of Variation 13.2 % (11.5-14.5); RDW Standard Deviation 43.3 fL (36.4-46.3); White Blood Count 9.26 K/ul (4.8-10.8)
[2023-05-10 07:07] LABS: Basophils # (auto) 0.01 K/uL (0.00-0.20); Basophils % (auto) 0.1 %; Eosinophils # (auto) 0.08 K/uL (0.00-0.50); Eosinophils % (auto) 0.9 %; Immature Granulocytes # (auto) 0.06 K/uL (0.01-0.20); Immature Granulocytes % (auto) 0.6 %; Lymphocytes # (auto) 0.17 K/uL (1.20-3.40); Lymphocytes % (auto) 1.8 %; Monocytes % (auto) 5.4 %; Neutrophils # (auto) 8.44 K/uL (1.40-6.50); Neutrophils % (auto) 91.2 %; Polychromasia 1+; Toxic Vacuolation 1+
[2023-05-10 07:34] LABS: Albumin Level 3.4 gm/dl (3.4-5.0); BUN Creatinine Ratio 29.2 (10-20); Calcium 8.3 mg/dl (8.6-10.3); Est GFR (African American) 57.8 ml/min; Est GFR (Non-African American) 49.9 ml/min; Phosphorus 3.5 mg/dl (2.5-4.9); Potassium 3.4 mmol/L (3.5-5.1)
[2023-05-10] MEDS ORDERED: POTASSIUM CHLORIDE CRTAB 20 MEQ TABCR PO STA (08:08)
--- NOTE | 2023-05-10 08:08 | XRay Report ---
KUB CLINICAL HISTORY: weakness, recent bladder injection COMPARISON STUDY: CT of the abdomen and pelvis May 16, 2019. FINDINGS: Cholecystectomy clips are incidentally noted. The bowel gas pattern is normal. Amount of st ool is within normal limits. IMPRESSION: Unremarkable KUB. ACT 112: Negative or not required by law. Electronically signed by: Mohan Calvo M.D. 05/10/2023 8:07 AM
[2023-05-10 08:58] LABS: Magnesium 2.3 mg/dl (1.7-2.4)
[2023-05-10] MEDS: METOPROLOL SUCC 50MG EXT REL TAB PO SCH ×2 (09:18→21:27)
[2023-05-10] MEDS: TIMOLOL MALEATE 0.5% OP SOLN 5 ML BTL OP SCH (09:18)
[2023-05-10] MEDS: VIBEGRON 75 MG TAB PO SCH (09:18)
[2023-05-10] MEDS: PANTOprazole 40 MG TAB PO SCH (09:18)
[2023-05-10] MEDS: amLODIPine BESYLATE 5 MG TAB PO SCH (09:18)
--- NOTE | 2023-05-10 15:05 | Communication Note ---
Date of Service: May 10, 2023 Please refer to the H&P dictated earlier this morning for details of presentation on admission. In brief, the patient presented with severe bilateral lower extremity pain, generalized joint pains that started shortly after taking ciprofloxacin. She was found to have electrolyte imbalances. Potassium and magnesium are being repleted. There is a possibility that she has a urinary tract infection with the urinalysis that is suggestive. She was started on IV Rocephin and urine cultures pending at this time. The patient tells me that she basically has a tea and toast diet and that she does not eat a healthy and nutritious diet. I will consult to dietitian. Recheck electrolytes in a.m.
[2023-05-10] MEDS ORDERED: oxyCODONE HCL IR 5 MG TAB (IMMEDIATE RELEASE) PO STA (15:39)
[2023-05-10] MEDS: ATORVASTATIN 40 MG TAB PO SCH (21:27)
[2023-05-10] MEDS: CLOPIDOGREL BISULFATE 75 MG TAB PO SCH (21:27)
[2023-05-11 06:27] LABS: Basophils # (auto) 0.01 K/uL (0.00-0.20); Basophils % (auto) 0.1 %; Eosinophils # (auto) 0.44 K/uL (0.00-0.50); Eosinophils % (auto) 5.1 %; Hematocrit (blood only) 29.5 % (37.0-47.0); Hemoglobin 9.9 g/dl (12.0-16.0); Immature Granulocytes # (auto) 0.05 K/uL (0.01-0.20); Immature Granulocytes % (auto) 0.6 %; Lymphocytes % (auto) 11.5 %; Mean Corpuscular Hemoglobin 30.7 pg (25.0-34.0); Mean Corpuscular Hgb Conc 33.6 g/dL (32.0-36.0); Mean Corpuscular Volume 91.6 fL (80.0-100.0); Mean Platelet Volume 10.6 fL (9.4-12.4); Monocytes # (auto) 0.59 K/uL (0.11-0.59); Monocytes % (auto) 6.8 %; Neutrophils # (auto) 6.58 K/uL (1.40-6.50); Neutrophils % (auto) 75.9 %; Platelet Count 182 K/uL (130-400); RDW Coefficient of Variation 13.2 % (11.5-14.5); RDW Standard Deviation 44.5 fL (36.4-46.3); Red Blood Count 3.22 M/uL (4.20-5.40); White Blood Count 8.67 K/ul (4.8-10.8)
[2023-05-11] MEDS: cefTRIAXone SODIUM 2,000 MG in DEXTROSE 5 % MINI-B 50 ML IV SCH (06:41)
[2023-05-11 06:57] LABS: Albumin Level 3.2 gm/dl (3.4-5.0); BUN Creatinine Ratio 35.2 (10-20); Est GFR (African American) 69.1 ml/min; Est GFR (Non-African American) 59.6 ml/min; Magnesium 2.1 mg/dl (1.7-2.4); Phosphorus 2.6 mg/dl (2.5-4.9)
[2023-05-11] MEDS: amLODIPine BESYLATE 5 MG TAB PO SCH (09:24)
[2023-05-11] MEDS: TIMOLOL MALEATE 0.5% OP SOLN 5 ML BTL OP SCH (09:25)
[2023-05-11] MEDS: METOPROLOL SUCC 50MG EXT REL TAB PO SCH ×2 (09:25→20:24)
[2023-05-11] MEDS: PANTOprazole 40 MG TAB PO SCH (09:25)
[2023-05-11] MEDS: VIBEGRON 75 MG TAB PO SCH (09:25)
[2023-05-11] MEDS: ACETAMINOPHEN 325 MG TAB PO PRN (14:39)
--- NOTE | 2023-05-11 16:10 | Hospitalist Progress Note ---
Date of Service May 11, 2023 Assessment & Plan (1) Adverse effect of drug that primarily affects musculoskeletal system: Plan: The patient will be admitted to telemetry for serial cardiac enzymes, serial EKG's, cardiac rhythm monitoring Patient received a single dose of ciprofloxacin following a therapeutic Botox bladder injection for urinary incontinence yesterday morning. Her symptoms developed shortly after taking the ciprofloxacin. Her CK is well within normal range as is creatinine Polyarthralgias/generalized joint pains/adverse drug effect from use of ciprofloxacin causing nausea/vomiting/diarrhea- With significant muscle cramping in the legs which is now resolved but having muscle soreness as a result Electrolytes were replaced, nausea/vomiting/diarrhea is now resolved. Troponin is negative Patient improving Cipro will be held and added to allergy list No further electrolyte replacement needed today Follow BMP and magnesium level in the morning Add oxycodone as needed for muscle pain in the legs as Tylenol is not helping PT/OT ordered and patient requesting rehab placement (2) Hypomagnesemia: Plan: resolved after replacement, secondary to GI losses follow Mag level in AM (3) Hypokalemia: Plan: resolved with replacement, was secondary to GI losses follow bMP (4) Nausea vomiting and diarrhea: Plan: resolved likely 2/2 CIpro now lamont po, no further diarrhea likely caused lyte abnormalities (5) Urinary incontinence: Plan: Urinary incontinence/overactive bladder- Continue vibegron 75 mg daily Status post Botox injection just prior to admission Hold Cipro prophylaxis as noted Placed on ceftriaxone 2 g IV daily, urine culture growing alpha Streptococcus not Enterococcus After 3 at third dose of ceftriaxone tomorrow, can discontinue (6) Hypertension: Plan: Cerebrovascular disease/vertebral artery stenosis/hypertension- Continue amlodipine, clopidogrel, lisinopril and metoprolol succinate (7) Late effects of cerebrovascular disease: Plan: With reportedly some residual hemiparesis PT/OT evals Continue Plavix and statin Plan Disposition-continued stay, likely placement in rehab tomorrow Admission and Anticipated Discharge Date Admission Date: May 10, 2023 Subjective Patient reports still ongoing pain in the muscles of the calves and legs especially with walking but the pain is improved now at rest. Describes yesterday's events as leg cramping and charley horses. No other joint pains or muscle aches anywhere else. She is no longer having any nausea or vomiting or diarrhea. She is tolerating p.o. without difficulty. No other concerns Telemetry with normal sinus rhythm with rates in the 70s. She asked about getting tested for Lyme disease. Physical Exam Constitutional: WD/WN, vitals as above Respiratory: normal respiratory effort, lungs clear to auscultation Cardiovascular: RRR, no murmur, no edema Gastrointestinal (Abdomen): normal bowel sounds, soft, nontender, no hepatosplenomegaly Musculoskeletal: Positive tenderness to palpation over calves bilaterally, no edema, 2+ dorsalis pedis pulses Results & Data Results & Data Vital Signs (Past 12 Hours) Vital Signs Temp Pulse Pulse Resp BP Pulse Ox O2 Del Method 05/11/23 11:20 36.8 C 61 18 109/67 97 Room Air 05/11/23 08:13 68 05/11/23 07:54 36.9 C 72 19 150/74 H 94 Room Air Laboratory Results CBC, BMP, magnesium level, KUB, urine culture all reviewed PG Care Time/CCT Total # of Minutes Spent Total Time Spent with Patient: Total time spent is greater than 50% in coordination of care (as documented) at patient's floor/unit and/or counseling patient: Coding Level of Care Code 22455 SUB INP/OBS CARE 3/50MIN Diagnoses Adverse effect of drug that primarily affects musculoskeletal system T48.205A Hypomagnesemia E83.42 Hypokalemia E87.6 Nausea vomiting and diarrhea R11.2; R19.7 Urinary incontinence R32 Hypertension I10 Hypertension type: unspecified Late effects of cerebrovascular disease I69.90 (6) Hypertension Hypertension type: unspecified Qualified Code(s): I10 - Essential (primary) hypertension
[2023-05-11] MEDS: oxyCODONE HCL IR 5 MG TAB (IMMEDIATE RELEASE) PO PRN (16:44)
[2023-05-11 17:15] LABS: Lyme Ab IgG w/WB Rflx Negative (Negative); Lyme Ab IgM w/WB Rflx Negative (Negative)
[2023-05-11] MEDS: ATORVASTATIN 40 MG TAB PO SCH (20:24)
[2023-05-11] MEDS: CLOPIDOGREL BISULFATE 75 MG TAB PO SCH (20:24)
[2023-05-12 07:48] LABS: Albumin Level 3.3 gm/dl (3.4-5.0); BUN Creatinine Ratio 24.7 (10-20); Calcium 8.5 mg/dl (8.6-10.3); Creatinine Clr Calc Pharmacy 45.3 ml/min; Est GFR (Non-African American) 64.7 ml/min; Magnesium 1.7 mg/dl (1.7-2.4); Potassium 3.8 mmol/L (3.5-5.1)
[2023-05-12 07:53] LABS: Basophils # (auto) 0.01 K/uL (0.00-0.20); Basophils % (auto) 0.2 %; Eosinophils # (auto) 0.37 K/uL (0.00-0.50); Eosinophils % (auto) 7.5 %; Hematocrit (blood only) 30.3 % (37.0-47.0); Hemoglobin 10.2 g/dl (12.0-16.0); Immature Granulocytes # (auto) 0.01 K/uL (0.01-0.20); Immature Granulocytes % (auto) 0.2 %; Lymphocytes % (auto) 30.4 %; Mean Corpuscular Hemoglobin 30.7 pg (25.0-34.0); Mean Corpuscular Hgb Conc 33.7 g/dL (32.0-36.0); Mean Corpuscular Volume 91.3 fL (80.0-100.0); Mean Platelet Volume 10.6 fL (9.4-12.4); Monocytes # (auto) 0.46 K/uL (0.11-0.59); Monocytes % (auto) 9.3 %; Neutrophils # (auto) 2.59 K/uL (1.40-6.50); Neutrophils % (auto) 52.4 %; Platelet Count 191 K/uL (130-400); RDW Coefficient of Variation 13.2 % (11.5-14.5); RDW Standard Deviation 44.1 fL (36.4-46.3); Red Blood Count 3.32 M/uL (4.20-5.40); White Blood Count 4.94 K/ul (4.8-10.8)
[2023-05-12] MEDS: cefTRIAXone SODIUM 2,000 MG in DEXTROSE 5 % MINI-B 50 ML IV SCH (08:42)
[2023-05-12] MEDS: VIBEGRON 75 MG TAB PO SCH (08:42)
[2023-05-12] MEDS: PANTOprazole 40 MG TAB PO SCH (08:42)
[2023-05-12] MEDS: TIMOLOL MALEATE 0.5% OP SOLN 5 ML BTL OP SCH (08:43)
[2023-05-12] MEDS: amLODIPine BESYLATE 5 MG TAB PO SCH (08:43)
[2023-05-12] MEDS: METOPROLOL SUCC 50MG EXT REL TAB PO SCH (08:43)
[2023-05-12] MEDS: oxyCODONE HCL IR 5 MG TAB (IMMEDIATE RELEASE) PO PRN ×2 (08:46→15:24)
[2023-05-12] MEDS ORDERED: MAGNESIUM SULFATE / D5W 1 GM/100 ML BAG IV ONE (09:30)
[2023-05-12] MEDS ORDERED: POTASSIUM CHLORIDE CRTAB 20 MEQ TABCR PO STA (09:31)
--- NOTE | 2023-05-12 13:56 | Discharge Summary ---
Discharge Summary Date of Service May 12, 2023 Notes For Next Care Provider Medication Changes From Visit oxycodone 5mg po q6h prn moderate-severe pain Admission HPI Per Admitting Provider The patient is a 77-year-old female with a past medical history including right foot drop, first MTP arthritis, hypertension, dyslipidemia, intracranial aneurysm, pancreatic mass, late effects of cerebrovascular disease, flaccid hemiplegia of dominant side, anemia and vitamin B12 deficiency. Patient had undergone and tolerated well a Botox injection by urology, however, she reports that shortly after taking ciprofloxacin, which she was given for prophylaxis, she developed severe symptoms as noted above. She has not been on ciprofloxacin for. This is her second Botox injection, having tolerated the first injection with no issues. She denies any issues with swallowing or speech. In the emergency department laboratories showed a negative Bio[employer] test, potassium was 2.8, and magnesium was 1.3. CK was normal at 70 and creatinine normal at 0.74 Principal Dx & Hospital Course #1 = Principal Diagnosis (1) Adverse effect of drug that primarily affects musculoskeletal system: Patient received a single dose of ciprofloxacin following a therapeutic Botox bladder injection for urinary incontinence the day prior to admission Her symptoms of N/V/D and then leg cramping developed shortly after taking the ciprofloxacin. Her CK is well within normal range as is creatinine With significant muscle cramping in the legs which is now resolved but having muscle soreness as a result Electrolytes were replaced, nausea/vomiting/diarrhea is now resolved. Troponin is negative Patient much improved, still has some muscle soreness in legs with walking Cipro was added to allergy list Magnesium low normal on day of discharge-started magnesium 250mg po daily Consider lowering PPI dose or dc altogether Follow BMP and magnesium level as outpt Continue oxycodone as needed for muscle pain in the legs PT/OT ordered and patient requesting rehab placement (2) Hypomagnesemia: resolved after replacement, secondary to GI losses started po mag daily (3) Hypokalemia: resolved with replacement, was secondary to GI losses follow bMP as outpt, continue pat epo KCl 8 meq daily (4) Nausea vomiting and diarrhea: resolved likely 2/2 CIpro now lamont po, no further diarrhea likely caused lyte abnormalities (5) Urinary incontinence: Urinary incontinence/overactive bladder- Continue vibegron 75 mg daily Status post Botox injection just prior to admission dc Cipro prophylaxis as noted Placed on ceftriaxone 2 g IV daily, urine culture growing alpha Streptococcus not Enterococcus Completed three doses of ceftriaxone -none further needed (6) Hypertension: Cerebrovascular disease/vertebral artery stenosis/hypertension- Continue amlodipine, clopidogrel, resume lisinopril and continue metoprolol succinate (7) Late effects of cerebrovascular disease: With reportedly some residual hemiparesis PT/OT evals Continue Plavix and statin Plan Disposition-dc to rehab today Discharge Exam Constitutional WD/WN, vitals as above Respiratory normal respiratory effort, lungs clear to auscultation Cardiovascular RRR, no murmur, no edema Gastrointestinal (Abdomen) normal bowel sounds, soft, nontender, no hepatosplenomegaly Updated Medication List Medication Instructions Recorded Confirmed Type cholecalciferol (vitamin D3) 125 125 mcg PO HS 03/10/21 05/09/23 History mcg (5,000 unit) capsule timolol maleate 0.5 % eye drops 1 drp ophthalmic (eye) QAM 09/16/21 05/09/23 History syringe with needle 3 mL 23 x 1" #4 ea 11/29/21 05/09/23 Rx (BD Eclipse Luer-Guerita) cyanocobalamin (vitamin B-12) 1,000 mcg IM Q7D 4 weeks #4 ea 12/10/21 05/09/23 Rx 1,000 mcg/mL injection kit ascorbate calcium (vitamin C) 500 500 mg PO QPM 07/10/22 05/09/23 History mg tablet [id number] D3-phosphorus 2 tbsp PO QAM 07/10/22 05/09/23 History cod liver oil 10 ml PO QAM 07/10/22 05/09/23 History coenzyme Q10 400 mg capsule 400 mg PO QAM 07/10/22 05/09/23 History glucosamine-chondroitin 250 mg-200 21 tab PO QAM 07/10/22 05/09/23 History mg tablet (Osteo Bi-Flex) lisinopril 40 mg tablet 40 mg PO QPM 07/10/22 05/09/23 History metoprolol succinate 50 mg 50 mg PO BID 07/10/22 05/09/23 History tablet,extended release 24 hr potassium chloride 8 mEq 8 meq PO QPM 07/10/22 05/09/23 History capsule,extended release vitamin C 50 mg-biotin 1,250 mcg 2 tab PO QAM 07/10/22 05/09/23 History chewable tablet (Dynh-Cahp-Usxsd (vit C-biotin)) vitamin E 268 mg (400 unit) capsule 268 mg PO QAM 07/10/22 05/09/23 History polyethylene glycol 3350 17 gram 17 g PO DAILY PRN #0 ea 07/13/22 05/09/23 Rx oral powder packet (Miralax) clopidogrel 75 mg tablet 75 mg PO QPM #90 tabs 08/26/22 05/09/23 Rx pantoprazole 40 mg tablet,delayed 40 mg PO QAM #90 tabs 09/05/22 05/09/23 Rx release acetaminophen 325 mg tablet 650 mg PO Q4H PRN Pain 11/14/22 05/09/23 History ciprofloxacin HCl 500 mg tablet 500 mg PO BID 6 days #12 tabs 12/01/22 05/09/23 Rx amlodipine 5 mg tablet 5 mg PO DAILY #30 tabs 01/30/23 05/09/23 Rx foot brace #1 ea 02/08/23 05/09/23 Rx meclizine 12.5 mg tablet 12.5 mg PO TID PRN vertigo 04/10/23 05/09/23 Rx symptoms #30 tabs atorvastatin 40 mg tablet 40 mg PO QPM #90 tabs 04/21/23 05/09/23 Rx mirabegron 50 mg tablet,extended 50 mg PO DAILY #90 tabs 05/09/23 05/09/23 Rx release 24 hr magnesium 250 mg tablet 250 mg PO DAILY #30 tabs 05/12/23 Rx oxycodone 5 mg tablet 5 mg PO Q6H PRN moderate-severe 05/12/23 Rx pain #10 tabs Hospital Stay Data Consultations 05/10/23 00:54 ED Decision to Admit Stat Pending Results Patient Have Any Pending Studies at Discharge: No Discharge Instructions Given to Patient (Per Discharging Provider) Please continue to drink plenty of fluids. You will need rehab to strengthen your legs and improve your ability to walk. You can take the oxycodone as needed for moderate-severe pain and tylenol as needed for milder pain. Total Time Total Time Spent Total Time Spent (In Minutes): 35 min Coding Level of Care Code 75104 INP/OBS DISCH >30 MIN Diagnoses Adverse effect of drug that primarily affects musculoskeletal system T48.205A Hypomagnesemia E83.42 Hypokalemia E87.6 Nausea vomiting and diarrhea R11.2; R19.7 Urinary incontinence R32 Hypertension I10 Hypertension type: unspecified Late effects of cerebrovascular disease I69.90
--- NOTE | 2023-05-12 18:15 | Electrocardiogram Report ---
Test Reason : Blood Pressure : / mmHG Vent. Rate : 086 BPM Atrial Rate : 086 BPM P-R Int : 196 ms QRS Dur : 090 ms QT Int : 360 ms P-R-T Axes : 058 -06 050 degrees QTc Int : 430 ms Normal sinus rhythm Septal infarct , age undetermined Nonspecific ST and T wave abnormality Abnormal ECG When compared with ECG of 14-NOV-2022 21:06, NE interval has decreased Septal infarct is now Present Nonspecific T wave abnormality, worse in Anterolateral leads Confirmed by Umesh Pozo ([id number]) on 05/12/2023 6:15:38 PM Referred By: REFERRED SELF Confirmed By:Umesh Pozo
--- NOTE | 2023-05-12 18:32 | Electrocardiogram Report ---
Test Reason : Blood Pressure : / mmHG Vent. Rate : 088 BPM Atrial Rate : 088 BPM P-R Int : 222 ms QRS Dur : 092 ms QT Int : 388 ms P-R-T Axes : 058 -08 041 degrees QTc Int : 469 ms Sinus rhythm with 1st degree A-V block Otherwise normal ECG When compared with ECG of 09-MAY-2023 20:30, Nonspecific T wave abnormality, improved in Anterolateral leads Confirmed by Umesh Pozo ([id number]) on 05/12/2023 6:31:45 PM Referred By: REFERRED SELF Confirmed By:Umesh Pozo
== END 2023-05-12 16:13 | DRG 556 ==
LOC: ED 19:59 → 2S 05-10 01:39 → SUATTDRO 05-10 01:39 → 2S 05-10 02:48

== ENCOUNTER 2024-08-09 11:51 | Inpatient (IN) ==
[2024-08-09 12:59] LABS: Basophils # (auto) 0.03 K/uL (0.00-0.20); Basophils % (auto) 0.4 %; Eosinophils # (auto) 0.25 K/uL (0.00-0.50); Eosinophils % (auto) 3.2 %; Hematocrit (blood only) 33.6 % (37.0-47.0); Hemoglobin 11.1 g/dl (12.0-16.0); Immature Granulocytes # (auto) 0.02 K/uL (0.01-0.20); Immature Granulocytes % (auto) 0.3 %; Lymphocytes # (auto) 0.89 K/uL (1.20-3.40); Lymphocytes % (auto) 11.3 %; Mean Corpuscular Hemoglobin 31.8 pg (25.0-34.0); Mean Corpuscular Volume 96.3 fL (80.0-100.0); Mean Platelet Volume 10.2 fL (9.4-12.4); Monocytes # (auto) 1.02 K/uL (0.11-0.59); Monocytes % (auto) 12.9 %; Neutrophils # (auto) 5.67 K/uL (1.40-6.50); Neutrophils % (auto) 71.9 %; Platelet Count 231 K/uL (130-400); RDW Coefficient of Variation 13.2 % (11.5-14.5); RDW Standard Deviation 46.9 fL (36.4-46.3); Red Blood Count 3.49 M/uL (4.20-5.40); White Blood Count 7.88 K/ul (4.8-10.8)
--- NOTE | 2024-08-09 13:14 | XRay Report ---
XR chest 1V portable CLINICAL HISTORY: weakness COMPARISON STUDY: 07/10/2022 FINDINGS: Stable mild cardiomegaly without pulmonary vascular congestion. No effusion, consolidation, or pneumothorax. IMPRESSION: No acute findings. ACT 112: Negative or not required by law. Electronically signed by: John Cee M.D. 08/09/2024 1:13 PM
[2024-08-09 13:23] LABS: Albumin Globulin Ratio 1.3 (0.9-2); Albumin Level 3.6 gm/dl (3.4-5.0); BUN Creatinine Ratio 24.6 (10-20); Bilirubin,Total 0.8 mg/dl (0.2-1.0); Calcium 8.8 mg/dl (8.6-10.3); Creatinine Clr Calc Pharmacy 59.3 ml/min; Globulin 2.7 gm/dl (2.5-4.0); Magnesium 1.5 mg/dl (1.7-2.4); Potassium 3.5 mmol/L (3.5-5.1); Total Protein 6.3 gm/dl (6.0-8.3)
--- NOTE | 2024-08-09 13:23 | Emergency Department Note ---
Impression & Plan Generalized weakness, Pain in left shoulder, Neck pain, Knee pain, right, Closed compression fracture of thoracic vertebra, New onset a-fib ED Provider Note NAME: NATHALIA PHILLIPS AGE: 79 SEX: Female INFORMANT: Patient and daughter ED PROVIDER(S): Alec Redd MD CHIEF COMPLAINT: Generalized weakness PLAN: Disposition: Admitted Outpatient prescription management: none Referral: None MEDICAL DECISION MAKING: Patient presented because she was not doing well at home. She noted feeling generally weak. She has an exacerbation of her ongoing shoulder and knee issues with now having new back and neck pain. Patient underwent a workup. Her CBC and chemistry panel was unremarkable. ECG and cardiac monitoring raise concerns for new onset A-fib. Patient was rate controlled. She had an unremarkable head and cervical spine CT. Patient underwent imaging of the thoracic spine as well given her back pain and she was found to have a subacute T12 compression fracture. Daughter did note that after her last ER visit patient did have a fall. Patient was treated with Zofran and Tylenol. On reassessment she was doing somewhat better. She is not doing well at home with pain control. Discussed further evaluation and management in the hospital with patient and daughter. They were in agreement. Consultation was made with Dr. Malone of the hospitalist service. Patient was evaluated in the ER and admitted for further management. Care/management discussed with: client manager Level of care consideration(s): After review of the information above and other included data, I feel the patient requires escalation of care to admission Triage Nursing notes: reviewed and agree them. Vital Signs: reviewed and remarkable for no significant abnormalities Additional History obtained from: Patient's daughter Chronic Medical/Social Conditions affecting care: Chronic knee and shoulder pain Prior/ Outside/ External records reviewed: none Differential Diagnosis: Infection, dehydration, metabolic abnormality, hypo/hyperglycemia, electrolyte disturbance, anemia, hypoxia, cardiac sources, intracerebral event, toxicologic, neurologic, as well as other pathologies. Diagnostics, independently interpreted by me: ECG: Twelve-lead ECG #1 reveals A-fib at 83 bpm with incomplete right bundle branch block and left axis deviation. Septal Q wave. Repeat ECG reveals atrial fibrillation at 78 bpm with LVH. No ST elevation Cardiac Monitoring: Cardiac monitoring ordered by me: The patient was placed on continuous cardiac monitoring and observed. It revealed atrial fibrillation at 77 bpm. Medical decision rules: none Imaging studies: Head CT: A noncontrast CT scan of the head was performed and was negative for tumor, fracture, intracranial hemorrhage, or other acute pathology. CT scan of the thoracic spine reveals a T12 compression fracture. HPI: 79 year old Female arrives for evaluation of generalized weakness. This started over last week and is worsening. Daughter in law notes she is doing poorly at home. Pending surgery for Left shoulder and has chronic R knee pain. Recently started on oxycodone for pain but not helping. The patient also notes the following associated symptoms, neck pain, upper back pain, sternal pain, nausea, syncope. The patient has found no relieving factors. Current pain is rated as 8/10. Pt denies fevers, chills, diaphoresis, visual changes, chest pain, breathing difficulties, abdominal pain, melena, hematochezia, urinary symptoms, numbness, lymphadenopathy, rash, or other complaints. . PAST MEDICAL HISTORY: See Below, htn PAST SURGICAL HISTORY: See Below, SOCIAL HISTORY: See Below, lives with family HOME MEDICATIONS: See Below ALLERGIES: See Below VITALS: See Below PHYSICAL EXAMINATION: GENERAL: Awake, alert, uncomfortable-appearing, in no distress HENT: Normocephalic, atraumatic. Oropharynx unremarkable. EYES: Normal conjunctiva. Sclera non-icteric. NECK: Inspection normal. Non-tender. Supple. No nuchal rigidity. FROM. No masses. RESPIRATORY: Clear to auscultation. No wheezes. No rales. Normal respiratory effort. CARDIAC: Normal rate. Normal rhythm. No murmurs. No rubs. Extremities warm and well perfused. Pulses equal. No JVD. GI: Soft, non-distended. No tenderness to palpation. No rebound or guarding. No masses. RECTAL: Deferred. MUSCULOSKELETAL: Atraumatic. Chest examination reveals no tenderness. The back is kyphotic on inspection without obvious abnormality. There is no CVA tenderness to palpation. No joint edema. LOWER EXTREMITIES: Calves are equal size bilaterally and non-tender. No edema. No discoloration. NEURO: Normal sensorium. No sensory or motor deficits noted. SKIN: No rash or jaundice noted. PROCEDURES: none CRITICAL CARE: none OBSERVATION NOTE: none Past Med/Surg History Problem List (Updated 08/09/24 @ 19:41 by Alec Redd MD) New onset a-fib (Acute) Closed compression fracture of thoracic vertebra (Acute) Knee pain, right (Acute) Neck pain (Acute) Pain in left shoulder (Acute) Generalized weakness (Acute) Knee pain (Acute) Frequent falls Neurologic gait dysfunction Glenohumeral arthritis of child Left shoulder pain (Acute) Leg pain Adverse effect of drug that primarily affects musculoskeletal system S/P Botox injection Urinary incontinence Polyarthralgia Generalized joint pain Bilateral leg weakness (Acute) Abrasion of right forearm Foot drop, right 1st MTP arthritis Hypertension Atherogenic dyslipidemia Arthritis, midfoot Insomnia (Chronic) Intracranial aneurysm (Chronic) Pancreatic mass Vertebral artery stenosis (Acute) Venous insufficiency (Acute) Subclavian artery stenosis, right (Acute) 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 Abilio Prasad, normal, recheck 10 years S/P foot surgery (~2018) S/P brain surgery (~2012) Hx laparoscopic cholecystectomy (03/07/19) Laparoscopic Cholecystectomy - Flavio Arroyo, DO Endoscopic Retrograde Cholangiopancreatogram - Yoel Swartz MD S/P ERCP S/P laparoscopic cholecystectomy H/O vaginal hysterectomy (01/24/12) Family History Mother Breast cancer Diabetes Aneurysm Father Myocardial infarction Hypertension Heart disease Brother Diabetes Aneurysm Sister Hypertension Aneurysm Other Cerebral aneurysm Denies family history of Colon cancer Ovarian cancer Prostate cancer Social History Smoking Status: Never smoker Second Hand Exposure: No; Do You Dip or Chew Tobacco: No; Hx Alcohol Use: No Hx Substance Use: No Preferred Language: Azeri Communication Ability: Effective Communication Ability Comment: forgetful at times Visual Impairment: Limited Hearing Ability: Normal Crop Supervisor Required: No Beliefs That Will Affect Care: None marital status: Current Living Situation: Family Current Living Situation Comment: and son 2023, [id number] lives downstairs current occupational status: retired Feels Safe at Home: Yes Safety Concerns Comment: Has safety bars, cane, shower chair. Does not use stairs. Childhood Exposure to Second-Hand Smoke: No Diet: regular caffeine: Yes (Tea) during the past year weight has: remained stable Dental Care, Regularly: Yes Physical Activity Frequency: Does not Exercise Seatbelt Use: always Sunscreen Use: Yes Assistive Devices: Cane, Walker and Wheelchair Allergies Allergies Allergy/AdvReac Type Severity Reaction Status Date / Time methocarbamol Allergy Severe felt like Verified 07/31/24 16:02 her throat was closing vancomycin Allergy Mild HIVES Verified 07/31/24 16:02 ciprofloxacin [From Cipro] AdvReac Intermediate Vomiting Verified 07/31/24 16:02 Home Meds Home Medications Medication Instructions Recorded Confirmed cholecalciferol (vitamin D3) 125 125 mcg PO HS 03/10/21 08/09/24 mcg (5,000 unit) capsule timolol maleate 0.5 % eye drops 1 drp OPL QAM 09/16/21 08/09/24 [id number] D3-phosphorus 2 tbsp PO QAM 07/10/22 08/09/24 cod liver oil 10 ml PO QAM 07/10/22 08/09/24 coenzyme Q10 400 mg capsule 400 mg PO QAM 07/10/22 08/09/24 glucosamine-chondroitin 250 mg-200 21 tab PO QAM 07/10/22 08/09/24 mg tablet (Osteo Bi-Flex) vitamin C 50 mg-biotin 1,250 mcg 2 tab PO QAM 07/10/22 08/09/24 chewable tablet (Naik-Ryin-Jjzip (vit C-biotin)) vitamin E 268 mg (400 unit) capsule 268 mg PO QAM 07/10/22 08/09/24 clopidogrel 75 mg tablet 75 mg PO QPM 08/09/24 08/09/24 nitrofurantoin 100 mg PO BID 08/09/24 08/09/24 monohydrate/macrocrystals 100 mg capsule oxycodone 5 mg tablet 5 - 10 mg PO Q6H PRN Pain 08/09/24 08/09/24 Previous Rx's Medication Instructions Recorded syringe with needle 3 mL 23 x 1" #4 ea 11/29/21 (BD Eclipse Luer-Guerita) foot brace #1 ea 02/08/23 magnesium 250 mg tablet 250 mg PO DAILY #30 tabs 05/12/23 potassium chloride 8 mEq 8 meq PO QPM #90 caps 09/14/23 capsule,extended release pantoprazole 40 mg tablet,delayed 40 mg PO QAM #90 tabs 11/28/23 release atorvastatin 40 mg tablet 40 mg PO QPM #90 tabs 04/14/24 amlodipine 5 mg tablet 5 mg PO DAILY #90 tabs 07/04/24 Myrbetriq 50 mg tablet,extended 50 mg PO DAILY #90 tabs 07/15/24 release (mirabegron) Results & Data (ED) Vital Signs Vital Signs - 24 hr 08/09/24 12:08 08/09/24 12:41 08/09/24 15:03 Temperature 37.2 C Temperature Source Oral Pulse Rate 83 81 Pulse Rate [Apical] 81 Respiratory Rate 20 17 Blood Pressure 144/87 H Blood Pressure [Right Arm] 105/63 Blood Pressure Mean 106 Blood Pressure Mean [Right Arm] 77 Pulse Oximetry 93 94 Oxygen Delivery Method Room Air Room Air Sepsis Recent Fever Within 48 Hours No Sepsis New/Unexplained Change in Mental Status No Sepsis Action Taken by Nursing No Action Required 08/09/24 16:39 Temperature Temperature Source Pulse Rate 85 Pulse Rate [Apical] Respiratory Rate Blood Pressure Blood Pressure [Right Arm] Blood Pressure Mean Blood Pressure Mean [Right Arm] Pulse Oximetry Oxygen Delivery Method Sepsis Recent Fever Within 48 Hours Sepsis New/Unexplained Change in Mental Status Sepsis Action Taken by Nursing Laboratory Data 08/09/24 12:05 08/09/24 12:05 Lab Results 08/09/24 08/09/24 Range/Units 12:05 13:15 WBC 7.88 (4.8-10.8) K/ul RBC 3.49 L (4.20-5.40) M/uL Hgb 11.1 L (12.0-16.0) g/dl Hct 33.6 L (37.0-47.0) % MCV 96.3 (80.0-100.0) fL MCH 31.8 (25.0-34.0) pg MCHC 33.0 (32.0-36.0) g/dL RDW Std Deviation 46.9 H (36.4-46.3) fL RDW Coeff of Hannah 13.2 (11.5-14.5) % Plt Count 231 (130-400) K/uL MPV 10.2 (9.4-12.4) fL Immature Gran % (Auto) 0.3 % Neut % (Auto) 71.9 % Lymph % (Auto) 11.3 % Stan[place] % (Auto) 12.9 % Eos % (Auto) 3.2 % Baso % (Auto) 0.4 % Neut # (Auto) 5.67 (1.40-6.50) K/uL Lymph # (Auto) 0.89 L (1.20-3.40) K/uL Stanly # (Auto) 1.02 H (0.11-0.59) K/uL Eos # (Auto) 0.25 (0.00-0.50) K/uL Baso # (Auto) 0.03 (0.00-0.20) K/uL Immature Gran # (Auto) 0.02 (0.01-0.20) K/uL Sodium 137 (136-145) mmol/L Potassium 3.5 (3.5-5.1) mmol/L Chloride 102 (98-107) mmol/L Carbon Dioxide 29 (21-32) mmol/L Anion Gap 6 (3-11) BUN 16 (6-23) mg/dl Creatinine 0.65 (0.6-1.2) mg/dl Est Cr Clr Drug Dosing 59.3 ml/min eGFR 88.40 BUN/Creatinine Ratio 24.6 H (10-20) Glucose 102 H (70-99(Fasting)) mg/dl Calcium 8.8 (8.6-10.3) mg/dl Magnesium 1.5 L (1.7-2.4) mg/dl Total Bilirubin 0.8 (0.2-1.0) mg/dl AST 19 (13-39) U/L ALT 14 (7-52) U/L Alkaline Phosphatase 70 (34-104) U/L Troponin I High Sens 3.3 (0-14) pg/ml Total Protein 6.3 (6.0-8.3) gm/dl Albumin 3.6 (3.4-5.0) gm/dl Globulin 2.7 (2.5-4.0) gm/dl Albumin/Globulin Ratio 1.3 (0.9-2) TSH 2.867 (0.300-4.500) uIu/ml Urine Color Yellow Urine Appearance Clear (Clear) Urine pH 6.5 (4.5-7.5) Ur Specific [place] 1.013 (1.000-1.030) Urine Protein 1+ H (Negative) Urine Glucose (UA) Negative (Negative) Urine Ketones Negative (Negative) Urine Blood Negative (Negative) Urine Nitrite Negative (Negative) Urine Bilirubin Negative (Negative) Urine Urobilinogen Negative (Negative) Ur Leukocyte Esterase Trace H (Negative) Urine WBC (Auto) 0-5 (0-5) /hpf Urine RBC (Auto) 0-2 (0-2) /hpf U Hyaline Cast (Auto) 0-2 (0-2) /lpf U Epithel Cells (Auto) 0-2 (0-2) /hpf Urine Bacteria (Auto) None Seen (None Seen) Administered Medications Discontinued Medications Acetaminophen (Ofirmev) 1,000 mg in 100 mls @ 400 mls/hr IV NOW STA Stop: 08/09/24 13:39 Last Infusion: 08/09/24 15:06 Dose: Infused Documented By: Admin: 08/09/24 14:02 Dose: 400 mls/hr Documented By: KALEY Ketorolac Tromethamine (Ketorolac Tromethamine 15 Mg/Ml Vial) 15 mg IV NOW ONE Stop: 08/09/24 17:51 Last Admin: 08/09/24 18:00 Dose: 15 mg Documented By: YOLI Ondansetron HCl (Ondansetron Inj 2 Mg/Ml 2 Ml Vial) 4 mg IV NOW STA Stop: 08/09/24 13:26 Last Admin: 08/09/24 14:02 Dose: 4 mg Documented By: KALEY Imaging Data Radiologist's Impression: Chest X-Ray 08/09/24 12:37 XR chest 1V portable CLINICAL HISTORY: weakness COMPARISON STUDY: 07/10/2022 FINDINGS: Stable mild cardiomegaly without pulmonary vascular congestion. No effusion, consolidation, or pneumothorax. IMPRESSION: No acute findings. ACT 112: Negative or not required by law. Electronically signed by: John Cee M.D. 08/09/2024 1:[address] 08/09/24 13:23 CT OF THE CERVICAL SPINE WITHOUT CONTRAST CLINICAL HISTORY: fall COMPARISON STUDY: Cervical spine CT December 11, 2020. TECHNIQUE: Helical axial images of the cervical spine were obtained without IV contrast. Sagittal and coronal reconstructions were viewed. Automated exposure control was utilized for the study. A dose lowering technique was utilized adhering to the principles of ALARA. FINDINGS: Reversal of the cervical lordosis and mild anterolisthesis of C4 on C5 is unchanged. There is moderate multilevel facet arthrosis, disc space narrowing and osteophytosis within the cervical spine. There is no cervical spine fracture. No osseous lesions are present. Central canal and neural foramen are suboptimally assessed given CT technique. There is no prevertebral edema. IMPRESSION: 1. No acute cervical spine fracture or subluxation. 2. Moderate multilevel facet arthrosis and degenerative disc disease within the cervical spine. ACT 112: Negative or not required by law. Electronically signed by: Mohan Calvo M.D. 08/09/2024 1:[address] 08/09/24 13:23 CT OF THE HEAD WITHOUT CONTRAST CLINICAL HISTORY: Fall. COMPARISON STUDY: Head CT and CTA of the head November 14, 2022. TECHNIQUE: Helical axial images of the head were obtained without IV contrast. Automated exposure control was utilized for the study. A dose lowering technique was utilized adhering to the principles of ALARA. FINDINGS: No acute intracranial hemorrhage is present. Left-sided craniotomy and suspected aneurysm clips are noted. Encephalomalacia within the left frontal and temporal lobes with associated dilatation of the left lateral ventricle is unchanged. The basal cisterns are patent. There are no extra-axial collections. There are no findings to suggest acute dural sinus thrombosis or acute territorial infarct. There are no calvarial fractures. IMPRESSION: 1. No acute intracranial findings. No change in appearance of the brain. Stable postoperative findings. 2. No calvarial fractures. ACT 112: Negative or not required by law. Electronically signed by: Mohan Calvo M.D. 08/09/2024 1:[address] 08/09/24 13:23 CT thoracic spine wo con CLINICAL HISTORY: fall, uppper back pain COMPARISON STUDY: Abdominal CT of 05/16/2019 FINDINGS: There is osteopenia. There is an interval mild vertebral body compression fracture at T12. No other fracture or subluxation seen of the thoracic spine. There are mild diffuse degenerative changes. IMPRESSION: 1. Interval mild vertebral body compression fracture at T12 could be subacute or chronic. Suggest clinical correlation for point tenderness. 2. No other acute fracture seen of the thoracic spine. ACT 112: Negative or not required by law. Electronically signed by: John Cee M.D. 08/09/2024 2:08 PM Discharge Plan Visit Data Chief Complaint: Illness Stated Complaint: NECK, SHOULDER, BACK, CHEST PAIN ED Provider: Alec Redd Discharge Problem: Generalized weakness, Pain in left shoulder, Neck pain, Knee pain, right, Closed compression fracture of thoracic vertebra, New onset a-fib Patient Disposition: Admitted As Inpatient Discharge Instructions Interventions: ED Discharge Assessment Last Done: 08/09/24 19:23
[2024-08-09 13:27] LABS: Troponin I High Sensitivity 3.3 pg/ml (0-14)
[2024-08-09 13:37] LABS: Appearance Urine Clear (Clear); Bacteria Urine Automated None Seen (None Seen); Bilirubin Urine Negative (Negative); Blood Urine Negative (Negative); Cast Urine Automated 0-2 /lpf (0-2); Color Urine Yellow; Epithelial Cell Urine Auto 0-2 /hpf (0-2); Glucose Urine UA Negative (Negative); Ketones Urine Negative (Negative); Leukocyte Esterase Urine Trace (Negative); Nitrite Urine Negative (Negative); Protein Urine 1+ (Negative); RBC Urine Automated 0-2 /hpf (0-2); Specific Gravity Urine 1.013 (1.000-1.030); Urobilinogen Urine Negative (Negative); WBC Urine Automated 0-5 /hpf (0-5); pH Urine 6.5 (4.5-7.5)
[2024-08-09 13:37] LABS: Thyroid Stimulating Hormone 2.867 uIu/ml (0.300-4.500)
--- NOTE | 2024-08-09 13:54 | CT Scan Report ---
CT OF THE HEAD WITHOUT CONTRAST CLINICAL HISTORY: Fall. COMPARISON STUDY: Head CT and CTA of the head November 14, 2022. TECHNIQUE: Helical axial images of the head were obtained without IV contrast. Automated exposure con trol was utilized for the study. A dose lowering technique was utilized adhering to the principles o f ALARA. FINDINGS: No acute intracranial hemorrhage is present. Left-sided craniotomy and suspected aneurysm c lips are noted. Encephalomalacia within the left frontal and temporal lobes with associated dilatatio n of the left lateral ventricle is unchanged. The basal cisterns are patent. There are no extra-axial collections. There are no findings to suggest acute dural sinus thrombosis or acute territorial infa rct. There are no calvarial fractures. IMPRESSION: 1. No acute intracranial findings. No change in appearance of the brain. Stable postoperative finding s. 2. No calvarial fractures. ACT 112: Negative or not required by law. Electronically signed by: Mohan Calvo M.D. 08/09/2024 1:53 PM
--- NOTE | 2024-08-09 13:58 | CT Scan Report ---
CT OF THE CERVICAL SPINE WITHOUT CONTRAST CLINICAL HISTORY: fall COMPARISON STUDY: Cervical spine CT December 11, 2020. TECHNIQUE: Helical axial images of the cervical spine were obtained without IV contrast. Sagittal a nd coronal reconstructions were viewed. Automated exposure control was utilized for the study. A do se lowering technique was utilized adhering to the principles of ALARA. FINDINGS: Reversal of the cervical lordosis and mild anterolisthesis of C4 on C5 is unchanged. There is moderate multilevel facet arthrosis, disc space narrowing and osteophytosis within the cervical sp ine. There is no cervical spine fracture. No osseous lesions are present. Central canal and neural fo ramen are suboptimally assessed given CT technique. There is no prevertebral edema. IMPRESSION: 1. No acute cervical spine fracture or subluxation. 2. Moderate multilevel facet arthrosis and degenerative disc disease within the cervical spine. ACT 112: Negative or not required by law. Electronically signed by: Mohan Calvo M.D. 08/09/2024 1:56 PM
[2024-08-09] MEDS: ACETAMINOPHEN 1,000 MG/100 ML VIAL IV STA (14:02)
[2024-08-09] MEDS: ONDANSETRON INJ 2 MG/ML 2 ML VIAL IV STA (14:02)
--- NOTE | 2024-08-09 14:10 | CT Scan Report ---
CT thoracic spine wo con CLINICAL HISTORY: fall, uppper back pain COMPARISON STUDY: Abdominal CT of 05/16/2019 FINDINGS: There is osteopenia. There is an interval mild vertebral body compression fracture at T12. No other fracture or subluxation seen of the thoracic spine. There are mild diffuse degenerative figueroa ges. IMPRESSION: 1. Interval mild vertebral body compression fracture at T12 could be subacute or chronic. Suggest cli nical correlation for point tenderness. 2. No other acute fracture seen of the thoracic spine. ACT 112: Negative or not required by law. Electronically signed by: John Cee M.D. 08/09/2024 2:08 PM
--- NOTE | 2024-08-09 17:04 | History & Physical Report ---
Date of Service August 09, 2024 Assessment & Plan (1) Pain in left shoulder: Plan: Patient with generalized weakness Not tolerating her narcotics. She will remain on toradol and tylenol. She required IVtyelnol and toradol for pain. will try to limit narcotics. ortho consult are limitied over the weekend will hold until Monday. will consult PT/OT (2) Generalized weakness: Plan: consult PT/OT (3) Hypertension: Plan: resume home meds (4) Lower urinary tract symptoms: Plan: conitnue macrobid.symptoms are improving. (5) Vitamin B 12 deficiency: Plan dvt: lovenox code: dnr/dni History of Present Illness Chief Complaint: worsening pain. Primary Care Provider: DO Maureen Valentin 79 yo female presents to the ED for generalized weakness and uncontrolled pain. This has been on going for the past week without improvement. Patient has been with chronic pain from her left shoulder and right knee here she is planning to have surgery with Dr. Liz (DC) Patient recently began taking oxycodone but starting to complain of nausea. Her associated symptoms: neck pain, upper back pain, sternal pain, nausea, syncope. Pain is currently better now on tylenol and toradol. Allergies Allergy/AdvReac Type Severity Reaction Status Date / Time methocarbamol Allergy Severe felt like Verified 07/31/24 16:02 her throat was closing vancomycin Allergy Mild HIVES Verified 07/31/24 16:02 ciprofloxacin [From Cipro] AdvReac Intermediate Vomiting Verified 07/31/24 16:02 Home Medications Medication Instructions Recorded Confirmed Type cholecalciferol (vitamin D3) 125 125 mcg PO HS 03/10/21 08/09/24 History mcg (5,000 unit) capsule timolol maleate 0.5 % eye drops 1 drp OPL QAM 09/16/21 08/09/24 History syringe with needle 3 mL 23 x 1" #4 ea 11/29/21 05/14/24 Rx (BD Eclipse Luer-Guerita) [id number] D3-phosphorus 2 tbsp PO QAM 07/10/22 08/09/24 History cod liver oil 10 ml PO QAM 07/10/22 08/09/24 History coenzyme Q10 400 mg capsule 400 mg PO QAM 07/10/22 08/09/24 History glucosamine-chondroitin 250 mg-200 21 tab PO QAM 07/10/22 08/09/24 History mg tablet (Osteo Bi-Flex) vitamin C 50 mg-biotin 1,250 mcg 2 tab PO QAM 07/10/22 08/09/24 History chewable tablet (Znag-Eogw-Cajsi (vit C-biotin)) vitamin E 268 mg (400 unit) capsule 268 mg PO QAM 07/10/22 08/09/24 History foot brace #1 ea 02/08/23 05/14/24 Rx magnesium 250 mg tablet 250 mg PO DAILY #30 tabs 05/12/23 08/09/24 Rx potassium chloride 8 mEq 8 meq PO QPM #90 caps 09/14/23 08/09/24 Rx capsule,extended release pantoprazole 40 mg tablet,delayed 40 mg PO QAM #90 tabs 11/28/23 08/09/24 Rx release atorvastatin 40 mg tablet 40 mg PO QPM #90 tabs 04/14/24 08/09/24 Rx amlodipine 5 mg tablet 5 mg PO DAILY #90 tabs 07/04/24 08/09/24 Rx Myrbetriq 50 mg tablet,extended 50 mg PO DAILY #90 tabs 07/15/24 08/09/24 Rx release (mirabegron) clopidogrel 75 mg tablet 75 mg PO QPM 08/09/24 08/09/24 History nitrofurantoin 100 mg PO BID 08/09/24 08/09/24 History monohydrate/macrocrystals 100 mg capsule oxycodone 5 mg tablet 5 - 10 mg PO Q6H PRN Pain 08/09/24 08/09/24 History Past Med/Surg History Problem List (Updated 08/10/24 @ 00:07 by Background Daemon) New onset a-fib (Acute) Closed compression fracture of thoracic vertebra (Acute) Knee pain, right (Acute) Neck pain (Acute) Pain in left shoulder (Acute) Generalized weakness (Acute) Frequent falls Neurologic gait dysfunction Glenohumeral arthritis of child Left shoulder pain (Acute) Leg pain Adverse effect of drug that primarily affects musculoskeletal system S/P Botox injection Urinary incontinence Polyarthralgia Generalized joint pain Bilateral leg weakness (Acute) Abrasion of right forearm Foot drop, right 1st MTP arthritis Hypertension Atherogenic dyslipidemia Arthritis, midfoot Insomnia (Chronic) Intracranial aneurysm (Chronic) Pancreatic mass Vertebral artery stenosis (Acute) Venous insufficiency (Acute) Subclavian artery stenosis, right (Acute) 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 Abilio Prasad, normal, recheck 10 years S/P foot surgery (~2017) S/P brain surgery (~2012) Hx laparoscopic cholecystectomy (03/07/19) Laparoscopic Cholecystectomy - Flavio Arroyo, DO Endoscopic Retrograde Cholangiopancreatogram - Yoel Swartz MD S/P ERCP S/P laparoscopic cholecystectomy H/O vaginal hysterectomy (01/24/12) Family History Mother Breast cancer Diabetes Aneurysm Father Myocardial infarction Hypertension Heart disease Brother Diabetes Aneurysm Sister Hypertension Aneurysm Other Cerebral aneurysm Denies family history of Colon cancer Ovarian cancer Prostate cancer Social History Smoking Status: Former smoker Tobacco Type: Cigarettes Second Hand Exposure: No; Do You Dip or Chew Tobacco: No; Hx Alcohol Use: No Hx Substance Use: No Preferred Language: Wolof Communication Ability: Effective Communication Ability Comment: forgetful at times Visual Impairment: Limited Hearing Ability: Normal Food Aide Required: No Beliefs That Will Affect Care: None marital status: Current Living Situation: Family Current Living Situation Comment: lives in upstairs of house, DIL lives in bottom of house current occupational status: retired Other Information That Helps Us Care for You: No Feels Safe at Home: Yes Safety Concerns: Feels Safe At This Time Safety Concerns Comment: Has safety bars, cane, shower chair. Does not use stairs. Childhood Exposure to Second-Hand Smoke: No Diet: regular caffeine: Yes (Tea) during the past year weight has: remained stable Dental Care, Regularly: Yes Physical Activity Frequency: Does not Exercise Seatbelt Use: always Sunscreen Use: Yes Assistive Devices: Cane, Glasses, Walker and Wheelchair Review of Systems Constitutional: + body aches; no fever Eyes: no blind spots and no discharge Ear, Nose, Mouth, Throat: no ear pain Respiratory: no cough and no dyspnea Cardiovascular: no chest pain Gastrointestinal: no abdominal pain and no early satiety Integumentary: no acne Neurologic: no tingling Hematologic / Lymphatic: no easy bleeding Allergy / Immunological: no GI upset with certain foods Physical Exam Constitutional: WD/WN, vitals as above ENMT: external ear and nose normal, oropharynx normal Neck: trachea midline, no thyromegaly Respiratory: normal respiratory effort, lungs clear to auscultation Cardiovascular: RRR, no murmur, no edema Gastrointestinal (Abdomen): normal bowel sounds, soft, nontender, no hepatosplenomegaly Musculoskeletal: no cyanosis or clubbing, extremities motor strength 5/5 Neurologic: PERRL, EOMI, accommodation nl, no face palsy, no dysarthria Psychiatric: A+Ox3, euthymic affect Results & Data Results & Data Vital Signs (Past 12 Hours) Vital Signs Temp Pulse Pulse Resp BP BP Pulse Ox 08/09/24 16:39 85 08/09/24 15:03 81 17 105/63 94 08/09/24 12:41 81 08/09/24 12:08 37.2 C 83 20 144/87 H 93 O2 Del Method 08/09/24 16:39 08/09/24 15:03 Room Air 08/09/24 12:41 08/09/24 12:08 Room Air PG Care Time/CCT Total # of Minutes Spent Total Time Spent with Patient: Total time spent is greater than 50% in coordination of care (as documented) at patient's floor/unit and/or counseling patient: Coding Level of Care Code 79888 INT INP/OBS CARE 3/75MIN Diagnoses Pain in left shoulder M25.512 Generalized weakness R53.1 Hypertension I10 Hypertension type: unspecified Lower urinary tract symptoms R39.9 Vitamin B 12 deficiency E53.8 (3) Hypertension Hypertension type: unspecified Qualified Code(s): I10 - Essential (primary) hypertension
[2024-08-09] MEDS: KETOROLAC TROMETHAMINE 15 MG/ML VIAL IV ONE (18:00)
--- NOTE | 2024-08-09 20:37 | Electrocardiogram Report ---
Test Reason : Blood Pressure : */* mmHG Vent. Rate : 83 BPM Atrial Rate : * BPM P-R Int : * ms QRS Dur : 92 ms QT Int : 348 ms P-R-T Axes : * -37 73 degrees QTcB Int : 408 ms Atrial fibrillation Left axis deviation Incomplete right bundle branch block Abnormal ECG When compared with ECG of 10-May-2023 06:16, Atrial fibrillation has replaced Sinus rhythm Incomplete right bundle branch block is now Present Confirmed by Terrance Sosa ([id number]) on 08/09/2024 8:36:50 PM Referred By: REFERRED SELF Confirmed By: Terrance Sosa
--- NOTE | 2024-08-09 20:46 | Electrocardiogram Report ---
Test Reason : Blood Pressure : */* mmHG Vent. Rate : 78 BPM Atrial Rate : * BPM P-R Int : * ms QRS Dur : 92 ms QT Int : 350 ms P-R-T Axes : * -21 69 degrees QTcB Int : 399 ms Atrial fibrillation Minimal voltage criteria for LVH, may be normal variant Abnormal ECG When compared with ECG of 09-Aug-2024 12:46, (unconfirmed) Incomplete right bundle branch block is no longer Present Confirmed by Terrance Sosa ([id number] on 08/09/2024 8:46:09 PM Referred By: REFERRED SELF Confirmed By: Terrance Sosa
[2024-08-09] MEDS: CLOPIDOGREL BISULFATE 75 MG TAB PO SCH (21:33)
[2024-08-09] MEDS: ACETAMINOPHEN 325 MG TAB PO SCH (21:33)
[2024-08-09] MEDS: NITROFURANTOIN MONOHYDRATE 100 MG CAP PO SCH (21:33)
[2024-08-09] MEDS: CHOLECALCIFEROL 125 MCG (5,000 UNITS) TAB PO SCH (21:34)
[2024-08-09] MEDS: ATORVASTATIN 40 MG TAB PO SCH (21:34)
[2024-08-10] MEDS: KETOROLAC TROMETHAMINE 15 MG/ML VIAL IV ONE (06:18)
[2024-08-10] MEDS ORDERED: TIMOLOL MALEATE 0.5% OP SOLN 5 ML BTL OPL SCH (09:00)
[2024-08-10] MEDS: VIBEGRON 75 MG TAB PO SCH (09:00)
[2024-08-10] MEDS ORDERED: COENZYME Q10 400 MG PO SCH (09:00)
[2024-08-10] MEDS: TIMOLOL MALEATE 0.5% OP SOLN 5 ML BTL OPL SCH (09:00)
[2024-08-10] MEDS ORDERED: NON-FORMULARY MEDICATION (Glucosamine-Chondroitin [Osteo Bi-Flex] 250-200 mg Tablet) PO SCH (09:00)
[2024-08-10] MEDS: OMEGA-3 (PURIFIED FISH OIL) 1 GM CAP PO SCH (09:01)
[2024-08-10] MEDS: amLODIPine BESYLATE 5 MG TAB PO SCH (09:01)
[2024-08-10] MEDS: MAGNESIUM OXIDE 400 MG TAB PO SCH (09:01)
[2024-08-10] MEDS: CALCIUM 600MG + VIT D 400 IU TAB PO SCH (09:01)
[2024-08-10] MEDS: PANTOprazole 40 MG TAB PO SCH (09:01)
--- NOTE | 2024-08-10 12:15 | Cardiology Consultation ---
Date of Consultation August 10, 2024 Assessment & Plan (1) New onset a-fib: (2) S/P brain surgery: Plan 79-year-old woman admitted with nonspecific musculoskeletal complaints and incidentally noted to have new onset atrial fibrillation. Likely has underlying chronotropic incompetence given absence of tachycardia in patient on no negative chronotropic medications. Based on overnight telemetry and only rare palpitations, it appears she will not need rate control. With [id number] score of at least 4 and perhaps 5 (age, gender, hypertension, cerebral vascular disease) would recommend chronic anticoagulation. Given age greater than 80 and weight less than 60 kg would initiate reduced dose apixaban at 2.5 mg p.o. twice daily and discontinue clopidogrel. The apixaban should offer thromboembolic protection from her cerebrovascular disease and the bleeding risk of dual therapy (apixaban and clopidogrel) would be significantly increased in this elderly patient. Stable from a cardiovascular standpoint, will sign off. Please contact if any change in her status. Cardiology follow-up on a routine basis with Dr. Elizalde. History of Present Illness Reason for Consultation: new onset a fib Requesting Physician: Kory Malone Attending Physician: Kory Malone History of Present Illness 79-year-old woman with no prior cardiac history admitted with generalized weakness and uncontrolled musculoskeletal pain, incidentally noted to be in new onset atrial fibrillation. Although she has no history of dysrhythmia, valvular heart disease, or coronary artery disease, she was followed by Dr. Elizalde for hypertension, dyslipidemia, and was noted to have had resection of an intracranial aneurysm (on clopidogrel to decrease risk of thrombus). Multiple ECGs over the years have shown only si nus rhythm. A Lexiscan in 2022 was negative for myocardial ischemia. Echocardiogram in 2021 showed normal LV systolic function with no wall motion values, only trivial valvular disease. She was admitted yesterday for significant bilateral knee and left shoulder arthralgias in order to achieve pain control. Initial ECG showed atrial fibrillation with ventricular rate 78 bpm, evidence of LVH but otherwise unremarkable. Troponin 3.3. She notes ongoing arthralgias but denies chest pain at any time. She is able to ambulate with her walker and denies dyspnea on exertion. No lightheadedness, presyncope, or syncope. She does note occasional tachypalpitations in the evening, but these are always transient and there are no associated symptoms. None recently. At the time my evaluation this morning, her only somatic complaint was ongoing arthralgias. Telemetry showed atrial fibrillation with rate generally in the 70 to 80 bpm range, only rarely reaching 110 bpm briefly. Allergies Allergy/AdvReac Type Severity Reaction Status Date / Time methocarbamol Allergy Severe felt like Verified 07/31/24 16:02 her throat was closing vancomycin Allergy Mild HIVES Verified 07/31/24 16:02 ciprofloxacin [From Cipro] AdvReac Intermediate Vomiting Verified 07/31/24 16:02 Home Medications Medication Instructions Recorded Confirmed Type cholecalciferol (vitamin D3) 125 125 mcg PO HS 03/10/21 08/09/24 History mcg (5,000 unit) capsule timolol maleate 0.5 % eye drops 1 drp OPL QAM 09/16/21 08/09/24 History syringe with needle 3 mL 23 x 1" #4 ea 11/29/21 05/14/24 Rx (BD Eclipse Luer-Guerita) [id number] D3-phosphorus 2 tbsp PO QAM 07/10/22 08/09/24 History cod liver oil 10 ml PO QAM 07/10/22 08/09/24 History coenzyme Q10 400 mg capsule 400 mg PO QAM 07/10/22 08/09/24 History glucosamine-chondroitin 250 mg-200 21 tab PO QAM 07/10/22 08/09/24 History mg tablet (Osteo Bi-Flex) vitamin C 50 mg-biotin 1,250 mcg 2 tab PO QAM 07/10/22 08/09/24 History chewable tablet (Uoiu-Lpnn-Pkatf (vit C-biotin)) vitamin E 268 mg (400 unit) capsule 268 mg PO QAM 07/10/22 08/09/24 History foot brace #1 ea 02/08/23 05/14/24 Rx magnesium 250 mg tablet 250 mg PO DAILY #30 tabs 05/12/23 08/09/24 Rx potassium chloride 8 mEq 8 meq PO QPM #90 caps 09/14/23 08/09/24 Rx capsule,extended release pantoprazole 40 mg tablet,delayed 40 mg PO QAM #90 tabs 11/28/23 08/09/24 Rx release atorvastatin 40 mg tablet 40 mg PO QPM #90 tabs 04/14/24 08/09/24 Rx amlodipine 5 mg tablet 5 mg PO DAILY #90 tabs 07/04/24 08/09/24 Rx Myrbetriq 50 mg tablet,extended 50 mg PO DAILY #90 tabs 07/15/24 08/09/24 Rx release (mirabegron) clopidogrel 75 mg tablet 75 mg PO QPM 08/09/24 08/09/24 History nitrofurantoin 100 mg PO BID 08/09/24 08/09/24 History monohydrate/macrocrystals 100 mg capsule oxycodone 5 mg tablet 5 - 10 mg PO Q6H PRN Pain 08/09/24 08/09/24 History Patient History Medical History Right fibular fracture Osteoarthritis of knees, bilateral Ulcer High cholesterol Cazares's cyst of knee Trochanteric bursitis Chronic osteoarthritis Depression History of blood clots Glaucoma Arthritis Liver lesion, left lobe Cholecystitis, acute Renal artery stenosis Hemiplegia affecting dominant side Subarachnoid hemorrhage Surgical History History of colonoscopy Dr. Abilio Prasad, normal, recheck 10 years S/P foot surgery (~2017) S/P brain surgery (~2012) Hx laparoscopic cholecystectomy (03/07/19) Laparoscopic Cholecystectomy - Flavio Arroyo, DO Endoscopic Retrograde Cholangiopancreatogram - Yoel Swartz MD S/P ERCP S/P laparoscopic cholecystectomy H/O vaginal hysterectomy (01/24/12) Family History Mother Breast cancer Diabetes Aneurysm Father Myocardial infarction Hypertension Heart disease Brother Diabetes Aneurysm Sister Hypertension Aneurysm Other Cerebral aneurysm Denies family history of Colon cancer Ovarian cancer Prostate cancer Social History Smoking Status: Former smoker Tobacco Type: Cigarettes Second Hand Exposure: No; Do You Dip or Chew Tobacco: No; Hx Alcohol Use: No Hx Substance Use: No Preferred Language: Belarusian Communication Ability: Effective Communication Ability Comment: forgetful at times Visual Impairment: Limited Hearing Ability: Normal Jalousie Installer Required: No Beliefs That Will Affect Care: None marital status: Current Living Situation: Family Current Living Situation Comment: lives in upstairs of house, NETO lives in bottom of house current occupational status: retired Other Information That Helps Us Care for You: No Feels Safe at Home: Yes Safety Concerns: Feels Safe At This Time Safety Concerns Comment: Has safety bars, cane, shower chair. Does not use stairs. Childhood Exposure to Second-Hand Smoke: No Diet: regular caffeine: Yes (Tea) during the past year weight has: remained stable Dental Care, Regularly: Yes Physical Activity Frequency: Does not Exercise Seatbelt Use: always Sunscreen Use: Yes Assistive Devices: Cane, Glasses, Walker and Wheelchair Physical Exam Physical Exam: Elderly white female in no apparent distress. Afebrile. BP mildly hypertensive. Pulse 80 bpm and irregular. Respirations 18 and unlabored. Skin: no ecchymoses or generalized lesions. HEENT: unremarkable. Neck: JVP at the clavicle at 90 degrees, no carotid bruits. Lungs: clear. Cardiac: Irregular but nontachycardic rhythm, normal S1-2, no murmur. Abdomen: benign. Extremities: no edema, pulses intact. Neurologic: normal affect and conversation, nonfocal. Results & Data Vital Signs (Past 12 Hours) Vital Signs Temp Pulse Pulse Resp BP Pulse Ox O2 Del Method 08/10/24 10:51 97.7 F 79 18 157/94 H 99 Room Air 08/10/24 09:00 Room Air 08/10/24 07:18 97.7 F 66 17 105/68 97 Room Air 08/10/24 07:11 74 08/10/24 04:21 97.5 F L 74 18 136/86 97 Room Air Laboratory Results Troponin 3.3. Normal sodium and potassium, BUN 16, creatinine 0.65. Hemoglobin 11.1 with normal white count and platelet count. Magnesium 1.5. Normal TSH. Diagnostic Findings Chest x-ray unremarkable. Head CT with no acute findings. Evidence of left-sided craniotomy with aneurysm al clips. Encephalomalacia noted. Thoracic CT showed subacute or chronic T12 compression fracture. ECG, echo, Lexiscan results as per HPI. PG Care Time/CCT Total # of Minutes Spent Total Time Spent with Patient: Total time spent is greater than 50% in coordination of care (as documented) at patient's floor/unit and/or counseling patient: Coding Level of Care Code 35135 IN/OBS CONSULT LVL 4,60M Diagnoses New onset a-fib I48.91 S/P brain surgery Z98.890
[2024-08-10] MEDS: ENOXAPARIN INJ 40 MG/0.4 ML SYR SQ SCH (13:23)
[2024-08-10] MEDS: POTASSIUM CHLORIDE CRTAB 20 MEQ TABCR PO STA (15:59)
--- NOTE | 2024-08-10 23:20 | Hospitalist Progress Note ---
Date of Service August 10, 2024 Assessment & Plan (1) Pain in left shoulder: Plan: Patient with generalized weakness Not tolerating her narcotics. She will remain on toradol and tylenol. She required IVt yelnol and toradol for pain. will try to limit narcotics. ortho consult are limitied over the weekend will hold until Monday. will consult PT/OT Pain appears better controlled on 08/10 however she is requiring IV toradol intermittently. (2) Generalized weakness: Plan: consult PT/OT (3) Hypertension: Plan: resume home meds (4) Lower urinary tract symptoms: Plan: conitnue macrobid.symptoms are improving. (5) Vitamin B 12 deficiency: (6) New onset a-fib: Plan: rate appears to be controlled. will stop plavix and order apixaban 2.5 mg PO BID. concern over risk of bleeding and apixaban should provide thromboembolic protection. Plan dvt: lovenox code: dnr/dni Admission and Anticipated Discharge Date Admission Date: August 09, 2024 Subjective Patient reports no new symptoms. Physical Exam Constitutional: WD/WN, vitals as above ENMT: external ear and nose normal, oropharynx normal Neck: trachea midline, no thyromegaly Respiratory: normal respiratory effort, lungs clear to auscultation Cardiovascular: RRR, no murmur, no edema Gastrointestinal (Abdomen): normal bowel sounds, soft, nontender, no hepatosplenomegaly Musculoskeletal: no cyanosis or clubbing, extremities motor strength 5/5 Neurologic: PERRL, EOMI, accommodation nl, no face palsy, no dysarthria Psychiatric: A+Ox3, euthymic affect Results & Data Results & Data Vital Signs (Past 12 Hours) Vital Signs Temp Pulse Pulse Resp BP Pulse Ox O2 Del Method 08/10/24 18:57 36.8 C 90 18 120/83 95 Room Air 08/10/24 15:55 36.7 C 93 H 19 137/84 95 Room Air 08/10/24 13:59 88 PG Care Time/CCT Total # of Minutes Spent Total Time Spent with Patient: Total time spent is greater than 50% in coordination of care (as documented) at patient's floor/unit and/or counseling patient: Coding Level of Care Code 78980 SUB INP/OBS CARE 3/50MIN Diagnoses Pain in left shoulder M25.512 Generalized weakness R53.1 Hypertension I10 Hypertension type: unspecified Lower urinary tract symptoms R39.9 Vitamin B 12 deficiency E53.8 New onset a-fib I48.91 (3) Hypertension Hypertension type: unspecified Qualified Code(s): I10 - Essential (primary) hypertension
[2024-08-11] MEDS: KETOROLAC TROMETHAMINE 15 MG/ML VIAL IV ONE (06:29)
[2024-08-11 06:57] LABS: Hematocrit (blood only) 32.1 % (37.0-47.0); Hemoglobin 10.5 g/dl (12.0-16.0); Mean Corpuscular Hgb Conc 32.7 g/dL (32.0-36.0); Mean Corpuscular Volume 94.7 fL (80.0-100.0); Mean Platelet Volume 10.4 fL (9.4-12.4); Platelet Count 225 K/uL (130-400); RDW Coefficient of Variation 13.2 % (11.5-14.5); RDW Standard Deviation 45.8 fL (36.4-46.3); Red Blood Count 3.39 M/uL (4.20-5.40); White Blood Count 5.55 K/ul (4.8-10.8)
[2024-08-11 07:11] LABS: BUN Creatinine Ratio 31.8 (10-20); Calcium 8.2 mg/dl (8.6-10.3); Creatinine Clr Calc Pharmacy 52.9 ml/min; Potassium 4.1 mmol/L (3.5-5.1)
[2024-08-11] MEDS: APIXABAN 2.5 MG TAB PO SCH (09:43)
[2024-08-11 19:29] VITALS: RESP 18
[2024-08-11] MEDS: MELATONIN 3 MG TAB PO PRN (19:54)
--- NOTE | 2024-08-11 22:56 | Hospitalist Progress Note ---
Date of Service August 11, 2024 Assessment & Plan (1) Pain in left shoulder: Plan: Patient with generalized weakness Not tolerating her narcotics. She will remain on toradol and tylenol. She required IVt yelnol and toradol for pain. will try to limit narcotics. ortho consult are limitied over the weekend will hold until Monday. will consult PT/OT Pain appears better controlled on 08/11 however she is requiring IV toradol intermittently. (2) Generalized weakness: Plan: consult PT/OT (3) Hypertension: Plan: resume home meds (4) Lower urinary tract symptoms: Plan: conitnue macrobid.symptoms are improving. (5) Vitamin B 12 deficiency: (6) New onset a-fib: Plan: rate appears to be controlled. stopped plavix continue apixaban 2.5 mg PO BID. concern over risk of bleeding and apixaban should provide thromboembolic protection. Plan dvt: lovenox code: dnr/dni Admission and Anticipated Discharge Date Admission Date: August 09, 2024 Subjective Patient reports she continues to have pain but has no new symptoms. Physical Exam Constitutional: WD/WN, vitals as above ENMT: external ear and nose normal, oropharynx normal Neck: trachea midline, no thyromegaly Respiratory: normal respiratory effort, lungs clear to auscultation Cardiovascular: RRR, no murmur, no edema Gastrointestinal (Abdomen): normal bowel sounds, soft, nontender, no hepatosplenomegaly Musculoskeletal: no cyanosis or clubbing, extremities motor strength 5/5 Neurologic: PERRL, EOMI, accommodation nl, no face palsy, no dysarthria Psychiatric: A+Ox3, euthymic affect Results & Data Results & Data Vital Signs (Past 12 Hours) Vital Signs Temp Pulse Pulse Resp BP Pulse Ox O2 Del Method 08/11/24 22:41 36.7 C 87 18 113/75 96 Room Air 08/11/24 22:38 91 H 08/11/24 19:28 36.6 C 70 18 124/82 96 Room Air 08/11/24 15:11 36.3 C L 92 H 20 133/89 96 Room Air 08/11/24 14:14 83 PG Care Time/CCT Total # of Minutes Spent Total Time Spent with Patient: Total time spent is greater than 50% in coordination of care (as documented) at patient's floor/unit and/or counseling patient: Coding Level of Care Code 20455 SUB INP/OBS CARE 3/50MIN Diagnoses Pain in left shoulder M25.512 Generalized weakness R53.1 Hypertension I10 Hypertension type: unspecified Lower urinary tract symptoms R39.9 Vitamin B 12 deficiency E53.8 New onset a-fib I48.91 (3) Hypertension Hypertension type: unspecified Qualified Code(s): I10 - Essential (primary) hypertension
[2024-08-12] MEDS: KETOROLAC TROMETHAMINE 15 MG/ML VIAL IV ONE (05:32)
--- NOTE | 2024-08-12 12:34 | Orthopedic Consultation ---
Date of Service August 12, 2024 Assessment & Plan (1) Knee pain, right: Patient is experiencing right knee pain. I do believe that this is likely from degeneration in her inner knee. On imaging on 07/26/2024, there are no acute abnormalities, fractures or malalignment noted. They state that she did not have any injuries to her knees since this imaging series, therefore I do not think that she needs any new ones. No effusion at today's visit or soft tissue swelling. No erythema. We did discuss treatment options. She did have an appointment with Dr. Lynn in our office tomorrow for evaluation of this knee pain and possibly an injection. I did discuss with her an injection at today's visit. I do not see any contraindications. She has done well with Kenalog injections in the past. Please see procedure note below for right knee corticosteroid injection. She should wait at least 3 months until she can get another corticosteroid injection in this knee. She can follow-up as an outpatient as needed in regards the right knee. PROCEDURE = RIGHT KNEE CORTICOSTEROID INJECTION: After explanation of the procedure and medications and verification of allergies, the knee was sterilely prepped with a combination of alcohol and Betadine. Using sterile technique and a 21-G needle, 1 cc of Kenalog 40 mg and 4 cc of quarter percent Marcaine were injected through the lateral portal in the sitting position. The patient tolerated the procedure well. The site was dressed with a Band-Aid. Post injection care was explained. (2) Pain in left shoulder: In regards to the patient's left shoulder, unfortunately, she is having pain from her glenohumeral osteoarthritis. She does have a shoulder replacement scheduled in the middle of September with Dr. Liz. I advised against a corticosteroid injection because A) they do not work for her anymore and B) she has an upcoming procedure on the shoulder, therefore the injection should not be considered. Patient is understanding. She can ice the area, continue to mobilize as tolerated. Pain control as per the hospitalist team for this issue. (3) Closed compression fracture of thoracic vertebra: We did discuss the patient's low back pain at today's visit. On imaging above, she was found to have a T12 compression fracture age-indeterminate. She states that it is painful but not as painful as her shoulder and knee. Did explain to the patient and family that if this does continue to worsen, options such as bracing and dedicated CT of the lumbar spine can be considered. She cannot get an MRI as the patient and family state that she has clips in her brain from many years ago. She may also follow-up as an outpatient for this on an as-needed basis with our spine team if needed. Encouraged him to reach out to the nursing staff or hospitalist team if they feel that the back pain is worsening. She is not having any neurological deficits, bowel or bladder disturbances or bilateral lower extremity radiculopathy symptoms. History of Present Illness Reason for Consultation: left shoulder pain and right knee pain Requesting Physician: . Attending Physician: Kory Beth Kira Lund is an 79 year old female who was asked to be seen by the hospitalist team today for left shoulder and right knee pain. Her most recent ED admission was on 08/09/24 for generalized weakness and not doing well at home. She was admitted to the hospital for this issue. The patient's oiuietar-da-olr is here with her today at my visit. They state that she has had many injections in her left shoulder by Dr. Lynn at [facility]. She was recently seen by Dr. Liz who recommended a left americo tomical shoulder replacement as injections have not been reducing her pain or helping anymore. She is scheduled for the middle of September for this procedure. She denies any worsening shoulder pain or changes to her shoulder pain. She states it is just difficult to manage at home at this point. She denies any numbness or tingling in her left upper extremity. In regards to her knee, the patient also states this has been bothering her for some time but recently has gotten worse. She has not been seen by orthopedics for this yet, but actually had an appointment scheduled tomorrow with Dr. Lynn for a possible right knee injection. She denies any feeling of numbness or tingling in the bilateral lower extremities. No other questions or concerns regarding the knee. She does also state that she has some back pain. She is unsure of when it truly started. She has just noticed it more lately after a CT of the Thoracic spine showed a T12 fracture. Other than some back pain. no other questions or concerns. Allergies Allergy/AdvReac Type Severity Reaction Status Date / Time methocarbamol Allergy Severe felt like Verified 07/31/24 16:02 her throat was closing vancomycin Allergy Mild HIVES Verified 07/31/24 16:02 ciprofloxacin [From Cipro] AdvReac Intermediate Vomiting Verified 07/31/24 16:02 Home Medications Medication Instructions Recorded Confirmed Type cholecalciferol (vitamin D3) 125 125 mcg PO HS 03/10/21 08/14/24 History mcg (5,000 unit) capsule timolol maleate 0.5 % eye drops 1 drp OPL QAM 09/16/21 08/14/24 History syringe with needle 3 mL 23 x 1" #4 ea 11/29/21 08/14/24 Rx (BD Eclipse Luer-Guerita) coenzyme Q10 400 mg capsule 400 mg PO QAM 07/10/22 08/14/24 History glucosamine-chondroitin 250 mg-200 21 tab PO QAM 07/10/22 08/14/24 History mg tablet (Osteo Bi-Flex) vitamin C 50 mg-biotin 1,250 mcg 2 tab PO QAM 07/10/22 08/14/24 History chewable tablet (Xnty-Mapx-Thxck (vit C-biotin)) vitamin E 268 mg (400 unit) capsule 268 mg PO QAM 07/10/22 08/14/24 History foot brace #1 ea 02/08/23 08/14/24 Rx magnesium 250 mg tablet 250 mg PO DAILY #30 tabs 05/12/23 08/14/24 Rx potassium chloride 8 mEq 8 meq PO QPM #90 caps 09/14/23 08/14/24 Rx capsule,extended release pantoprazole 40 mg tablet,delayed 40 mg PO QAM #90 tabs 11/28/23 08/14/24 Rx release atorvastatin 40 mg tablet 40 mg PO QPM #90 tabs 04/14/24 08/14/24 Rx amlodipine 5 mg tablet 5 mg PO DAILY #90 tabs 07/04/24 08/14/24 Rx Myrbetriq 50 mg tablet,extended 50 mg PO DAILY #90 tabs 07/15/24 08/14/24 Rx release (mirabegron) acetaminophen 325 mg tablet 650 mg (2 x 325 mg) PO QID #120 08/13/24 08/14/24 Rx tabs apixaban 2.5 mg tablet (Eliquis) 2.5 mg PO BID #60 tabs 08/13/24 08/14/24 Rx calcitonin (salmon) 200 1 spray NA Q24H #3.7 mL 08/13/24 08/14/24 Rx unit/actuation nasal spray tramadol 50 mg tablet 50 mg PO Q8H PRN break through 08/13/24 08/14/24 Rx pain >6 out of 10 #14 tabs Past Med/Surg History Problem List (Updated 08/12/24 @ 13:30 by JAMAR Patel) Closed compression fracture of thoracic vertebra (Acute ~08/09/24) Interval mild vertebral body compression fracture at T12 could be subacute or chronic New onset a-fib (Acute) Closed compression fracture of thoracic vertebra (Acute ~08/09/24) Interval mild vertebral body compression fracture at T12 could be subacute or chronic. Knee pain, right (Acute) Neck pain (Acute) Pain in left shoulder (Acute) Generalized weakness (Acute) Frequent falls Neurologic gait dysfunction Glenohumeral arthritis of child Left shoulder pain (Acute) Leg pain Adverse effect of drug that primarily affects musculoskeletal system S/P Botox injection Urinary incontinence Polyarthralgia Generalized joint pain Bilateral leg weakness (Acute) Abrasion of right forearm Foot drop, right 1st MTP arthritis Hypertension Atherogenic dyslipidemia Arthritis, midfoot Insomnia (Chronic) Intracranial aneurysm (Chronic) Pancreatic mass Vertebral artery stenosis (Acute) Venous insufficiency (Acute) Subclavian artery stenosis, right (Acute) 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 Abilio Prasad, normal, recheck 10 years S/P foot surgery (~2017) S/P brain surgery (~2012) Hx laparoscopic cholecystectomy (03/07/19) Laparoscopic Cholecystectomy - Flavio D. Arroyo, DO Endoscopic Retrograde Cholangiopancreatogram - Yoel Swartz MD S/P ERCP S/P laparoscopic cholecystectomy H/O vaginal hysterectomy (01/24/12) Family History Mother Breast cancer Diabetes Aneurysm Father Myocardial infarction Hypertension Heart disease Brother Diabetes Aneurysm Sister Hypertension Aneurysm Other Cerebral aneurysm Denies family history of Colon cancer Ovarian cancer Prostate cancer Social History Smoking Status: Former smoker Tobacco Type: Cigarettes Second Hand Exposure: No; Do You Dip or Chew Tobacco: No; Hx Alcohol Use: No Hx Substance Use: No Preferred Language: Surinamese Communication Ability: Effective Communication Ability Comment: forgetful at times Visual Impairment: Limited Hearing Ability: Normal Lapping Machine Tender Required: No Beliefs That Will Affect Care: None marital status: Current Living Situation: Family Current Living Situation Comment: lives in upstairs of house, DIL lives in bottom of house current occupational status: retired Feels Safe at Home: Yes Safety Concerns Comment: Has safety bars, cane, shower chair. Does not use stairs. Childhood Exposure to Second-Hand Smoke: No Diet: regular caffeine: Yes (Tea) during the past year weight has: remained stable Dental Care, Regularly: Yes Physical Activity Frequency: Does not Exercise Seatbelt Use: always Sunscreen Use: Yes Assistive Devices: Cane, Walker, Wheelchair and Other Review of Systems All systems reviewed & are unremarkable except as noted in HPI & below. Physical Exam General: Alert and oriented. No acute distress at my visit. Please see musculoskeletal exam below. Constitutional WD/WN, vitals as above Musculoskeletal Left shoulder: Patient does have decreased range of motion of the left shoulder as there is crepitus, pain. Crepitus and pain with forward flexion. She does not have any strength deficits. Neuro vastly intact in left upper extremity. In regards to the right knee, she does not have any effusion or soft tissue swelling in the right knee. No erythema or open wounds. She is tender to the medial joint line. She is ligamentously stable. In her bilateral lower extremities, she has comparable 5 out of 5 strength in all planes including dorsiflexion and plantarflexion. Does have some tenderness to the upper lumbar/lower thoracic spine. No open wounds here as well. Results & Data Results & Data Laboratory Results . Diagnostic Findings Shoulder x-ray on 07/26/2024: Agree with the findings below IMPRESSION: Severe left glenohumeral primary osteoarthritis. No acute abnormality. Knee x-ray on 07/26/2024: agree with the findings below however soft tissue swelling resolved on clinical exam today. IMPRESSION: 1. Soft tissue swelling. No fracture. 2. Mild lateral tibial translation. Correlate clinically for ligamentous injury. Thoracic spine CT on 08/09/24: agree with the findings below IMPRESSION: 1. Interval mild vertebral body compression fracture at T12 could be subacute or chronic. Suggest clinical correlation for point tenderness. 2. No other acute fracture seen of the thoracic spine. PG Care Time/CCT Total # of Minutes Spent Total Time Spent with Patient: Total time spent is greater than 50% in coordination of care (as documented) at patient's floor/unit and/or counseling patient: Coding Level of Care Code 85683 IN/OBS CONSULT LVL 4,60M Diagnoses Knee pain, right M25.561 Pain in left shoulder M25.512 Closed compression fracture of thoracic vertebra S22.000A
[2024-08-12] MEDS: TRIAMCINOLONE ACET 40 MG/ML VIAL IA ONE (12:53)
[2024-08-12] MEDS: ETHYL CHLORIDE AER PER SPRAY 100 ML CAN EXT ONE (12:54)
[2024-08-12] MEDS: BUPIVACAINE 0.5 % 5 MG/1 ML MPF 30ML VIAL INFIL ONE (12:54)
[2024-08-12] MEDS: CALCITONIN SALMON NA 200 IU/AC 3.7 ML BTL SCH (17:49)
--- NOTE | 2024-08-12 22:42 | Hospitalist Progress Note ---
Date of Service August 12, 2024 Assessment & Plan (1) Pain in left shoulder: Plan: Patient with generalized weakness Not tolerating her narcotics. She will remain on toradol and tylenol. She required IVt yelnol and toradol for pain. will try to limit narcotics. ortho consult completed: knee injection. consult PT/OT Due to eliquis will hold further nsaid will do trial of tramadol will also add calcitonin spray. (2) Generalized weakness: Plan: consult PT/OT (3) Hypertension: Plan: resume home meds (4) Lower urinary tract symptoms: Plan: conitnue macrobid.symptoms are improving. (5) Vitamin B 12 deficiency: (6) New onset a-fib: Plan: rate appears to be controlled. stopped plavix continue apixaban 2.5 mg PO BID. concern over risk of bleeding and apixaban should provide thromboembolic pro tection. Plan dvt: lovenox code: dnr/dni Admission and Anticipated Discharge Date Admission Date: August 09, 2024 Subjective Patient reports no new symptoms. Physical Exam Constitutional: WD/WN, vitals as above ENMT: external ear and nose normal, oropharynx normal Neck: trachea midline, no thyromegaly Respiratory: normal respiratory effort, lungs clear to auscultation Cardiovascular: RRR, no murmur, no edema Gastrointestinal (Abdomen): normal bowel sounds, soft, nontender, no hepatosplenomegaly Musculoskeletal: no cyanosis or clubbing, extremities motor strength 5/5 Neurologic: PERRL, EOMI, accommodation nl, no face palsy, no dysarthria Psychiatric: A+Ox3, euthymic affect Results & Data Results & Data Vital Signs (Past 12 Hours) Vital Signs Temp Pulse Pulse Resp BP Pulse Ox O2 Del Method 08/12/24 22:38 36.9 C 97 H 18 122/83 95 Room Air 08/12/24 19:17 36.7 C 90 18 128/81 96 Room Air 08/12/24 16:00 36.7 C 68 18 99/54 L 96 Room Air 08/12/24 15:35 101 H 08/12/24 12:00 36.8 C 65 18 116/61 97 Room Air PG Care Time/CCT Total # of Minutes Spent Total Time Spent with Patient: Total time spent is greater than 50% in coordination of care (as documented) at patient's floor/unit and/or counseling patient: Coding Level of Care Code 48029 SUB INP/OBS CARE 3/50MIN Diagnoses Pain in left shoulder M25.512 Generalized weakness R53.1 Hypertension I10 Hypertension type: unspecified Lower urinary tract symptoms R39.9 Vitamin B 12 deficiency E53.8 New onset a-fib I48.91 (3) Hypertension Hypertension type: unspecified Qualified Code(s): I10 - Essential (primary) hypertension
[2024-08-13 11:42] VITALS: BP 136/87; TEMP 97.7; O2SAT 99
--- NOTE | 2024-08-13 12:58 | Discharge Summary ---
Discharge Summary Date of Service August 13, 2024 Principal Dx & Hospital Course #1 = Principal Diagnosis (1) Pain in left shoulder: Patient with generalized weakness Not tolerating her narcotics. She will remain on toradol and tylenol. She required IVt yelnol and toradol for pain. will try to limit narcotics. ortho consult completed: knee injection. consult PT/OT Due to eliquis will hold further nsaid will do trial of tramadol will also add calcitonin spray. (2) Generalized weakness: consult PT/OT (3) Hypertension: resume home meds (4) Lower urinary tract symptoms: conitnue macrobid.symptoms are improving. (5) Vitamin B 12 deficiency: (6) New onset a-fib: rate appears to be controlled. stopped plavix continue apixaban 2.5 mg PO BID. concern over risk of bleeding and apixaban should provide thromboembolic protection. Plan dvt: lovenox code: dnr/dni August 13, 2024 12:51 1.) Likely Age-related osteoporotic fracture of T12 vertebrae 79-year-old female presents with weakness, exacerbation of her ongoing shoulder and knee pain, as well as new onset back and neck pain. She was also found to be in atrial fibrillation. Back and neck pain, per ER physician close compression fracture of the thoracic vertebrae, thoracic CT imaging confirms T12 compression fracture as well as underlying osteopenia. Treatment: IV Toradol, APAP, orthopedic consultation, Vitamin D, Wayne-Citrate plus, 2.) Osteoarthritis to the left shoulder causing shoulder pain Clinical Indicators: Left shoulder pain Risk Factor(s): Age, known history of ongoing shoulder pain Treatment: Orthopedic consultation, IV Toradol, APAP, 3.) UTI treated with Macrobid "Lower urinary tract symptoms: Continue MicroBid. Symptoms are improving." Risk Factor(s): Lower urinary tract symptoms Treatment: P.o. Macrobid Admission HPI Per Admitting Provider Pleasant 79 yo female presents to the ED for generalized weakness and uncontrolled pain. This has been on going for the past week without improvement. Patient has been with chronic pain from her left shoulder and right knee here she is planning to have surgery with Dr. Liz ([place]) Patient recently began taking oxycodone but starting to complain of nausea. Her associated symptoms: neck pain, upper back pain, sternal pain, nausea, syncope. Pain is currently better now on tylenol and toradol. Discharge Plan Discharge Items Reason For Visit: FALLS Follow-up/Referrals: Josr Peña, DO [Primary Care Provider] - Medications and DC Order Prescriptions: No Action (DME) BD Eclipse Luer-Guerita 3 mL 23 x 1" syringe See Rx Instructions .Route Qty: 4 0RF Rx Instructions: As directed (DME) foot brace See Rx Instructions .Route .MEDSUPPLY Qty: 1 0RF Rx Instructions: As directed potassium chloride 8 mEq capsule, extended release 8 meq PO QPM Qty: 90 3RF pantoprazole 40 mg tablet,delayed release (DR/EC) 40 mg PO QAM Qty: 90 3RF atorvastatin 40 mg tablet 40 mg PO QPM Qty: 90 3RF amlodipine 5 mg tablet 5 mg PO DAILY Qty: 90 3RF mirabegron [Myrbetriq] 50 mg tablet extended release 24 hr 50 mg PO DAILY Qty: 90 3RF cholecalciferol (vitamin D3) 125 mcg (5,000 unit) capsule 125 mcg PO HS timolol maleate 0.5 % drops 1 drp OPL QAM magnesium 250 mg tablet 250 mg PO DAILY Qty: 30 0RF vitamin E 268 mg (400 unit) Capsule 268 mg PO QAM glucosamine-chondroitin [Osteo Bi-Flex] 250-200 mg Tablet 21 tab PO QAM Rx Instructions: give after food/meal coenzyme Q10 400 mg Capsule 400 mg PO QAM cod liver oil Oil 10 ml PO QAM Bbip-Qrgr-Vdzdo (vit C-biotin) 50 mg -1,250 mcg Tablet,Chewable 2 tab PO QAM [id number] D3-phosphorus liquid 2 tbsp PO QAM oxycodone 5 mg tablet 5 - 10 mg PO Q6H PRN (Reason: Pain) Rx Instructions: Take 5mg - 10mg by mouth every 6 hours as needed nitrofurantoin monohyd/m-cryst 100 mg capsule 100 mg PO BID Rx Instructions: Start Date 08/05/24 x 5 day supply clopidogrel 75 mg tablet 75 mg PO QPM Admission Data Admit Date/Time: 08/09/24 17:04 Attending Provider: Kory Malone Admit Provider: Kory Malone Primary Care Provider: Josr Peña Other Providers: Dwaine Snow; Hardeep Hernandez; Yoel Izquierdo; Ted Elizalde; Rashi Johnson; Ruben Kaplan Jr; Umesh Pozo; Lachelle Mora; Marichuy Luther; Terrance Berger; Terrance Sosa; Jim Saunders; Sharri Lowery; Anibal Leon; Nohemy Ladd; Anibal Rush; John Palacios; Juan R Mascorro; Nic Liz; [facility] Stay Data Consultations 08/09/24 17:32 Consult Cardiology Routine 08/12/24 07:10 Consult Orthopedic Surgery Routine Diagnostic Imagining Performed 08/09/24 13:23 CT cervical spine wo con Stat CT head/brain wo con Stat CT thoracic spine wo con Stat Coding Diagnoses Pain in left shoulder M25.512 Generalized weakness R53.1 Hypertension I10 Hypertension type: unspecified Lower urinary tract symptoms R39.9 Vitamin B 12 deficiency E53.8 New onset a-fib I48.91
[2024-08-13 15:51] VITALS: PULSE 87
== END 2024-08-13 16:06 | disposition home health service (06) | DRG 554 ==
LOC: ED 11:51 → 2S 17:04
DX: Z88.1 Allergy status to other antibiotic agents; Z87.891 Personal history of nicotine dependence; N39.0 Urinary tract infection, site not specified; I48.91 Unspecified atrial fibrillation; E78.5 Hyperlipidemia, unspecified; I10 Essential (primary) hypertension; M17.11 Unilateral primary osteoarthritis, right knee; Z88.8 Allergy status to other drugs, medicaments and biological substances; M80.08XA Age-related osteoporosis with current pathological fracture, vertebra(e), initial encounter for fracture; R53.1 Weakness; M25.512 Pain in left shoulder; M19.012 Primary osteoarthritis, left shoulder; G89.29 Other chronic pain; Z79.899 Other long term (current) drug therapy; Z66 Do not resuscitate

== ENCOUNTER 2024-09-21 12:40 | Inpatient (IN) ==
--- NOTE | 2024-09-21 13:08 | Emergency Department Note ---
Impression & Plan Acute lumbar radiculopathy, Arthritis of knee, right, Acute back pain, Compression fracture of thoracic vertebra ED Provider Note NAME: NATHALIA PHILLIPS AGE: 79 SEX: F : 1945 ARRIVES VIA: Ambulance INFORMANT: Patient, ED PROVIDER(S): Yoel Poole DO CHIEF COMPLAINT: Back pain HPI: The patient is an 79-year-old female who presented to the emergency department for an evaluation of back pain. The patient noticed lower back pain over the course the last several days. She was seen at a chiropractor. She is noticing some weakness in her right leg as well as some pain behind her right leg. The patient also has noticed that her hand is hurting. She has pain and swelling at the base of her left thumb. The patient denies having any history of gout. She has been taking her outpatient medication without any significant relief of her pain. She called 911 because the pain became severe. ROS: See above HPI for pertinent positives & negatives. A total of 10 systems reviewed and were otherwise negative. PAST MEDICAL HISTORY: See Below PAST SURGICAL HISTORY: See Below FAMILY HISTORY: See Below SOCIAL HISTORY: See Below HOME MEDICATIONS: See Below ALLERGIES: See Below VITALS: See Below PHYSICAL EXAMINATION: GENERAL: Patient is awake alert in no acute distress patient is resting comfortably and showing no signs of anxiety EYES: The conjunctivae are clear. The pupils are round and reactive. EARS, NOSE, MOUTH AND THROAT: The nose is without any evidence of any deformity. NECK: The neck is nontender and supple. RESPIRATORY: Normal respiratory effort is noted there is no evidence of wheezing rhonchi or rales CARDIOVASCULAR: Regular rate and rhythm noted there no murmurs rubs or gallops normal S1 normal S2. GASTROINTESTINAL: The abdomen is soft. Abdomen is nontender. BACK: There is tenderness noted across the lower back. This was including the midline area. Range of motion appears intact but painful. MUSCULOSKELETAL/EXTREMITIES: There is no evidence of gross deformity full range of motion is noted in the hips and shoulders. There is erythema at the base of the left thumb. Range of motion of the left thumb does create pain. SKIN: There is no obvious evidence of any rash. There are no petechiae, pallor or cyanosis noted. NEUROLOGIC: Patient is awake alert and oriented x3. Great toe raise was symmetric. Patellar tendon reflexes were 1+ bilaterally. Patient has pain with extension of the right hip. MEDICAL DECISION MAKING: The patient is an 79-year-old female who presented to the emergency department for an evaluation of back pain. The patient has been experiencing back pain for quite some time. It appears to be worsening and now she is having some difficulty with her right leg. I discussed the patient's laboratory and radiographic studies with her. Because of the leg pain and the patient's age and comorbidities further radiographic studies were obtained including a Doppler of the right leg. She also had some pain at the base of her left thumb. This does have the appearance of possible arthritis. And possibly gout. The patient was treated with pain medication on reevaluation was feeling much better but she still having severe difficulty ambulating. I discussed her condition with her family member who came to be with her. She is not comfortable being discharged to home as she has not been able to ambulate well. She is scheduled for surgery on her right knee they feel that this might help improve her mobility. The [facility] was notified as the patient would not be a great candidate for outpatient management at this time. Triage Nursing notes reviewed. Prior medical records reviewed Vital Signs: reviewed and remarkable for elevated blood pressure. Differential diagnosis: Musculoskeletal, disc herniation, fracture, metastatic disease, cord compression, discitis, sciatica, cauda equina, infection, aortic disease, renal colic, gastrointestinal, as well as other pathologies. ER treatment provided: See below Diagnostics interpreted by me: ECG: EKG was obtained in the emergency department. My interpretation is atrial fibrillation at 101 bpm. There was no PVCs. There was no specific ST segment abnormalities noted. This was compared to a tracing from August 09, 2024. No changes were noted. Cardiac Monitoring: An order was placed for continuous cardiac monitoring. The monitor shows a rate of 82 beats with atrial fibrillation. Laboratory studies: As stated above and show below. Imaging studies: See below. Radiographic imaging was reviewed by myself Consultation(s): I discussed this case with Dr. Marvin who is on-call for the [facility] group. Past Med/Surg History Problem List (Updated 09/21/24 @ 16:27 by Yoel Poole DO) Compression fracture of thoracic vertebra (Acute) Acute back pain (Acute) Arthritis of knee, right (Acute) Acute lumbar radiculopathy (Acute) Encounter for pre-operative examination Osteoarthritis of right knee New onset a-fib (Acute) Closed compression fracture of thoracic vertebra (Acute ~08/09/24) Interval mild vertebral body compression fracture at T12 could be subacute or chronic. Knee pain, right (Acute) Neck pain (Acute) Pain in left shoulder (Acute) Generalized weakness (Acute) Frequent falls Neurologic gait dysfunction Glenohumeral arthritis of child Left shoulder pain (Acute) Leg pain Adverse effect of drug that primarily affects musculoskeletal system S/P Botox injection Urinary incontinence Polyarthralgia Generalized joint pain Bilateral leg weakness (Acute) Abrasion of right forearm Foot drop, right 1st MTP arthritis Atherogenic dyslipidemia Arthritis, midfoot Vitamin B 12 deficiency Lower urinary tract symptoms Olecranon bursitis of left elbow (Acute) Anemia (Chronic) Hearing loss (Chronic) Hemiplegia, flaccid, 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, right (Acute) Venous insufficiency (Acute) Vertebral artery stenosis (Acute) Pancreatic mass Intracranial aneurysm (Chronic) Insomnia (Chronic) Medical History Osteoporosis On anticoagulant therapy Hypertension History of COVID-19 (2021) no hosp; resolved History of recent hospitalization ~08/09/24 at [facility], falls, thoracic compression fx and new onset afib Vertebral artery stenosis - Last seen by Dr Thomas in 2019 - seen for vertebral artery stenosis (50% stenosis bilaterally) which is consistent with locations of her 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 Intracranial vessels per CT scan. No recurrence of aneurysm, no additional aneurysms elsewhere in the brain, and parenchymal changes consistent with prior CVA. She will remain on blood pressure medications to reduce the likelihood of recurrent CVA. 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 Foot drop, right Chronic x years Closed compression fracture of thoracic vertebra (08/09/24) Interval mild vertebral body compression fracture at T12 could be subacute or chronic- under observation Atherogenic dyslipidemia Polyarthralgia Frequent falls History of anemia New onset atrial fibrillation 07/2024 found while hospitalized at [place], no cardio at present Chronic osteoarthritis Depression Glaucoma Liver lesion, left lobe hx- was being monitored, no changes/issues per pt Renal artery stenosis denies Hemiplegia affecting dominant side right side - since intracranial aneurysm rupture/ repair () Surgical History S/P Botox injection bladder, last injection 07/[address] Abilio Prasad, normal, recheck 10 years S/P foot surgery (~2018) S/P brain surgery and early aneurysm at [facility]; repair and early s aneurysm Hx laparoscopic cholecystectomy (03/07/19) Laparoscopic Cholecystectomy - Flavio Arroyo, Endoscopic Retrograde Cholangiopancreatogram - Yoel Swartz MD S/P ERCP S/P laparoscopic cholecystectomy H/O vaginal hysterectomy (01/24/12) Family History Mother Breast cancer Diabetes Aneurysm Father Myocardial infarction Hypertension Heart disease Brother Diabetes Aneurysm Sister Hypertension Aneurysm Other Cerebral aneurysm Denies family history of Colon cancer Ovarian cancer Prostate cancer Social History Smoking Status: Never smoker Tobacco Type: Cigarettes Age Started Using Tobacco: 18; Age Quit Using Tobacco: 29; packs per day: 2.0; Second Hand Exposure: No; Do You Dip or Chew Tobacco: No; Hx Alcohol Use: No Hx Substance Use: No Preferred Language: Faroese Communication Ability: Effective Communication Ability Comment: forgetful at times Visual Impairment: Limited Hearing Ability: Normal Contracting Support Specialist Required: No Beliefs That Will Affect Care: None marital status: Current Living Situation: Family Current Living Situation Comment: lives in upstairs of house, DIL lives in bottom of house current occupational status: retired Feels Safe at Home: Yes Safety Concerns Comment: Has safety bars, cane, shower chair. Does not use stairs. Childhood Exposure to Second-Hand Smoke: No Diet: regular caffeine: Yes (Tea) during the past year weight has: remained stable Dental Care, Regularly: Yes Physical Activity Frequency: Does not Exercise Seatbelt Use: always Sunscreen Use: Yes Assistive Devices: Cane, Denture - Upper, Hearing Aid - Bilateral, Walker and Wheelchair Allergies Allergies Allergy/AdvReac Type Severity Reaction Status Date / Time methocarbamol Allergy Severe felt like Verified 09/19/24 13:12 her throat was closing vancomycin Allergy Mild HIVES Verified 09/19/24 13:12 ciprofloxacin [From Cipro] AdvReac Intermediate Vomiting Verified 09/19/24 13:12 Home Meds Home Medications Medication Instructions Recorded Confirmed cholecalciferol (vitamin D3) 125 125 mcg PO HS 03/10/21 09/21/24 mcg (5,000 unit) capsule timolol maleate 0.5 % eye drops 1 drp OPL QAM 09/16/21 09/21/24 coenzyme Q10 400 mg capsule 400 mg PO QAM 07/10/22 09/21/24 glucosamine-chondroitin 250 mg-200 21 tab PO QAM 07/10/22 09/21/24 mg tablet (Osteo Bi-Flex) vitamin C 50 mg-biotin 1,250 mcg 2 tab PO QAM 07/10/22 09/21/24 chewable tablet (Yllu-Pbax-Jkeqk (vit C-biotin)) vitamin E 268 mg (400 unit) capsule 268 mg PO QAM 07/10/22 09/21/24 Previous Rx's Medication Instructions Recorded syringe with needle 3 mL 23 x 1" #4 ea 11/29/21 (BD Eclipse Luer-Guerita) foot brace #1 ea 02/08/23 magnesium 250 mg tablet 250 mg PO DAILY #30 tabs 05/12/23 potassium chloride 8 mEq 8 meq PO QPM #90 caps 09/14/23 capsule,extended release pantoprazole 40 mg tablet,delayed 40 mg PO QAM #90 tabs 11/28/23 release atorvastatin 40 mg tablet 40 mg PO QPM #90 tabs 04/14/24 amlodipine 5 mg tablet 5 mg PO DAILY #90 tabs 07/04/24 Myrbetriq 50 mg tablet,extended 50 mg PO DAILY #90 tabs 07/15/24 release (mirabegron) acetaminophen 325 mg tablet 650 mg (2 x 325 mg) PO QID #120 08/13/24 tabs calcitonin (salmon) 200 1 spray NA Q24H #3.7 mL 08/13/24 unit/actuation nasal spray tramadol 50 mg tablet 100 mg (2 x 50 mg) PO Q8H PRN 09/06/24 break through pain >6 out of 10 #100 tabs apixaban 2.5 mg tablet (Eliquis) 2.5 mg PO BID 90 days #180 tabs 09/11/24 Results & Data (ED) Vital Signs Vital Signs - 24 hr 09/21/24 12:47 09/21/24 13:03 09/21/24 13:44 Temperature 36.8 C Temperature Source Oral Pulse Rate 96 H 90 96 H Pulse Rate [Left Finger] Pulse Rhythm Regular Regular Pulse Rhythm [Left Finger] Pulse Strength Normal Pulse Strength [Left Finger] Respiratory Rate 20 20 Respiratory Effort / Characteristics Non-Labored Spontaneous Respiratory Depth Normal Respiratory Pattern Regular Blood Pressure 165/114 H Blood Pressure [Left Arm] Blood Pressure Mean 131 Blood Pressure Mean [Left Arm] Blood Pressure Position Sitting Blood Pressure Position [Left Arm] Pulse Oximetry 96 96 Oxygen Delivery Method Room Air Room Air Oxygen Flow Rate Sepsis Recent Fever Within 48 Hours No Sepsis New/Unexplained Change in Mental Status No Sepsis Action Taken by Nursing No Action Required 09/21/24 14:13 09/21/24 16:00 Temperature Temperature Source Pulse Rate Pulse Rate [Left Finger] 106 H 98 H Pulse Rhythm Pulse Rhythm [Left Finger] Irregular Irregular Pulse Strength Pulse Strength [Left Finger] Normal Respiratory Rate 16 21 Respiratory Effort / Characteristics Respiratory Depth Respiratory Pattern Blood Pressure Blood Pressure [Left Arm] 122/86 125/78 Blood Pressure Mean Blood Pressure Mean [Left Arm] 98 93 Blood Pressure Position Blood Pressure Position [Left Arm] Lying Pulse Oximetry 86 L 99 Oxygen Delivery Method Room Air Nasal Cannula Oxygen Flow Rate 2 Sepsis Recent Fever Within 48 Hours Sepsis New/Unexplained Change in Mental Status Sepsis Action Taken by Group Home Medications Current Medication List: was personally reviewed by me Laboratory Data Attestation: I reviewed the patient's lab results. 09/21/24 13:00 09/21/24 13:00 Lab Results 09/21/24 Range/Units 13:00 WBC 8.52 (4.8-10.8) K/ul RBC 3.73 L (4.20-5.40) M/uL Hgb 11.6 L (12.0-16.0) g/dl Hct 34.4 L (37.0-47.0) % MCV 92.2 (80.0-100.0) fL MCH 31.1 (25.0-34.0) pg MCHC 33.7 (32.0-36.0) g/dL RDW Std Deviation 43.8 (36.4-46.3) fL RDW Coeff of Hannah 12.9 (11.5-14.5) % Plt Count 257 (130-400) K/uL MPV 9.7 (9.4-12.4) fL Immature Gran % (Auto) 0.1 % Neut % (Auto) 69.2 % Lymph % (Auto) 18.7 % [place] % (Auto) 10.7 % Eos % (Auto) 0.9 % Baso % (Auto) 0.4 % Neut # (Auto) 5.90 (1.40-6.50) K/uL Lymph # (Auto) 1.59 (1.20-3.40) K/uL [place] # (Auto) 0.91 H (0.11-0.59) K/uL Eos # (Auto) 0.08 (0.00-0.50) K/uL Baso # (Auto) 0.03 (0.00-0.20) K/uL Immature Gran # (Auto) 0.01 (0.01-0.20) K/uL PT 10.9 (9.0-12.0) Seconds INR 1.0 (0.9-1.1) APTT 30 (21-31) Seconds PTT Ratio 1.1 Sodium 136 (136-145) mmol/L Potassium 3.4 L (3.5-5.1) mmol/L Chloride 102 (98-107) mmol/L Carbon Dioxide 26 (21-32) mmol/L Anion Gap 8 (3-11) BUN 24 H (6-23) mg/dl Creatinine 0.64 (0.6-1.2) mg/dl Est Cr Clr Drug Dosing 62.0 ml/min eGFR 88.73 BUN/Creatinine Ratio 37.5 H (10-20) Glucose 124 H (70-99(Fasting)) mg/dl Uric Acid 3.1 (2.6-7.2) mg/dl Calcium 9.0 (8.6-10.3) mg/dl Total Bilirubin 0.6 (0.2-1.0) mg/dl AST 24 (13-39) U/L ALT 16 (7-52) U/L Alkaline Phosphatase 70 (34-104) U/L Troponin I High Sens 4.2 (0-14) pg/ml Total Protein 6.4 (6.0-8.3) gm/dl Albumin 3.6 (3.4-5.0) gm/dl Globulin 2.8 (2.5-4.0) gm/dl Albumin/Globulin Ratio 1.3 (0.9-2) Lipase 13 (11-82) U/L Administered Medications Morphine Sulfate (Morphine Sulfate 4 Mg/Ml 1 Ml Carp\\Vial) 4 mg IV Q15M PRN PRN Reason: Pain Stop: 10/05/24 12:48 Last Admin: 09/21/24 15:23 Dose: 4 mg Documented By: Admin: 09/21/24 13:25 Dose: 4 mg Documented By: EULALIO Discontinued Medications Ondansetron HCl (Ondansetron Inj 2 Mg/Ml 2 Ml Vial) 4 mg IV NOW STA Stop: 09/21/24 12:50 Last Admin: 09/21/24 13:25 Dose: 4 mg Documented By: EULALIO Imaging Data Attestation: I personally reviewed and interpreted this imaging study as follows: My Impression: CT of the lumbar spine was obtained in the emergency department. My interpretation is T12 compression fracture, there was no subluxation in the lumbar spine vertebrae's, final report below. Radiologist's Impression: Lumbar Spine CT 09/21/24 12:49 Clinical history: Pain Technique: Axial computed tomography images were obtained of the lumbar spine without intravenous contrast. Sagittal and coronal reconstructions were obtained Findings: There is a compression fracture of the anteroinferior aspect of the T12 vertebral body, likely old. There is loss of up to 35% of the vertebral body height. There is no retropulsion of bone into the spinal canal. No other fracture is identified. There is scoliosis. No listhesis is seen. There are prominent degenerative endplate changes. No definite focal osseous lesion is evident. There is no definite sign of osteomyelitis At T12-L1, there is a disc bulge without spinal stenosis or definite nerve root compression At L1-2, there is mild spinal stenosis due to a disc bulge and a right paracentral disc herniation that may affect the right L2 nerve root. There is right neural foramen narrowing that may affect the right L1 nerve root At L2-3, there is spinal stenosis due to a disc bulge and a central disc protrusion. There is mild bilateral neural foramen narrowing At L3-4, there is spinal stenosis due to a disc bulge and facet osteoarthritis. There is mild bilateral neural foramen narrowing At L4-5, there is spinal stenosis due to a disc bulge and facet osteoarthritis. There is left greater than right neural foramen narrowing that may affect the left L4 nerve root At L5-S1, no disc herniation is identified. There is no spinal stenosis. The neural foramen are patent There are hepatic and left renal cysts Impression: 1. T12 compression fracture, likely old 2. Scoliosis 3. Spinal stenosis from L1-2 through L4-5 4. Right L1-2 and left L4-5 neural foramen narrowing, which may affect the exiting nerve roots. Less severe neural foramen narrowing is seen at other levels ACT 112: Positive. There are findings on this exam that require communication between the performing entity and the patient following Patient Test Result Information Act ([place] ACT 112) guidelines. Electronically signed by Siddharth Mohr 09-21-2024 13:52 PM Hand X-Ray 09/21/24 12:51 Exam: Left hand Reason for exam: Left hand swelling COMPARISON: None FINDINGS: Severe DJD is seen in the radial aspect of the carpus involving the first carpometacarpal joint with lateral subluxation of the base of the first metacarpal. No erosive or destructive arthropathy is seen. There is some mild mild diffuse soft tissue swelling Otherwise no acute bony process is seen. IMPRESSION: 1. Soft tissue swelling. 2. Severe degenerative joint disease in the radial aspect of the carpus primarily involving the first carpal metacarpal joint. Electronically signed by John Camarena 09-21-2024 2:02 PM Venous Doppler Study 09/21/24 13:00 Clinical History: Pain Technique: Venous ultrasound evaluation was performed utilizing grayscale, color Doppler and wave form evaluation. Images were also obtained with and without compression Findings: The right common femoral, superficial femoral, popliteal, and visualized calf veins demonstrate normal anechoic lumens with full compressibility. Normal flow is seen on color Doppler images. Expected waveforms were produced with augmentation maneuvers Impression: No evidence of right leg deep venous thrombosis Electronically signed by Siddharth Mohr 09-21-2024 2:13 PM Discharge Plan Visit Data Chief Complaint: Back Injury/Pain ED Provider: Yoel Poole Discharge Problem: Acute lumbar radiculopathy, Arthritis of knee, right, Acute back pain, Compression fracture of thoracic vertebra Patient Disposition: Being Evaluated by Hospitalist Condition: Good Forms Stand Alone Forms: My [facility] Prescriptions Prescriptions: No Action (DME) BD Eclipse Luer-Guerita 3 mL 23 x 1" syringe See Rx Instructions .Route Qty: 4 0RF Rx Instructions: As directed (DME) foot brace See Rx Instructions .Route .MEDSUPPLY Qty: 1 0RF Rx Instructions: As directed potassium chloride 8 mEq capsule, extended release 8 meq PO QPM Qty: 90 3RF pantoprazole 40 mg tablet,delayed release (DR/EC) 40 mg PO QAM Qty: 90 3RF atorvastatin 40 mg tablet 40 mg PO QPM Qty: 90 3RF amlodipine 5 mg tablet 5 mg PO DAILY Qty: 90 3RF mirabegron [Myrbetriq] 50 mg tablet extended release 24 hr 50 mg PO DAILY Qty: 90 3RF tramadol 50 mg tablet 100 mg PO Q8H PRN (Reason: break through pain >6 out of 10) Qty: 100 0RF Rx Instructions: Do not exceed 6 tablets per day Eliquis 2.5 mg tablet 2.5 mg PO BID 90 Days Qty: 180 2RF cholecalciferol (vitamin D3) 125 mcg (5,000 unit) capsule 125 mcg PO HS timolol maleate 0.5 % drops 1 drp OPL QAM magnesium 250 mg tablet 250 mg PO DAILY Qty: 30 0RF vitamin E 268 mg (400 unit) Capsule 268 mg PO QAM glucosamine-chondroitin [Osteo Bi-Flex] 250-200 mg Tablet 21 tab PO QAM Rx Instructions: give after food/meal coenzyme Q10 400 mg Capsule 400 mg PO QAM Apfz-Drmi-Ipsnl (vit C-biotin) 50 mg -1,250 mcg Tablet,Chewable 2 tab PO QAM acetaminophen 325 mg Tablet 650 mg PO QID Qty: 120 0RF calcitonin (salmon) 200 unit/actuation [place],Non-Aerosol 1 spray NA Q24H Qty: 3.7 0RF Rx Instructions: one spray each day/ next day alternate nostrils; Referrals Referrals: Josr Peña DO [Primary Care Provider] -
[2024-09-21 13:15] LABS: White Blood Count 8.52 K/ul (4.8-10.8)
[2024-09-21 13:16] LABS: Basophils # (auto) 0.03 K/uL (0.00-0.20); Basophils % (auto) 0.4 %; Eosinophils # (auto) 0.08 K/uL (0.00-0.50); Eosinophils % (auto) 0.9 %; Hematocrit (blood only) 34.4 % (37.0-47.0); Hemoglobin 11.6 g/dl (12.0-16.0); Immature Granulocytes # (auto) 0.01 K/uL (0.01-0.20); Immature Granulocytes % (auto) 0.1 %; Lymphocytes # (auto) 1.59 K/uL (1.20-3.40); Lymphocytes % (auto) 18.7 %; Mean Corpuscular Hemoglobin 31.1 pg (25.0-34.0); Mean Corpuscular Hgb Conc 33.7 g/dL (32.0-36.0); Mean Corpuscular Volume 92.2 fL (80.0-100.0); Mean Platelet Volume 9.7 fL (9.4-12.4); Monocytes # (auto) 0.91 K/uL (0.11-0.59); Monocytes % (auto) 10.7 %; Neutrophils % (auto) 69.2 %; Platelet Count 257 K/uL (130-400); RDW Coefficient of Variation 12.9 % (11.5-14.5); RDW Standard Deviation 43.8 fL (36.4-46.3); Red Blood Count 3.73 M/uL (4.20-5.40)
[2024-09-21] MEDS: MoRPHine SULFATE 4 MG/ML 1 ML CARP\\VIAL IV PRN (13:25)
[2024-09-21] MEDS: ONDANSETRON INJ 2 MG/ML 2 ML VIAL IV STA (13:25)
[2024-09-21 13:33] LABS: Albumin Globulin Ratio 1.3 (0.9-2); Albumin Level 3.6 gm/dl (3.4-5.0); BUN Creatinine Ratio 37.5 (10-20); Bilirubin,Total 0.6 mg/dl (0.2-1.0); Globulin 2.8 gm/dl (2.5-4.0); Potassium 3.4 mmol/L (3.5-5.1); Total Protein 6.4 gm/dl (6.0-8.3); Uric Acid 3.1 mg/dl (2.6-7.2)
[2024-09-21 13:39] LABS: Troponin I High Sensitivity 4.2 pg/ml (0-14)
[2024-09-21 13:43] LABS: Partial Thromboplastin Ratio 1.1; Partial Thromboplastin Time 30 Seconds (21-31); Prothrombin Time 10.9 Seconds (9.0-12.0)
--- NOTE | 2024-09-21 13:53 | CT Scan Report ---
Clinical history: Pain Technique: Axial computed tomography images were obtained of the lumbar spine without intravenous contrast. Sagittal and coronal reconstructions were obtained Findings: There is a compression fracture of the anteroinferior aspect of the T12 vertebral body, likely old. There is loss of up to 35% of the vertebral body height. There is no retropulsion of bone into the spinal canal. No other fracture is identified. There is scoliosis. No listhesis is seen. There are prominent degenerative endplate changes. No definite focal osseous lesion is evident. There is no definite sign of osteomyelitis At T12-L1, there is a disc bulge without spinal stenosis or definite nerve root compression At L1-2, there is mild spinal stenosis due to a disc bulge and a right paracentral disc herniation that may affect the right L2 nerve root. There is right neural foramen narrowing that may affect the right L1 nerve root At L2-3, there is spinal stenosis due to a disc bulge and a central disc protrusion. There is mild bilateral neural foramen narrowing At L3-4, there is spinal stenosis due to a disc bulge and facet osteoarthritis. There is mild bilateral neural foramen narrowing At L4-5, there is spinal stenosis due to a disc bulge and facet osteoarthritis. There is left greater than right neural foramen narrowing that may affect the left L4 nerve root At L5-S1, no disc herniation is identified. There is no spinal stenosis. The neural foramen are patent There are hepatic and left renal cysts Impression: 1. T12 compression fracture, likely old 2. Scoliosis 3. Spinal stenosis from L1-2 through L4-5 4. Right L1-2 and left L4-5 neural foramen narrowing, which may affect the exiting nerve roots. Less severe neural foramen narrowing is seen at other levels ACT 112: Positive. There are findings on this exam that require communication between the performing entity and the patient following Patient Test Result Information Act ([place] ACT 112) guidelines. Electronically signed by Siddharth Mohr 09-21-2024 13:52 PM
--- NOTE | 2024-09-21 14:03 | XRay Report ---
Exam: Left hand Reason for exam: Left hand swelling COMPARISON: None FINDINGS: Severe DJD is seen in the radial aspect of the carpus involving the first carpometacarpal joint with lateral subluxation of the base of the first metacarpal. No erosive or destructive arthropathy is seen. There is some mild mild diffuse soft tissue swelling Otherwise no acute bony process is seen. IMPRESSION: 1. Soft tissue swelling. 2. Severe degenerative joint disease in the radial aspect of the carpus primarily involving the first carpal metacarpal joint. Electronically signed by John Camarena 09-21-2024 2:02 PM
--- NOTE | 2024-09-21 14:14 | Ultrasound Report ---
Clinical History: Pain Technique: Venous ultrasound evaluation was performed utilizing grayscale, color Doppler and wave form evaluation. Images were also obtained with and without compression Findings: The right common femoral, superficial femoral, popliteal, and visualized calf veins demonstrate normal anechoic lumens with full compressibility. Normal flow is seen on color Doppler images. Expected waveforms were produced with augmentation maneuvers Impression: No evidence of right leg deep venous thrombosis Electronically signed by Siddharth Mohr 09-21-2024 2:13 PM
--- NOTE | 2024-09-21 17:22 | History & Physical Report ---
Date of Service September 21, 2024 Assessment & Plan (1) Acute back pain: Plan #Low back pain #Left thumb pain - admit obs with tele - trial of hydrocodone / acetaminophen prn - PT / OT eval - ibuprofen x3 days #Afib - monitor on telemetry - pt not on any rate controlling agent (reports low heart rate ) - cont eliquis #HLD - cont statin #HTN - cont amlodipine History of Present Illness Chief Complaint: low back pain and thumb pain Primary Care Provider: Josr Peña, DO 79 yo F with PMHx of arthritis, AFib, HTN presents to the hospital for the evaluation of low back pain. Pt's daughter in law states that she has had back pain long time but more acutely has worsened. She notices that this is limiting her movement. She was recently prescribed oxycodone but she passed out after taking one dose. She is now on tramadol but that is not helping her. She is having trouble even getting out of bed. She had home PT / OT, but she was discharged from their service given she has upcoming knee surgery (October 04). She also noticed left thumb pain when she woke up this morning. She denied any trauma to the thumb. It is tender to touch but no other symptoms. Workup did reveal arthritis and old T12 fracture (pt and family aware of this previously), scoliosis, spinal stenosis L1-2, L4-5, right L1-2 and left L4-5 neural foramen narrowing. Allergies Allergy/AdvReac Type Severity Reaction Status Date / Time methocarbamol Allergy Severe felt like Verified 09/19/24 13:12 her throat was closing vancomycin Allergy Mild HIVES Verified 09/19/24 13:12 ciprofloxacin [From Cipro] AdvReac Intermediate Vomiting Verified 09/19/24 13:12 Home Medications Medication Instructions Recorded Confirmed Type cholecalciferol (vitamin D3) 125 125 mcg PO HS 03/10/21 09/21/24 History mcg (5,000 unit) capsule timolol maleate 0.5 % eye drops 1 drp OPL QAM 09/16/21 09/21/24 History syringe with needle 3 mL 23 x 1" #4 ea 11/29/21 09/19/24 Rx (BD Eclipse Luer-Guerita) coenzyme Q10 400 mg capsule 400 mg PO QAM 07/10/22 09/21/24 History glucosamine-chondroitin 250 mg-200 21 tab PO QAM 07/10/22 09/21/24 History mg tablet (Osteo Bi-Flex) vitamin C 50 mg-biotin 1,250 mcg 2 tab PO QAM 07/10/22 09/21/24 History chewable tablet (Aurj-Msgx-Bhuuj (vit C-biotin)) vitamin E 268 mg (400 unit) capsule 268 mg PO QAM 07/10/22 09/21/24 History foot brace #1 ea 02/08/23 09/19/24 Rx magnesium 250 mg tablet 250 mg PO DAILY #30 tabs 05/12/23 09/21/24 Rx potassium chloride 8 mEq 8 meq PO QPM #90 caps 09/14/23 09/21/24 Rx capsule,extended release pantoprazole 40 mg tablet,delayed 40 mg PO QAM #90 tabs 11/28/23 09/21/24 Rx release atorvastatin 40 mg tablet 40 mg PO QPM #90 tabs 04/14/24 09/21/24 Rx amlodipine 5 mg tablet 5 mg PO DAILY #90 tabs 07/04/24 09/21/24 Rx Myrbetriq 50 mg tablet,extended 50 mg PO DAILY #90 tabs 07/15/24 09/21/24 Rx release (mirabegron) acetaminophen 325 mg tablet 650 mg (2 x 325 mg) PO QID #120 08/13/24 09/21/24 Rx tabs calcitonin (salmon) 200 1 spray NA Q24H #3.7 mL 08/13/24 09/21/24 Rx unit/actuation nasal spray tramadol 50 mg tablet 100 mg (2 x 50 mg) PO Q8H PRN 09/06/24 09/21/24 Rx break through pain >6 out of 10 #100 tabs apixaban 2.5 mg tablet (Eliquis) 2.5 mg PO BID 90 days #180 tabs 09/11/24 09/21/24 Rx Past Med/Surg History Problem List (Updated 09/21/24 @ 16:27 by Yoel Poole DO) Compression fracture of thoracic vertebra (Acute) Acute back pain (Acute) Arthritis of knee, right (Acute) Acute lumbar radiculopathy (Acute) Encounter for pre-operative examination Osteoarthritis of right knee New onset a-fib (Acute) Closed compression fracture of thoracic vertebra (Acute ~03/21/25) Interval mild vertebral body compression fracture at T12 could be subacute or chronic. Knee pain, right (Acute) Neck pain (Acute) Pain in left shoulder (Acute) Generalized weakness (Acute) Frequent falls Neurologic gait dysfunction Glenohumeral arthritis of child Left shoulder pain (Acute) Leg pain Adverse effect of drug that primarily affects musculoskeletal system S/P Botox injection Urinary incontinence Polyarthralgia Generalized joint pain Bilateral leg weakness (Acute) Abrasion of right forearm Foot drop, right 1st MTP arthritis Atherogenic dyslipidemia Arthritis, midfoot Vitamin B 12 deficiency Lower urinary tract symptoms Olecranon bursitis of left elbow (Acute) Anemia (Chronic) Hearing loss (Chronic) Hemiplegia, flaccid, 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, right (Acute) Venous insufficiency (Acute) Vertebral artery stenosis (Acute) Pancreatic mass Intracranial aneurysm (Chronic) Insomnia (Chronic) Medical History Osteoporosis On anticoagulant therapy Hypertension History of COVID-19 (2021) no hosp; resolved History of recent hospitalization ~08/09/24 at [facility], falls, thoracic compression fx and new onset afib Vertebral artery stenosis - Last seen by Dr Thomas in 2019 - seen for vertebral artery stenosis (50% stenosis bilaterally) which is consistent with locations of her 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 Intracranial vessels per CT scan. No recurrence of aneurysm, no additional aneurysms elsewhere in the brain, and parenchymal changes consistent with prior CVA. She will remain on blood pressure medications to reduce the likelihood of recurrent CVA. 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 Foot drop, right Chronic x years Closed compression fracture of thoracic vertebra (08/09/24) Interval mild vertebral body compression fracture at T12 could be subacute or chronic- under observation Atherogenic dyslipidemia Polyarthralgia Frequent falls History of anemia New onset atrial fibrillation 07/2024 found while hospitalized at [place], no cardio at present Chronic osteoarthritis Depression Glaucoma Liver lesion, left lobe hx- was being monitored, no changes/issues per pt Renal artery stenosis denies Hemiplegia affecting dominant side right side - since intracranial aneurysm rupture/ repair () Surgical History S/P Botox injection bladder, last injection 07/[address] Abilio Prasad, normal, recheck 10 years S/P foot surgery (~2018) S/P brain surgery and early aneurysm at [facility]; repair and early aneurysm Hx laparoscopic cholecystectomy (03/07/19) Laparoscopic Cholecystectomy - Flavio Arroyo DO Endoscopic Retrograde Cholangiopancreatogram - Yoel Swartz MD S/P ERCP S/P laparoscopic cholecystectomy H/O vaginal hysterectomy (01/24/12) Family History Mother Breast cancer Diabetes Aneurysm Father Myocardial infarction Hypertension Heart disease Brother Diabetes Aneurysm Sister Hypertension Aneurysm Other Cerebral aneurysm Denies family history of Colon cancer Ovarian cancer Prostate cancer Social History Smoking Status: Never smoker Tobacco Type: Cigarettes Age Started Using Tobacco: 18; Age Quit Using Tobacco: 29; packs per day: 2.0; Second Hand Exposure: No; Do You Dip or Chew Tobacco: No; Hx Alcohol Use: No Hx Substance Use: No Preferred Language: Maltese Communication Ability: Effective Communication Ability Comment: forgetful at times Visual Impairment: Limited Hearing Ability: Normal Candy Butcher Required: No Beliefs That Will Affect Care: None marital status: Current Living Situation: Family Current Living Situation Comment: lives in upstairs of house, DIL lives in bottom of house current occupational status: retired Feels Safe at Home: Yes Safety Concerns Comment: Has safety bars, cane, shower chair. Does not use stairs. Childhood Exposure to Second-Hand Smoke: No Diet: regular caffeine: Yes (Tea) during the past year weight has: remained stable Dental Care, Regularly: Yes Physical Activity Frequency: Does not Exercise Seatbelt Use: always Sunscreen Use: Yes Assistive Devices: Cane, Denture - Upper, Hearing Aid - Bilateral, Walker and Wheelchair Review of Systems Review of Systems: comprehensive ROS neg Physical Exam Physical Exam: Gen: NAD, lying in bed comfortable HEENT: NC/AT, MMM CVS: s1s2 nl, irregular Lungs: non labored breathing CTAB Abd: soft, nl bowel sounds, non tender : no zaidi Ext: edema b/l LEs, left thumb redness / TTP Neuro: awake, alert, speaking in full sentences Psych: calm Results & Data Results & Data Vital Signs (Past 12 Hours) Vital Signs Temp Pulse Pulse Resp BP BP Pulse Ox 09/21/24 16:00 98 H 21 125/78 99 09/21/24 14:13 106 H 16 122/86 86 L 09/21/24 13:44 96 H 09/21/24 13:03 90 20 96 09/21/24 12:47 36.8 C 96 H 20 165/114 H 96 O2 Del Method O2 Flow Rate 09/21/24 16:00 Nasal Cannula 2 09/21/24 14:13 Room Air 09/21/24 13:44 09/21/24 13:03 Room Air 09/21/24 12:47 Room Air PG Care Time/CCT Total # of Minutes Spent Total Time Spent with Patient: Total time spent is greater than 50% in coordination of care (as documented) at patient's floor/unit and/or counseling patient: Coding Level of Care Code 96032 INT INP/OBS CARE 2/55MIN Diagnoses Acute back pain M54.9
[2024-09-21] MEDS: HYDROCODONE/ACETAMOPHEN 5/325MG TAB PO PRN (21:55)
[2024-09-21] MEDS: IBUPROFEN 200 MG TAB PO SCH (21:56)
[2024-09-21] MEDS: CHOLECALCIFEROL 125 MCG (5,000 UNITS) TAB PO SCH (21:56)
[2024-09-21] MEDS: APIXABAN 2.5 MG TAB PO SCH (21:56)
[2024-09-21] MEDS: ATORVASTATIN 40 MG TAB PO SCH (21:57)
[2024-09-21] MEDS: CALCITONIN SALMON NA 200 IU/AC 3.7 ML BTL SCH (21:57)
[2024-09-22] MEDS ORDERED: ACETAMINOPHEN 325 MG TAB PO PRN (00:03)
[2024-09-22] MEDS ORDERED: LIDOCAINE 5% 1 PATCH TD PRN (00:10)
[2024-09-22 06:28] LABS: Hematocrit (blood only) 33.6 % (37.0-47.0); Hemoglobin 11.2 g/dl (12.0-16.0); Mean Corpuscular Hgb Conc 33.3 g/dL (32.0-36.0); Mean Corpuscular Volume 93.1 fL (80.0-100.0); Mean Platelet Volume 10.2 fL (9.4-12.4); Platelet Count 242 K/uL (130-400); RDW Coefficient of Variation 12.5 % (11.5-14.5); RDW Standard Deviation 43.3 fL (36.4-46.3); Red Blood Count 3.61 M/uL (4.20-5.40); White Blood Count 6.74 K/ul (4.8-10.8)
[2024-09-22 06:51] LABS: Calcium 8.3 mg/dl (8.6-10.3); Magnesium 1.5 mg/dl (1.7-2.4); Phosphorus 3.6 mg/dl (2.5-4.9); Potassium 3.6 mmol/L (3.5-5.1)
[2024-09-22] MEDS: MAGNESIUM SULFATE / D5W 1 GM/100 ML BAG IV SCH (09:01)
[2024-09-22] MEDS: POTASSIUM CHLORIDE / WTR 10 MEQ/100 ML PLCT IV SCH (09:01)
[2024-09-22] MEDS: TIMOLOL MALEATE 0.5% OP SOLN 5 ML BTL OPL SCH (09:03)
[2024-09-22] MEDS: PANTOprazole 40 MG TAB PO SCH (09:03)
[2024-09-22] MEDS: VIBEGRON 75 MG TAB PO SCH (09:03)
--- NOTE | 2024-09-22 09:32 | Electrocardiogram Report ---
Test Reason : Blood Pressure : */* mmHG Vent. Rate : 101 BPM Atrial Rate : * BPM P-R Int : * ms QRS Dur : 94 ms QT Int : 348 ms P-R-T Axes : * -29 92 degrees QTcB Int : 451 ms Atrial fibrillation with rapid ventricular response Septal infarct , age undetermined Low voltage QRS limb leads Abnormal ECG When compared with ECG of 09-Aug-2024 14:01, QT has lengthened Confirmed by Amina Cabrera (N[place]) on 09/22/2024 9:32:02 AM Referred By: Confirmed By: Amina Cabrera
--- NOTE | 2024-09-22 16:19 | Hospitalist Progress Note ---
Date of Service September 22, 2024 Assessment & Plan (1) Acute back pain: Plan #Low back pain - resolving #Left thumb pain - resolving - trial of hydrocodone / acetaminophen prn - PT / OT eval - ibuprofen x3 days #Afib - monitor on telemetry - pt not on any rate controlling agent (reports low heart rate ) - cont eliquis #HLD - cont statin #HTN - cont amlodipine Dispo: pending PT / OT eval Admission and Anticipated Discharge Date Admission Date: September 21, 2024 Subjective Admitted yesterday Pt states that she feels much better today and is able to move better Review of Systems Review of Systems: comprehensive ROS neg Physical Exam Physical Exam: Gen: NAD, lying in bed comfortable HEENT: NC/AT, MMM CVS: s1s2 nl, irregular Lungs: non labored breathing CTAB Abd: soft, nl bowel sounds, non tender : no zaidi Ext: edema b/l LEs, left thumb redness / TTP (swelling improved and tenderness also improved) Neuro: awake, alert, speaking in full sentences Psych: calm Results & Data Results & Data Vital Signs (Past 12 Hours) Vital Signs Temp Pulse Pulse Resp BP Pulse Ox O2 Del Method 09/22/24 15:33 36.8 C 85 16 142/76 H 95 Room Air 09/22/24 15:24 94 H 09/22/24 11:41 36.7 C 88 16 108/69 94 Room Air 09/22/24 07:59 82 09/22/24 07:55 36.6 C 92 H 20 125/77 93 Room Air PG Care Time/CCT Total # of Minutes Spent Total Time Spent with Patient: Total time spent is greater than 50% in coordination of care (as documented) at patient's floor/unit and/or counseling patient: Coding Level of Care Code 76394 SUB INP/OBS CARE 2/35MIN Diagnoses Acute back pain M54.9
[2024-09-23 09:21] LABS: Calcium 9.1 mg/dl (8.6-10.3); Creatinine Clr Calc Pharmacy 45.1 ml/min
--- NOTE | 2024-09-23 18:41 | Hospitalist Progress Note ---
Date of Service September 23, 2024 Assessment & Plan (1) Acute back pain: Plan #Low back pain - resolving #Left thumb pain - resolving - trial of hydrocodone / acetaminophen prn - PT / OT eval - ibuprofen x3 days -Pain appears better controlled. #Afib - monitor on telemetry - pt not on any rate controlling agent (reports low heart rate ) - cont eliquis #HLD - cont statin #HTN - cont amlodipine Dispo: pending PT / OT eval Admission and Anticipated Discharge Date Admission Date: September 23, 2024 Subjective Patient reports no new symptoms. Her pain is better controlled. Physical Exam Physical Exam: Gen: NAD, lying in bed comfortable HEENT: NC/AT, MMM CVS: s1s2 nl, irregular Lungs: non labored breathing CTAB Abd: soft, nl bowel sounds, non tender : no zaidi Ext: edema b/l LEs Neuro: awake, alert, speaking in full sentences Psych: calm Results & Data Results & Data Vital Signs (Past 12 Hours) Vital Signs Temp Pulse Pulse Pulse Resp BP Pulse Ox 09/23/24 15:39 36.5 C 93 H 16 123/78 97 09/23/24 14:26 74 09/23/24 12:00 36.6 C 88 20 126/80 98 09/23/24 07:54 09/23/24 07:46 36.5 C 86 21 132/78 95 09/23/24 07:00 82 O2 Del Method 09/23/24 15:39 Room Air 09/23/24 14:26 09/23/24 12:00 Room Air 09/23/24 07:54 Room Air 09/23/24 07:46 Room Air 09/23/24 07:00 PG Care Time/CCT Total # of Minutes Spent Total Time Spent with Patient: Total time spent is greater than 50% in coordination of care (as documented) at patient's floor/unit and/or counseling patient: Coding Level of Care Code 29883 SUB INP/OBS CARE 2/35MIN Diagnoses Acute back pain M54.9
[2024-09-24 03:59] VITALS: O2SAT 96
[2024-09-24 05:55] LABS: Hematocrit (blood only) 34.3 % (37.0-47.0); Hemoglobin 11.3 g/dl (12.0-16.0); Mean Corpuscular Hemoglobin 30.5 pg (25.0-34.0); Mean Corpuscular Hgb Conc 32.9 g/dL (32.0-36.0); Mean Corpuscular Volume 92.5 fL (80.0-100.0); Mean Platelet Volume 10.1 fL (9.4-12.4); Platelet Count 256 K/uL (130-400); RDW Coefficient of Variation 12.6 % (11.5-14.5); RDW Standard Deviation 42.8 fL (36.4-46.3); Red Blood Count 3.71 M/uL (4.20-5.40); White Blood Count 6.34 K/ul (4.8-10.8)
[2024-09-24 06:16] LABS: BUN Creatinine Ratio 33.8 (10-20); Calcium 8.6 mg/dl (8.6-10.3); Creatinine Clr Calc Pharmacy 51.6 ml/min; Potassium 3.9 mmol/L (3.5-5.1)
[2024-09-24] MEDS: POLYETHYLENE (MIRALAX) 17 GM PACK PO SCH (09:49)
[2024-09-24 14:58] VITALS: RESP 20; TEMP 98.2
[2024-09-24 17:26] VITALS: BP 149/86; PULSE 93
[2024-09-24 18:19] LABS: Appearance Urine Clear (Clear); Bacteria Urine Automated None Seen (None Seen); Bilirubin Urine Negative (Negative); Blood Urine Negative (Negative); Cast Urine Automated 0-2 /lpf (0-2); Color Urine Yellow; Epithelial Cell Urine Auto 0-2 /hpf (0-2); Glucose Urine UA Negative (Negative); Ketones Urine Negative (Negative); Leukocyte Esterase Urine Negative (Negative); Nitrite Urine Negative (Negative); Protein Urine 1+ (Negative); RBC Urine Automated 0-2 /hpf (0-2); Specific Gravity Urine 1.019 (1.000-1.030); Urobilinogen Urine Negative (Negative); WBC Urine Automated 0-5 /hpf (0-5); pH Urine 6.5 (4.5-7.5)
== END 2024-09-24 18:22 | DRG 552 ==
LOC: SUATTDRO → ED 12:40 → 2N 12:40 → SUATTDRO 17:09 → 2N 20:55

== ENCOUNTER 2024-10-04 10:29 | Observation (INO) ==
--- NOTE | 2024-08-26 08:57 | PAT Medication Instructions ---
Medication Instructions Date of Service August 26, 2024 Home Medications Medication Instructions Recorded syringe with needle 3 mL 23 x 1" #4 ea 11/29/21 (BD Eclipse Luer-Guerita) foot brace #1 ea 02/08/23 magnesium 250 mg tablet 250 mg PO DAILY #30 tabs 05/12/23 potassium chloride 8 mEq 8 meq PO QPM #90 caps 09/14/23 capsule,extended release pantoprazole 40 mg tablet,delayed 40 mg PO QAM #90 tabs 11/28/23 release atorvastatin 40 mg tablet 40 mg PO QPM #90 tabs 04/14/24 amlodipine 5 mg tablet 5 mg PO DAILY #90 tabs 07/04/24 Myrbetriq 50 mg tablet,extended 50 mg PO DAILY #90 tabs 07/15/24 release (mirabegron) acetaminophen 325 mg tablet 650 mg (2 x 325 mg) PO QID #120 08/13/24 tabs apixaban 2.5 mg tablet (Eliquis) 2.5 mg PO BID #60 tabs 08/13/24 calcitonin (salmon) 200 1 spray NA Q24H #3.7 mL 08/13/24 unit/actuation nasal spray tramadol 50 mg tablet 50 mg PO Q8H PRN break through 08/13/24 pain >6 out of 10 #14 tabs cholecalciferol (vitamin D3) 125 mcg (5,000 unit) capsule 125 mcg PO HS timolol maleate 0.5 % eye drops 1 drp OPL QAM coenzyme Q10 400 mg capsule 400 mg PO QAM glucosamine-chondroitin 250 mg-200 mg tablet (Osteo Bi-Flex) 21 tab PO QAM vitamin C 50 mg-biotin 1,250 mcg chewable tablet (Chnk-Exhg-Zruwf (vit C- biotin)) 2 tab PO QAM vitamin E 268 mg (400 unit) capsule 268 mg PO QAM magnesium 250 mg tablet 250 mg PO DAILY potassium chloride 8 mEq capsule,extended release 8 meq PO QPM pantoprazole 40 mg tablet,delayed release 40 mg PO QAM atorvastatin 40 mg tablet 40 mg PO QPM amlodipine 5 mg tablet 5 mg PO DAILY Myrbetriq 50 mg tablet,extended release (mirabegron) 50 mg PO DAILY acetaminophen 325 mg tablet 650 mg (2 x 325 mg) PO QID apixaban 2.5 mg tablet (Eliquis) 2.5 mg PO BID calcitonin (salmon) 200 unit/actuation nasal spray 1 spray NA Q24H tramadol 50 mg tablet 50 mg PO Q8H PRN break through pain >6 out of 10 Continue as directed amlodipine 5 mg tablet 5 mg PO DAILY calcitonin (salmon) 200 unit/actuation nasal spray 1 spray NA Q24H (unless surgeon directs otherwise) ASK your prescriber and surgeon apixaban 2.5 mg tablet (Eliquis) 2.5 mg PO BID STOP taking 2 weeks before surgery coenzyme Q10 400 mg capsule 400 mg PO QAM glucosamine-chondroitin 250 mg-200 mg tablet (Osteo Bi-Flex) 21 tab PO QAM vitamin C 50 mg-biotin 1,250 mcg chewable tablet (Bgvs-Yjxt-Lejrv (vit C- biotin)) 2 tab PO QAM vitamin E 268 mg (400 unit) capsule 268 mg PO QAM DO NOT take the morning of surgery magnesium 250 mg tablet 250 mg PO DAILY Myrbetriq 50 mg tablet,extended release (mirabegron) 50 mg PO DAILY Take morning of surgery With a small sip of water, OTHERWISE NOTHING TO EAT OR DRINK AFTER MIDNIGHT: timolol maleate 0.5 % eye drops 1 drp OPL QAM pantoprazole 40 mg tablet,delayed release 40 mg PO QAM acetaminophen 325 mg tablet 650 mg (2 x 325 mg) PO QID tramadol 50 mg tablet 50 mg PO Q8H PRN break through pain >6 out of 10 (if needed) Take evening before surgery cholecalciferol (vitamin D3) 125 mcg (5,000 unit) capsule 125 mcg PO HS potassium chloride 8 mEq capsule,extended release 8 meq PO QPM atorvastatin 40 mg tablet 40 mg PO QPM acetaminophen 325 mg tablet 650 mg (2 x 325 mg) PO QID tramadol 50 mg tablet 50 mg PO Q8H PRN break through pain >6 out of 10 (if needed) Other Notes If you have any questions please call us at [phone] or [phone] or [phone] or [phone]
--- NOTE | 2024-08-30 13:09 | Anesthesiology Consultation ---
Date of Service August 30, 2024 Assessment & Plan (1) Encounter for pre-operative examination: Chart Review Chart Review: Acceptable Risk for Surgery (pending cardio clearance ) and Patient seen in Pre Admission Testing - Discussed with Dr Heart- recommended cardio clearance- cardio clearance scheduled with [facility] 09/19/24 at 1300- patient's daughter confirmed they can make appt. Awaiting cardio clearance 09/19/24 Oxycodone cause lethargy- tolerate Tramadol the best (low dose) - Patient is NOT an OPJ candidate (currently 23 hour obs) Per PAT appt on 08/30/24, no recent illness/disease exposures, illness related symptoms, or recent illness/disease positive tests. 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 Ultrasound of her carotid arteries prior to today's appointment demonstrates no significant stenosis of her bilateral internal carotid arteries. 2 areas of plaque of approximately 50% stenosis in her vertebral arteries bilaterally which is consistent with the locations of her previous old dissections. These appear to be stable and there are no changes from the previous ultrasounds performed a year and 6 months before that. Plan is to have the patient return to office on an as-needed basis. At this point her vertebral artery dissections noted 2 years ago appear to be essentially stable and show no signs of worsening. She does not require regular surveillance of this. Recommend she either continue on baby aspirin daily or her Plavix, which ever she prefers. Patient states she would prefer to continue on Plavix. Teaching & Discussion Pre-Anesthesia Teaching/Discussion Notes: Instructed NPO after midnight before surgery,except medications with 15 cc of water. Medication instructions provided according to the PAT guidelines. History Surgery Operation Date: 10/04/24 11:00 Proposed Procedures p Right Total Knee Arthroplasty - Nic Liz, DO Height/Weight Height: 5 ft 2 in Weight: 58.1 kg Allergies Allergy/AdvReac Type Severity Reaction Status Date / Time methocarbamol Allergy Severe felt like Verified 08/23/24 13:30 her throat was closing vancomycin Allergy Mild HIVES Verified 08/23/24 13:30 ciprofloxacin [From Cipro] AdvReac Intermediate Vomiting Verified 08/23/24 13:30 Medications Home Medications Medication Instructions Recorded Confirmed Last Taken cholecalciferol (vitamin D3) 125 125 mcg PO HS 03/10/21 08/23/24 11/13/22 mcg (5,000 unit) capsule timolol maleate 0.5 % eye drops 1 drp OPL QAM 09/16/21 08/23/24 08/08/24 syringe with needle 3 mL 23 x 1" #4 ea 11/29/21 08/21/24 Unknown (BD Eclipse Luer-Guerita) coenzyme Q10 400 mg capsule 400 mg PO QAM 07/10/22 08/23/24 11/14/22 glucosamine-chondroitin 250 mg-200 21 tab PO QAM 07/10/22 08/23/24 11/14/22 mg tablet (Osteo Bi-Flex) vitamin C 50 mg-biotin 1,250 mcg 2 tab PO QAM 07/10/22 08/23/24 11/14/22 chewable tablet (Pxyb-Znak-Imflg (vit C-biotin)) vitamin E 268 mg (400 unit) capsule 268 mg PO QAM 07/10/22 08/23/24 08/08/24 foot brace #1 ea 02/08/23 08/21/24 Unknown magnesium 250 mg tablet 250 mg PO DAILY #30 tabs 05/12/23 08/23/24 Unknown potassium chloride 8 mEq 8 meq PO QPM #90 caps 09/14/23 08/23/24 08/08/24 capsule,extended release pantoprazole 40 mg tablet,delayed 40 mg PO QAM #90 tabs 11/28/23 08/23/24 08/09/24 release atorvastatin 40 mg tablet 40 mg PO QPM #90 tabs 04/14/24 08/23/24 08/08/24 amlodipine 5 mg tablet 5 mg PO DAILY #90 tabs 07/04/24 08/23/24 08/09/24 Myrbetriq 50 mg tablet,extended 50 mg PO DAILY #90 tabs 07/15/24 08/23/24 08/09/24 release (mirabegron) acetaminophen 325 mg tablet 650 mg (2 x 325 mg) PO QID #120 08/13/24 08/23/24 Unknown tabs apixaban 2.5 mg tablet (Eliquis) 2.5 mg PO BID #60 tabs 08/13/24 08/23/24 Unknown calcitonin (salmon) 200 1 spray NA Q24H #3.7 mL 08/13/24 08/23/24 Unknown unit/actuation nasal spray tramadol 50 mg tablet 50 mg PO Q8H PRN break through 08/28/24 Unknown pain >6 out of 10 #14 tabs Past Medical History Medical History (Updated 09/02/24 @ 09:52 by Opal Dunne PA-C) Atherogenic dyslipidemia Chronic osteoarthritis Chronic pain Closed compression fracture of thoracic vertebra (08/09/24) Interval mild vertebral body compression fracture at T12 could be subacute or chronic- under observation Depression Foot drop, right Chronic x years Frequent falls Glaucoma Hemiplegia affecting dominant side right side - since intracranial aneurysm rupture/ repair () History of anemia History of COVID-19 (2021) no hosp; resolved History of intracranial aneurysm - rupture 1969's ([facility]) and mid s - s/p left ICA aneurysm clipping x 2 - per cardio record 11/25/22 "Mild peripheral arterial disease. Intracranial vessels per CT scan. No recurrence of aneurysm, no additional aneurysms elsewhere in the brain, and parenchymal changes consistent with prior CVA. She will remain on blood pressure medications to reduce the likelihood of re current CVA. 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 Liver lesion, left lobe hx- was being monitored, no changes/issues per pt Neurologic gait dysfunction New onset atrial fibrillation 07/2024 found while hospitalized at [facility], no cardio at present On anticoagulant therapy Osteoporosis Pancreatic mass remote hx, benign cyst Polyarthralgia Renal artery stenosis denies Urinary incontinence getting bladder Botox 08/06/2024 Venous insufficiency Vertebral artery stenosis - Last seen by Dr Thomas in 2019 - seen for vertebral artery stenosis (50% stenosis bilaterally) which is consistent with locations of her previous old vertebral artery dissections; per vascular- follow PRN due to stability of dissections x 2 years - Patient had been on Plavix but recently discontinued when Eliquis started for a fib Exercise / Class Metabolic Activity III < 4 Walking/Shop/Light housework (no chest pain or SOB with short distance, flat surface ambulation- uses walker or wheelchair to ambulate ) Past Family History Family History Mother Breast cancer Diabetes Aneurysm Father Myocardial infarction Hypertension Heart disease Brother Diabetes Aneurysm Sister Hypertension Aneurysm Other Cerebral aneurysm Denies family history of Colon cancer Ovarian cancer Prostate cancer Past Surgical History Surgical History H/O vaginal hysterectomy (01/24/12) History of colonoscopy Dr. Abilio Prasad, normal, recheck 10 years Hx laparoscopic cholecystectomy (03/07/19) Laparoscopic Cholecystectomy - Flavio Arroyo, DO Endoscopic Retrograde Cholangiopancreatogram - Yoel Swartz MD S/P Botox injection bladder, last injection 07/2024 S/P brain surgery and early aneurysm at [facility]; repair and early aneurysm S/P ERCP S/P foot surgery (~2017) S/P laparoscopic cholecystectomy Past Anesthesia History No Hx of Anesthesia Complications and No Family Hx of Anesthesia Complications History of PONV No Hx of PONV and No Hx of Motion Sickness Social History Smoking Status: Former smoker Do You Dip or Chew Tobacco: No Smoking End Date: quit in her early s Hx Alcohol Use: No Hx Substance Use: No substance use type: does not use Review of Systems - Reflux- well controlled and stable - Hx of blood transfusion in 1970s- due to ruptured aneurysm Patient denies chest pain, shortness of breath, dyspnea on exertion, reflux, cough, wheezing, palpitations. No hx of seizures, stroke, [place], apnea/snoring. No hx of blood clots Physical Exam Constitutional no acute distress ENMT Mouth: no TMJ clicking Thyromental Distance: > or= 3.5 Finger Breadths (3.5) Mallampati Class: III Full upper denture Missing bottom side teeth and molars Neck + limited neck extension Respiratory normal respiratory effort; no respiratory distress Auscultation: lungs clear to auscultation bilaterally; no wheezes Cardiovascular Heart Sounds: no murmur Vessels: no carotid bruit Irregularly irregular Musculoskeletal Spine: no pain with cervical ROM Extremities: extremities normal to inspection Psychiatric Orientation: alert Lab Results Anesthesia Preop Results Results Anesthesia Widget: WBC 7.53 K/ul (4.8-10.8) 08/30/24 Hgb 12.8 g/dl (12.0-16.0) 08/30/24 Hct 39.7 % (37.0-47.0) 08/30/24 Plt 290 K/uL (130-400) 08/30/24 Na 141 mmol/L (136-145) 08/30/24 K 4.3 mmol/L (3.5-5.1) 08/30/24 Cl 106 mmol/L (98-107) 08/30/24 CO2 29 mmol/L (21-32) 08/30/24 BUN 27 mg/dl (6-23) H 08/30/24 Creat 0.67 mg/dl (0.6-1.2) 08/30/24 Glucose Level 94 mg/dl (70-99(Fasting)) 08/30/24 PT 10.9 Seconds (9.0-12.0) 08/30/24 PTT 29 Seconds (21-31) 08/30/24 INR 1.0 (0.9-1.1) 08/30/24 TSH 2.867 uIu/ml (0.300-4.500) 08/09/24 Urine Color Yellow 08/09/24 Urine Appearance Clear (Clear) 08/09/24 Urine pH 6.5 (4.5-7.5) 08/09/24 Urine Specific [place] 1.013 (1.000-1.030) 08/09/24 Urine Protein 1+ (Negative) H 08/09/24 Urine Glucose (UA) Negative (Negative) 08/09/24 Urine Ketones Negative (Negative) 08/09/24 Urine Blood Negative (Negative) 08/09/24 Urine Nitrite Negative (Negative) 08/09/24 Urine Bilirubin Negative (Negative) 08/09/24 Urine Urobilinogen Negative (Negative) 08/09/24 Urine Leukocyte Esterase Trace (Negative) H 08/09/24 Urine WBC (Auto) 0-5 /hpf (0-5) 08/09/24 Urine RBC (Auto) 0-2 /hpf (0-2) 08/09/24 Urine Hyaline Casts (Auto) 0-2 /lpf (0-2) 08/09/24 Urine Epithelial Cells (Auto) 0-2 /hpf (0-2) 08/09/24 Urine Bacteria (Auto) None Seen (None Seen) 08/09/24 Blood Type O Positive 08/30/24 Antibody Screen NEGATIVE 08/30/24 Testing Electrocardiogram Date: 08/09/24 Findings: + AFIB @ (78bpm) Minimal voltage criteria for LVH, may be normal variant Chest X-Ray Date: 08/09/24 FINDINGS: Stable mild cardiomegaly without pulmonary vascular congestion. No effusion, consolidation, or pneumothorax. IMPRESSION: No acute findings. Echocardiogram Date: 04/28/22 EF: 55-60% LV Function: normal RWMA: + none Other Findings: + diastolic dysfunction (Class II ); no LVH Normal chamber dimensions Trace to mild AR. Trace MR. Trace TR When compared to ECHO of March 04, 2019- there has been no significant change Stress Test Date: 09/06/22 Type: nuclear Myocardial perfusion imaging findings: 1. Raw data analysis demonstrates mildly increased liver uptake and mild breast attenuation. Good quality study. 2. Gated myocardial perfusion imaging demonstrates normal EF calculated at 82% and normal wall motion. The ventricular size is also normal. 3. There is a small to medium in size, mild intensity, fixed MPI defect involving the distal anteroseptal, distal anterior, and distal lateral myocardium but sparing the apex. This finding is most consistent with breast attenuation artifact. Myocardial infarction is less likely but cannot be excluded. There is no evidence of Lexiscan induced myocardial ischemia. 4. Mildly abnormal study (likely secondary to artifact) which is considered low risk for myocardial ischemia. No prior studies for comparison. Recommend discuss findings with cardiology. Other Testing Thoracic Spine CT 08/09/24= Interval mild vertebral body compression fracture at T12 could be subacute or chronic. Suggest clinical correlation for point tenderness. No other acute fracture seen of the thoracic spine. Head CT 08/09/24= No acute intracranial findings. No change in appearance of the brain. Stable postoperative findings. No calvarial fractures. Head CTA 11/14/22= Metallic densities adjacent to the distal left internal carotid artery consistent with aneurysm clipping or coiling, unchanged. No residual aneurysm is identified. There is an area of encephalomalacia measuring roughly 3-4 cm in the inferior aspect of the left frontal lobe and adjacent left temporal lobe consistent with old infarct, unchanged. Carotid doppler 10/31/22= <50% stenosis of right and left ICAs. Antegrade flow to vertebral arteries, bilaterally
--- NOTE | 2024-10-02 07:49 | History & Physical Report ---
Date of Service October 02, 2024 Assessment & Plan (1) Arthritis of knee, right: We will proceed with a right total knee arthroplasty. Postoperatively, she will be started on aspirin and Plavix for DVT prophylaxis and will be kept overnight in the hospital for postop medical management.. She wants to look into possibly going to rehab upon discharge. History of Present Illness Chief Complaint: Osteoarthritis of the right knee. Primary Care Provider: Josr Peña DO Lund is a pleasant 79-year-old female who has been dealing with chronic increasing right knee pain. X-rays and clinical exam have been diagnostic for osteoarthritis of the right knee. After failing conservative treatment, including multiple injections, she has elected to proceed with a right total knee arthroplasty.. Allergies Allergy/AdvReac Type Severity Reaction Status Date / Time methocarbamol Allergy Severe felt like Verified 09/19/24 13:12 her throat was closing vancomycin Allergy Mild HIVES Verified 09/19/24 13:12 ciprofloxacin [From Cipro] AdvReac Intermediate Vomiting Verified 09/19/24 13:12 Home Medications Medication Instructions Recorded Confirmed Type cholecalciferol (vitamin D3) 125 125 mcg PO HS 03/10/21 09/21/24 History mcg (5,000 unit) capsule timolol maleate 0.5 % eye drops 1 drp OPL QAM 09/16/21 09/21/24 History syringe with needle 3 mL 23 x 1" #4 ea 11/29/21 09/19/24 Rx (BD Eclipse Luer-Guerita) coenzyme Q10 400 mg capsule 400 mg PO QAM 07/10/22 09/21/24 History glucosamine-chondroitin 250 mg-200 21 tab PO QAM 07/10/22 09/21/24 History mg tablet (Osteo Bi-Flex) vitamin C 50 mg-biotin 1,250 mcg 2 tab PO QAM 07/10/22 09/21/24 History chewable tablet (Frll-Ysmb-Nmnew (vit C-biotin)) vitamin E 268 mg (400 unit) capsule 268 mg PO QAM 07/10/22 09/21/24 History foot brace #1 ea 02/08/23 09/19/24 Rx magnesium 250 mg tablet 250 mg PO DAILY #30 tabs 05/12/23 09/21/24 Rx potassium chloride 8 mEq 8 meq PO QPM #90 caps 09/14/23 09/21/24 Rx capsule,extended release pantoprazole 40 mg tablet,delayed 40 mg PO QAM #90 tabs 11/28/23 09/21/24 Rx release atorvastatin 40 mg tablet 40 mg PO QPM #90 tabs 04/14/24 09/21/24 Rx amlodipine 5 mg tablet 5 mg PO DAILY #90 tabs 07/04/24 09/21/24 Rx Myrbetriq 50 mg tablet,extended 50 mg PO DAILY #90 tabs 07/15/24 09/21/24 Rx release (mirabegron) acetaminophen 325 mg tablet 650 mg (2 x 325 mg) PO QID #120 08/13/24 09/21/24 Rx tabs calcitonin (salmon) 200 1 spray NA Q24H #3.7 mL 08/13/24 09/21/24 Rx unit/actuation nasal spray tramadol 50 mg tablet 100 mg (2 x 50 mg) PO Q8H PRN 09/06/24 09/21/24 Rx break through pain >6 out of 10 #100 tabs apixaban 2.5 mg tablet (Eliquis) 2.5 mg PO BID 90 days #180 tabs 09/11/24 09/21/24 Rx lidocaine 5 % topical patch 1 patch transdermal QAM PRN pain 09/24/24 Rx (scale score 4-6) #1 ea Past Med/Surg History Problem List Compression fracture of thoracic vertebra (Acute) Acute back pain (Acute) Arthritis of knee, right (Acute) Acute lumbar radiculopathy (Acute) Osteoarthritis of right knee New onset a-fib (Acute) Closed compression fracture of thoracic vertebra (Acute ~08/09/24) Interval mild vertebral body compression fracture at T12 could be subacute or chronic. Knee pain, right (Acute) Neck pain (Acute) Pain in left shoulder (Acute) Generalized weakness (Acute) Frequent falls Neurologic gait dysfunction Glenohumeral arthritis of child Left shoulder pain (Acute) Leg pain Adverse effect of drug that primarily affects musculoskeletal system S/P Botox injection Urinary incontinence Polyarthralgia Generalized joint pain Bilateral leg weakness (Acute) Abrasion of right forearm Foot drop, right 1st MTP arthritis Atherogenic dyslipidemia Arthritis, midfoot Vitamin B 12 deficiency Lower urinary tract symptoms Olecranon bursitis of left elbow (Acute) Anemia (Chronic) Hearing loss (Chronic) Hemiplegia, flaccid, 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, right (Acute) Venous insufficiency (Acute) Vertebral artery stenosis (Acute) Pancreatic mass Intracranial aneurysm (Chronic) Insomnia (Chronic) Medical History Osteoporosis On anticoagulant therapy Hypertension History of COVID-19 (2021) no hosp; resolved History of recent hospitalization ~08/09/24 at [facility], falls, thoracic compression fx and new onset afib Vertebral artery stenosis - Last seen by Dr Thomas in 2019 - seen for vertebral artery stenosis (50% stenosis bilaterally) which is consistent with locations of 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 Intracranial vessels per CT scan. No recurrence of aneurysm, no additional aneurysms elsewhere in the brain, and parenchymal changes consistent with prior CVA. She will remain on blood pressure medications to reduce the likelihood of recurrent CVA. 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 Foot drop, right Chronic x years Closed compression fracture of thoracic vertebra (08/09/24) Interval mild vertebral body compression fracture at T12 could be subacute or chronic- under observation Atherogenic dyslipidemia Polyarthralgia Frequent falls History of anemia New onset atrial fibrillation 07/2024 found while hospitalized [facility], no cardio at present Chronic osteoarthritis Depression Glaucoma Liver lesion, left lobe hx- was being monitored, no changes/issues per pt Renal artery stenosis denies Hemiplegia affecting dominant side right side - since intracranial aneurysm rupture/ repair () Surgical History S/P Botox injection bladder, last injection 07/[address] Abilio Prasad, normal, recheck 10 years S/P foot surgery (~2018) S/P brain surgery and early aneurysm at [facility]; repair and early s aneurysm Hx laparoscopic cholecystectomy (03/07/19) Laparoscopic Cholecystectomy - Flavio Arroyo, DO Endoscopic Retrograde Cholangiopancreatogram - Yoel Swartz MD S/P ERCP S/P laparoscopic cholecystectomy H/O vaginal hysterectomy (01/24/12) Family History Mother Breast cancer Diabetes Aneurysm Father Myocardial infarction Hypertension Heart disease Brother Diabetes Aneurysm Sister Hypertension Aneurysm Other Cerebral aneurysm Denies family history of Colon cancer Ovarian cancer Prostate cancer Social History Smoking Status: Former smoker Tobacco Type: Cigarettes Age Started Using Tobacco: 18; Age Quit Using Tobacco: 29; packs per day: 2.0; Smoking End Date: quit in her early 's; Second Hand Exposure: No; Do You Dip or Chew Tobacco: No; Tobacco Cessation Education Requested by Patient: No Hx Alcohol Use: No Hx Substance Use: No Preferred Language: Irish Communication Ability: Effective Communication Ability Comment: forgetful at times Visual Impairment: Limited Hearing Ability: Normal Bus Steward Required: No Beliefs That Will Affect Care: None marital status: Current Living Situation: Family Current Living Situation Comment: lives in upstairs of house, DIL lives in bottom of house current occupational status: retired Other Information That Helps Us Care for You: No Feels Safe at Home: Yes Safety Concerns: Feels Safe At This Time Safety Concerns Comment: Has safety bars, cane, shower chair. Does not use stairs. Childhood Exposure to Second-Hand Smoke: No Diet: regular caffeine: Yes (Tea) during the past year weight has: remained stable Dental Care, Regularly: Yes Physical Activity Frequency: Does not Exercise Seatbelt Use: always Sunscreen Use: Yes Assistive Devices: Cane, Crutches, Walker and Wheelchair Review of Systems All systems reviewed & are unremarkable except as noted in HPI & below. Physical Exam On physical exam of the right knee, she has a slight valgus deformity. Tenderness palpation of the distal lateral femoral condyle and over the lateral joint line.. Constitutional WD/WN, vitals as above Eyes PERRL, conjunctivae normal, anicteric sclerae ENMT external ear and nose normal, oropharynx normal Neck trachea midline, no thyromegaly Respiratory normal respiratory effort Cardiovascular RRR, no murmur, no edema Gastrointestinal (Abdomen) normal bowel sounds, soft, nontender, no hepatosplenomegaly Psychiatric A+Ox3, euthymic affect Results & Data Results & Data Laboratory Results . Diagnostic Findings X-rays of the right knee show osteoarthritis with some joint space narrowing and osteophyte formation.. PG Care Time/CCT Total # of Minutes Spent Total Time Spent with Patient: Total time spent is greater than 50% in coordination of care (as documented) at patient's floor/unit and/or counseling patient: Coding Level of Care Code None Diagnoses Arthritis of knee, right M17.11
[~2024-10-04 10:29] MED LIST changes: -ASCO500T3 PO; -ASPI-320 PO; -B-COTAB18 PO; -CHOLCAP5 PO; -LISI-461 PO; -MELA1TAB18 PO; -PLV75 PO; +ROPIVACAINE 0.5% 5 MG/ML 30 ML VIAL ONE; -TIMO0.5S2 OP; -TPRSR/100 PO; -WHEAOIL4 PO
[2024-10-04] MEDS ORDERED: fentaNYL citrate PF 100 MCG/2 ML VIAL ONE ×2 (10:33→12:25)
[2024-10-04] MEDS ORDERED: MIDAZOLAM HCL 1 MG/ML 2ML VIAL ONE (10:33)
[2024-10-04] MEDS: FAMOTIDINE 20 MG TAB PO SCH (10:34)
[2024-10-04] MEDS: LR 60ML/HR IV SCH (10:34)
[2024-10-04] MEDS: dexAMETHasone**PF** 10 MG/ML VIAL IV SCH (10:34)
[2024-10-04] MEDS: ACETAMINOPHEN 500 MG TAB PO SCH ×2 (10:34→15:39)
[2024-10-04] MEDS: GABAPENTIN 300 MG CAP PO SCH (10:34)
[2024-10-04] MEDS: LACTATED RINGER'S 1,000 ML IV SCH (11:07)
--- NOTE | 2024-10-04 11:13 | History & Physical Bridge Note ---
Date of Service October 04, 2024 History & Physical Bridge Note I have examined the patient, reviewed the History & Physical and in the interval since the performance of the History & Physical I have noted the following changes of clinical significance: no changes noted
[2024-10-04] MEDS ORDERED: ePHEDrine sulfate 50 MG/ML AMP IV PRN (11:28)
[2024-10-04] MEDS ORDERED: ONDANSETRON INJ 2 MG/ML 2 ML VIAL IV PRN ×2 (11:28→14:40)
[2024-10-04] MEDS ORDERED: HYDROmorphone INJ 1 MG/ML SYRINGE IV PRN (11:28)
[2024-10-04] MEDS ORDERED: ATROPINE SULFATE 0.1 MG/ML 10ML SYR IV PRN (11:28)
[2024-10-04] MEDS: TRANEXAMIC ACID 1,000 MG **IV Pre-op IV SCH (12:02)
[2024-10-04] MEDS: ceFAZolin 2000MG 2,000 MG/15 ML SYR IV SCH (12:05)
[2024-10-04] MEDS ORDERED: ONDANSETRON INJ 2 MG/ML 2 ML VIAL ONE (12:13)
[2024-10-04] MEDS ORDERED: PROPOFOL IV EMULSION 10 MG/ML 20 ML VIAL IV ONE ×2 (12:13→12:25)
[2024-10-04] MEDS ORDERED: LIDOCAINE 2% 2 ML VIAL/AMP(20MG/ML) INFIL ONE (12:13)
[2024-10-04] MEDS ORDERED: PHENYLEPHRINE 100MCG/ML 10ML SYR IV ONE (12:20)
[2024-10-04] MEDS ORDERED: LABETALOL HCL IV 5 MG/ML 20ML IV ONE (12:31)
[2024-10-04] MEDS: ROPIV 0.5% 246mg, Ketorolac 30mg, EPINEPHrine 0.5mg in NSS INFIL SCH (12:34)
[2024-10-04] MEDS: ORTHO JOINT ANESTHETIC ONE (12:34)
[2024-10-04] MEDS: TRANEXAMIC ACID 1,000 MG **IV Intra-op IV SCH (12:55)
[2024-10-04] MEDS: fentaNYL citrate PF 100 MCG/2 ML VIAL IV PRN (13:37)
--- NOTE | 2024-10-04 13:40 | Operative Report ---
PG Post Operative Report Pre & Post Diagnosis Operation Date: 10/04/24 12:00 Pre-Op Diagnosis: Right Knee Osteoarthritis Post-Op Diagnosis: Right Knee Osteoarthritis I identified the patient and participated in the time-out.: Yes Procedure Operation Date: 10/04/24 12:00 Actual Procedures p Right Total Knee Arthroplasty(Right) - Nic Liz DO Surgeon Nic Liz DO Physicist [employer] Azam Cole PA-C Estimated Blood Loss 50 Findings Consistent with Post-Op Diagnosis Specimens Right femoral tibial bone Description of Procedure Implants used: I used a Pankaj Persona total knee arthroplasty system with a size 4 standard CR femur, C tibia, 28 oval patella, and a size 10 medial congruent polyethylene bearing. All components were cemented in place with Biomet cement. Ashely arrived [facility] for the above procedure. She was seen in the preoperative holding area and the operative extremity was identified and signed. She was given a preoperative antibiotic, TXA, a spinal anesthetic and an adductor nerve block. She was taken back to the operating room and laid on the table in supine position. She was given basic sedation. The operative knee was then prepped and draped in sterile fashion. A timeout was done, and the patient and the operative extremity was properly identified. A midline incision was made directly over the patella. Dissection was taken down to the extensor mechanism. A medial parapatellar arthrotomy was used. The medial retinaculum was released and the fat pad was mostly excised. The knee was flexed and the ACL, PCL, and meniscus were removed. A drill was sent down the center of the femoral canal followed by an intramedullary bobo. Off that bobo a distal femoral cutting block was placed. 9 mm was resected off the distal femur at 5 of valgus. A posterior referencing AP sizing guide was then placed on the distal femur. The femur measured to be a size 4. 2 drill holes were placed in 3 of external rotation. A 4-in-1 cutting block was then impacted into place. Anterior, posterior, and chamfer cuts were then made. The proximal tibia was then exposed. An external tibial alignment guide was placed. A tibial cut guide was then anchored in place and the proximal tibia was then resected. The posterior aspect of the knee was then opened up and any additional meniscus fragments and osteophytes were removed. The tibia measured to be a size C. The tibial plate was then placed in the appropriate rotation and the tibia was drilled and punched. Trial components were then placed. I used a size 10 medial congruent polyethylene insert. The knee was brought through a full range of motion and felt to be stable. The peg holes for the femoral component were then drilled. The patella was then everted and 9 mm was resected off the posterior aspect of the patella. The patella measured to be a size 28 oval. 3 peg holes were then drilled. A trial patella was placed. The knee was once again brought through a full range of motion and felt to be stable. Trial components were then removed. The surrounding soft tissues were injected with 100 cc of an orthopedic pain control cocktail. All components were then cemented into place with Biomet cement. The final polyethylene insert was then snapped into place. Once cement was dry the tourniquet was deflated. Hemostasis was obtained. A dilute betadyne lavage was then done for 3 minutes. The joint was then irrigated with normal saline solution. The medial parapatellar arthrotomy was then closed with #1 Vicryl suture. The skin was closed with 2-0 Vicryl, 3-0V lock suture, and chante. A soft compressive dressing was placed. She was then transferred to a hospital bed and taken to the postanesthesia care unit in stable condition. She tolerated the procedure well. Azam Cole PA-C, was present for the entire procedure. He was critical for patient positioning, prepping, draping, retraction exposure, wound closure and application of sterile dressing. I attest to the content of the Intraoperative Record and any orders documented therein. Any exceptions are noted below.
--- NOTE | 2024-10-04 13:55 | XRay Report ---
XR knee RT 1 or 2V routine CLINICAL HISTORY: Surgical Post Op COMPARISON: 07/26/2024 FINDINGS: Right knee prosthesis shows no hardware complication. There is expected soft tissue gas. S kin chante are present. IMPRESSION: Unremarkable postoperative exam. ACT 112: Negative or not required by law. Electronically signed by: John Cee M.D. 10/04/2024 1:54 PM
--- NOTE | 2024-10-04 14:13 | Anesthesiology Progress Note ---
Date of Service October 04, 2024 Anesthesia Post Procedure Vital Signs Vital Signs: Temp Pulse Pulse Resp BP BP Pulse Ox 10/04/24 14:10 36.5 C 81 19 147/81 H 100 10/04/24 14:00 87 21 142/85 H 95 10/04/24 13:50 80 16 154/96 H 100 10/04/24 13:40 78 12 145/90 H 94 10/04/24 13:30 82 22 175/94 H 100 10/04/24 13:22 37.2 C 86 19 178/97 H 96 10/04/24 11:30 85 18 162/103 H 98 10/04/24 10:29 36.8 C 98 H 20 174/100 H 95 O2 Del Method O2 Flow Rate 10/04/24 14:10 Nasal Cannula 2 10/04/24 14:00 Nasal Cannula 3 10/04/24 13:50 Nasal Cannula 3 10/04/24 13:40 Nasal Cannula 3 10/04/24 13:30 Oxymask 7 10/04/24 13:22 Oxymask 7 10/04/24 11:30 Room Air 10/04/24 10:29 Room Air Pain Intensity Right Knee: Pain Intensity: 4 Transfer of Care Handoff Completed per policy Notes Mental Status: alert / awake / arousable and participated in evaluation Patient Amnestic to Procedure: Yes Nausea / Vomiting: adequately controlled Pain: adequately controlled Airway Patency, RR, SpO2: stable & adequate BP & HR: stable & adequate Hydration State: stable & adequate Anesthetic Complications: no major complications apparent and Pt Satisfied with anesthetic care
[2024-10-04] MEDS ORDERED: bisacodyL 10 MG SUPP PR PRN (14:40)
[2024-10-04] MEDS ORDERED: METOCLOPRAMIDE HCL INJ 5 MG/ML 2 ML VIAL IV PRN (14:40)
[2024-10-04] MEDS ORDERED: MAGNESIUM HYDROXIDE SUSP 30 ML UDC PO PRN (14:40)
[2024-10-04] MEDS ORDERED: NALOXONE HCL 0.4 MG/1 ML VIAL/CARP IV PRN (14:40)
[2024-10-04] MEDS: KETOROLAC TROMETHAMINE 15 MG/ML VIAL IV SCH (15:39)
[2024-10-04] MEDS: SODIUM CHLORIDE 0.9% 1,000 ML IV SCH (15:40)
[2024-10-04] MEDS: ATORVASTATIN 40 MG TAB PO SCH (20:10)
[2024-10-04] MEDS: ceFAZolin 1000MG 1,000 MG/7.5 ML SYR IV SCH (20:10)
[2024-10-04] MEDS: SENNA 8.6 MG TAB PO SCH (20:11)
[2024-10-04] MEDS: DOCUSATE SODIUM 100 MG CAP PO SCH (20:11)
[2024-10-05] MEDS: APIXABAN 2.5 MG TAB PO SCH (07:28)
[2024-10-05] MEDS: dexAMETHasone 4 MG TAB PO SCH (07:29)
[2024-10-05] MEDS: MULTIVITAMIN TAB PO SCH (07:29)
[2024-10-05] MEDS: amLODIPine BESYLATE 5 MG TAB PO SCH (07:29)
[2024-10-05] MEDS: VIBEGRON 75 MG TAB PO SCH (07:30)
[2024-10-05] MEDS: PANTOprazole 40 MG TAB PO SCH (07:30)
--- NOTE | 2024-10-05 08:22 | Orthopedic Progress Note ---
Date of Service October 05, 2024 Assessment & Plan (1) Status post right knee replacement: Overall she is doing fairly well. She is not having much pain in the right knee. She will be seen by physical therapy today for ambulation and range of motion exercises. The nursing staff can change her dressing after physical therapy. She is on Eliquis for DVT prophylaxis. She lives alone and was hoping for discharge to a rehab facility. She is orthopedically stable for discharge when a bed becomes available. Deirdre Lund was seen and examined at bedside this morning. Overall she is doing very well. She is not having much pain in the right knee. She has been up and ambulating to the bathroom. She has no complaints.. Review of Systems All systems reviewed & are unremarkable except as noted in HPI & below. Physical Exam On physical exam of the right knee, the dressing is clean and dry. She is sitting in a chair at bedside. She is neurovascular intact.. Results & Data Results & Data Laboratory Results . Diagnostic Findings Postoperative x-rays of the right knee show the prosthesis to be in anatomic alignment without any evidence of fracture complication, or loosening.. PG Care Time/CCT Total # of Minutes Spent Total Time Spent with Patient: Total time spent is greater than 50% in coordination of care (as documented) at patient's floor/unit and/or counseling patient: Coding Level of Care Code 85254 Post Operative Follow-Up Diagnoses Status post right knee replacement Z96.651
[2024-10-05] MEDS: oxyCODONE HCL IR 5 MG TAB (IMMEDIATE RELEASE) PO PRN (08:50)
[2024-10-05] MEDS: HYDROmorphone INJ 0.5 MG/0.5 ML SYR IV PRN (22:15)
[2024-10-05 22:18] VITALS: TEMP 97.9; O2SAT 96
[2024-10-06 07:00] VITALS: BP 180/101; PULSE 86; RESP 16
--- NOTE | 2024-10-06 07:34 | Orthopedic Progress Note ---
Date of Service October 06, 2024 Assessment & Plan (1) Status post right knee replacement: Overall she is doing fairly well. She is not having much pain in the right knee. She will be seen by physical therapy today for ambulation and range of motion exercises. She is on aspirin for DVT prophylaxis. She plans to be discharged to [facility] later this morning. She will follow-up with orthopedics in 2 weeks. Deirdre Lund was seen and examined at bedside this morning. Overall she is doing fairly well. She has some soreness in her knee but she worked well yesterday with physical therapy. She has no new complaints.. Review of Systems All systems reviewed & are unremarkable except as noted in HPI & below. Physical Exam On physical exam of the right knee, the dressing has been changed. She is sitting at the edge of her bed with her knee flexed at 90 degrees.. Results & Data Results & Data Laboratory Results . Diagnostic Findings . PG Care Time/CCT Total # of Minutes Spent Total Time Spent with Patient: Total time spent is greater than 50% in coordination of care (as documented) at patient's floor/unit and/or counseling patient: Coding Level of Care Code 76937 Post Operative Follow-Up Diagnoses Status post right knee replacement Z96.651
--- NOTE | 2024-10-06 07:35 | Discharge Summary ---
Date of Service October 06, 2024 Admission HPI (Per Admitting) Ashely is a pleasant 79-year-old female who has been dealing with chronic increasing right knee pain. X-rays and clinical exam have been diagnostic for osteoarthritis of the right knee. After failing conservative treatment, including multiple injections, she has elected to proceed with a right total knee arthroplasty.. Admission Exam (Per Admitting) On physical exam of the right knee, she has a slight valgus deformity. Tenderness palpation of the distal lateral femoral condyle and over the lateral joint line.. Principal Diagnosis Same as "Discharge Diagnosis" noted below under Discharge Instructions. Discharge Exam On physical exam of the right knee, the dressing has been changed. She is sitting at the edge of her bed with her knee flexed at 90 degrees.. Discharge Data Procedures Performed Operation Date: 10/04/24 12:00 Actual Procedures p Right Total Knee Arthroplasty(Right) - Nic Liz DO Ordered Studies 10/04/24 05:00 US - OR guided needle placemen Routine Hospital Course (1) Status post right knee replacement: On October 04, 2024 Ashely arrived at [facility] and underwent a right knee replacement without complication. She had a spinal anesthetic. Postoperatively, she was started on aspirin for DVT prophylaxis and transferred to the general orthopedic floors. Her hospital course was uneventful. On postop day #1, her vital signs were stable and her pain was well-controlled. She was able to participate well with physical therapy doing ambulation and range of motion exercises. On postop day #2. She was a little bit hypertensive but she was asymptomatic. She was able to get up and ambulate with the staff. She was then discharged to [facility]. She will follow-up with orthopedics in 2 weeks. PG Care Time/CCT Total # of Minutes Spent Total Time Spent with Patient: Total time spent is greater than 50% in coordination of care (as documented) at patient's floor/unit and/or counseling patient: Discharge Plan Discharge Items Patient Disposition: Transfer Inpatient Rehab Fac Reason For Visit: RIGHT TOTAL KNEE Discharge Diagnosis: Right knee replacement Activity: Per Instructions section Non-emergency contact: Surgeon Call non-emergency contact if: your wound has increased redness and your wound has increased drainage Follow-up/Referrals: Josr Peña DO [Primary Care Provider] - Diet: Regular Addtl Attending Provider Instructions: Activity and Therapy Recommendations: * If you are using [facility] then therapy will be provided at your home until they feel you have accomplished all of your goals. * If you are using [facility] then Physical Therapy will be provided until they feel you are ready to start Outpatient Physical Therapy. * If you are not using home therapy then Outpatient Physical Therapy should start about 3-5 days from your day of surgery. Therapy will last about 6-10 weeks * It is important not to put a pillow under your knee when you are relaxing or sleeping. It is just as important to make sure you are getting your knee perfectly straight as it is to regain your knee bend. * You were shown a series of exercises in the hospital. Do these exercises three times each day including the exercises you were shown in physical therapy. * Get up and walk several times each day. For the first four weeks, try not to stand or walk for more than one hour at a time. If you do stand or walk for more than one hour, you will not hurt anything, but your leg will likely swell. * As you feel comfortable, you may change from the walker or crutches to a cane and then to independent walking. Medications: * Narcotic You will likely be sent home from the hospital with a prescription for the narcotic pain medication that worked best throughout your stay. * Cefadroxil -take the antibiotic twice a day for 10 days to help prevent infection. * Continue taking your Eliquis as prescribed. * Other medications may be prescribed for specific circumstances. If you have any questions, please call the office at . * Resume previous home medications unless otherwise instructed TEDs/Elastic Stockings: The white elastic stockings help limit swelling and prevent blood clots from forming in your legs.~ The more you wear them, the more they work. Wear them for 2 weeks. Dressing Care: The dressing can be changed after physical therapy on postop day #1. Daily dry dressing changes for a few days, especially if the incision is still draining some. If the incision is not draining then you may leave the chante open to air. If there is a little bit of drainage or if the chante are getting stuck on your clothing then cover the incision with a dry dressing. The chante will be removed at your 2 week follow-up appointment. Showering: You may shower 5 days from the day of surgery as long as the incision is no longer draining. You may shower with the chante exposed. Let soapy water run over the chante and pat them dry. Do not scrub or soak the incision. Diet: You may resume your previous diet. Things To Watch For: * Drainage from the incision site that occurs more than one week after your surgery. * Increased redness at the incision site. * Fever above 102 degrees Fahrenheit. * Unusual chest pain or shortness of breath. * Call [facility] at with any of the above problems Follow-Up Visit: Follow-up with Dr. Liz's office 2-3 weeks after your day of surgery. We will remove your chante and answer any questions. If you have any additional questions or concerns, Dr Liz is usually in the office at the same time and will be available An appointment was probably scheduled when you signed-up for surgery in the office. If you have any questions call Office Instructions: More detailed instructions as well as Frequently Asked Questions were provided in a folder by our office when you signed-up for surgery. Please review these instructions when you get home. If you have any further questions or concerns, please feel free to call the office at [phone] Pending Studies at Discharge: No Stand-Alone Forms: My [facility] Skilled Items Patient informed of condition?: Yes DNR: No Discharge Level of Care: Acute rehab Communicable Disease: No Discharge Prognosis: Improving Lines: None Urinary Catheter: No Medications and DC Order Prescriptions: New cefadroxil 500 mg capsule 500 mg PO BID 10 Days Qty: 20 0RF oxycodone 5 mg tablet 5 mg PO Q6H PRN (Reason: pain) Qty: 30 0RF Continued (DME) BD Eclipse Luer-Guerita 3 mL 23 x 1" syringe See Rx Instructions .Route Qty: 4 0RF Rx Instructions: As directed (DME) foot brace See Rx Instructions .Route .MEDSUPPLY Qty: 1 0RF Rx Instructions: As directed potassium chloride 8 mEq capsule, extended release 8 meq PO QPM Qty: 90 3RF pantoprazole 40 mg tablet,delayed release (DR/EC) 40 mg PO QAM Qty: 90 3RF atorvastatin 40 mg tablet 40 mg PO QPM Qty: 90 3RF amlodipine 5 mg tablet 5 mg PO DAILY Qty: 90 3RF mirabegron [Myrbetriq] 50 mg tablet extended release 24 hr 50 mg PO DAILY Qty: 90 3RF tramadol 50 mg tablet 100 mg PO Q8H PRN (Reason: break through pain >6 out of 10) Qty: 100 0RF Rx Instructions: Do not exceed 6 tablets per day Eliquis 2.5 mg tablet 2.5 mg PO BID 90 Days Qty: 180 2RF cholecalciferol (vitamin D3) 125 mcg (5,000 unit) capsule 125 mcg PO HS timolol maleate 0.5 % drops 1 drp OPL QAM magnesium 250 mg tablet 250 mg PO DAILY Qty: 30 0RF vitamin E 268 mg (400 unit) Capsule 268 mg PO QAM glucosamine-chondroitin [Osteo Bi-Flex] 250-200 mg Tablet 21 tab PO QAM Rx Instructions: give after food/meal coenzyme Q10 400 mg Capsule 400 mg PO QAM Gpwt-Ezjq-Osyld (vit C-biotin) 50 mg -1,250 mcg Tablet,Chewable 2 tab PO QAM lidocaine 5 % Adhesive Patch,Medicated 1 patch transdermal QAM PRN (Reason: pain (scale score 4-6)) Qty: 1 0RF acetaminophen 325 mg Tablet 650 mg PO QID Qty: 120 0RF calcitonin (salmon) 200 unit/actuation [place],Non-Aerosol 1 spray NA Q24H Qty: 3.7 0RF Rx Instructions: one spray each day/ next day alternate nostrils; Admission Data Admit Date/Time: 10/04/24 14:40 Attending Provider: Nic Liz Admit Provider: Nic Liz Primary Care Provider: Josr Peña Other Providers: [facility],[place]
== END 2024-10-06 11:56 ==
LOC: ASU 10:29 → 3E 10:29